=== PATIENT | female | born 1955 | race Caucasian/White ===

== ENCOUNTER 2022-06-05 11:20 | Emergency (ER) | payer OTHER ==
--- OUTSIDE RECORDS SUMMARY | 2022-06-05 11:24 | XMS REPORT | Clinical Summary ---
:1955 Author Organization [facility] MD [facility] Address [address] [place] [address] Care Team Providers Name Role Phone Rabia Mayer Unavailable Amado Diamond APN Primary Care Provider Yfn Whittaker MD Unavailable [phone] Allergies Active Allergy Reactions Severity Noted Date Comments Adhesive 05/06/2022 Blistered from clear sticky tape. No proble ms with bandaids or whi te medical tape. Codeine Nausea And Vomiting 05/26/2015 Hydrocodone Nausea And Vomiting 05/26/2015 Morphine Nausea And Vomiting 08/12/2020 Tramadol Nausea And Vomiting 05/26/2015 Medications Medication Sig Dispensed Refills Start Date End Date Status atorvastatin Take 10 mg by 0 01/27/2021 Ac tive (LIPITOR) 10 mg mouth at tablet bedtime. metoprolol Take 1 tablet 0 02/16/2022 Acti ve tartrate by mouth twice (LOPRESSOR) 50 mg daily. tablet UNABLE TO FIND Take 1 capsule 0 Active by mouth daily. Med Name: Prevagen Extra Strength aspirin 81 mg Chew 81 mg. 0 Acti ve chewable tablet tamoxifen Take 1 tablet 90 tablet 3 06/01/2022 Activ e (NOLVADEX) 20 mg (20 mg) by tabletIndications: mouth daily. 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 2 (Sto p Taking at Discharge) naproxen sodium Take 220 mg by 0 Discontinued (ALEVE) 220 MG mouth as 2 (Stop Taking at tablet needed for Discharge ) mild pain. UNABLE TO FIND Take 1 tablet 0 D iscontinued by mouth twice 2 (Stop Taking at daily. Med Discharge ) Name: Viviscal acetaminophen Take 2 tablets 40 tablet 0 05/06/2022 (TylenoL) 325 mg (650 mg) by 2 tabletIndications: mouth every 6 Ductal carcinoma (six) hours in situ, solid for 5 days. type of breast, NOS <Female; Left> ibuprofen Take 1 tablet 15 tablet 0 05/06/2022 Expir ed (ADVIL,MOTRIN) 600 (600 mg) by 2 mg mouth every 8 tabletIndications: (eight) hours Ductal carcinoma for 5 days. in situ, solid type of breast, NOS <Female; Left> nystatin Apply 30 g 0 05/06/2022 (MYCOSTATIN) topically to 2 100,000 units/g affected ointmentIndication area(s) 3 s: Ductal (three) times carcinoma in situ, a day for 7 solid type of days. breast, NOS <Female; Left> fluconazole Take 1 tablet 5 tablet 0 05/07/2022 Exp ired (Diflucan) 100 mg (100 mg) by 2 tabletIndications: mouth daily Ductal carcinoma for 5 days. 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; Left> Cancer Staging: Clinical stage from 02/22: Stage 0 (cTis (DCIS), cN0, cM0, ER+, VT+, HER2: Not Assessed) - Signed by RANDY Spencer on 03/31/2022 Pathologic stage from 05/06/2022: Stage 0 (pTis (DCIS), pN0(sn), cM0, ER+, VT+, HER2: Not Assessed) - Signed by RANDY Spencer on 05/18/2022 Encounters Date Type Specialty Care Team Description 06/01/2022 Consult Breast Medical Jerry, Nicol, Ductal c arcinoma Oncology MD in situ, solid type of breast, NOS <Female; Le ft> (Primary Dx) 06/01/2022 Office Visit Breast Surgical Kimmy Del Castillo MD Ductal c arcinoma Oncology in situ, solid type of breast, NOS <Female; Le ft> 06/01/2022 Travel 05/26/2022 Clinical Support Breast Surgical Amado Diamond, Oncology TREATING ENGINEERCris Parham RN 05/26/2022 Orders Only Breast Surgical Nina Loya, 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, solid type of breast, NOS <Female; Le ft> (Primary Dx) 05/26/2022 Travel 05/23/2022 Telephone Breast Medical Dean Box Oncology P, RN 05/23/2022 Telephone Breast Surgical Nina Loya Oncology PA 05/20/2022 Clinical Support Breast Surgical Amado Diamond, Oncology TREATING ENGINEERChirag Britton RN 05/20/2022 Travel 05/20/2022 Orders Only Breast Surgical Nina Loya, 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, solid type of breast, NOS <Female; Le ft> (Primary Dx) 05/16/2022 Telephone Breast Surgical Nina Loya, Oncology PA 05/10/2022 Telephone Breast Surgical Nina Loya, Oncology PA 05/06/2022 Anesthesia Event King Guardado MD Garcia, Miguel, BETH 05/06/2022 Surgery Kimmy Del Castillo MD TOTAL MASTE CTOMY 05/06/2022 Hospital Encounter Radiology Nina Loya PA 05/06/2022 Hospital Encounter Head and Neck Kimmy Del Castillo MD Duct al carcinoma in situ, solid type of breast, NOS <Female; Left> (Primary Dx); - Surgery pTis: Ductal ca rcinoma in situ (breast) <Left side> 05/07/2022 05/06/2022 Travel 05/05/2022 Ancillary Procedure Radiology Nina Loya PA 05/05/2022 Consult Plastic Surgery Avni, Ductal carci danis Penn MD in situ, s olid type of breast, NOS <Female; Le ft> 05/05/2022 Ancillary Procedure Radiology Nina Loya PA 05/05/2022 Ancillary Procedure Radiology Nina Loya, Ducta l carcinoma PA in situ, solid type of breast, NOS <Female; Le ft> 05/05/2022 Anesthesia Event Anesthesiology Bethanie Reilly MA 05/05/2022 Travel 05/04/2022 Consult Internal Medicine Nina Loya, Ductal carcinoma PA in situ, solid OhThony MD type of breast , NOS <Female; Le ft> 05/04/2022 POEM Appointments Anesthesiology Amado Diamond, Pre-s tanika TREATING ENGINEER evaluation 05/04/2022 Office Visit Breast Surgical Kimmy Del Castillo MD Ductal c arcinoma Oncology in situ, solid type of breast, NOS <Female; Le ft> 05/04/2022 Ancillary Procedure Radiology Nina Loya, Ducta l carcinoma PA in situ, solid type of breast, NOS <Female; Le ft> 05/04/2022 Hospital Encounter Lab Nina Loya, Ductal carcinoma PA in situ, solid type of breast, NOS <Female; Le ft> 05/04/2022 Clinical Support CovNina Vasquez, Suspecte d COVID-19 (Primary Dx); PA pTis: Ductal carcinoma in situ (breast) <Left side> Gemma Soliz, SHERRIE 05/04/2022 Travel 03/31/2022 Orders Only Breast Surgical Nina Loya, 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, solid type of breast, NOS <Female; Le ft> (Primary Dx) 03/31/2022 Orders Only Breast Surgical Nina Loya, 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, solid type of breast, NOS <Female; Le ft> (Primary Dx) 03/31/2022 Prep for Surgery Breast Surgical Nina Loya, pTis: Ductal Oncology PA carcinoma in si tu (breast) <Left side> (Primary Dx) 03/14/2022 Consult Breast Surgical Kimmy Del Castillo MD pTis: Du ctal Oncology carcinoma in si tu (breast) <Left side> 03/14/2022 Travel 03/09/2022 Telephone Breast Undiagnosed Amado Diamond APN 03/04/2022 Hospital Encounter Radiology Mammograp hy abnormal 03/04/2022 Travel 02/24/2022 Ancillary Procedure Radiology Amado Diamond, Dolores morales TREATING ENGINEER 02/24/2022 Ancillary Procedure Radiology Amado Diamond L, Cance r TREATING ENGINEER 02/24/2022 Ancillary Procedure Radiology Amado Diamond, Cance r TREATING ENGINEER 02/24/2022 Ancillary Procedure Radiology Amado Diamond L, Cance r TREATING ENGINEER 02/24/2022 Ancillary Procedure Radiology Amado Diamond L, Cance r TREATING ENGINEER 02/24/2022 Ancillary Procedure Radiology Amado Diamond, Cance r TREATING ENGINEER 02/24/2022 Ancillary Procedure Radiology Amado Diamond L, Cance r TREATING ENGINEER 02/24/2022 Ancillary Procedure Radiology Amado Diamond, Cance r TREATING ENGINEER 02/24/2022 Ancillary Procedure Radiology Amado Diamond, Cance r TREATING ENGINEER 02/24/2022 Ancillary Procedure Radiology Amado Diamond, Cance r TREATING ENGINEER 02/24/2022 Ancillary Procedure Radiology Amado Diamond, Cance r TREATING ENGINEER 02/24/2022 Ancillary Procedure Radiology Amado Diamond, Cance r TREATING ENGINEER 02/24/2022 Telephone Radiology Hollis Bustillos RN 02/23/2022 Orders Only Cancer Prevention Amado Diamond, TREATING ENGINEER 02/22/2022 Ancillary Procedure Radiology Amado Diamond, Cance r TREATING ENGINEER 02/22/2022 Clinical Support Breast Undiagnosed Amado Diamond, TREATING ENGINEER 02/22/2022 Hospital Encounter Radiology Yamileth Figueroa, Other abnormal and SIGN LANGUAGE INTERPRETER inconclusive findings on diagnostic imag ing of breast 02/22/2022 Hospital Encounter Radiology Alonzo Figueroai, Other abnormal and SIGN LANGUAGE INTERPRETER inconclusive findings on diagnostic imag ing of breast 02/22/2022 Office Visit Breast Undiagnosed Amado Diamond, Mammog gin TREATING ENGINEER abnormal (Prima ry Dx) 02/22/2022 [facility] Patient Access Services 02/22/2022 Travel 02/11/2022 Orders Only Cancer Prevention Yamileth Figueroa, Other a bnormal and SIGN LANGUAGE INTERPRETER inconclusive findings on diagnostic imag ing of breast (Prim pierce Dx) after 06/05/2021 Immunizations Name Administration Dates Next Due Influenza, Quadrivalent 07/17/2020, 07/31/2019 Moderna SARS-CoV-2 Vaccination 08/06/2021, 12/25/2020, 11/27 Surgical History Surgery Date Site/Laterality Comments TOTAL KNEE ARTHROPLASTY Right TOTAL ABDOMINAL HYSTERECTOMY 09/25/2001 - W/ BILATERAL 09/24/2002 SALPINGOOPHORECTOMY BREAST CYST ASPIRATION 09/25/2020 - Right 09/24/2021 COLONOSCOPY 09/25/2017 - benign polyps 09/24/2018 CRYOTHERAPY abnormal pap sme ar in 1986 - no furthe r problems with ab normal pap smears VT MASTECTOMY, SIMPLE, 05/06/2022 Breast/Left Procedure : TOTAL COMPLETE MASTECTOMY; Surg camilla: Kimmy Del Castillo MD; Location: MAIN [facility] R; Service: BREAST VT INTRAOPERATIVE SENTINEL 05/06/2022 Left Proce dure: LYMPH NODE ID W DYE INJECTION IN TRAOPERATIVE LYMPHATIC MAPPING; Surgeon : Kimmy Del Castillo MD; Location: MAIN O [facility]; Service: BREAST VT BX/REMV,LYMPH NODE,DEEP 05/06/2022 Axilla/Left Proce dure: SENTINEL NODE AXILL BIOPSY - AXILLA; Surgeon: Kimmy Del Castillo MD; Location: [facility] IN OR; Service: BREAST Medical History Medical History Date Comments Essential tremor bilateral hand Essential (primary) hypertension Family History Medical History Relation Name Comments Breast cancer Mother mastectomy at ag e 50 Relation Name Status Comments Mother Social History Tobacco Use Types Packs/Day Years Used Date Never Smoker Smokeless Tobacco: Never Used Alcohol Use Standard Drinks/Week Comments Yes 0 (1 standard drink = 0.6 oz pure alcoho l) glass of wine once a month Alcohol Habits Answer Date Recorded How often do you have a drink containing Not asked alcohol? How many drinks containing alcohol do you Not asked have on a typical day when you are drinking? How often do you have six or more drinks on Not asked one occasion? Comment: glass of wine once a month 02/22/2022 Sex Assigned at Date Recorded Not on file Job Start Date Occupation Industry Not on file Not on file Not on file COVID-19 Exposure Response Date Recorded In the last 10 days, have you been in contact with No / Unsu re 06/01/2022 8:36 AM CDT someone who was confirmed or suspected to have Coronavirus/COVID-19? Obstetrics History Para Term AB IAB SAB Ectopic Multiple Living Live Births 0 0 0 0 0 0 0 0 0 0 0 Comments Menarche 11 or 14 OBC yes Hormonal Therapy yes after hyste rectomy - 1 year Last Pap remote Abnormal Pap yes; CRYO Last Gisella 01/28/2022 (OS) Last Colon 2018 benign polyps (OS) Breast Bx none TAHBSO @ 44yrs old Last Filed Vital Signs Vital Sign Reading Time Taken Comments Blood Pressure 136/79 06/01/2022 9:37 AM CDT Pulse 66 06/01/2022 9:37 AM CDT Temperature 36.5 C (97.7 F) 06/01/2022 9:37 AM CDT Respiratory Rate 18 06/01/2022 9:37 AM CDT Oxygen Saturation 97% 06/01/2022 9:37 AM CDT Inhaled Oxygen Concentration - - Weight 134.4 kg (296 lb 4.8 oz) 05/26/2022 10:18 AM CDT Height 166 cm (5' 5.35") 05/05/2022 1:40 PM CDT Body Mass Index 48.77 05/05/2022 1:40 PM CDT Plan of Treatment Date Type Specialty Care Team Description 11/30/2022 Office Visit Breast Medical Oncology Nicol Edwards MD [address], [place] [address] (Wo rk) Health Maintenance Due Date Last Done Comments COVID-19 Vaccination (4 - Booster 11/06/2021 08/06/2021, , for Moderna series) 11/27/2020 Medical Devices Implanted Type Area Wastewater Engineer Device Shelf Model / Identifier Expiration Date Ser ial / Lot Right Knee Right: Replacement Knee Procedures Procedure Name Priority Date/Time Associated Comments Diagnosis POC GLUCOSE SCREEN Routine 05/06/2022 8:22 PM Res ults for this CDT procedure are i n the results section. PATHOLOGY SURGICAL Routine 05/06/2022 2:50 PM pTis: Ductal Res ults for this INTERPRETATION CDT carcinoma in situ procedur e are in (breast) <Left the results side> section. SENTINEL NODE BIOPSY - 05/06/2022 1:22 PM pTis: Ductal AXILLA CDT carcinoma in situ (breast) <Left side> Special Needs AA@1000MAIN OR BMILYMPHO INTRAOPERATIVE LYMPHATIC MAPPING 05/06/2022 1:22 PM CDT pTis: Ductal carcinoma in situ (breast) <Left side> Special Needs AA@1000MAIN OR BMILYMPHO TOTAL MASTECTOMY 05/06/2022 1:22 PM CDT pTis: Du ctal carcinoma in situ (breast) <Left side> Special Needs AA@1000MAIN OR BMILYMPHO POC GLUCOSE SCREEN Routine 05/06/2022 11:26 Resul ts for this AM CDT procedure are i n the results section. BREAST SPECIMEN Routine 05/06/2022 11:16 Results for this RADIOGRAPH AM CDT procedure are i n the results section. NM LYMPHOSCINTIGRAPHY Routine 05/05/2022 1:19 Ductal carcinoma in Results for this BREAST SULFUR COLLOID PM CDT situ, solid type of procedure are in breast, NOS the results <Female; Left> section. XR CHEST 2 VW Routine 05/04/2022 9:46 Ductal carcinoma in Resu lts for this AM CDT situ, solid type of procedur e are in breast, NOS the results <Female; Left> section. FRACTIONATED BILIRUBIN Routine 05/04/2022 9:19 Ductal carcinom a in Results for this AM CDT situ, solid type of procedur e are in breast, NOS the results <Female; Left> section. TOTAL PROTEIN Routine 05/04/2022 9:19 Ductal carcinoma in Resu lts for this AM CDT situ, solid type of procedur e are in breast, NOS the results <Female; Left> section. ASPARTATE Routine 05/04/2022 9:19 Ductal carcinoma in Resul ts for this AMINOTRANSFERASE AM CDT situ, solid type of proc edure are in breast, NOS the results <Female; Left> section. ALANINE AMINOTRANSFERASE Routine 05/04/2022 9:19 Ductal carcin heath in Results for this AM CDT situ, solid type of procedur e are in breast, NOS the results <Female; Left> section. ALKALINE PHOSPHATASE Routine 05/04/2022 9:19 Ductal carcinoma in Results for this AM CDT situ, solid type of procedur e are in breast, NOS the results <Female; Left> section. ALBUMIN LEVEL Routine 05/04/2022 9:19 Ductal carcinoma in Resu lts for this AM CDT situ, solid type of procedur e are in breast, NOS the results <Female; Left> section. CALCIUM LEVEL TOTAL Routine 05/04/2022 9:19 Ductal carcinoma i n Results for this AM CDT situ, solid type of procedur e are in breast, NOS the results <Female; Left> section. .GLOMERULAR FILTRATION Routine 05/04/2022 9:19 Ductal carcinom a in Results for this RATE AM CDT situ, solid type of procedur e are in breast, NOS the results <Female; Left> section. SERUM CREATININE Routine 05/04/2022 9:19 Ductal carcinoma in R esults for this AM CDT situ, solid type of procedur e are in breast, NOS the results <Female; Left> section. ELECTROLYTE PANEL Routine 05/04/2022 9:19 Ductal carcinoma in Results for this AM CDT situ, solid type of procedur e are in breast, NOS the results <Female; Left> section. BLOOD UREA NITROGEN Routine 05/04/2022 9:19 Ductal carcinoma i n Results for this AM CDT situ, solid type of procedur e are in breast, NOS the results <Female; Left> section. GLUCOSE LEVEL Routine 05/04/2022 9:19 Ductal carcinoma in Resu lts for this AM CDT situ, solid type of procedur e are in breast, NOS the results <Female; Left> section. MANUAL DIFFERENTIAL Routine 05/04/2022 9:19 Ductal carcinoma i n Results for this AM CDT situ, solid type of procedur e are in breast, NOS the results <Female; Left> section. Results CBC Routine 05/04/2022 9:19 Ductal carcinoma in Resul ts for this AM CDT situ, solid type of procedur e are in breast, NOS the results <Female; Left> section. APTT Routine 05/04/2022 9:19 Ductal carcinoma in Resul ts for this AM CDT situ, solid type of procedur e are in breast, NOS the results <Female; Left> section. PROTHROMBIN TIME Routine 05/04/2022 9:19 Ductal carcinoma in R esults for this AM CDT situ, solid type of procedur e are in breast, NOS the results <Female; Left> section. HEMOGLOBIN A1C Routine 05/04/2022 9:19 Ductal carcinoma in Res ults for this AM CDT situ, solid type of procedur e are in breast, NOS the results <Female; Left> section. COMPREHENSIVE METABOLIC Routine 05/04/2022 9:19 Ductal carcino ma in PANEL AM CDT situ, solid type of breast, NOS <Female; Left> COMPLETE BLOOD COUNT W/ Routine 05/04/2022 9:19 Ductal carcino ma in DIFFERENTIAL AM CDT situ, solid type of breast, NOS <Female; Left> COVID-19 (SARS-COV-2) Routine 05/04/2022 7:20 Suspected COV ID-19 Results for this PCR ASYMPTOMATIC AM CDT procedure a re in the results section. 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 PATHOLOGY BIOPSY Routine 03/04/2022 9:31 Mammography Results for this INTERPRETATION AM CDT abnormal procedure are in the results section. US CHEST Routine 02/22/2022 1:53 Other abnormal and Result s for this PM CDT inconclusive procedure are i n findings on the results diagnostic imaging section. of breast US BREAST COMPLETE LEFT Routine 02/22/2022 1:53 Other abnormal and Results for this PM CDT inconclusive procedure are i n findings on the results diagnostic imaging section. of breast MAMMO DIGITAL DIAGNOSTIC Routine 02/22/2022 1:01 Other abnorma l and Results for this BILATERAL PM CDT inconclusive procedure are i n findings on the results diagnostic imaging section. of breast OSI MAMMO BILATERAL Routine 01/28/2022 10:03 Cancer Resu lts for this AM CDT procedure are i n the results section. after 06/05/2021 Results (ABNORMAL) POC Glucose Screen (05/06/2022 8:22 PM CDT)Only the most recent of2 resultswithin the time period is included. athologist Signature POC Glucose 130 (H) 70 - 99 POC [facility] mg/dL Comment: Capillary blood samples, e.g. obtained b y fingerstick, may have inaccurate results in patients with decreased peripheral blood flow. Method description: All results are nessa ured using Electrochemistry test methodology. The glucose in the sample mixes with the reagents on the test strip. The reaction produces an electric current. The amount of current produced is proportion al to the glucose concentration in the blood. PO Sample Type Capillary POC [facility] Performing Lab [facility] POC [facility] Comment: [facility], [address], [place] [address]; Lab Direct or: Becky Harris MD Specimen Anatomical Collection Method Collection Time Receive d Time (Source) Location / / Volume Laterality Blood 05/06/2022 8:22 PM 8:22 CDT PM CDT Kimmy Del Castillo MD POCT ORDERABLES - DEVICE Performing Organization Address City/State/ZIP Code Phon e Number POC [facility] Pathology Surgical Interpretation (05/06/2022 2:50 PM CDT) Component Value Ref Test Analysis Performed Pathologis t Range Method Time At Signature Addendum 1 Additional sections of beena ns from specimen A (A23 and A24) are reviewed. The original diagnosis is unchanged. [facility] Addendum 2:57 PM electronic ally CDT signed by Sp Cobian MD on Specimen Identification 05/16/2022 at Procedure: Total mastectomy 2:57 PM Specimen Laterality: Left In Situ Carcinoma Estimated Size (extent) of DCIS: 60 mm Histologic Type: Ductal carcinoma in situ Architectural Patterns: Solid Nuclear Grade: 2 Necrosis: Present Tumor Extension Nipple: Negative Margins: At least 3 mm from the inferior superficial margin, and more than 1 cm from other margins in A; additional inferior margin (E) is negative Regional Lymph Nodes: Uninvolved by tumor cells Number of Lymph Nodes Examined: 11 Number of Ackerly Nodes Examined: 8 Treatment Effect: No known presurgical therapy Pathologic Stage Classification (pTNM, AJCC 8th Edition) Primary Tumor (pT): pTis (DCIS) Regional Lymph Nodes (pN): pN0 Distant Metastasis (pM): N/A Ancillary Studies: See previous case Submitted pTis: Ductal 05/16/2022 [facility] Clinical History carcinoma in situ 2:57 PM (breast) <Left CDT side> [D05.12] Diagnosis A: Left breast total mastectomy: [facility] Electronically DUCTAL CARCINOMA IN SITU (DC IS), INTERMEDIATE GRADE, SOLID TYPE WITH CENTRAL NECROSIS AND MICROCALCIFICATIONS. 2:57 PM signed by Sp DCIS involves an area of approximately 6 cm in the inferior breast. CDT MD Mango on DCIS is present at least 3 m m from the inferior superficial margin, and more than 1 cm from other margins on submitted sections. 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 6:23 PM Nipple, no tumor present. Three lateral lymph nodes, no tumor present. B: Left axillary sentinel lymph node #1: One lymph node, no tumor present. C: Left axillary sentinel lymph node #2: Seven lymph nodes, no tumor present. D: Left breast skin medial: Skin and subcutaneous fibroadipose tissue with seborrheic ke ratosis. E: Left breast additional inferior margin: Fibroadipose tissue, no tumor present. Comment Additional 05/16/2022 [facility] sections of 2:57 PM margins from the CDT lateral portion of the specimen are pending. Gross A: 05/16/2022 [facility] Description Breast, left, or 18 - left b reast total mastectomy (double stitch = 12 o'clock) (double long stitch: 6 o'clock) single stitch lateral - x-ray immediate processing: A total mastectomy specimen measuring 2:57 PM 27 cm from superior to infer ior, 25 cm from medial to lateral and 4 cm from anterior to posterior. The specimen weighs 1330 g. The specimen is surfaced by 22 x 16 cm ellipse of dark goins skin with a cent CDT ral everted nipple 1.5 cm in the surrounding 5.7 cm areola. There is one tattoo on the skin. The breast is serially sect ioned from medial to lateral into 12 slices and is radiographed. There is a 3.2 x 2.4 x 2.0 cm area of fibrosis and calcifications identified in the inferior aspect of slices 5-7. This area contains a m arker clip and is 0.1 cm from the inferior margin, 2.4 cm from the posterior margin and 15.5 cm from the superior margin. The remaining breast is com posed of approximately 10% fibrous tissue with multiple cysts identified. There are three lateral lymph nodes identified ranging from 0.3 to 1.0 cm. INK CODE: Blue-superior mar gin, orange-inferior margin, black-posterior margin. SECTION CODE: A1, upper inn er quadrant slice two; A2, sections adjacent to calcifications slice four; A3, calcification with inferior margin slice five; A4, additional circled area slice five; A5, supe rior margin slice six; A6, s uperior dense fibrous tissue slice six; A7, clip site with inferior margin slice six; A8-A9, additional circled area slice six; A10, posterior margin slice six; A11, nipple; A12, nipple base; A13, dense tissue slice 7; A14, inferior margin slice seven; A15, remaining calcification slice seven; A16, section adjacent to calcification slice eight; A17, upper outer quadrant sli ce 10; A18, lower outer quad rant slice 10; A19, upper outer quadrant slice slice 11; A20, lower outer quadrant slice 11; A21, two lymph nodes; A22, one lymph node trisected. BM A23, inferior margin slice 11; A24, closest lateral margin slice 12. Time in formalin to follow. B: Axilla, left, or 18 - left a xilla sln # 1 hot & blue exvivo counts :208 - permanent: Consists of a segment of goins-yellow fatty soft tissue with possible lymph node measuring 3.2 x 2.0 x 1.2 cm. Spec imen is sectioned and palpat ed to reveal a single possible lymph node measuring 2.0 cm in greatest dimension. The possible node serially sectioned and submitted entirely. SECTION CODE: B1-B4, 1 poss ible lymph node serially sectioned and submitted entirely. Time in formalin is 3:20 PM on 05/06/2022 DF C: Axilla, left, or 18 - left a xilla sln # 2 hot & blue exvivo counts :56 - permanent: Consists of multiple segments of goins-yellow fatty soft tissue with possible lymph nodes aggregating to 3.5 x 3.0 x 0.6 cm. Multiple possible l ymph nodes are grossly palpated measuring range from 0.3-1.1 cm. Specimen is submitted entirely. SECTION CODE: C1, 4 possibl e lymph nodes intact; C2, 1 possible node bisected; C3, remaining fatty soft tissue entirely. Time in formalin is 3:20 PM on 05/06/2022 DF D: Skin, left breast, or 18 - l eft breast skin medial - stitch = medial - permanent: Consists of an oriented segment of goins-white skin with underlying goins-yellow fibrofatty soft tissue consistent with melecio st parenchyma measuring 10.0 x 3.0 x 1.2 cm. The skin surface is grossly unremarkable. A suture is identified and designated as medial per the surgeon. Specimen is serially sectioned to reveal a goins-yel low fibrofatty unremarkable cut surface. No lesions or areas of concern are grossly identified. [employer] sections are submitted in cassettes D1-D3. Time in formalin is 3:20 PM on 05/06/2022 DF E: Breast, left, left breast ad ditional inferior margin, clips hurley true margin: Consists of an oriented segment of goins-yellow fibrofatty soft tissue measuring 11.5 x 5.4 x 1.0 cm. Multiple surgical clips are identified on one aspec t and are designated as the true margin per the surgeon. The true margin is inked black. Specimen is serially sectioned to reveal a goins-yellow fibrofatty cut surface with no distinct lesion readily iden tified. [employer] sections are submitted in cassettes E1-E6. Time in formalin is not docu mented. The specimen is put in formalin on 05/06/2022 DF Intraoperative A: 05/16/2022 [facility] Evaluation Breast, left, or 18 - left b reast total mastectomy (double stitch = 12 o'clock) (double long stitch: 6 o'clock) single stitch lateral - x-ray immediate processin:57 PM One clip is identified. Calc ification focally present close to the inferior margin. CDT LH/FLZ Biomarker A8 05/16/2022 [facility] Block(s) 2:57 PM CDT Disclaimer "Some tests 05/16/2022 [facility] reported here may 2:57 PM have been CDT developed and performance characteristics determined by [facility] Pathology and Laboratory Medicine. These tests have not been specifically cleared or approved by the U.S. Food and Drug Administration. If applicable, controls were reviewed and showed appropriate reactivity." Specimen Anatomical Collection Method Collection Time Receive d Time (Source) Location / / Volume Laterality Tissue (Breast, 05/06/2022 2:50 PM 2021 3:05 Left) CDT PM CDT Tissue (Axilla, 05/06/2022 3:06 PM 2021 3:23 Left) CDT PM CDT Tissue (Axilla, 05/06/2022 3:08 PM 2021 3:23 Left) CDT PM CDT Tissue (Skin, 05/06/2022 3:09 PM 05/06/20 22 3:23 Left Breast) CDT PM CDT Tissue (Breast, 05/06/2022 4:02 PM 2021 2:06 Left) CDT PM CDT Kimmy Del Castillo MD LAB PATHOLOGY ORDERABLES Performing Organization Address City/State/ZIP Code Phon e Number [facility] [place] [address] [address] Breast Specimen Radiograph (Left) (05/06/2022 11:16 AM CDT) Anatomical Region Laterality Modality Breast N/A Digital Radiography Specimen (Source) Anatomical Collection Method Collection Time Re ceived Time Location / / Volume Laterality 05/06/2022 3:40 PM CDT Impressions 05/06/2022 3:40 PM CDT As discussed above, the specimen radiographs confirm the surgical removal of the localized lesion (s). Narrative 05/06/2022 3:40 PM CDT Examination: Specimen Radiograph Left 05/06/2022. Indication: Breast Cancer Technique: Left breast specimen submitte d for review. There is a total of 6 radiographic images. The en bloc specime n is imaged on the first radiographic image. There are 3 sliced specimens o n the second radiographic image. There are 3 sliced specimens on the third radi ographic image. There are 2 sliced specimens on the fourth radiographic gage te. There are 2 sliced specimens on the fifth radiographic plate. Findings: Findings were electronically a nnotated and discussed with the pathologist Dr. Cobian at the time of this dictation. Procedure Note Trixie Dowell MD - 05/06/2022Formattin g of this note might be different from the original. Examination: Specimen Radiograph Left . Indication: Breast Cancer Technique: Left breast specimen submitte d for review. There is a total of 6 radiographic images. The en bloc specime n is imaged on the first radiographic image. There are 3 sliced specimens on t he second radiographic image. There are 3 sliced specimens on the third radi ographic image. There are 2 sliced specimens on the fourth radiographic gage te. There are 2 sliced specimens on the fifth radiographic plate. Findings: Findings were electronically a nnotated and discussed with the pathologist Dr. Cobian at the time of this dictation. IMPRESSION: As discussed above, the specimen radiogr aphs confirm the surgical removal of the localized lesion (s). Nina AMADOR MAMMOGRAPHY ORDERABLES NM Lymphoscintigraphy Breast (05/05/2022 1:19 PM CDT) Anatomical Region Laterality Modality Abdomen Nuclear Medicine Specimen (Source) Anatomical Collection Method Collection Time Re ceived Time Location / / Volume Laterality 05/05/2022 1:23 PM CDT Impressions 05/05/2022 1:24 PM CDT Left axilla sentinel node Narrative 05/05/2022 1:24 PM CDT FULL RESULT: Examination: Lymphoscintigraphy, 05/05/20 1:19 PM Clinical History: 66-year-old female wit h breast cancer Indication: Lymphatic mapping for sentin el lymph node localization. Comparison: None. Technique: The patient was injected with 2.7 mCi of filtered technetium-99m sulfur colloid in left breast in subareolar region. Transmission images of the chest were obtained. Findings: On images obtained approximate ly 90 minutes after injection there is visualization of activity in the left axilla Procedure Note Jesus Manuel Jarrett MD - 05/05/2022Format ting of this note might be different from the original. FULL RESULT: Examination: Lymphoscintigraphy, 05/05/20 1:19 PM Clinical History: 66-year-old female wit h breast cancer Indication: Lymphatic mapping for sentin el lymph node localization. Comparison: None. Technique: The patient was injected with 2.7 mCi of filtered technetium-99m sulfur colloid in left breast in subareolar region. Transmission images of the chest were obtained. Findings: On images obtained approximate ly 90 minutes after injection there is visualization of activity in the left axilla IMPRESSION: Left axilla sentinel node Nina AMADOR NM ORDERABLES X-ray Chest 2 Views (05/04/2022 9:46 AM CDT) Anatomical Region Laterality Modality Chest Digital Radiography Specimen (Source) Anatomical Collection Method Collection Time Re ceived Time Location / / Volume Laterality 05/04/2022 9:50 AM CDT Impressions 05/04/2022 9:51 AM CDT No acute cardiac or pulmonary abnormality is detected. There are no radiographic findings of intrathoracic malignancy. Narrative 05/04/2022 9:51 AM CDT FULL RESULT: Examination: XR CHEST 2 VW, 05/04/2022 9: 46 AM. 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 Indication: Preoperative assessment. Comparison: None. Technique: Posteroanterior, lateral and dual-energy radiographs of the chest. Findings: 1. There are no focal abnormal pulmona ry opacities suspicious for acute infection or malignancy. There are minimal linear opacities in mid aspect of the left lung consistent with scarring. 2. The mediastinal contours and cardia c silhouette are normal. Procedure Note Balaji Robledo MD - 05/04/2022Formatti ng of this note might be different from the original. FULL RESULT: Examination: XR CHEST 2 VW, 05/04/2022 9: 46 AM. 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 Indication: Preoperative assessment. Comparison: None. Technique: Posteroanterior, lateral and dual-energy radiographs of the chest. Findings: 1. There are no focal abnormal pulmonary opacities suspicious for acute infection or malignancy. There are minimal linear opacities in mid aspect of the left lung consistent with scarring. 2. The mediastinal contours and cardiac silhouette are normal. IMPRESSION: No acute cardiac or pulmonary abnormalit y is detected. There are no radiographic findings of intrathoracic malignancy. Nina PADILLA IMG DIAGNOSTIC IMAGING ORDER [place] .Serum Creatinine (05/04/2022 9:19 AM CDT) P athologist Signature Creatinine 0.87 0.51 - 0.95 [facility] mg/dL Comment: Testing Performed at [facility] Lab [facility], [address], [address], [place] [address] Specimen Anatomical Collection Method Collection Time Receive d Time (Source) Location / / Volume Laterality Blood 05/04/2022 9:19 AM 9:35 CDT AM CDT Nina PADILLA LAB BLOOD ORDERABLES Performing Organization Address City/State/ZIP Code Phon e Number [facility] [address] [place] [address] [address] .CBC (05/04/2022 9:19 AM CDT) P athologist Signature WBC 10.8 4.0 - 11.0 [facility] K/uL RBC 5.06 4.00 - 5.50 [facility] M/uL Hgb 14.5 12.0 - 16.0 [facility] gm/dL Comment: As part of CBC or as an individ ual orderable testing performed at [facility], [address] [place] [address] , [address], [place] [phone] Hct 45.4 37.0 - 47.0 % [facility] Comment: As part of CBC or as an individ ual orderable testing performed at [facility], [address] [place] [address] , [address], [place] [address] MCV 90 82 - [address] [facility] MCH 28.7 27.0 - 31.[address] [facility] MCHC 31.9 31.0 - 36.0 gm/dL [facility] RDW-SD 41.7 35.1 - 46.[address] [facility] RDW-CV 12.8 12.0 - 15.5 % [facility] Platelet count 244 140 - 440 K/uL [facility] Comment: As part of CBC or as an individ ual orderable testing performed at [facility], [address] [place] [address] , [address], [place] [phone] MPV 8.9 4.0 - 10.[address] [facility] INRBC 0.0 <=0.0 % [facility] Comment: The INRBC (instrument NRBC) value reflec ts the enumeration of nucleated red blood cells contained i n a 200uL sample of whole blood analyzed by the instrumen t. This value may differ from the NRBC value reported in a manual differential, which is based on a 100 cell differentia l. As part of CBC testing performed at [address], [address], [place] [address] Specimen Anatomical Collection Method Collection Time Receive d Time (Source) Location / / Volume Laterality Blood 05/04/2022 9:19 AM 9:28 CDT AM CDT Nina PADILLA LAB BLOOD ORDERABLES Performing Organization Address City/State/ZIP Code Phon e Number [facility] [address] [facility] [place] [address] [address] Glomerular Filtration Rate (05/04/2022 9:19 AM CDT) athologist Signature eGFR-AA 81 >=60 [facility] mL/min/1.73 sq. m Comment: Normal eGFR >= 60 mL/min/1.73 m2 Note: The eGFR is calculated using the C KD-EPI equation. The eGFR declines with age. eGFR <60 mL/min/1.73 m2 is considered as "decreased". This equation should only be used for patients 18 and older. According to the National Kidney [employer] ion's Kidney Disease Outcome Quality Initiative (KDOQI) classification and 2012 Kidney Disease Improving Global Outcomes (KDIGO) Clinical Practice Guideline, the stage of CKD should be categorized based on estimated GFR. Stage Description GFR mL/min/1. 73 m2 1 Normal or high GFR >=90 2 Mildly decreased GFR 60-89 3a Mildly to moderately decreased GFR 45-59 3b Moderately to severely decreased GFR 30-44 4 Severely decreased GFR 15-29 5 Kidney failure <15 Testing Performed at [facility], [address], [address], [place] [address] eGFR-RADHA 71 >=60 mL/min/1.73 sq. m [facility] Comment: Normal eGFR >= 60 mL/min/1.73 m2 Note: The eGFR is calculated using the C KD-EPI equation. The eGFR declines with age. eGFR <60 mL/min/1.73 m2 is considered as "decreased". This equation should only be used for patients 18 and older. According to the National Kid[employer] Found[employer] ion's Kidney Disease Outcome Quality Initiative (KDOQI) classification and 2012 Kidney Disease Improving Global Outcomes (KDIGO) Clinical Practice Guideline, the stage of CKD should be categorized based on estimated GFR. Stage Description GFR mL/min/1. 73 m2 1 Normal or high GFR >=90 2 Mildly decreased GFR 60-89 3a Mildly to moderately decreased GFR 45-59 3b Moderately to severely decreased GFR 30-44 4 Severely decreased GFR 15-29 5 Kidney failure <15 Testing Performed at [facility], [address], [address], [place] [address] Specimen Anatomical Collection Method Collection Time Receive d Time (Source) Location / / Volume Laterality Blood 05/04/2022 9:19 AM 2 9:35 CDT AM CDT Nina PADILLA LAB BLOOD ORDERABLES Performing Organization Address City/[facility]/ZIP [facility] Phon e Number [facility] [address] [place] [address] [address] Fractionated Bilirubin (05/04/2022 9:19 AM CDT) athologist Signature Bili Total 0.3 <=1.2 mg/dL [facility] Comment: Indocyanine Green (ICG) may cause falsel y elevated bilirubin results. Total and direct bilirubin must not be measured from samples containing indocyanine green. False elevation of total bilirubin can b e seen in patients with IgG concentrations above 28 g/L. Testing Performed at [facility], [address], [address], [place] [address] Bili Direct <0.2 <=0.3 mg/dL [facility] Comment: Indocyanine Green (ICG) may cause falsel y elevated bilirubin results. Total and direct bilirubin must not be measured from samples containing indocyanine green. Testing Performed at [facility], [facility], [address], [place] [address] Bili Indirect See Note 0.0 - 0.9 mg/dL [facility] Comment: Unable to calculate Indirect Bilirubin r esult due to some parameters are outside reportable range Testing Performed at [facility], [address] [place] [address], [address], [place] [address] Specimen Anatomical Collection Method Collection Time Receive d Time (Source) Location / / Volume Laterality Blood 05/04/2022 9:19 AM 2 9:35 CDT AM CDT Nina PADILLA LAB BLOOD ORDERABLES Performing Organization Address City/[facility]/ZIP Code Phon e Number [facility] [address] [place] [address] [address] Partial Thromboplastin Time (05/04/2022 9:19 AM CDT) athologist Signature aPTT 27.5 22.8 - 34.2 [facility] second(s) Comment: Testing Performed at [address], [address] [place] [phone] Specimen Anatomical Collection Method Collection Time Receive d Time (Source) Location / / Volume Laterality Blood 05/04/2022 9:19 AM 9:28 CDT AM CDT Narrative [facility] - 05/04/2022 10:14 AM CDT This lab cannot be scheduled at the foll critical access hospital locations due to collection/proccessing restrictions: [facility] and [facility]. Nina PADILLA LAB BLOOD ORDERABLES Performing Organization Address City/State/ZIP Code Phon e Number [address] [place] [address] [address] (ABNORMAL) Differential (05/04/2022 9:19 AM CDT) athologist Signature Neutrophil % 57.1 42.0 - 66.0 [facility] % Comment: As part of Differential perform ed at [facility], [address] [place] [address], [address], [place], [place] [phone] Lymphocyte % 35.3 24.0 - 44.0 % [facility] Monocyte % 6.3 2.0 - 7.0 % [facility] Eosinophil % 0.7 (L) 1.0 - 4.0 % [facility] Basophil % 0.2 0.0 - 1.0 % [facility] IGRE % 0.4 0.0 - 0.4 % [facility] Comment: IGRE % count includes Metamyelocytes, My elocytes, and Promyelocytes. As part of Differential performed at [facility], [address] [place] [address], [address], [place] [phone] Neutrophil Abs 6.15 1.70 - 7.30 K/uL [facility] Lymphocyte Abs 3.81 1.00 - 4.80 K/uL [facility] Monocyte Abs 0.68 0.08 - 0.70 K/uL [facility] Eosinophil Abs 0.08 0.04 - 0.40 K/uL [facility] Basophil Abs 0.02 0.00 - 0.10 K/uL [facility] IG Abs 0.04 0.00 - 0.04 K/uL [facility] Specimen Anatomical Collection Method Collection Time Receive d Time (Source) Location / / Volume Laterality Blood 05/04/2022 9:19 AM 2 9:28 CDT AM CDT Nina PADILLA LAB BLOOD ORDERABLES Performing Organization Address City/State/ZIP Code Phon e Number [facility] [address] [place] [address] [address] Prothrombin Time with INR (05/04/2022 9:19 AM CDT) athologist Signature PT 12.1 11.9 - 14.1 [facility] second(s) Comment: Testing Performed at [facility] [address] [facility] [place] [phone] INR 0.93 0.89 - 1.10 [facility] Comment: Testing Performed at [facility] [address] [facility] [place] [phone] Specimen Anatomical Collection Method Collection Time Receive d Time (Source) Location / / Volume Laterality Blood 05/04/2022 9:19 AM 2 9:[address] [facility] - 05/04/2022 10:14 AM CDT This lab cannot be scheduled at the the [facility] locations due to collection/proccessing restrictions: [facility] and [facility]. Nina PADILLA LAB BLOOD ORDERABLES Performing Organization Address City/[facility]/ZIP Code Phon e Number [facility] [address] [place] [address] [address] BUN (05/04/2022 9:19 AM CDT) athologist Signature BUN 23 6 - 23 mg/dL [facility] Comment: Testing Performed at [facility], [address], [address], [place] [address] Specimen Anatomical Collection Method Collection Time Receive d Time (Source) Location / / Volume Laterality Blood 05/04/2022 9:19 AM 2 9:35 CDT AM CDT Nina PADILLA LAB BLOOD ORDERABLES Performing Organization Address City/State/ZIP Code Phon e Number [facility] [address] [place] [address] [address] ALT (05/04/2022 9:19 AM CDT) P athologist Signature ALT 20 <=33 U/L [facility] Comment: Testing Performed at [facility], [address], [address], [place] [address] Specimen Anatomical Collection Method Collection Time Receive d Time (Source) Location / / Volume Laterality Blood 05/04/2022 9:19 AM 2 9:35 CDT AM CDT Nina PADILLA LAB BLOOD ORDERABLES Performing Organization Address City/State/ZIP Code Phon e Number [facility] [address] [place] [address] [address] Aspartate Aminotransferase (05/04/2022 9:19 AM CDT) athologist Signature AST 18 <=32 U/L [facility] Comment: Testing Performed at [facility], [address], [address], [place] [address] Specimen Anatomical Collection Method Collection Time Receive d Time (Source) Location / / Volume Laterality Blood 05/04/2022 9:19 AM 2 9:35 CDT AM CDT Nina PADILLA LAB BLOOD ORDERABLES Performing Organization Address City/[facility]/ZIP Code Phon e Number [facility] [address] [place] [address] [address] Total Protein (05/04/2022 9:19 AM CDT) athologist Signature Total Protein 7.4 6.4 - 8.3 [facility] g/dL Comment: Testing Performed at [facility], [address], [address], [place] [address] Specimen Anatomical Collection Method Collection Time Receive d Time (Source) Location / / Volume Laterality Blood 05/04/2022 9:19 AM 2 9:35 CDT AM CDT Nina PADILLA LAB BLOOD ORDERABLES Performing Organization Address City/[facility]/ZIP Code Phon e Number [facility] [address] [place] [address] [address] (ABNORMAL) Alkaline Phosphatase (05/04/2022 9:19 AM CDT) athologist Signature Alk Phos 119 (H) 35 - 104 [facility] U/L Comment: Testing Performed at [facility], [address], [address], [place] [address] Specimen Anatomical Collection Method Collection Time Receive d Time (Source) Location / / Volume Laterality Blood 05/04/2022 9:19 AM 2 9:35 CDT AM CDT Nina PADILLA LAB BLOOD ORDERABLES Performing Organization Address City/State/ZIP Code Phon e Number [facility] [address] [facility] [place] [address] [address] (ABNORMAL) Hemoglobin A1c (05/04/2022 9:19 AM CDT) athologist Signature A1C 5.8 (H) 4.3 - 5.6 % [facility] Comment: HbA1c values >=6.5% are diagnostic of di abetes mellitus. Diagnosis should be confirmed by repeat testing. Therapeutic Action suggested: >8.0% HbA1 c; Goal of therapy: <7.0% HbA1c Specimen Anatomical Collection Method Collection Time Receive d Time (Source) Location / / Volume Laterality Blood 05/04/2022 9:19 AM 2 9:59 CDT AM CDT Nina PADILLA LAB BLOOD ORDERABLES Performing Organization Address City/State/ZIP [facility] Phon e Number [facility] Unless otherwise noted, [place] [address] CENTER all lab tests performed by: Division of Pathology and Laboratory Medicine [address] [place] [address] (ABNORMAL) Glucose Level (05/04/2022 9:19 AM CDT) athologist Signature Glucose Level 116 (H) 70 - 99 [facility] mg/dL Comment: Effective 04/20/16, the glucose reference intervals have been updated based on [place] [employer] guidelines (Standards of Medical Care in Diabetes 2016. Diabetes Care 2016; 39: S13-S22). Fasting blood glucose: Normal: 70-99 mg/dL Impaired fasting glucose (increased risk for diabetes or pre-diabetes): 100- 125 mg/dL Diabetes mellitus: >/=126 mg/dL Random blood glucose: Normal: 70-199 mg/dL Note: Random glucose >100 mg/dL is assoc iated with increased risk for diabetes Testing Performed at [facility] Lab [facility], [address], [address], [place] [address] Specimen Anatomical Collection Method Collection Time Receive d Time (Source) Location / / Volume Laterality Blood 05/04/2022 9:19 AM 2 9:35 CDT AM CDT Nina PADILLA LAB BLOOD ORDERABLES Performing Organization Address City/State/ZIP Code Phon e Number [facility] [address] [facility] [place] [address] [address] Calcium Level (05/04/2022 9:19 AM CDT) athologist Signature Calcium Lvl 10.1 8.4 - 10.2 [facility] mg/dL Comment: Testing Performed at [facility], [address], [address], [place] [address] Specimen Anatomical Collection Method Collection Time Receive d Time (Source) Location / / Volume Laterality Blood 05/04/2022 9:19 AM 2 9:35 CDT AM CDT Nina PADILLA LAB BLOOD ORDERABLES Performing Organization Address City/[facility]/ZIP Code Phon e Number [facility] [address] [place] [address] [address] Albumin Level (05/04/2022 9:19 AM CDT) athologist Signature Albumin Lvl 4.7 3.5 - 5.2 [facility] gm/dL Comment: Testing Performed at [facility], [address], [address], [place] [address] Specimen Anatomical Collection Method Collection Time Receive d Time (Source) Location / / Volume Laterality Blood 05/04/2022 9:19 AM 2 9:35 CDT AM CDT Nina PADILLA LAB BLOOD ORDERABLES Performing Organization Address City/[facility]/ZIP Code Phon e Number [facility] [address] [place] [address] [address] Electrolyte Panel (05/04/2022 9:19 AM CDT) P athologist Signature Sodium Lvl 140 136 - 145 [facility] mEq/L Comment: Testing Performed at [facility] Lab [facility], [address] [address], [place] [address] Potassium Lvl 4.8 3.5 - 5.1 mEq/L [facility] Comment: Testing Performed at [facility] Lab Am [facility], [address], [address], [place] [address] Chloride 104 98 - 107 mEq/L [facility] Comment: Testing Performed at [facility] Lab Am [facility], [address], [address], [place] [address] CO2 27 22 - 29 mEq/L [facility] Comment: Testing Performed at [facility] Lab [facility], [address], [address], [place] [address] Anion Gap 9 4 - 14 mEq/L [facility] Comment: Testing Performed at [facility] Lab Am [facility], [address], [address], [place] [address] Specimen Anatomical Collection Method Collection Time Receive d Time (Source) Location / / Volume Laterality Blood 05/04/2022 9:19 AM 9:35 CDT AM CDT Nina PADILLA LAB BLOOD ORDERABLES Performing Organization Address City/State/ZIP Code Phon e Number [facility] [address] [place] [id number] COVID-19 (LYNDSEY-CoV-2) PCR Asymptomatic (05/04/2022 7:20 AM CDT) Component Value Ref Range Test Analysis Performed Pathologis t Method Time At Signature COVID19 SARS Pre-OR Procedure UT Indication [facility] COVID19 SARS Not Detected Not REFUGIO ATWOOD Result Detected [facility] COVID19 SARS SARS-CoV-2 NOT Detected. [place] [facility] Reference Range: Not Detected [facility] Methodology: The Hassan Real Time SARS-CoV-2 assay is a qualitative real-time reverse paperhanger contractor polymerase chain reaction (buildings painter-PCR) test to detect RNA from SARS-CoV-2 in nasal, nasopharyngeal and oropharyngeal swabs from patients with signs and symptoms of infection who ar e suspected of COVID-19 by their health care provider. The Hassan RealTime SARS-CoV-2 performed on the Solyndra000 System is a dual target assay with primers and probes for the RdRp and N genes. Results must be interpreted within the context of all relevant clinical and laboratory findings, and epidemiological risk factors. Positive results are indicative of the presence of SARS-CoV-2 RNA; clinical correlation with patient history and other diagnostic information is ne cessary to determine patient infection status. Positive results do not rule out bacterial infection or co-infection with other viruses. Negative results do not preclude SARS- CoV-2 infection and should not be used as the sole basis for patient management decisions. The Hassan RealTime SARS-CoV -2 assay is for in vitro diagnostic use under FDA Emergency Use Authorization only. Testing is limited to laboratories certified under the Clinical Laboratory Improvement Bety ndments of 1988 (CLIA), 42U.S.C. 263a, to perform high complexity tests. The T est was performed by the CLIA-certified, high- complexity Molecular Diagnostics Laboratory (MDL) at [facility] under the Food and Drug Administration (FDA) s Emergency Use Authorization. Factsheet for patients: https://www.iPAYstnderson.org/AbbottFac tSheetPatients Factsheet for healthcare pro viders: https://www.iPAYstnderson.org/AbbottFactSheetHCP Test performed by: [facility] Molecular Diagnostic Lab [address] [place] [address] Specimen (Source) Anatomical Collection Method Collection Time Re ceived Time Location / / Volume Laterality Nasopharyngeal Swab 05/04/2022 7:20 05/04 AM CDT 10:24 AM CDT Kimmy Del Castillo MD MICROBIOLOGY - GENERAL ORDER [place] Performing Organization Address City/[facility] Phon e Number [facility] Unless otherwise noted, [address] all lab tests performed by: Division of Pathology and Laboratory Medicine [facility] EKG, 12-Lead (Scheduled) (05/04/2022) Specimen (Source) Anatomical Location Collection Method / Collectio n Time Received Time / Laterality Volume Narrative This result has an attachment that is no t available. Nina PADILLA ECG ORDERABLES Performing Organization Address City/[facility]/ZIP [facility] Phon e Number [facility] Stereotactic Breast Biopsy - Left (03/04/2022 9:52 AM CDT) Anatomical Region Laterality Modality Breast Left Mammography Specimen (Source) Anatomical Collection Method Collection Time Re ceived Time Location / / Volume Laterality 03/04/2022 5:26 PM CDT Addenda Addendum by Majo Villanueva MD on 03/12/20 9:31 AM CDT ADDENDED REPORT ----- 03/08/2022 at 11:09:30 Addendum: Final Pathology is Malignant and concord ant with imaging as follows: A. Left breast, calcifications at 6:00 , 6 cm from nipple, stereotactic core biopsy: DUCTAL CARCINOMA IN SITU (DCIS), INTERME DIATE GRADE, SOLID TYPE WITH CENTRAL NECROSIS AND MICROCALCIFICATIONS. Recommend appropriate oncologic treatmen t of known malignancy. Dr. Huerta conveyed these malignant results and rec ommendations to Amado Diamond and Arlette Boothe on 03/08/2022 at 11:08 am via 4Less tutional email. Impressions 03/04/2022 5:26 PM CDT Technically successful stereotactic biopsy of the left breast. An addendum will be issued once the final p athology result is available and reviewed. I certify my physical presence during th is procedure, and I interpreted this examination before dictation and agree w ith this written report. Narrative 03/04/2022 5:26 PM CDT STEREOTACTIC BIOPSY EXAMINATION: Left Breast Stereotactic Va cuum-Assisted Core Needle Biopsy with Marker Clip Placement and Post Biopsy Ma mmograms, 03/04/2022. CLINICAL HISTORY: 66-year-old woman pres enting for stereotactic biopsy. INDICATION: Calcifications on prior imag ing. COMPARISON: Mammogram from 02/22/2022. PROCEDURE: The procedure and its risks, benefits, and alternatives were explained in detail to the patient, who agreed to proceed and signed an informed consent form. All questions were answere d. The patient was brought to the stereotactic biopsy suite, and a pre-pro cedure time-out was performed. The patient was properly positioned prone on the Hologic stereotactic table. A digital paper sorter film was obtained, followe d by stereotactic digital images. The skin was cleansed with ChloraPrep. Loc al anesthesia was achieved with a total of 10ml 1% Lidocaine and 20ml of 1% Lido cholo with Epinephrine. Site 1: The lesion in question was ident ified in the left breast at 6 o'clock position, 6 cm from the nipple. Biopsy was performed with a 9-gauge vacuum assisted device, and 8 cores were obtain ed. The approach was inferior to superior. The specimen was radiographed. Satisfactory specimen radiography was obtained. Total number of cores with kemi cifications: 7 A marker clip (SecurMark Ranjit) was deploy ed into the biopsy cavity. At the conclusion of the procedure, pressure wa s held until cessation of bleeding. The skin incision was closed with Steri-stri ps and covered with a bandage. A post procedural left mammogram was the n performed to document clip placement. The clip is within the biopsy cavity. The estimated blood loss for the procedu re was minimal. The patient tolerated the procedure well without immediate com plications and left the department in good condition. Procedure Note Majo Villanueva MD - 03/04/2022 STEREOTACTIC BIOPSY EXAMINATION: Left Breast Stereotactic Va cuum-Assisted Core Needle Biopsy with Marker Clip Placement and Post Biopsy Ma mmograms, 03/04/2022. CLINICAL HISTORY: 66-year-old woman pres enting for stereotactic biopsy. INDICATION: Calcifications on prior imag ing. COMPARISON: Mammogram from 02/22/2022. PROCEDURE: The procedure and its risks, benefits, and alternatives were explained in detail to the patient, who agreed to proceed and signed an informed consent form. All questions were answere d. The patient was brought to the stereotactic biopsy suite, and a pre-pro cedure time-out was performed. The patient was properly positioned prone on the Hologic stereotactic table. A digital paper sorter film was obtained, followe d by stereotactic digital images. The skin was cleansed with ChloraPrep. Local anesthesia was achieved with a total of 10ml 1% Lidocaine and 20ml of 1% Lido cholo with Epinephrine. Site 1: The lesion in question was ident ified in the left breast at 6 o'clock position, 6 cm from the nipple. Biopsy w as performed with a 9-gauge vacuum assisted device, and 8 cores were obtain ed. The approach was inferior to superior. The specimen was radiographed. Satisfactory specimen radiography was obtained. Total number of cores with kemi cifications: 7 A marker clip (SecurMark Ranjit) was deploy ed into the biopsy cavity. At the conclusion of the procedure, pressure wa s held until cessation of bleeding. The skin incision was closed with Steri-stri ps and covered with a bandage. A post procedural left mammogram was the n performed to document clip placement. The clip is within the biopsy cavity. The estimated blood loss for the procedu re was minimal. The patient tolerated the procedure well without immediate com plications and left the department in good condition. IMPRESSION: Technically successful stereotactic biop sy of the left breast. An addendum will be issued once the final p athology result is available and reviewed. I certify my physical presence during th is procedure, and I interpreted this examination before dictation and agree w ith this written report. Amado MAURERN IMG MAMMOGRAPHY ORDERABLES Pathology Biopsy Interpretation (03/04/2022 9:31 AM CDT) Component Value Ref Test Analysis Performed Pathologis t Range Method Time At Signature Addendum 1 Immunohistochemical staining is performed in our lab on a auto service representative paraffin-embedded section. 03/08/2022 [facility] Addendum Specimen diagnosis: DUCTAL CARCINOMA IN SITU 12:05 PM electronically Block: A1 CDT signed by Sp Estrogen Alicia caputo MD on Antibody clone: [id number] (Leica) 03/08/2022 at Positive 11 - 100% Low Positive 1-10% 12:04 PM Estrogen Receptor Results: Positive Estrogen Receptor Percent Stainin% Estrogen Receptor Staining Intensity: Strong Progesterone Receptor Antibody clone: 16 (Leica) Positive 11 - 100% Low Positive 1-10% Progesterone Receptor Results: Positive Progesterone Receptor Percent Stainin% Progesterone Receptor Staining Intensity: Strong Footnote Breast specimens used for de termining prognostic / predictive markers are fixed in formalin for at least 6 hours and generally less than 48 hours, but formalin fixation exceeds 48 hours on holidays and weekends. If the specimen has been fix ed for longer than 72 hours, a negative Her 2 immunohistochemical (IHC) result may theoretically represent a false negative, although studies have shown that specimens can be fixed for as long as 2 week s without affecting IHC staining results. Therefore, a negative result should be verified by additional tests on alternative samples if appropriate. Reference Vanda guallpa al. Appl. Immunohistochem. Mol Morp 2005; 13; 283-286. If the specimen was not init ially processed at [facility], pre-analytical fixation times may be found in the accompanying pathology report. These assays have not been v alidated on decalcified tissues. Results should be interpreted with caution given the likelihood of false negativity on decalcified specimens. Submitted Mammography abnormal 03/08/2022 [facility] Clinical [R92.8] 12:05 PM History CDT Diagnosis A. Left breast, calcificatio ns at 6:00, 6 cm from nipple, stereotactic core biopsy: 03/08/2022 [facility] Electronically DUCTAL CARCINOMA IN SITU (DC IS), INTERMEDIATE GRADE, SOLID TYPE WITH CENTRAL NECROSIS AND MICROCALCIFICATIONS. 12:05 PM signed by Sp Cobian MD on 03/07/2022 at 11:46 AM Comment The largest focus of 03/08/2022 [facility] DCIS measures 12:05 PM approximately 2 mm in CDT this core biopsy. Tumor marker studies will be performed. Gross A: 03/08/2022 [facility] Description Breast, left, left breast, 6 o'clock, dfn:6, passes 8: 8 yellow-goins fibrofatty cores of tissue (ranging from 1.5-2.0 cm in length x 0.3 cm in diameter). 7 of the cores are received in a pink cassette. The cores are submitted entirely. 12:05 PM CDT SECTION CODE: A1, 3 cores fr om the pink cassette; A2-A3, each cassette 2 cores from the pink cassette; A4, one core. JLA Biomarker A1 03/08/2022 [facility] Block(s) 12:05 PM CDT Disclaimer "Some tests reported 03/08/2022 [facility] here may have been 12:05 PM developed and CDT performance characteristics determined by [facility] Pathology and Laboratory Medicine. These tests have not been specifically cleared or approved by the U.S. Food and Drug Administration. If applicable, controls were reviewed and showed appropriate reactivity." Specimen Anatomical Collection Method Collection Time Receive d Time (Source) Location / / Volume Laterality Tissue (Breast, 03/04/2022 9:31 AM 2021 Left) CDT 11:46 AM CDT Amado Diamond APN LAB PATHOLOGY ORDERABLES Performing Organization Address City/State/ZIP Code Phon e Number [facility] [place] [address] [address] [facility] US Chest for Breast Ultrasound (Add-on Only) (02/22/2022 1:53 PM CDT) Anatomical Region Laterality Modality Chest Ultrasound Specimen (Source) Anatomical Collection Method Collection Time Re ceived Time Location / / Volume Laterality 02/22/2022 2:47 PM CDT Impressions 02/22/2022 2:50 PM CDT 1. There is no sonographic abnormality t o correlate with the suspicious calcifications of mammographic concern. 2. No suspicious normality is identified in the left breast or left regional cristofer basin. ACR BI-RADS Category: 2. Benign. The designation of a BI-RADS 2 is given because no sonographic abnormality is identified on today's examination. However, based on mammographic findings, the patient has suspicious calcifications for wh ich a stereotactic guided biopsy has bee n recommended. Narrative 02/22/2022 2:50 PM CDT FULL RESULT: Examination: US BREAST COMPLETE LEFT, US CHEST 02/22/2022 1:53 PM Clinical History: 66-year-old woman with abnormal left breast mammogram. Indication: Abnormal mammogram Comparison: Mammogram: Earlier today Technique: Real-time sonographic imaging of the left breast (including all 4 quadrants and retroareolar region) was performed. Images were obtained in multiple scanning planes. Findings: Left breast: There is no sonographic abnormality to c orrelate with the calcifications of mammographic concern. There are a few cysts of varying sizes scattered throughout the left breast. No suspicious cystic or solid mass is identified. Left cristofer basin: No suspicious lymph nodes are identified in left axillary levels I-III or internal mammary region. Procedure Note Trixie Dowell MD - 02/22/2022Formattin g of this note might be different from the original. FULL RESULT: Examination: US BREAST COMPLETE LEFT, US CHEST 02/22/2022 1:53 PM Clinical History: 66-year-old woman with abnormal left breast mammogram. Indication: Abnormal mammogram Comparison: Mammogram: Earlier today Technique: Real-time sonographic imaging of the left breast (including all 4 quadrants and retroareolar region) was performed. Images were obtained in multiple scanning planes. Findings: Left breast: There is no sonographic abnormality to c orrelate with the calcifications of mammographic concern. There are a few cysts of varying sizes scattered throughout the left breast. No suspicious cystic or solid mass is identified. Left cristofer basin: No suspicious lymph nodes are identified in left axillary levels I-III or internal mammary region. IMPRESSION: 1. There is no sonographic abnormality t o correlate with the suspicious calcifications of mammographic concern. 2. No suspicious normality is identified in the left breast or left regional cristofer basin. ACR BI-RADS Category: 2. Benign. The designation of a BI-RADS 2 is given because no sonographic abnormality is identified on today's examination. However, based on mammographic findings, the patient has suspicious calcifications for which a stereotactic guided biopsy has been emmett mmended. Yamileth Figueroa RAJAT IMG US ORDERABLES US Breast Complete Left (02/22/2022 1:53 PM CDT) Anatomical Region Laterality Modality Breast Left Ultrasound Specimen (Source) Anatomical Collection Method Collection Time Re ceived Time Location / / Volume Laterality 02/22/2022 2:47 PM CDT Impressions 02/22/2022 2:50 PM CDT 1. There is no sonographic abnormality t o correlate with the suspicious calcifications of mammographic concern. 2. No suspicious normality is identified in the left breast or left regional cristofer basin. ACR BI-RADS Category: 2. Benign. The designation of a BI-RADS 2 is given because no sonographic abnormality is identified on today's examination. However, based on mammographic findings, the patient has suspicious calcifications for wh ich a stereotactic guided biopsy has bee n recommended. Narrative 02/22/2022 2:50 PM CDT FULL RESULT: Examination: US BREAST COMPLETE LEFT, US CHEST 02/22/2022 1:53 PM Clinical History: 66-year-old woman with abnormal left breast mammogram. Indication: Abnormal mammogram Comparison: Mammogram: Earlier today Technique: Real-time sonographic imaging of the left breast (including all 4 quadrants and retroareolar region) was performed. Images were obtained in multiple scanning planes. Findings: Left breast: There is no sonographic abnormality to c orrelate with the calcifications of mammographic concern. There are a few cysts of varying sizes scattered throughout the left breast. No suspicious cystic or solid mass is identified. Left cristofer basin: No suspicious lymph nodes are identified in left axillary levels I-III or internal mammary region. Procedure Note Trixie Dowell MD - 02/22/2022Formwernerin g of this note might be different from the original. FULL RESULT: Examination: US BREAST COMPLETE LEFT, US CHEST 02/22/2022 1:53 PM Clinical History: 66-year-old woman with abnormal left breast mammogram. Indication: Abnormal mammogram Comparison: Mammogram: Earlier today Technique: Real-time sonographic imaging of the left breast (including all 4 quadrants and retroareolar region) was performed. Images were obtained in multiple scanning planes. Findings: Left breast: There is no sonographic abnormality to c orrelate with the calcifications of mammographic concern. There are a few cysts of varying sizes scattered throughout the left breast. No suspicious cystic or solid mass is identified. Left cristofer basin: No suspicious lymph nodes are identified in left axillary levels I-III or internal mammary region. IMPRESSION: 1. There is no sonographic abnormality t o correlate with the suspicious calcifications of mammographic concern. 2. No suspicious normality is identified in the left breast or left regional cristofer basin. ACR BI-RADS Category: 2. Benign. The designation of a BI-RADS 2 is given because no sonographic abnormality is identified on today's examination. However, based on mammographic findings, the patient has suspicious calcifications for which a stereotactic guided biopsy has been emmett mmended. Yamileth AMADOR US ORDERABLES (ABNORMAL) Mammography Digital Diagnostic Bilateral (02/22/2022 1:01 PM CDT) Anatomical Region Laterality Modality Breast Bilateral Mammography Specimen (Source) Anatomical Collection Method Collection Time Re ceived Time Location / / Volume Laterality 02/22/2022 2:20 PM CDT Impressions 02/22/2022 2:20 PM CDT Calcifications in the left breast are suspicious. Stereotactic biopsy is recommended. Findings and recommendations were sent v mt institutional email to Yamileth Figueroa by Dr. Dowell at time of examination. BI-RADS Category 4C: Suspicious Abnormality Narrative 02/22/2022 2:20 PM CDT CLINICAL INDICATION: Patient is a 66 year old female and is s een for additional evaluation requested from prior study MAMMO DIGITAL DIAGNOSTIC BILATERAL COMPARISON: The present examination has been compare d to a prior imaging study performed at an outside location on 01/28/2022. FINDINGS: The breasts are heterogeneously dense, w hich may obscure small masses. There are fine-linear branching and fine pleomorphic calcifications measuring 4.1 x 2.2 x 1.9 centimeters with segment al distribution in the left breast lower hemisphere at 6 to 7 o'clock located 4 c entimeters from the nipple. A auto service representative group for stereotactic gu ided biopsy has been identified at the 6 o'clock position, 6 cm from the nipple. This group has been annotated on magnification views. In the right breast, no dominant mass, d istortion, or suspicious calcifications are identified. Procedure Note Trixie Dowell MD - 02/22/2022Formattin g of this note might be different from the original. CLINICAL INDICATION: Patient is a 66 year old female and is s een for additional evaluation requested from prior study MAMMO DIGITAL DIAGNOSTIC BILATERAL COMPARISON: The present examination has been compare d to a prior imaging study performed at an outside location on 01/28/2022. FINDINGS: The breasts are heterogeneously dense, w hich may obscure small masses. There are fine-linear branching and fine pleomorphic calcifications measuring 4.1 x 2.2 x 1.9 centimeters with segment al distribution in the left breast lower hemisphere at 6 to 7 o'clock located 4 c entimeters from the nipple. A auto service representative group for stereotactic gu ided biopsy has been identified at the 6 o'clock position, 6 cm from the nipple. This group has been annotated on magnification views. In the right breast, no dominant mass, d istortion, or suspicious calcifications are identified. IMPRESSION: Calcifications in the left breast are dexter spicious. Stereotactic biopsy is recommended. Findings and recommendations were sent v ia institutional email to Yamileth Figueroa by Dr. Dowell at time of examination. BI-RADS Category 4C: Suspicious Abnormality Yamileth Figueroa NP IMG MAMMOGRAPHY ORDERABLES [facility] Mammo (01/28/2022 10:03 AM CDT) Specimen (Source) Anatomical Location Collection Method / Collectio n Time Received Time / Laterality Volume Narrative [facility] - 02/22/2022 10:04 AM CDT Study acquired at another institution. For comparison only. No MD Hunter originated interpretation requested or a vailable. Amado Diamond APN IMG OUTSIDE IMAGE ORDERABLES Performing Organization Address City/State/ZIP Code Phon e Number [facility] after 06/05/2021 Insurance Payer Benefit Plan / Subscriber ID Effective Dates Phone Addre ss Type Group [employer] MANAGED A[employer] HMO [id number] 2021-Present [id number] [place] [address] Advance Directives Code Status Date Activated Date Inactivated Comments Full Code 05/06/2022 10:13 PM 05/07/2022 1:48 PM Care Teams Institution Librarian Relationship Specialty Start Date End Date Rabia Mayer PCP - External Referring Obstetrics/Gynecology 02/04/22 Amado Diamond APN PCP - General Cancer Prevention 02/09/[address] [place] [id number] [facility] 05/04/22 MD [address]avi [address] [place] [id number]
--- OUTSIDE RECORDS SUMMARY | 2022-06-05 11:29 | XMS REPORT | Continuity of Care Document ---
:1955 Author Organization [facility] [place] t Address [address] [place] [address] Dr. [address] [place] [address] Care Team Providers Name Role Phone Pcp, Patient Does Not Have A Primary Care Physician [id number] SYSTEM, PROVIDER NOT IN Attending Clinician Unavailable Nicol Edwards MD Attending Clinician NICOL EDWARDS Attending Clinician Unavailable Kimmy Kuhn MD Attending Clinician KIMMY KUHN Attending Clinician Unavailable Theo Diamond APN Attending Clinician Bashir BALDERAS, Cris Shields Attending Clinician THEO DIAMOND Attending Clinician Unavailable Ankur Gonsalez Attending Clinician Dean Box RN P Attending Clinician Unavailable Chirag Bal RN Attending Clinician ANKUR LOYA Attending Clinician Unavailable King Guardado MD Attending Clinician Genaro Loya CRNA Attending Clinician Loni Holly MD Attending Clinician LONI HOLLY Attending Clinician Unavailable Bethanie Reilly MA Attending Clinician Unavailable Thony Niño MD Attending Clinician Heydi RN, Gemma Salinas Attending Clinician Unavailable Doctor Unassigned, Mulino Attending Clinician Unavailable Apollo BALDERAS, Hollis Attending Clinician Unavailable Henry IT PROGRAM MANAGER, Yamileth Attending Clinician Rabia Mayer MD Attending Clinician CHEYANNE MONTOYA Attending Clinician Unavailable KIMMY KUHN Admitting Clinician Unavailable Payers Payer Name Policy Type Policy Number Effective Date Expiration Date S ource Problems Condition Condition Condition Status Onset Resolution Last Treating Co mments Source Name Details Category Date Date Treatment Clinician Date Mammograph Mammograph Disease Active U nivers y abnormal y abnormal 02-22 it y of 00:00: [place] MD Carina velasquez [facility] Hypertensi Hypertensi Disease Active 2019-09 U nivers ve ve - ity of disorder disorder 00:00: [place] MD Carina velasquez [facility] Severe Severe Disease Active 2019-09 Univers obesity obesity 10-12 ity of 00:00: [place] MD Lim [facility] Hyperchole Hyperchole Disease Active U nivers sterolemia sterolemia 05-27 it y of 00:00: [place] 00 MD Lim [facility] 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, in situ, [place] solid type solid type MD of breast, of breast, An derso NOS NOS n <Female; <Female; Cancer Left> Left> Center Allergies, Adverse Reactions, Alerts Allergy Allergy Status Severity Reaction(s) Onset Inactive Treating Comm ents Source Name Type Date Date Clinician ADHESIVE Drug Active MD Class 8-12 Anderso 00:00: n 00 ADHESIVE Drug Active 2021-0 MD Class 8-12 Anderso 00:00: n 00 ADHESIVE Drug Active 2021-0 MD Class 8-12 Anderso 00:00: n 00 ADHESIVE Drug Active 2021-0 MD Class 8-12 Anderso 00:00: n 00 ADHESIVE Drug Active 2021-0 MD Class 8-12 Anderso 00:00: n 00 ADHESIVE Drug Active 2021-0 MD Class 8-12 Anderso 00:00: n 00 ADHESIVE Drug Active 2021-0 MD Class 8-12 Anderso 00:00: n 00 ADHESIVE Drug Active 2022-0 MD Class 8-12 Anderso 00:00: n 00 ADHESIVE Drug Active 2022-0 MD Class 8-12 Anderso 00:00: n 00 ADHESIVE Drug Active 2022-0 MD Class 8-12 Anderso 00:00: n 00 ADHESIVE Drug Active 2022-0 MD Class 8-12 Anderso 00:00: n 00 ADHESIVE Drug Active 2022-0 MD Class 8-12 Anderso 00:00: n 00 ADHESIVE Drug Active 2022-0 MD Class 8-12 Anderso 00:00: n 00 ADHESIVE Drug Active 2022-0 MD Class 8-12 Anderso 00:00: n 00 ADHESIVE Drug Active 2022-0 MD Class 8-12 Anderso 00:00: n 00 ADHESIVE Drug Active 2022-0 MD Class 8-12 Anderso 00:00: n 00 ADHESIVE Drug Active 2022-0 MD Class 8-12 Anderso 00:00: n 00 ADHESIVE Drug Active 2022-0 MD Class 8-12 Anderso 00:00: n 00 ADHESIVE Drug Active 2022-0 MD Class 8-12 Anderso 00:00: n 00 ADHESIVE Drug Active 2022-0 MD Class 8-12 Anderso 00:00: n 00 ADHESIVE Drug Active 2022-0 MD Class 8-12 Anderso 00:00: n 00 ADHESIVE Drug Active 2022-0 MD Class 8-12 Anderso 00:00: n 00 ADHESIVE Drug Active 2022-0 MD Class 8-12 Anderso 00:00: n 00 ADHESIVE Drug Active 2022-0 MD Class 8-12 Anderso 00:00: n 00 ADHESIVE Drug Active 2022-0 MD Class 8-12 Anderso 00:00: n 00 ADHESIVE Drug Active 2022-0 MD Class 8-12 Anderso 00:00: n 00 ADHESIVE Drug Active 2022-0 MD Class 8-12 Anderso 00:00: n 00 ADHESIVE Drug Active 2022-0 MD Class 8-12 Anderso 00:00: n 00 ADHESIVE Drug Active 2022-0 MD Class 8-12 Anderso 00:00: n 00 ADHESIVE Drug Active 2022-0 MD Class 8-12 Anderso 00:00: n 00 ADHESIVE Drug Active 2022-0 MD Class 8-12 Anderso 00:00: n 00 ADHESIVE Drug Active 2022-0 MD Class 8-12 Anderso 00:00: n 00 ADHESIVE Drug Active 2022-0 MD Class 8-12 Anderso 00:00: n 00 ADHESIVE Drug Active 2022-0 MD Class 8-12 Anderso 00:00: n 00 ADHESIVE Drug Active 2022-0 MD Class 8-12 Anderso 00:00: n 00 ADHESIVE Drug Active 2022-0 MD Class 8-12 Anderso 00:00: n 00 ADHESIVE Drug Active 2022-0 MD Class 8-12 Anderso 00:00: n 00 ADHESIVE Drug Active 2022-0 MD Class 8-12 Anderso 00:00: n 00 ADHESIVE Drug Active 2022-0 MD Class 8-12 Anderso 00:00: n 00 ADHESIVE Drug Active 2022-0 MD Class 8-12 Anderso 00:00: n 00 ADHESIVE Drug Active 2022-0 MD Class 8-12 Anderso 00:00: n 00 ADHESIVE Drug Active 2022-0 MD Class 8-12 Anderso 00:00: n 00 ADHESIVE Drug Active 2022-0 MD Class 8-12 Anderso 00:00: n 00 ADHESIVE Drug Active 2022-0 MD Class 8-12 Anderso 00:00: n 00 ADHESIVE Drug Active 2022-0 MD Class 8-12 Anderso 00:00: n 00 ADHESIVE Drug Active 2022-0 MD Class 8-12 Anderso 00:00: n 00 ADHESIVE Drug Active 2022-0 MD Class 8-12 Anderso 00:00: n 00 ADHESIVE Drug Active 2022-0 MD Class 8-12 Anderso 00:00: n 00 ADHESIVE Drug Active 2022-0 MD Class 8-12 Anderso 00:00: n 00 Adhesive Propensi Active 2-0 Blistered Uni vers ty to 8-12 from ity of adverse 00:00: clear [place] reaction 00 sticky s tape. No Anderso problems n with [facility] or white medical tape. ADHESIVE Drug Active 2022-0 MD Class 8-12 Anderso 00:00: n 00 MORPHINE DRUG Active NandV 2020-1 MD INGREDI 1-18 Anderso 00:00: n 00 MORPHINE DRUG Active NandV 2020-1 MD INGREDI 1-18 Anderso 00:00: n 00 MORPHINE DRUG Active NandV 2020-1 MD INGREDI 1-18 Anderso 00:00: n 00 MORPHINE DRUG Active NandV 2020-1 MD INGREDI 1-18 Anderso 00:00: n 00 MORPHINE DRUG Active NandV 2020-1 MD INGREDI 1-18 Anderso 00:00: n 00 MORPHINE DRUG Active NandV 2020-1 MD INGREDI 1-18 Anderso 00:00: n 00 MORPHINE DRUG Active NandV 2020-1 MD INGREDI 1-18 Anderso 00:00: n 00 MORPHINE DRUG Active NandV 2020-1 MD INGREDI 1-18 Anderso 00:00: n 00 MORPHINE DRUG Active NandV 2020-1 MD INGREDI 1-18 Anderso 00:00: n 00 MORPHINE DRUG Active NandV 2020-1 MD INGREDI 1-18 Anderso 00:00: n 00 MORPHINE DRUG Active NandV 2020-1 MD INGREDI 1-18 Anderso 00:00: n 00 MORPHINE DRUG Active NandV 2020-1 MD INGREDI 1-18 Anderso 00:00: n 00 MORPHINE DRUG Active NandV 2020-1 MD INGREDI 1-18 Anderso 00:00: n 00 MORPHINE DRUG Active NandV 2020-1 MD INGREDI 1-18 Anderso 00:00: n 00 MORPHINE DRUG Active NandV 2020-1 MD INGREDI 1-18 Anderso 00:00: n 00 MORPHINE DRUG Active NandV 2020-1 MD INGREDI 1-18 Anderso 00:00: n 00 MORPHINE DRUG Active NandV 2020-1 MD INGREDI 1-18 Anderso 00:00: n 00 MORPHINE DRUG Active NandV 2020-1 MD INGREDI 1-18 Anderso 00:00: n 00 MORPHINE DRUG Active NandV 2020-1 MD INGREDI 1-18 Anderso 00:00: n 00 MORPHINE DRUG Active NandV 2020-1 MD INGREDI 1-18 Anderso 00:00: n 00 MORPHINE DRUG Active NandV 2020-1 MD INGREDI 1-18 Anderso 00:00: n 00 MORPHINE DRUG Active NandV 2020-1 MD INGREDI 1-18 Anderso 00:00: n 00 MORPHINE DRUG Active NandV 2020-1 MD INGREDI 1-18 Anderso 00:00: n 00 MORPHINE DRUG Active NandV 2020-1 MD INGREDI 1-18 Anderso 00:00: n 00 MORPHINE DRUG Active NandV 2020-1 MD INGREDI 1-18 Anderso 00:00: n 00 MORPHINE DRUG Active NandV 2020-1 MD INGREDI 1-18 Anderso 00:00: n 00 MORPHINE DRUG Active NandV 2020-1 MD INGREDI 1-18 Anderso 00:00: n 00 MORPHINE DRUG Active NandV 2020-1 MD INGREDI 1-18 Anderso 00:00: n 00 MORPHINE DRUG Active NandV 2020-1 MD INGREDI 1-18 Anderso 00:00: n 00 MORPHINE DRUG Active NandV 2020-1 MD INGREDI 1-18 Anderso 00:00: n 00 MORPHINE DRUG Active NandV 2020-1 MD INGREDI 1-18 Anderso 00:00: n 00 MORPHINE DRUG Active NandV 2020-1 MD INGREDI 1-18 Anderso 00:00: n 00 MORPHINE DRUG Active NandV 2020-1 MD INGREDI 1-18 Anderso 00:00: n 00 MORPHINE DRUG Active NandV 2020-1 MD INGREDI 1-18 Anderso 00:00: n 00 MORPHINE DRUG Active NandV 2020-1 MD INGREDI 1-18 Anderso 00:00: n 00 MORPHINE DRUG Active NandV 2020-1 MD INGREDI 1-18 Anderso 00:00: n 00 MORPHINE DRUG Active NandV 2020-1 MD INGREDI 1-18 Anderso 00:00: n 00 MORPHINE DRUG Active NandV 2020-1 MD INGREDI 1-18 Anderso 00:00: n 00 MORPHINE DRUG Active NandV 2020-1 MD INGREDI 1-18 Anderso 00:00: n 00 MORPHINE DRUG Active NandV 2020-1 MD INGREDI 1-18 Anderso 00:00: n 00 MORPHINE DRUG Active NandV 2020-1 MD INGREDI 1-18 Anderso 00:00: n 00 MORPHINE DRUG Active NandV 2020-1 MD INGREDI 1-18 Anderso 00:00: n 00 MORPHINE DRUG Active NandV 2020-1 MD INGREDI 1-18 Anderso 00:00: n 00 MORPHINE DRUG Active NandV 2020-1 MD INGREDI 1-18 Anderso 00:00: n 00 MORPHINE DRUG Active NandV 2020-1 MD INGREDI 1-18 Anderso 00:00: n 00 MORPHINE DRUG Active NandV 2020-1 MD INGREDI 1-18 Anderso 00:00: n 00 MORPHINE DRUG Active NandV 2020-1 MD INGREDI 1-18 Anderso 00:00: n 00 MORPHINE DRUG Active NandV 2020-1 MD INGREDI 1-18 Anderso 00:00: n 00 MORPHINE DRUG Active NandV 2020-1 MD INGREDI 1-18 Anderso 00:00: n 00 MORPHINE DRUG Active NandV 2020-1 MD INGREDI 1-18 Anderso 00:00: n 00 MORPHINE DRUG Active NandV 2020-1 MD INGREDI 1-18 Anderso 00:00: n 00 MORPHINE DRUG Active NandV 2020-1 MD INGREDI 1-18 Anderso 00:00: n 00 MORPHINE DRUG Active NandV 2020-1 MD INGREDI 1-18 Anderso 00:00: n 00 MORPHINE DRUG Active NandV 2020-1 MD INGREDI 1-18 Anderso 00:00: n 00 MORPHINE DRUG Active NandV 2020-1 MD INGREDI 1-18 Anderso 00:00: n 00 MORPHINE DRUG Active NandV 2020-1 MD INGREDI 1-18 Anderso 00:00: n 00 MORPHINE DRUG Active NandV 2020-1 MD INGREDI 1-18 Anderso 00:00: n 00 MORPHINE DRUG Active NandV 2020-1 MD INGREDI 1-18 Anderso 00:00: n 00 MORPHINE DRUG Active NandV 2020-1 MD INGREDI 1-18 Anderso 00:00: n 00 MORPHINE DRUG Active NandV 2020-1 MD INGREDI 1-18 Anderso 00:00: n 00 MORPHINE DRUG Active NandV 2020-1 MD INGREDI 1-18 Anderso 00:00: n 00 MORPHINE DRUG Active NandV 2020-1 MD INGREDI 1-18 Anderso 00:00: n 00 MORPHINE DRUG Active NandV 2020-1 MD INGREDI 1-18 Anderso 00:00: n 00 MORPHINE DRUG Active NandV 2020-1 MD INGREDI 1-18 Anderso 00:00: n 00 MORPHINE DRUG Active NandV 2020-1 MD INGREDI 1-18 Anderso 00:00: n 00 MORPHINE DRUG Active NandV 2020-1 MD INGREDI 1-18 Anderso 00:00: n 00 MORPHINE DRUG Active NandV 2020-1 MD INGREDI 1-18 Anderso 00:00: n 00 MORPHINE DRUG Active NandV 2020-1 MD INGREDI 1-18 Anderso 00:00: n 00 MORPHINE DRUG Active NandV 2020-1 MD INGREDI 1-18 Anderso 00:00: n 00 MORPHINE DRUG Active NandV 2020-1 MD INGREDI 1-18 Anderso 00:00: n 00 MORPHINE DRUG Active NandV 2020-1 MD INGREDI 1-18 Anderso 00:00: n 00 MORPHINE DRUG Active NandV 2020-1 MD INGREDI 1-18 Anderso 00:00: n 00 MORPHINE DRUG Active NandV 2020-1 MD INGREDI 1-18 Anderso 00:00: n 00 MORPHINE DRUG Active NandV 2020-1 MD INGREDI 1-18 Anderso 00:00: n 00 MORPHINE DRUG Active NandV 2020-1 MD INGREDI 1-18 Anderso 00:00: n 00 MORPHINE DRUG Active NandV 2020-1 MD INGREDI 1-18 Anderso 00:00: n 00 MORPHINE DRUG Active NandV 2020-1 MD INGREDI 1-18 Anderso 00:00: n 00 MORPHINE DRUG Active NandV 2020-1 MD INGREDI 1-18 Anderso 00:00: n 00 MORPHINE DRUG Active NandV 2020-1 MD INGREDI 1-18 Anderso 00:00: n 00 MORPHINE DRUG Active NandV 2020-1 MD INGREDI 1-18 Anderso 00:00: n 00 MORPHINE DRUG Active NandV 2020-1 MD INGREDI 1-18 Anderso 00:00: n 00 MORPHINE DRUG Active NandV 2020-1 MD INGREDI 1-18 Anderso 00:00: n 00 MORPHINE DRUG Active NandV 2020-1 MD INGREDI 1-18 Anderso 00:00: n 00 MORPHINE DRUG Active NandV 2020-1 MD INGREDI 1-18 Anderso 00:00: n 00 MORPHINE DRUG Active NandV 2020-1 MD INGREDI 1-18 Anderso 00:00: n 00 MORPHINE DRUG Active NandV 2020-1 MD INGREDI 1-18 Anderso 00:00: n 00 MORPHINE DRUG Active NandV 2020-1 MD INGREDI 1-18 Anderso 00:00: n 00 MORPHINE DRUG Active NandV 2020-1 MD INGREDI 1-18 Anderso 00:00: n 00 MORPHINE DRUG Active NandV 2020-1 MD INGREDI 1-18 Anderso 00:00: n 00 MORPHINE DRUG Active NandV 2020-1 MD INGREDI 1-18 Anderso 00:00: n 00 MORPHINE DRUG Active NandV 2020-1 MD INGREDI 1-18 Anderso 00:00: n 00 MORPHINE DRUG Active NandV 2020-1 MD INGREDI 1-18 Anderso 00:00: n 00 MORPHINE DRUG Active NandV 2020-1 MD INGREDI 1-18 Anderso 00:00: n 00 MORPHINE DRUG Active NandV 2020-1 MD INGREDI 1-18 Anderso 00:00: n 00 MORPHINE DRUG Active NandV 2020-1 MD INGREDI 1-18 Anderso 00:00: n 00 MORPHINE DRUG Active NandV 2020-1 MD INGREDI 1-18 Anderso 00:00: n 00 MORPHINE DRUG Active NandV 2020-1 MD INGREDI 1-18 Anderso 00:00: n 00 MORPHINE DRUG Active NandV 2020-1 MD INGREDI 1-18 Anderso 00:00: n 00 MORPHINE DRUG Active NandV 2020-1 MD INGREDI 1-18 Anderso 00:00: n 00 MORPHINE DRUG Active NandV 2020-1 MD INGREDI 1-18 Anderso 00:00: n 00 MORPHINE DRUG Active NandV 2020-1 MD INGREDI 1-18 Anderso 00:00: n 00 MORPHINE DRUG Active NandV 2020-1 MD INGREDI 1-18 Anderso 00:00: n 00 MORPHINE DRUG Active NandV 2020-1 MD INGREDI 1-18 Anderso 00:00: n 00 MORPHINE DRUG Active NandV 2020-1 MD INGREDI 1-18 Anderso 00:00: n 00 MORPHINE DRUG Active NandV 2020-1 MD INGREDI 1-18 Anderso 00:00: n 00 MORPHINE DRUG Active NandV 2020-1 MD INGREDI 1-18 Anderso 00:00: n 00 MORPHINE DRUG Active NandV 2020-1 MD INGREDI 1-18 Anderso 00:00: n 00 MORPHINE DRUG Active NandV 2020-1 MD INGREDI 1-18 Anderso 00:00: n 00 MORPHINE DRUG Active NandV 2020-1 MD INGREDI 1-18 Anderso 00:00: n 00 MORPHINE DRUG Active NandV 2020-1 MD INGREDI 1-18 Anderso 00:00: n 00 MORPHINE DRUG Active NandV 2020-1 MD INGREDI 1-18 Anderso 00:00: n 00 MORPHINE DRUG Active NandV 2020-1 MD INGREDI 1-18 Anderso 00:00: n 00 MORPHINE DRUG Active NandV 2020-1 MD INGREDI 1-18 Anderso 00:00: n 00 MORPHINE DRUG Active NandV 2020-1 MD INGREDI 1-18 Anderso 00:00: n 00 MORPHINE DRUG Active NandV 2020-1 MD INGREDI 1-18 Anderso 00:00: n 00 MORPHINE DRUG Active NandV 2020-1 MD INGREDI 1-18 Anderso 00:00: n 00 MORPHINE DRUG Active NandV 2020-1 MD INGREDI 1-18 Anderso 00:00: n 00 MORPHINE DRUG Active NandV 2020-1 MD INGREDI 1-18 Anderso 00:00: n 00 MORPHINE DRUG Active NandV 2020-1 MD INGREDI 1-18 Anderso 00:00: n 00 MORPHINE DRUG Active NandV 2020-1 MD INGREDI 1-18 Anderso 00:00: n 00 MORPHINE DRUG Active NandV 2020-1 MD INGREDI 1-18 Anderso 00:00: n 00 MORPHINE DRUG Active NandV 2020-1 MD INGREDI 1-18 Anderso 00:00: n 00 MORPHINE DRUG Active NandV 2020-1 MD INGREDI 1-18 Anderso 00:00: n 00 MORPHINE DRUG Active NandV 2020-1 MD INGREDI 1-18 Anderso 00:00: n 00 MORPHINE DRUG Active NandV 2020-1 MD INGREDI 1-18 Anderso 00:00: n 00 MORPHINE DRUG Active NandV 2020-1 MD INGREDI 1-18 Anderso 00:00: n 00 MORPHINE DRUG Active NandV 2020-1 MD INGREDI 1-18 Anderso 00:00: n 00 MORPHINE DRUG Active NandV 2020-1 MD INGREDI 1-18 Anderso 00:00: n 00 Morphine Propensi Active Nausea And 2020-1 Un gonzalez ty to Vomiting 18 ity of adverse 00:00: [place] reaction 00 MD [facility] CODEINE DRUG Active NandV 2015-0 MD INGREDI 05-26 Anderso 00:00: n 00 HYDROCOD DRUG Active NandV 2015-0 MD ONE INGREDI 05-26 Anderso 00:00: n 00 TRAMADOL DRUG Active NandV 2015-0 MD INGREDI 05-26 Anderso 00:00: n 00 CODEINE DRUG Active NandV 2015-0 MD INGREDI - Anderso 00:00: n 00 HYDROCOD DRUG Active NandV 2015-0 MD ONE INGREDI 05-26 Anderso 00:00: n 00 TRAMADOL DRUG Active NandV 2015-0 MD INGREDI 05-26 Anderso 00:00: n 00 CODEINE DRUG Active NandV 2015-0 MD INGREDI 05-26 Anderso 00:00: n 00 TRAMADOL DRUG Active NandV 2015-0 MD INGREDI 05-26 Anderso 00:00: n 00 HYDROCOD DRUG Active NandV 2015-0 MD ONE INGREDI 05-26 Anderso 00:00: n 00 TRAMADOL DRUG Active NandV 2015-0 MD INGREDI 05-26 Anderso 00:00: n 00 CODEINE DRUG Active NandV 2015-0 MD INGREDI 05-26 Anderso 00:00: n 00 HYDROCOD DRUG Active NandV 2015-0 MD ONE INGREDI 05-26 Anderso 00:00: n 00 TRAMADOL DRUG Active NandV 2015-0 MD INGREDI 05-26 Anderso 00:00: n 00 CODEINE DRUG Active NandV 2015-0 MD INGREDI 05-26 Anderso 00:00: n 00 HYDROCOD DRUG Active NandV 2015-0 MD ONE INGREDI 05-26 Anderso 00:00: n 00 CODEINE DRUG Active NandV 2015-0 MD INGREDI 05-26 Anderso 00:00: n 00 TRAMADOL DRUG Active NandV 2015-0 MD INGREDI 05-26 Anderso 00:00: n 00 CODEINE DRUG Active NandV 2015-0 MD INGREDI 05-26 Anderso 00:00: n 00 HYDROCOD DRUG Active NandV 2015-0 MD ONE INGREDI 05-26 Anderso 00:00: n 00 TRAMADOL DRUG Active NandV 2015-0 MD INGREDI 05-26 Anderso 00:00: n 00 CODEINE DRUG Active NandV 2015-0 MD INGREDI - Anderso 00:00: n 00 HYDROCOD DRUG Active NandV 2015-0 MD ONE INGREDI 05-26 Anderso 00:00: n 00 TRAMADOL DRUG Active NandV 2015-0 MD INGREDI 05-26 Anderso 00:00: n 00 HYDROCOD DRUG Active NandV 2015-0 MD ONE INGREDI 9- Anderso 00:00: n 00 CODEINE DRUG Active NandV 2015-0 MD INGREDI 9- Anderso 00:00: n 00 HYDROCOD DRUG Active NandV 2015-0 MD ONE INGREDI 05-26 Anderso 00:00: n 00 TRAMADOL DRUG Active NandV 2015-0 MD INGREDI - Anderso 00:00: n 00 CODEINE DRUG Active NandV 2015-0 MD INGREDI 05-26 Anderso 00:00: n 00 HYDROCOD DRUG Active NandV 2015-0 MD ONE INGREDI 05-26 Anderso 00:00: n 00 TRAMADOL DRUG Active NandV 2015-0 MD INGREDI - Anderso 00:00: n 00 CODEINE DRUG Active NandV 2015-0 MD INGREDI 05-26 Anderso 00:00: n 00 HYDROCOD DRUG Active NandV 2015-0 MD ONE INGREDI 05-26 Anderso 00:00: n 00 TRAMADOL DRUG Active NandV 2015-0 MD INGREDI 05-26 Anderso 00:00: n 00 CODEINE DRUG Active NandV 2015-0 MD INGREDI 9- Anderso 00:00: n 00 HYDROCOD DRUG Active NandV 2015-0 MD ONE INGREDI 05-26 Anderso 00:00: n 00 TRAMADOL DRUG Active NandV 2015-0 MD INGREDI 05-26 Anderso 00:00: n 00 CODEINE DRUG Active NandV 2015-0 MD INGREDI - Anderso 00:00: n 00 HYDROCOD DRUG Active NandV 2015-0 MD ONE INGREDI 05-26 Anderso 00:00: n 00 TRAMADOL DRUG Active NandV 2015-0 MD INGREDI 9- Anderso 00:00: n 00 TRAMADOL DRUG Active NandV 2015-0 MD INGREDI 9- Anderso 00:00: n 00 CODEINE DRUG Active NandV 2015-0 MD INGREDI 9- Anderso 00:00: n 00 HYDROCOD DRUG Active NandV 2015-0 MD ONE INGREDI 05-26 Anderso 00:00: n 00 TRAMADOL DRUG Active NandV 2015-0 MD INGREDI 9- Anderso 00:00: n 00 CODEINE DRUG Active NandV 2015-0 MD INGREDI 9- Anderso 00:00: n 00 HYDROCOD DRUG Active NandV 2015-0 MD ONE INGREDI 05-26 Anderso 00:00: n 00 TRAMADOL DRUG Active NandV 2015-0 MD INGREDI 05-26 Anderso 00:00: n 00 CODEINE DRUG Active NandV 2015-0 MD INGREDI 05-26 Anderso 00:00: n 00 HYDROCOD DRUG Active NandV 2015-0 MD ONE INGREDI 05-26 Anderso 00:00: n 00 TRAMADOL DRUG Active NandV 2015-0 MD INGREDI 05-26 Anderso 00:00: n 00 CODEINE DRUG Active NandV 2014-0 MD INGREDI 05-26 Anderso 00:00: n 00 HYDROCOD DRUG Active NandV 2015-0 MD ONE INGREDI 05-26 Anderso 00:00: n 00 TRAMADOL DRUG Active NandV 2015-0 MD INGREDI 05-26 Anderso 00:00: n 00 CODEINE DRUG Active NandV 2015-0 MD INGREDI 05-26 Anderso 00:00: n 00 HYDROCOD DRUG Active NandV 2015-0 MD ONE INGREDI 05-26 Anderso 00:00: n 00 TRAMADOL DRUG Active NandV 2014-0 MD INGREDI 05-26 Anderso 00:00: n 00 CODEINE DRUG Active NandV 2015-0 MD INGREDI 05-26 Anderso 00:00: n 00 CODEINE DRUG Active NandV 2015-0 MD INGREDI 05-26 Anderso 00:00: n 00 HYDROCOD DRUG Active NandV 2015-0 MD ONE INGREDI 05-26 Anderso 00:00: n 00 TRAMADOL DRUG Active NandV 2015-0 MD INGREDI 05-26 Anderso 00:00: n 00 CODEINE DRUG Active NandV 2015-0 MD INGREDI 05-26 Anderso 00:00: n 00 HYDROCOD DRUG Active NandV 2015-0 MD ONE INGREDI 05-26 Anderso 00:00: n 00 TRAMADOL DRUG Active NandV 2015-0 MD INGREDI 05-26 Anderso 00:00: n 00 CODEINE DRUG Active NandV 2015-0 MD INGREDI 05-26 Anderso 00:00: n 00 HYDROCOD DRUG Active NandV 2015-0 MD ONE INGREDI 05-26 Anderso 00:00: n 00 HYDROCOD DRUG Active NandV 2015-0 MD ONE INGREDI 9 Anderso 00:00: n 00 TRAMADOL DRUG Active NandV 2015-0 MD INGREDI - Anderso 00:00: n 00 CODEINE DRUG Active NandV 2015-0 MD INGREDI 05-26 Anderso 00:00: n 00 HYDROCOD DRUG Active NandV 2015-0 MD ONE INGREDI 05-26 Anderso 00:00: n 00 TRAMADOL DRUG Active NandV 2015-0 MD INGREDI 05-26 Anderso 00:00: n 00 CODEINE DRUG Active NandV 2015-0 MD INGREDI - Anderso 00:00: n 00 HYDROCOD DRUG Active NandV 2015-0 MD ONE INGREDI 05-26 Anderso 00:00: n 00 TRAMADOL DRUG Active NandV 2015-0 MD INGREDI - Anderso 00:00: n 00 CODEINE DRUG Active NandV 2015-0 MD INGREDI - Anderso 00:00: n 00 HYDROCOD DRUG Active NandV 2015-0 MD ONE INGREDI 05-26 Anderso 00:00: n 00 TRAMADOL DRUG Active NandV 2015-0 MD INGREDI 9- Anderso 00:00: n 00 CODEINE DRUG Active NandV 2015-0 MD INGREDI - Anderso 00:00: n 00 HYDROCOD DRUG Active NandV 2015-0 MD ONE INGREDI 05-26 Anderso 00:00: n 00 TRAMADOL DRUG Active NandV 2015-0 MD INGREDI - Anderso 00:00: n 00 TRAMADOL DRUG Active NandV 2015-0 MD INGREDI 05-26 Anderso 00:00: n 00 CODEINE DRUG Active NandV 2015-0 MD INGREDI 9- Anderso 00:00: n 00 HYDROCOD DRUG Active NandV 2015-0 MD ONE INGREDI 05-26 Anderso 00:00: n 00 TRAMADOL DRUG Active NandV 2015-0 MD INGREDI - Anderso 00:00: n 00 CODEINE DRUG Active NandV 2015-0 MD INGREDI 9- Anderso 00:00: n 00 HYDROCOD DRUG Active NandV 2015-0 MD ONE INGREDI 05-26 Anderso 00:00: n 00 TRAMADOL DRUG Active NandV 2015-0 MD INGREDI 9- Anderso 00:00: n 00 CODEINE DRUG Active NandV 2015-0 MD INGREDI 05-26 Anderso 00:00: n 00 HYDROCOD DRUG Active NandV 2015-0 MD ONE INGREDI 05-26 Anderso 00:00: n 00 TRAMADOL DRUG Active NandV 2015-0 MD INGREDI 05-26 Anderso 00:00: n 00 CODEINE DRUG Active NandV 2015-0 MD INGREDI 05-26 Anderso 00:00: n 00 HYDROCOD DRUG Active NandV 2015-0 MD ONE INGREDI 05-26 Anderso 00:00: n 00 TRAMADOL DRUG Active NandV 2015-0 MD INGREDI 05-26 Anderso 00:00: n 00 CODEINE DRUG Active NandV 2015-0 MD INGREDI 05-26 Anderso 00:00: n 00 HYDROCOD DRUG Active NandV 2015-0 MD ONE INGREDI 05-26 Anderso 00:00: n 00 TRAMADOL DRUG Active NandV 2015-0 MD INGREDI 05-26 Anderso 00:00: n 00 CODEINE DRUG Active NandV 2015-0 MD INGREDI 05-26 Anderso 00:00: n 00 HYDROCOD DRUG Active NandV 2015-0 MD ONE INGREDI 05-26 Anderso 00:00: n 00 TRAMADOL DRUG Active NandV 2015-0 MD INGREDI 05-26 Anderso 00:00: n 00 CODEINE DRUG Active NandV 2015-0 MD INGREDI 05-26 Anderso 00:00: n 00 CODEINE DRUG Active NandV 2015-0 MD INGREDI 05-26 Anderso 00:00: n 00 HYDROCOD DRUG Active NandV 2015-0 MD ONE INGREDI 05-26 Anderso 00:00: n 00 TRAMADOL DRUG Active NandV 2015-0 MD INGREDI - Anderso 00:00: n 00 CODEINE DRUG Active NandV 2015-0 MD INGREDI - Anderso 00:00: n 00 HYDROCOD DRUG Active NandV 2015-0 MD ONE INGREDI 05-26 Anderso 00:00: n 00 TRAMADOL DRUG Active NandV 2015-0 MD INGREDI 05-26 Anderso 00:00: n 00 CODEINE DRUG Active NandV 2015-0 MD INGREDI 05-26 Anderso 00:00: n 00 HYDROCOD DRUG Active NandV 2015-0 MD ONE INGREDI 05-26 Anderso 00:00: n 00 HYDROCOD DRUG Active NandV 2015-0 MD ONE INGREDI 05-26 Anderso 00:00: n 00 TRAMADOL DRUG Active NandV 2015-0 MD INGREDI 05-26 Anderso 00:00: n 00 CODEINE DRUG Active NandV 2014-0 MD INGREDI 05-26 Anderso 00:00: n 00 HYDROCOD DRUG Active NandV 2014-0 MD ONE INGREDI 05-26 Anderso 00:00: n 00 TRAMADOL DRUG Active NandV 2014-0 MD INGREDI 05-26 Anderso 00:00: n 00 CODEINE DRUG Active NandV 2014-0 MD INGREDI 05-26 Anderso 00:00: n 00 HYDROCOD DRUG Active NandV 2014-0 MD ONE INGREDI 05-26 Anderso 00:00: n 00 TRAMADOL DRUG Active NandV 2014-0 MD INGREDI 05-26 Anderso 00:00: n 00 CODEINE DRUG Active NandV 2015-0 MD INGREDI 05-26 Anderso 00:00: n 00 HYDROCOD DRUG Active NandV 2015-0 MD ONE INGREDI 05-26 Anderso 00:00: n 00 TRAMADOL DRUG Active NandV 2014-0 MD INGREDI 05-26 Anderso 00:00: n 00 CODEINE DRUG Active NandV 2015-0 MD INGREDI 05-26 Anderso 00:00: n 00 HYDROCOD DRUG Active NandV 2015-0 MD ONE INGREDI 05-26 Anderso 00:00: n 00 TRAMADOL DRUG Active NandV 2014-0 MD INGREDI 05-26 Anderso 00:00: n 00 TRAMADOL DRUG Active NandV 2015-0 MD INGREDI 05-26 Anderso 00:00: n 00 CODEINE DRUG Active NandV 2015-0 MD INGREDI 05-26 Anderso 00:00: n 00 HYDROCOD DRUG Active NandV 2015-0 MD ONE INGREDI 05-26 Anderso 00:00: n 00 TRAMADOL DRUG Active NandV 2015-0 MD INGREDI 05-26 Anderso 00:00: n 00 CODEINE DRUG Active NandV 2015-0 MD INGREDI 05-26 Anderso 00:00: n 00 HYDROCOD DRUG Active NandV 2014-0 MD ONE INGREDI 05-26 Anderso 00:00: n 00 TRAMADOL DRUG Active NandV 2015-0 MD INGREDI 05-26 Anderso 00:00: n 00 CODEINE DRUG Active NandV 2015-0 MD INGREDI 05-26 Anderso 00:00: n 00 HYDROCOD DRUG Active NandV 2015-0 MD ONE INGREDI 05-26 Anderso 00:00: n 00 TRAMADOL DRUG Active NandV 2015-0 MD INGREDI 05-26 Anderso 00:00: n 00 CODEINE DRUG Active NandV 2015-0 MD INGREDI 05-26 Anderso 00:00: n 00 HYDROCOD DRUG Active NandV 2015-0 MD ONE INGREDI 05-26 Anderso 00:00: n 00 TRAMADOL DRUG Active NandV 2015-0 MD INGREDI 05-26 Anderso 00:00: n 00 CODEINE DRUG Active NandV 2015-0 MD INGREDI 05-26 Anderso 00:00: n 00 HYDROCOD DRUG Active NandV 2015-0 MD ONE INGREDI 05-26 Anderso 00:00: n 00 TRAMADOL DRUG Active NandV 2015-0 MD INGREDI 05-26 Anderso 00:00: n 00 CODEINE DRUG Active NandV 2015-0 MD INGREDI 05-26 Anderso 00:00: n 00 HYDROCOD DRUG Active NandV 2015-0 MD ONE INGREDI 05-26 Anderso 00:00: n 00 TRAMADOL DRUG Active NandV 2015-0 MD INGREDI 05-26 Anderso 00:00: n 00 CODEINE DRUG Active NandV 2015-0 MD INGREDI 05-26 Anderso 00:00: n 00 HYDROCOD DRUG Active NandV 2015-0 MD ONE INGREDI 05-26 Anderso 00:00: n 00 CODEINE DRUG Active NandV 2015-0 MD INGREDI - Anderso 00:00: n 00 TRAMADOL DRUG Active NandV 2015-0 MD INGREDI 05-26 Anderso 00:00: n 00 CODEINE DRUG Active NandV 2015-0 MD INGREDI 05-26 Anderso 00:00: n 00 HYDROCOD DRUG Active NandV 2015-0 MD ONE INGREDI 05-26 Anderso 00:00: n 00 TRAMADOL DRUG Active NandV 2015-0 MD INGREDI 05-26 Anderso 00:00: n 00 CODEINE DRUG Active NandV 2015-0 MD INGREDI 9- Anderso 00:00: n 00 HYDROCOD DRUG Active NandV 2015-0 MD ONE INGREDI 05-26 Anderso 00:00: n 00 HYDROCOD DRUG Active NandV 2015-0 MD ONE INGREDI 05-26 Anderso 00:00: n 00 TRAMADOL DRUG Active NandV 2015-0 MD INGREDI 05-26 Anderso 00:00: n 00 CODEINE DRUG Active NandV 2015-0 MD INGREDI 05-26 Anderso 00:00: n 00 HYDROCOD DRUG Active NandV 2015-0 MD ONE INGREDI 05-26 Anderso 00:00: n 00 TRAMADOL DRUG Active NandV 2015-0 MD INGREDI 05-26 Anderso 00:00: n 00 CODEINE DRUG Active NandV 2015-0 MD INGREDI 05-26 Anderso 00:00: n 00 HYDROCOD DRUG Active NandV 2015-0 MD ONE INGREDI 05-26 Anderso 00:00: n 00 TRAMADOL DRUG Active NandV 2015-0 MD INGREDI 05-26 Anderso 00:00: n 00 CODEINE DRUG Active NandV 2015-0 MD INGREDI - Anderso 00:00: n 00 HYDROCOD DRUG Active NandV 2015-0 MD ONE INGREDI 05-26 Anderso 00:00: n 00 TRAMADOL DRUG Active NandV 2015-0 MD INGREDI 05-26 Anderso 00:00: n 00 CODEINE DRUG Active NandV 2015-0 MD INGREDI 05-26 Anderso 00:00: n 00 HYDROCOD DRUG Active NandV 2015-0 MD ONE INGREDI 05-26 Anderso 00:00: n 00 TRAMADOL DRUG Active NandV 2015-0 MD INGREDI - Anderso 00:00: n 00 TRAMADOL DRUG Active NandV 2015-0 MD INGREDI - Anderso 00:00: n 00 CODEINE DRUG Active NandV 2015-0 MD INGREDI - Anderso 00:00: n 00 HYDROCOD DRUG Active NandV 2015-0 MD ONE INGREDI 05-26 Anderso 00:00: n 00 TRAMADOL DRUG Active NandV 2015-0 MD INGREDI - Anderso 00:00: n 00 CODEINE DRUG Active NandV 2015-0 MD INGREDI Anderso 00:00: n 00 HYDROCOD DRUG Active NandV 2015-0 MD ONE INGREDI 05-26 Anderso 00:00: n 00 TRAMADOL DRUG Active NandV 2015-0 MD INGREDI 05-26 Anderso 00:00: n 00 CODEINE DRUG Active NandV 2015-0 MD INGREDI 05-26 Anderso 00:00: n 00 HYDROCOD DRUG Active NandV 2015-0 MD ONE INGREDI 05-26 Anderso 00:00: n 00 TRAMADOL DRUG Active NandV 2015-0 MD INGREDI 05-26 Anderso 00:00: n 00 CODEINE DRUG Active NandV 2015-0 MD INGREDI 05-26 Anderso 00:00: n 00 HYDROCOD DRUG Active NandV 2015-0 MD ONE INGREDI 05-26 Anderso 00:00: n 00 TRAMADOL DRUG Active NandV 2015-0 MD INGREDI 05-26 Anderso 00:00: n 00 CODEINE DRUG Active NandV 2015-0 MD INGREDI 05-26 Anderso 00:00: n 00 HYDROCOD DRUG Active NandV 2015-0 MD ONE INGREDI 05-26 Anderso 00:00: n 00 TRAMADOL DRUG Active NandV 2015-0 MD INGREDI 05-26 Anderso 00:00: n 00 CODEINE DRUG Active NandV 2015-0 MD INGREDI 05-26 Anderso 00:00: n 00 HYDROCOD DRUG Active NandV 2015-0 MD ONE INGREDI 05-26 Anderso 00:00: n 00 TRAMADOL DRUG Active NandV 2015-0 MD INGREDI 05-26 Anderso 00:00: n 00 CODEINE DRUG Active NandV 2015-0 MD INGREDI 05-26 Anderso 00:00: n 00 HYDROCOD DRUG Active NandV 2015-0 MD ONE INGREDI 05-26 Anderso 00:00: n 00 CODEINE DRUG Active NandV 2015-0 MD INGREDI 05-26 Anderso 00:00: n 00 TRAMADOL DRUG Active NandV 2015-0 MD INGREDI 05-26 Anderso 00:00: n 00 CODEINE DRUG Active NandV 2015-0 MD INGREDI 05-26 Anderso 00:00: n 00 HYDROCOD DRUG Active NandV 2015-0 MD ONE INGREDI 05-26 Anderso 00:00: n 00 TRAMADOL DRUG Active NandV 2015-0 MD INGREDI 9- Anderso 00:00: n 00 CODEINE DRUG Active NandV 2015-0 MD INGREDI 9- Anderso 00:00: n 00 HYDROCOD DRUG Active NandV 2015-0 MD ONE INGREDI 05-26 Anderso 00:00: n 00 TRAMADOL DRUG Active NandV 2015-0 MD INGREDI 05-26 Anderso 00:00: n 00 CODEINE DRUG Active NandV 2015-0 MD INGREDI 05-26 Anderso 00:00: n 00 HYDROCOD DRUG Active NandV 2015-0 MD ONE INGREDI 05-26 Anderso 00:00: n 00 HYDROCOD DRUG Active NandV 2015-0 MD ONE INGREDI 05-26 Anderso 00:00: n 00 TRAMADOL DRUG Active NandV 2015-0 MD INGREDI 05-26 Anderso 00:00: n 00 CODEINE DRUG Active NandV 2015-0 MD INGREDI 05-26 Anderso 00:00: n 00 HYDROCOD DRUG Active NandV 2015-0 MD ONE INGREDI 05-26 Anderso 00:00: n 00 TRAMADOL DRUG Active NandV 2015-0 MD INGREDI - Anderso 00:00: n 00 CODEINE DRUG Active NandV 2015-0 MD INGREDI 05-26 Anderso 00:00: n 00 HYDROCOD DRUG Active NandV 2015-0 MD ONE INGREDI 05-26 Anderso 00:00: n 00 TRAMADOL DRUG Active NandV 2015-0 MD INGREDI - Anderso 00:00: n 00 CODEINE DRUG Active NandV 2015-0 MD INGREDI 05-26 Anderso 00:00: n 00 HYDROCOD DRUG Active NandV 2015-0 MD ONE INGREDI 05-26 Anderso 00:00: n 00 TRAMADOL DRUG Active NandV 2015-0 MD INGREDI - Anderso 00:00: n 00 CODEINE DRUG Active NandV 2015-0 MD INGREDI - Anderso 00:00: n 00 TRAMADOL DRUG Active NandV 2015-0 MD INGREDI 9- Anderso 00:00: n 00 HYDROCOD DRUG Active NandV 2015-0 MD ONE INGREDI 05-26 Anderso 00:00: n 00 TRAMADOL DRUG Active NandV 2015-0 MD INGREDI - Anderso 00:00: n 00 CODEINE DRUG Active NandV 2015-0 MD INGREDI 9- Anderso 00:00: n 00 HYDROCOD DRUG Active NandV 2015-0 MD ONE INGREDI 05-26 Anderso 00:00: n 00 TRAMADOL DRUG Active NandV 2015-0 MD INGREDI - Anderso 00:00: n 00 CODEINE DRUG Active NandV 2015-0 MD INGREDI 05-26 Anderso 00:00: n 00 HYDROCOD DRUG Active NandV 2015-0 MD ONE INGREDI 05-26 Anderso 00:00: n 00 TRAMADOL DRUG Active NandV 2015-0 MD INGREDI 05-26 Anderso 00:00: n 00 CODEINE DRUG Active NandV 2015-0 MD INGREDI 05-26 Anderso 00:00: n 00 HYDROCOD DRUG Active NandV 2015-0 MD ONE INGREDI 05-26 Anderso 00:00: n 00 TRAMADOL DRUG Active NandV 2015-0 MD INGREDI 05-26 Anderso 00:00: n 00 CODEINE DRUG Active NandV 2015-0 MD INGREDI 05-26 Anderso 00:00: n 00 HYDROCOD DRUG Active NandV 2015-0 MD ONE INGREDI 05-26 Anderso 00:00: n 00 TRAMADOL DRUG Active NandV 2015-0 MD INGREDI - Anderso 00:00: n 00 CODEINE DRUG Active NandV 2015-0 MD INGREDI 05-26 Anderso 00:00: n 00 HYDROCOD DRUG Active NandV 2015-0 MD ONE INGREDI 05-26 Anderso 00:00: n 00 TRAMADOL DRUG Active NandV 2015-0 MD INGREDI 05-26 Anderso 00:00: n 00 CODEINE DRUG Active NandV 2015-0 MD INGREDI 9- Anderso 00:00: n 00 CODEINE DRUG Active NandV 2015-0 MD INGREDI 9- Anderso 00:00: n 00 HYDROCOD DRUG Active NandV 2015-0 MD ONE INGREDI 05-26 Anderso 00:00: n 00 TRAMADOL DRUG Active NandV 2015-0 MD INGREDI 9- Anderso 00:00: n 00 CODEINE DRUG Active NandV 2015-0 MD INGREDI - Anderso 00:00: n 00 HYDROCOD DRUG Active NandV 2015-0 MD ONE INGREDI 901 Anderso 00:00: n 00 TRAMADOL DRUG Active NandV 2015-0 MD INGREDI 05-26 Anderso 00:00: n 00 HYDROCOD DRUG Active NandV 2015-0 MD ONE INGREDI 05-26 Anderso 00:00: n 00 CODEINE DRUG Active NandV 2015-0 MD INGREDI 05-26 Anderso 00:00: n 00 HYDROCOD DRUG Active NandV 2015-0 MD ONE INGREDI 05-26 Anderso 00:00: n 00 TRAMADOL DRUG Active NandV 2015-0 MD INGREDI 05-26 Anderso 00:00: n 00 CODEINE DRUG Active NandV 2015-0 MD INGREDI 05-26 Anderso 00:00: n 00 HYDROCOD DRUG Active NandV 2015-0 MD ONE INGREDI 05-26 Anderso 00:00: n 00 TRAMADOL DRUG Active NandV 2015-0 MD INGREDI 05-26 Anderso 00:00: n 00 CODEINE DRUG Active NandV 2015-0 MD INGREDI 05-26 Anderso 00:00: n 00 HYDROCOD DRUG Active NandV 2015-0 MD ONE INGREDI 05-26 Anderso 00:00: n 00 TRAMADOL DRUG Active NandV 2015-0 MD INGREDI 05-26 Anderso 00:00: n 00 CODEINE DRUG Active NandV 2015-0 MD INGREDI 05-26 Anderso 00:00: n 00 HYDROCOD DRUG Active NandV 2015-0 MD ONE INGREDI 05-26 Anderso 00:00: n 00 TRAMADOL DRUG Active NandV 2015-0 MD INGREDI 05-26 Anderso 00:00: n 00 TRAMADOL DRUG Active NandV 2015-0 MD INGREDI 05-26 Anderso 00:00: n 00 CODEINE DRUG Active NandV 2015-0 MD INGREDI 05-26 Anderso 00:00: n 00 HYDROCOD DRUG Active NandV 2015-0 MD ONE INGREDI 05-26 Anderso 00:00: n 00 TRAMADOL DRUG Active NandV 2015-0 MD INGREDI 05-26 Anderso 00:00: n 00 CODEINE DRUG Active NandV 2015-0 MD INGREDI 05-26 Anderso 00:00: n 00 HYDROCOD DRUG Active NandV 2015-0 MD ONE INGREDI 05-26 Anderso 00:00: n 00 TRAMADOL DRUG Active NandV 2015-0 MD INGREDI 9- Anderso 00:00: n 00 CODEINE DRUG Active NandV 2015-0 MD INGREDI 05-26 Anderso 00:00: n 00 HYDROCOD DRUG Active NandV 2015-0 MD ONE INGREDI 05-26 Anderso 00:00: n 00 TRAMADOL DRUG Active NandV 2015-0 MD INGREDI 05-26 Anderso 00:00: n 00 CODEINE DRUG Active NandV 2015-0 MD INGREDI 05-26 Anderso 00:00: n 00 HYDROCOD DRUG Active NandV 2015-0 MD ONE INGREDI 05-26 Anderso 00:00: n 00 TRAMADOL DRUG Active NandV 2015-0 MD INGREDI 05-26 Anderso 00:00: n 00 CODEINE DRUG Active NandV 2015-0 MD INGREDI 05-26 Anderso 00:00: n 00 HYDROCOD DRUG Active NandV 2015-0 MD ONE INGREDI 05-26 Anderso 00:00: n 00 TRAMADOL DRUG Active NandV 2015-0 MD INGREDI 05-26 Anderso 00:00: n 00 CODEINE DRUG Active NandV 2015-0 MD INGREDI 05-26 Anderso 00:00: n 00 HYDROCOD DRUG Active NandV 2015-0 MD ONE INGREDI 05-26 Anderso 00:00: n 00 TRAMADOL DRUG Active NandV 2015-0 MD INGREDI 05-26 Anderso 00:00: n 00 CODEINE DRUG Active NandV 2015-0 MD INGREDI 05-26 Anderso 00:00: n 00 CODEINE DRUG Active NandV 2015-0 MD INGREDI 05-26 Anderso 00:00: n 00 HYDROCOD DRUG Active NandV 2015-0 MD ONE INGREDI 05-26 Anderso 00:00: n 00 TRAMADOL DRUG Active NandV 2015-0 MD INGREDI 05-26 Anderso 00:00: n 00 CODEINE DRUG Active NandV 2015-0 MD INGREDI 05-26 Anderso 00:00: n 00 HYDROCOD DRUG Active NandV 2015-0 MD ONE INGREDI 05-26 Anderso 00:00: n 00 TRAMADOL DRUG Active NandV 2015-0 MD INGREDI 05-26 Anderso 00:00: n 00 HYDROCOD DRUG Active NandV 2015-0 MD ONE INGREDI 05-26 Anderso 00:00: n 00 CODEINE DRUG Active NandV 2015-0 MD INGREDI 05-26 Anderso 00:00: n 00 HYDROCOD DRUG Active NandV 2015-0 MD ONE INGREDI 05-26 Anderso 00:00: n 00 TRAMADOL DRUG Active NandV 2015-0 MD INGREDI 05-26 Anderso 00:00: n 00 CODEINE DRUG Active NandV 2015-0 MD INGREDI 05-26 Anderso 00:00: n 00 HYDROCOD DRUG Active NandV 2015-0 MD ONE INGREDI 05-26 Anderso 00:00: n 00 TRAMADOL DRUG Active NandV 2015-0 MD INGREDI 05-26 Anderso 00:00: n 00 CODEINE DRUG Active NandV 2015-0 MD INGREDI 05-26 Anderso 00:00: n 00 HYDROCOD DRUG Active NandV 2015-0 MD ONE INGREDI 05-26 Anderso 00:00: n 00 TRAMADOL DRUG Active NandV 2015-0 MD INGREDI 05-26 Anderso 00:00: n 00 CODEINE DRUG Active NandV 2015-0 MD INGREDI 05-26 Anderso 00:00: n 00 HYDROCOD DRUG Active NandV 2015-0 MD ONE INGREDI 05-26 Anderso 00:00: n 00 TRAMADOL DRUG Active NandV 2015-0 MD INGREDI 05-26 Anderso 00:00: n 00 TRAMADOL DRUG Active NandV 2015-0 MD INGREDI 05-26 Anderso 00:00: n 00 CODEINE DRUG Active NandV 2015-0 MD INGREDI 05-26 Anderso 00:00: n 00 HYDROCOD DRUG Active NandV 2015-0 MD ONE INGREDI 05-26 Anderso 00:00: n 00 TRAMADOL DRUG Active NandV 2015-0 MD INGREDI 05-26 Anderso 00:00: n 00 CODEINE DRUG Active NandV 2015-0 MD INGREDI 05-26 Anderso 00:00: n 00 HYDROCOD DRUG Active NandV 2015-0 MD ONE INGREDI 05-26 Anderso 00:00: n 00 TRAMADOL DRUG Active NandV 2015-0 MD INGREDI 05-26 Anderso 00:00: n 00 CODEINE DRUG Active NandV 2015-0 MD INGREDI 05-26 Anderso 00:00: n 00 HYDROCOD DRUG Active NandV 2015-0 MD ONE INGREDI 05-26 Anderso 00:00: n 00 TRAMADOL DRUG Active NandV 2015-0 MD INGREDI 05-26 Anderso 00:00: n 00 CODEINE DRUG Active NandV 2015-0 MD INGREDI 05-26 Anderso 00:00: n 00 HYDROCOD DRUG Active NandV 2015-0 MD ONE INGREDI 05-26 Anderso 00:00: n 00 TRAMADOL DRUG Active NandV 2015-0 MD INGREDI 05-26 Anderso 00:00: n 00 CODEINE DRUG Active NandV 2015-0 MD INGREDI 05-26 Anderso 00:00: n 00 HYDROCOD DRUG Active NandV 2015-0 MD ONE INGREDI 05-26 Anderso 00:00: n 00 TRAMADOL DRUG Active NandV 2015-0 MD INGREDI 05-26 Anderso 00:00: n 00 CODEINE DRUG Active NandV 2015-0 MD INGREDI 05-26 Anderso 00:00: n 00 HYDROCOD DRUG Active NandV 2015-0 MD ONE INGREDI 05-26 Anderso 00:00: n 00 TRAMADOL DRUG Active NandV 2015-0 MD INGREDI 05-26 Anderso 00:00: n 00 CODEINE DRUG Active NandV 2015-0 MD INGREDI - Anderso 00:00: n 00 CODEINE DRUG Active NandV 2015-0 MD INGREDI 05-26 Anderso 00:00: n 00 HYDROCOD DRUG Active NandV 2015-0 MD ONE INGREDI 05-26 Anderso 00:00: n 00 TRAMADOL DRUG Active NandV 2015-0 MD INGREDI 05-26 Anderso 00:00: n 00 CODEINE DRUG Active NandV 2015-0 MD INGREDI - Anderso 00:00: n 00 HYDROCOD DRUG Active NandV 2015-0 MD ONE INGREDI 05-26 Anderso 00:00: n 00 TRAMADOL DRUG Active NandV 2015-0 MD INGREDI 05-26 Anderso 00:00: n 00 HYDROCOD DRUG Active NandV 2015-0 MD ONE INGREDI 05-26 Anderso 00:00: n 00 CODEINE DRUG Active NandV 2015-0 MD INGREDI 05-26 Anderso 00:00: n 00 HYDROCOD DRUG Active NandV 2015-0 MD ONE INGREDI 05-26 Anderso 00:00: n 00 TRAMADOL DRUG Active NandV 2015-0 MD INGREDI 05-26 Anderso 00:00: n 00 CODEINE DRUG Active NandV 2015-0 MD INGREDI 05-26 Anderso 00:00: n 00 HYDROCOD DRUG Active NandV 2015-0 MD ONE INGREDI 05-26 Anderso 00:00: n 00 TRAMADOL DRUG Active NandV 2015-0 MD INGREDI 05-26 Anderso 00:00: n 00 CODEINE DRUG Active NandV 2015-0 MD INGREDI 05-26 Anderso 00:00: n 00 HYDROCOD DRUG Active NandV 2015-0 MD ONE INGREDI 05-26 Anderso 00:00: n 00 TRAMADOL DRUG Active NandV 2015-0 MD INGREDI 05-26 Anderso 00:00: n 00 CODEINE DRUG Active NandV 2015-0 MD INGREDI 05-26 Anderso 00:00: n 00 HYDROCOD DRUG Active NandV 2015-0 MD ONE INGREDI 05-26 Anderso 00:00: n 00 TRAMADOL DRUG Active NandV 2015-0 MD INGREDI 05-26 Anderso 00:00: n 00 TRAMADOL DRUG Active NandV 2015-0 MD INGREDI 05-26 Anderso 00:00: n 00 CODEINE DRUG Active NandV 2015-0 MD INGREDI 05-26 Anderso 00:00: n 00 HYDROCOD DRUG Active NandV 2015-0 MD ONE INGREDI 05-26 Anderso 00:00: n 00 TRAMADOL DRUG Active NandV 2015-0 MD INGREDI 05-26 Anderso 00:00: n 00 CODEINE DRUG Active NandV 2015-0 MD INGREDI 05-26 Anderso 00:00: n 00 HYDROCOD DRUG Active NandV 2015-0 MD ONE INGREDI 05-26 Anderso 00:00: n 00 TRAMADOL DRUG Active NandV 2015-0 MD INGREDI 05-26 Anderso 00:00: n 00 CODEINE DRUG Active NandV 2015-0 MD INGREDI 05-26 Anderso 00:00: n 00 HYDROCOD DRUG Active NandV 2015-0 MD ONE INGREDI 05-26 Anderso 00:00: n 00 TRAMADOL DRUG Active NandV 2015-0 MD INGREDI 05-26 Anderso 00:00: n 00 CODEINE DRUG Active NandV 2015-0 MD INGREDI 9- Anderso 00:00: n 00 HYDROCOD DRUG Active NandV 2015-0 MD ONE INGREDI 05-26 Anderso 00:00: n 00 TRAMADOL DRUG Active NandV 2015-0 MD INGREDI 05-26 Anderso 00:00: n 00 CODEINE DRUG Active NandV 2015-0 MD INGREDI 05-26 Anderso 00:00: n 00 HYDROCOD DRUG Active NandV 2015-0 MD ONE INGREDI 05-26 Anderso 00:00: n 00 TRAMADOL DRUG Active NandV 2015-0 MD INGREDI 05-26 Anderso 00:00: n 00 CODEINE DRUG Active NandV 2015-0 MD INGREDI 05-26 Anderso 00:00: n 00 CODEINE DRUG Active NandV 2015-0 MD INGREDI 05-26 Anderso 00:00: n 00 HYDROCOD DRUG Active NandV 2015-0 MD ONE INGREDI 05-26 Anderso 00:00: n 00 TRAMADOL DRUG Active NandV 2015-0 MD INGREDI 05-26 Anderso 00:00: n 00 CODEINE DRUG Active NandV 2015-0 MD INGREDI 05-26 Anderso 00:00: n 00 HYDROCOD DRUG Active NandV 2015-0 MD ONE INGREDI 05-26 Anderso 00:00: n 00 TRAMADOL DRUG Active NandV 2015-0 MD INGREDI 05-26 Anderso 00:00: n 00 HYDROCOD DRUG Active NandV 2015-0 MD ONE INGREDI 05-26 Anderso 00:00: n 00 CODEINE DRUG Active NandV 2015-0 MD INGREDI 05-26 Anderso 00:00: n 00 HYDROCOD DRUG Active NandV 2015-0 MD ONE INGREDI 05-26 Anderso 00:00: n 00 TRAMADOL DRUG Active NandV 2015-0 MD INGREDI 05-26 Anderso 00:00: n 00 CODEINE DRUG Active NandV 2015-0 MD INGREDI 05-26 Anderso 00:00: n 00 HYDROCOD DRUG Active NandV 2015-0 MD ONE INGREDI 05-26 Anderso 00:00: n 00 TRAMADOL DRUG Active NandV 2015-0 MD INGREDI - Anderso 00:00: n 00 CODEINE DRUG Active NandV 2015-0 MD INGREDI 05-26 Anderso 00:00: n 00 HYDROCOD DRUG Active NandV 2015-0 MD ONE INGREDI 05-26 Anderso 00:00: n 00 TRAMADOL DRUG Active NandV 2015-0 MD INGREDI 05-26 Anderso 00:00: n 00 CODEINE DRUG Active NandV 2015-0 MD INGREDI 05-26 Anderso 00:00: n 00 HYDROCOD DRUG Active NandV 2015-0 MD ONE INGREDI 05-26 Anderso 00:00: n 00 TRAMADOL DRUG Active NandV 2015-0 MD INGREDI 05-26 Anderso 00:00: n 00 TRAMADOL DRUG Active NandV 2015-0 MD INGREDI 05-26 Anderso 00:00: n 00 CODEINE DRUG Active NandV 2015-0 MD INGREDI 05-26 Anderso 00:00: n 00 HYDROCOD DRUG Active NandV 2015-0 MD ONE INGREDI 05-26 Anderso 00:00: n 00 TRAMADOL DRUG Active NandV 2015-0 MD INGREDI 05-26 Anderso 00:00: n 00 CODEINE DRUG Active NandV 2015-0 MD INGREDI 05-26 Anderso 00:00: n 00 HYDROCOD DRUG Active NandV 2015-0 MD ONE INGREDI 05-26 Anderso 00:00: n 00 TRAMADOL DRUG Active NandV 2015-0 MD INGREDI 05-26 Anderso 00:00: n 00 CODEINE DRUG Active NandV 2015-0 MD INGREDI 05-26 Anderso 00:00: n 00 HYDROCOD DRUG Active NandV 2015-0 MD ONE INGREDI 05-26 Anderso 00:00: n 00 TRAMADOL DRUG Active NandV 2015-0 MD INGREDI 05-26 Anderso 00:00: n 00 CODEINE DRUG Active NandV 2015-0 MD INGREDI 05-26 Anderso 00:00: n 00 HYDROCOD DRUG Active NandV 2015-0 MD ONE INGREDI 05-26 Anderso 00:00: n 00 CODEINE DRUG Active NandV 2015-0 MD INGREDI 05-26 Anderso 00:00: n 00 TRAMADOL DRUG Active NandV 2015-0 MD INGREDI 05-26 Anderso 00:00: n 00 CODEINE DRUG Active NandV 2015-0 MD INGREDI 05-26 Anderso 00:00: n 00 HYDROCOD DRUG Active NandV 2015-0 MD ONE INGREDI 05-26 Anderso 00:00: n 00 TRAMADOL DRUG Active NandV 2014-0 MD INGREDI 05-26 Anderso 00:00: n 00 CODEINE DRUG Active NandV 2014-0 MD INGREDI 05-26 Anderso 00:00: n 00 HYDROCOD DRUG Active NandV 2014-0 MD ONE INGREDI 05-26 Anderso 00:00: n 00 HYDROCOD DRUG Active NandV 2014- MD ONE INGREDI 05-26 Anderso 00:00: n 00 TRAMADOL DRUG Active NandV 2014-0 MD INGREDI 05-26 Anderso 00:00: n 00 CODEINE DRUG Active NandV 2014- MD INGREDI 05-26 Anderso 00:00: n 00 HYDROCOD DRUG Active NandV 2014-0 MD ONE INGREDI 05-26 Anderso 00:00: n 00 TRAMADOL DRUG Active NandV 2014-0 MD INGREDI 05-26 Anderso 00:00: n 00 CODEINE DRUG Active NandV 2014- MD INGREDI 05-26 Anderso 00:00: n 00 HYDROCOD DRUG Active NandV 2014-0 MD ONE INGREDI 05-26 Anderso 00:00: n 00 TRAMADOL DRUG Active NandV 2014-0 MD INGREDI 05-26 Anderso 00:00: n 00 Codeine Propensi Active Nausea And Uni vers ty to Vomiting 05-26 ity of adverse 00:00: [place] reaction 00 MD holger velasquez [facility] Hydrocod Propensi Active Nausea And Un gonzalez one ty to Vomiting 05-26 ity of adverse 00:00: [place] reaction 00 MD holger velasquez [facility] Tramadol Propensi Active Nausea And Un gonzalez ty to Vomiting 05-26 ity of adverse 00:00: [place] reaction 00 MD holger velasquez [facility] Family History Family Member Diagnosis Comments Start Date Stop Date Source Natural mother Breast cancer [facility] [place] MD [facility] Social History Social Habit Start Date Stop Date Quantity Comments Source History [facility] o f Alcohol Frequency [facility] History [facility] University o f Alcohol Std Kadie Ryan rson Drinks Cancer [place] History [facility] o f Alcohol Binge Kadie vazquez [facility] Exposure to 2022-05-22 2022-06-[address] [facility]-CoV-2 00:00:00 08:36:00 [facility]ickson [facility] Alcohol intake 2022-06-01 2022-06-01 Current drinker Unive rsity of 00:00:00 00:00:00 of alcohol [facility]ie erickson (finding[facility] Tobacco use and 2022-02-22 2022-02-22 Smokeless tobacco Un iversity of exposure 00:00:00 00:00:00 non-user Kadie erickson [facility] History SDOH 2022-02-22 2022-02-22 glass of wine [facility] Comment 00:00:00 00:00:00 once a month [facility] Sex Ass[birth year] At [birth year] [facility] 00:00:00 00:00:00 Kadie erickson [facility] Smoking Status Start Date Stop Date Source Tobacco smoking consumption [facility] unknown Never smoked tobacco [facility] Medications Ordered Filled Start Stop Current Ordering Indication Dosage Frequency Signature Comments Components Source Medication Medication Date Date Medication? Clinician (SIG) Name Name aspirin 81 Yes 81mg Chew 81 Univ ers mg chewable 06-01 mg. ity of tablet 21:03: [place] 30 MD Carina velasquez [facility] UNABLE TO Yes 1{capsu Take 1 Uni vers FIND 06-01 le} capsule by ity of 10:27: mouth [place] 13 daily. 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 [facility] NOS n <Female; Cancer Left> Center aspirin 81 0 2021- No 81mg Chew 81 mg Univers mg chewable - 08-13 daily. ity o f tablet 20:07: 00:00 [place] 26 :00 MD Carina velasquez [facility] naproxen 2021- No 220mg Take 220 Uni vers sodium 8- 08-13 mg by ity of (ALEVE) 220 20:07: 00:00 mouth [place] MG tablet 26 :00 needed for MD [facility]ghese pain. [facility] 2021- No 1{tbl} Take 1 Uni vers FIND 05-24 tablet by ity of 20:07: 00:00 mouth [place] 26 :00 twice MD daily. [facility] Name: n Viviscal [facility] fluconazole 2021- No Ductal 100mg Take 1 Univers (Diflucan) 05-07 carcinoma tablet i ty of 100 mg 00:00: 04:59 in situ, (100 mg[place] tablet 00 :00 solid type by mouth MD of breast, daily for Connor rso NOS 5 days. n <Female; Cancer Left> Center nystatin No Ductal Apply Unive rs (MYCOSTATIN 05-06 carcinoma topically ity of ) 100,000 00:00: 04:59 in situ, to Chris as units/g 00 :00 solid type affected MD ointment of breast, area(s) 3 Anderso NOS (three) n <Female; times a Cancer Left> day for 7 Center days. acetaminoph No Ductal 650mg Take 2 Univers en 05-06 carcinoma tablets ity of (TylenoL) 00:00: 04:59 in situ, (650 mg) [place] 325 mg 00 :00 solid type by mouth MD tablet of breast, every 6 Connor rso NOS (six) n <Female; hours for Cancer Left> 5 days. [place] ibuprofen No Ductal 600mg Take 1 Un gonzalez (ADVIL,MOTR 05-06 carcinoma tablet ity of [place]) 600 mg 00:00: 04:59 in situ, (600 mg) [place] tablet 00 :00 solid type by mouth MD of breast, every 8 Elias o NOS (eight) n <Female; hours for Cancer Left> 5 days. [place] metoprolol Yes 1{tbl} Take 1 Uni vers tartrate 5-25 tablet by ity of (LOPRESSOR) 00:00: mouth [place] 50 mg 00 twice MD tablet daily. [facility] ATORVASTATI Yes [id number] 10mg TAKE 1 Univers N 10 mg 5-05 TABLET BY ity of tablet 00:00: MOUTH AT [place] 00 BEDTIME Medical Branch ATORVASTATI 0 Yes [id number] 10mg TAKE 1 Univers N 10 mg 5-05 TABLET BY ity of tablet 00:00: MOUTH AT [place] BEDTIME Medical Branch ATORVASTATI Yes [id number] 10mg TAKE 1 Univers N 10 mg 5-05 TABLET BY ity of tablet 00:00: MOUTH AT [place] BEDTIME Medical Branch ATORVASTATI Yes [id number] 10mg TAKE 1 Univers N 10 mg 5-05 TABLET BY ity of tablet 00:00: MOUTH AT [place] BEDTIME Medical Branch atorvastati Yes 10mg Take 10 mg Univers n (LIPITOR) 5-05 by mouth ity of 10 mg 00:00: at [facility] bedtime. MD Carina velasquez [facility] aspirin 81 2019- Yes 81mg Take 81 mg U nivers mg chewable 0-28 by mouth ity of tablet 09:36: daily. [address] metoprolol 2019-09 Yes 50mg Take 50 mg U nivers tartrate 50 0-28 by mouth 2 it y of mg tablet 09:36: (two) [place] 20 times Medical daily. Branch aspirin 81 2019-09 Yes 81mg Take 81 mg U nivers mg chewable 0-28 by mouth ity of tablet 09:36: daily. [address] metoprolol 2020- Yes 50mg Take 50 mg U nivers tartrate 50 0-28 by mouth 2 it y of mg tablet 09:36: (two) [place] 20 times Medical daily. Branch aspirin 81 2019-09 Yes 81mg Take 81 mg U nivers mg chewable 0-28 by mouth ity of tablet 09:36: daily. [address] metoprolol 2020- Yes 50mg Take 50 mg U nivers tartrate 50 0-28 by mouth 2 it y of mg tablet 09:36: (two) [place] 20 times Medical daily. Branch aspirin 81 2019-09 Yes 81mg Take 81 mg U nivers mg chewable 0-28 by mouth ity of tablet 09:36: daily. [address] metoprolol 2020- Yes 50mg Take 50 mg U nivers tartrate 50 0-28 by mouth 2 it y of mg tablet 09:36: (two) [place] 20 times Medical daily. Branch Immunizations Ordered Filled Immunization Date Status Comments [facility] e Immunization Name Name SARS-COV-2 COVID-19 2021-08-06 Completed Unive rsity of MODERNA VACCINE 00:00:00 [place] [facility] ical Branch SARS-COV-2 COVID-19 2021-08-06 Completed Unive rsity of MODERNA VACCINE 00:00:00 [facility] ical Branch SARS-COV-2 COVID-19 2021-08-06 Completed Unive rsity of MODERNA VACCINE 00:00:00 [place] [facility] ical Branch SARS-COV-2 COVID-19 2021-08-06 Completed Unive rsity of MODERNA VACCINE 00:00:00 [facility] ical Branch Moderna SARS-CoV-2 2021-08-06 Completed Univer sity [facility] 00:00[facility]00 [facility]-COV-2 COVID-19 2020-12-25 Completed Unive rsity of MODERNA VACCINE 00:00:00 [facility] SARS-COV-2 COVID-19 2020-12-25 Completed Unive rsity of MODERNA VACCINE 00:00:00 [facility] ical Branch SARS-COV-2 COVID-19 2020-12-25 Completed Unive rsity of MODERNA VACCINE 00:00:00 [facility] SARS-COV-2 COVID-19 2020-12-25 Completed Unive rsity of MODERNA VACCINE 00:00:00 [facility] Moderna SARS-CoV-2 2020-12-25 Completed Univer sity of Vaccination 00:00:00 Kadie Ryan lauryn [facility] SARS-COV-2 COVID-19 2020-11-27 Completed Unive rsity of MODERNA VACCINE 00:00:00 [facility] ical Branch SARS-COV-2 COVID-19 2020-11-27 Completed Unive rsity of MODERNA VACCINE 00:00:00 [facility] ical Branch SARS-COV-2 COVID-19 2020-11-27 Completed Unive rsity of MODERNA VACCINE 00:00:00 [facility] SARS-COV-2 COVID-19 2020-11-27 Completed Unive rsity of MODERNA VACCINE 00:00:00 [facility] Moderna SARS-CoV-2 2020-11-27 Completed Univer sity of Vaccination 00:00:00 Kadie Ryan [facility] Influenza Virus 2020-07-17 Completed Universit y of Vaccine Recomb Quad 00:00:00 [place] Medical IM, Preserv and ABX Branc h Free 18-64 YRS Influenza Virus 2020-07-17 Completed Universit y of Vaccine Recomb Quad 00:00:00 [place] Medical IM, Preserv and ABX Branc h Free 18-64 YRS Influenza Virus 2020-07-17 Completed Universit y of Vaccine Recomb Quad 00:00:00 [place] [facility] IM, Preserv and ABX Branc h Free 18-64 YRS Influenza Virus 2020-07-17 Completed Universit y of Vaccine Recomb Quad 00:00:00 [place] [facility] IM, Preserv and ABX Branc h Free 18-64 YRS Influenza, 2020-07-17 Completed University of Quadrivalent 00:00:00 [facility] Influenza Virus 2019-07-31 Completed Universit y of Vaccine Quad .5 mL 00:00:00 [place] Medical IM 6+ MO Branch Influenza Virus 2019-07-31 Completed Universit y of Vaccine Quad .5 mL 00:00:00 [place] Medical IM 6+ MO Branch Influenza Virus 2019-07-31 Completed Universit y of Vaccine Quad .5 mL 00:00:00 [place] Medical IM 6+ MO Branch Influenza Virus 2019-07-31 Completed Universit y of Vaccine Quad .5 mL 00:00:00 [facility] 6+ MO Branch Influenza, 2019-07-31 Completed University of Quadrivalent 00:00:00 Kadie Mathias [facility] Vital Signs Vital Name Observation Time Observation Value Comments Source Systolic blood 2022-06-01 14:37:48 136 mm[Hg] Univer sity of pressure [facility]ie [facility] Diastolic blood 2022-06-01 14:37:48 79 mm[Hg] Unive rsity of pressure Kadie [facility] Heart rate 2022-06-01 14:37:48 [facility] Body temperature 2022-06-01 14:37:48 36.5 [facility] Respiratory rate 2022-06-01 14:37:48 18 /min [facility] Oxygen saturation in 2022-06-01 14:37:48 97 /min University Arterial blood by Kadie woo Pulse oximetry Cancer Center Body weight 2022-05-26 15:18:00 134.4 kg [facility] BMI 2022-05-26 15:18:00 48.77 kg/m2 [facility] MD [facility] Center Body height 2022-05-05 18:40:00 166 cm [facility] MD [facility] Procedures Procedure Date / Time Performing Source Performed Clinician POC GLUCOSE SCREEN 2022-05-07 01:22:00 Kimmy Kuhn [facility] PATHOLOGY SURGICAL 2022-05-06 19:50:00 Kimmy Kuhn [facility] INTERPRETATION [facility] TOTAL MASTECTOMY 2022-05-06 18:22:00 Kimmy Kuhn [facility] INTRAOPERATIVE LYMPHATIC 2022-05-06 18:22:00 Kimmy Kuhn [facility] MAPPING [facility] SENTINEL NODE BIOPSY - 2022-05-06 18:22:00 Kimmy Kuhn [facility] AXILLA [facility] POC GLUCOSE SCREEN 2022-05-06 16:26:00 Kimmy Kuhn [facility] BREAST SPECIMEN RADIOGRAPH 2022-05-06 16:16:42 [facility] LYMPHOSCINTIGRAPHY BREAST 2022-05-05 18:19:00 Ankur Loya [facility] SULFUR COLLOID [facility] XR CHEST 2 VW 2022-05-04 14:46:09 Ankur Loya [place] [facility] COMPLETE BLOOD COUNT W/ 2022-05-04 14:19:00 Ankur Loya [facility] DIFFERENTIAL [facility] COMPREHENSIVE METABOLIC 2022-05-04 14:19:00 Ankur Loya [facility] PANEL [facility] HEMOGLOBIN A1C 2022-05-04 14:19:00 Ankur Loya [facility] PROTHROMBIN TIME 2022-05-04 14:19:00 Ankur Loya [facility] APTT 2022-05-04 14:19:00 [facility] CBC 2022-05-04 14:19:00 Jayda [facility] MANUAL DIFFERENTIAL 2022-05-04 14:19:00 [facility] GLU[facility]SE LEVEL 2022-05-04 14:19:00 [facility] BLOOD UREA NITROGEN 2022-05-04 14:19:00 Jayda [facility] ELECTROLYTE PANEL 2022-05-04 14:19:00 Jayda [facility] SERUM CREATININE 2022-05-04 14:19:00 Jayda [facility] .GLOMERULAR FILTRATION RATE 2022-05-04 14:19:00 [facility] TOTAL 2022-05-04 14:19:00 Ankur Loya [facility] ALBUMIN LEVEL 2022-05-04 14:19:00 Jayda [facility] ALKALINE PHOSPHATASE 2022-05-04 14:19:00 Ankur Loya [facility] ALANINE AMINOTRANSFERASE 2022-05-04 14:19:00 Ankur Loya [facility] ASPARTATE AMINOTRANSFERASE 2022-05-04 14:19:00 [facility] TOTAL PROTEIN 2022-05-04 14:19:00 Ankur Loya [facility] FRACTIONATED BILIRUBIN 2022-05-04 14:19:00 [facility] MD COVID-19 (SARS-COV-2) PCR 2022-05-04 12:20:00 Kimmy Kuhn [facility] EKG, 12-LEAD (SCHEDULED) 2022-05-04 00:00:00 Ankur Loya [facility] EXTERNAL PROVIDER RECORDS 2022-04-15 05:01:00 Doctor Unassigned, [facility] [place] [facility] STEREOTACTIC BREAST BIOPSY 2022-03-04 14:52:00 [facility] PATHOLOGY BIOPSY 2022-03-04 14:31:00 Theo Diamond [facility] INTERPRETATION [facility] EXTERNAL PROVIDER RECORDS 2022-02-23 05:01:00 Doctor Unassigned, [facility] [place] [facility] US BREAST COMPLETE LEFT 2022-02-22 18:53:57 Henry, Yamileth [facility] US CHEST 2022-02-22 18:53:57 Henry [facility] MAMMO DIGITAL DIAGNOSTIC 2022-02-22 18:01:00 Yamileth Figueroa [facility] BILATERAL [facility] OSI MAMMO BILATERAL 2022-01-28 15:03:00 Theo Diamond [facility] Plan of Care Planned Activity Planned Date Details Comments Source Future Scheduled 2022-06-02 COVID-19 Vaccination [facility] Test 07:16:47 (4 - Booster for [facility] Cancer Moderna series) [code Center = COVID-19 Vaccination (4 - Booster for Moderna series)] Future Scheduled 2022-05-28 SHINGLES VACCINES ([address] [facility] Test 01:48:22 of 2) [code = SHINGLES VACCINES (1 of 2)] Future Scheduled 2022-05-28 INFLUENZA VACCINE [facility] Test 01:48:22 [code = INFLUENZA VACCINE] Future Scheduled 2022-05-28 HEPATITIS B VACCINES Met [facility] Test 01:48:22 (1 of 3 - 3-dose series) [code = HEPATITIS B VACCINES (1 of 3 - 3-dose series)] Future Scheduled 2022-05-28 COVID-19 [facility]ACC[facility] 01:48:22 [code = COVID-19 VACCINE (#1)] Future Scheduled 2022-05-28 [facility]atitis C [facility] Test 01:48:22 (procedure) [code = 523906618] Future Scheduled 2022-05-28 Screening for [facility] Test 01:48:22 malignant neoplasm of cervix (procedure) [code = 705980197] Future Scheduled 2022-05-28 BREAST CANCER [facility] Test 01:48:22 SCREENING [code = BREAST CANCER SCREENING] Future Scheduled 2022-05-28 COLONOSCOPY SCREENING [facility] Test 01:48:22 [code = COLONOSCOPY SCREENING] Encounters Start End Encounter Admission Attending Care Care Encounter Source Date/Time Date/Time Type Type Clinicians Facility Department ID 2022-05-09 Outpatient SYSTEMMARCOS MDA [id number] 08:18:46 PROVIDER Elias velasquez 2022-02-04 Outpatient SYSTEMMARCOS MDA [id number] 17:01:30 PROVIDER Elias velasquez 2022-06-01 2022-06-01 Nay Narvaez2.840.1 [id number] [facility] 13:00:00 13:00:00 Nicol 44783.1.1 ity of 3.412.2.7 [place] .3.056868 .8 [facility] 2022-06-01 2022-06-01 Outpatient GLENDY EDWARDS MDA MDA [id number] 10:23:19 12:03:04 NICOL velasquez 2022-06-01 2022-06-01 Nay Mckeon2.840.1 [id number] [facility] 09:00:00 10:57:05 Visit Kimmy 57126.1.1 ity of 3.412.2.7 [place] .3.500506 MD Zamora[facility] 2022-06-01 2022-06-01 Outpatient GLENDY KUHN MDA MDA [id number] 08:38:14 10:57:05 KIMMYSYLWIA velasquez 2022-06-01 2022-06-01 Travel 1.2.840.1 1.2.545.747 [id number] [facility] 00:00:00 00:00:00 76605.1.1 350.1.13.41 ity of 3.412.2.7 2.[place].7.3.698 [place] .3.527137 08Padmini.8 MD Zamora8 [facility] 2022-05-26 2022-05-26 Clinical Theo Diamond 1.2.840.1 [id number] Univers 10:30:00 15:09:09 Support Cris Camejo 01465.1.1 ity of 3.412.2.7 [place] .3.205305 MD Zamora8 [facility] 2022-05-26 2022-05-26 Outpatient GLENDY DIAMOND MDA [facility] [id number] 09:11:16 15:09:09 THEO velasquez 2022-05-26 2022-05-26 Michael Loya, 1.2.840.1 [id number] Univers 00:00:00 00:00:00 Only Ankur 79591.1.1 ity of 3.412.2.7 [place] .3.254754 MD Zamora8 [facility] 2022-05-26 2022-05-26 Travel 1.2.840.1 1.2.266.322 [id number] Univers 00:00:00 00:00:00 33483.1.1 350.1.13.41 ity of 3.412.2.7 2.2.7.3.698 [place] .3.494667 084.8 MD Zamora8 [facility] 2022-05-23 2022-05-23 Telephone Isauro, 1.2.840.1 [id number] Univers 00:00:00 00:00:00 Dean Jaffe 56935.1.1 it y of 3.412.2.7 [place] .3.013659 MD Zamora8 [facility] 2022-05-23 2022-05-23 Telephone Jayda, 1.2.840.1 [id number] Univers 00:00:00 00:00:00 Ankur 92691.1.1 ity of 3.412.2.7 [place] .3.049115 MD Olson [facility] 2022-05-20 2022-05-20 Clinical Theo Diamond 1.2.840.1 [id number] Univers 10:30:00 14:56:37 Support Valeriano Maevekayley Fletcher 87696.1.1 ity of 3.412.2.7 [place] .3.635882 MD Olson [facility] 2022-05-20 2022-05-20 Outpatient GLENDY DIAMOND MDA MDA [id number] 10:21:03 14:56:37 THEO velasquez 2022-05-20 2022-05-20 Travel 1.2.840.1 1.2.282.776 [id number] Univers 00:00:00 00:00:00 11468.1.1 350.1.13.41 ity of 3.412.2.7 2.[place].7.3.698 [place] .3.285551 084.8 MD Olson [facility] 2022-05-20 2022-05-20 Orders Jayda 1.2.840.1 [id number] Univers 00:00:00 00:00:00 Only Ankur 86042.1.1 ity of 3.412.2.7 [place] .3.192400 MD Olson [facility] 2022-05-16 2022-05-16 Telephone Jayda 1.2.840.1 [id number] Univers 00:00:00 00:00:00 Ankur 60248.1.1 ity of 3.412.2.7 [place] .3.897245 MD Zamora8 [facility] 2022-05-10 2022-05-10 Telephone Jayda 1.2.840.1 [id number] Univers 00:00:00 00:00:00 Ankur 78354.1.1 ity of 3.412.2.7 [place] .3.126745 MD Zamora8 [facility] 2022-05-06 2022-05-07 Outpatient GLENDY KUHN MDA [facility] [id number] 09:06:00 11:43:00 KIMMY velasquez 2022-05-06 2022-05-07 Reena Cabrera.2.840.1 [id number] Univers 09:06:00 11:43:00 Encounter Kimmy 87556.1.1 it y of 3.412.2.7 [place] .3.118601 MD [facility] 2022-05-06 2022-05-06 Outpatient GLENDY JAYDA MARCOS [facility] [id number] MD 11:16:42 23:59:00 ANKUR Elias o n 2022-05-06 2022-05-06 Hospital Jayda, 1.2.840.1 [id number] Univers 11:16:42 23:59:00 Encounter Ankur 41458.1.1 it y of 3.412.2.7 [place] .3.326495 MD [facility] 2022-05-06 2022-05-06 Anesthesia King Guardado 1.2.840.1 [id number] Univers 13:36:00 16:58:00 Event Genaro Loya 23544.1.1 ity of 3.412.2.7 [place] .3.893152 MD [facility] 2022-05-06 2022-05-06 Surgery Kuhn, 1.2.840.1 [id number] Univers 11:55:00 15:05:00 Kimmy 13374.1.1 ity of 3.412.2.7 [place] .3.668000 MD Olson [facility] 2022-05-06 2022-05-06 Travel 1.2.840.1 1.2.749.304 [id number] Univers 00:00:00 00:00:00 06394.1.1 350.1.13.41 ity of 3.412.2.7 2.[place].7.3.698 [place] .3.466470 084.8 MD Olson [facility] 2022-05-05 2022-05-05 Ancillary Jayda 1.2.840.1 [id number] Univers 15:00:00 15:30:00 Procedure Ankur 37168.1.1 it y of 3.412.2.7 [place] .3.714875 MD [facility] 2022-05-05 2022-05-05 [facility] Wilfred, 1.2.840.1 [id number] [facility] 14:00:00 15:29:08 Loni 27437.1.1 ity of S 3.412.2.7 [place] .3.119097 MD Zamora8 [facility] 2022-05-05 2022-05-05 Outpatient WILFRED [facility] MDA [id number] 13:12:27 15:29:08 LONI velasquez 2022-05-05 2022-05-05 Outpatient [facility] [id number] 13:19:20 13:19:20 ANKUR velasquez 2022-05-05 2022-05-05 [facility] Jayda 1.2.840.1 [id number] [facility] 12:00:00 12:30:00 Procedure Ankur 87883.1.1 it y of 3.412.2.7 [place] .3.034591 .8 [facility] 2022-05-05 2022-05-05 Outpatient [facility] [id number] 12:26:37 12:26:37 ANKUR velasquez 2022-05-05 2022-05-05 [facility] Jayda 1.2.840.1 [id number] [facility] 11:00:00 11:30:00 Procedure Ankur 62837.1.1 it y of 3.412.2.7 [place] .3.345314 .8 [facility] 2022-05-05 2022-05-05 Outpatient [facility] MDA [id number] 10:14:46 10:14:46 ANKUR Griffin o n 2022-05-05 2022-05-05 Jonah Reilly 1.2.840.1 [id number] [facility] 09:36:31 09:36:31 Event Bethanie Paul 70121.1.1 it y of 3.412.2.7 [place] .3.626326 .8 [facility] [place] 2022-05-05 2022-05-05 Travel 1.2.840.1 1.2.997.467 [id number] Univers 00:00:00 00:00:00 81310.1.1 350.1.13.41 ity of 3.412.2.7 [place]7.3.698 [place] .3.335920 084.8 .8 [facility] 2022-05-04 2022-05-04 [facility] Jayda, 1.2.840.1 [id number] [facility] 09:07:31 23:59:00 Encounter Ankur 96152.1.1 it y of 3.412.2.7 [place] .3.305434 .8 [facility] 2022-05-04 2022-05-04 Outpatient GLENDY LOYA MDA MDA [id number] 09:07:31 23:59:00 ANKUR velasquez 2022-05-04 2022-05-04 Outpatient GLENDY DIAMOND MDA MDA [id number] 12:21:29 15:37:35 THEO velasquez 2022-05-04 2022-05-04 POKADEN Diamond, 1.2.840.1 [id number] Univers 12:00:00 15:37:35 Appointcynthia Paul 61468.1.1 i ty of ts 3.412.2.7 [place] .3.860625 .8 [facility] 2022-05-04 2022-05-04 [facility] Ankur Loya 1.2.840.1 [id number] [facility] 13:45:00 14:30:00 Thony Niño 11446.1.1 it y of 3.412.2.7 [place] .3.198720 .8 [facility] 2022-05-04 2022-05-04 Outpatient GLENDY LOYA MDA MDA [id number] 12:21:41 12:21:41 ANKUR velasquez 2022-05-04 2022-05-04 Outpatient GLENDY LOYA MDA MDA [id number] 11:45:18 12:00:17 ANKUR velasquez 2022-05-04 2022-05-04 Office Nay Kuhn2.840.1 [id number] Univers 10:00:00 11:42:46 Visit Kimmy 81468.1.1 ity of 3.412.2.7 [place] .3.051329 MD Zamora8 [facility] 2022-05-04 2022-05-04 Outpatient GLENDY KUHN MARCOS MDA [id number] 09:33:18 11:42:46 KIMMY velasquez 2022-05-04 2022-05-04 Ancillary Jayda 1.2.840.1 [id number] [facility] 09:45:00 10:00:00 Procedure Ankur 93711.1.1 it y of 3.412.2.7 [place] .3.840097 MD Zamora8 [facility] 2022-05-04 2022-05-04 Outpatient GLENDY LOYA MARCOS MDA [id number] 09:23:48 09:23:48 ANKUR velasquez 2022-05-04 2022-05-04 Clinical Ankur Loya 1.2.840.1 [id number] [facility] 08:00:00 08:00:00 Support Gemma Soliz 46176.1.1 ity of 3.412.2.7 [place] .3.266120 MD Zamora8 [facility] 2022-05-04 2022-05-04 Outpatient GLENDY LOYA [facility] MDA [id number] MD 07:08:25 07:22:53 ANKUR velasquez 2022-05-04 2022-05-04 Travel 1.2.840.1 1.2.251.437 [id number] Univers 00:00:00 00:00:00 74689.1.1 350.1.13.41 ity of 3.412.2.7 [place]7.3.698 [place] .3.230720 084.8 MD Zamora8 [facility] 2022-04-15 2022-04-15 Orders Doctor ANN 1.2.840.114 [id number] Univers 00:00:00 00:00:00 Only Unassigned, JERILYN 350.1.13.10 ity of [place] [facility] 4.2.7.2.686 Chris as [id number] Medi kemi 009 Branch 2022-03-31 2022-03-31 Orders Jayda, 1.2.840.1 [id number] Univers 00:00:00 00:00:00 Only Ankur 53028.1.1 ity of 3.412.2.7 [place] .3.535950 MD [facility] 2022-03-31 2022-03-31 Orders Jayda 1.2.840.1 [id number] Univers 00:00:00 00:00:00 Only Ankur 19083.1.1 ity of 3.412.2.7 [place] .3.006695 MD [facility] 2022-03-31 2022-03-31 Prep for Jayda 1.2.840.1 [id number] Univers 00:00:00 00:00:00 Surgery Ankur 80756.1.1 ity of 3.412.2.7 [place] .3.006858 MD [facility] 2022-03-14 2022-03-14 Consult Magdalene, 1.2.840.1 [id number] Univers 10:00:00 10:52:25 Kimmy 18926.1.1 ity of 3.412.2.7 [place] .3.380140 MD [facility] 2022-03-14 2022-03-14 Travel 1.2.840.1 1.2.731.445 [id number] Univers 00:00:00 00:00:00 22803.1.1 350.1.13.41 ity of 3.412.2.7 [place]7.3.698 [place] .3.601340 084.8 MD [facility] 2022-03-09 2022-03-09 Telephone Lobo, 1.2.840.1 [id number] Univers 00:00:00 00:00:00 Theo Paul 62971.1.1 ity of 3.412.2.7 [place] .3.990292 MD Zamora8 [facility] 2022-03-04 2022-03-04 [facility] 1.2.840.1 [id number] Univers 07:58:58 23:59:00 Encounter 24502.1.1 it y of 3.412.2.7 [place] .3.521920 MD Zamora8 [facility] 2022-03-04 2022-03-04 [facility] 1.2.840.1 1.2.443.175 [id number] Univers 00:00:00 00:00:00 07409.1.1 350.1.13.41 ity of 3.412.2.7 2.2[place]7.3.698 [place] .3.736683 084.8 MD [facility] 2022-02-24 2022-02-24 Ancillary Lobo, 1.2.840.1 [id number] Univers 20:55:00 21:00:00 Procedure Theo L 57396.1.1 it y of 3.412.2.7 [place] .3.211504 MD [facility] 2022-02-24 2022-02-24 Ancillary Lobo, 1.2.840.1 [id number] Univers 20:50:00 20:55:00 Procedure Theo L 78164.1.1 it y of 3.412.2.7 [place] .3.581421 MD [facility] 2022-02-24 2022-02-24 Ancillary Lobo, 1.2.840.1 [id number] Univers 20:45:00 20:50:00 Procedure Theo L 20741.1.1 it y of 3.412.2.7 [place] .3.413741 MD [facility] 2022-02-24 2022-02-24 Ancillary Lobo, 1.2.840.1 [id number] Univers 20:40:00 20:45:00 Procedure Theo L 60268.1.1 it y of 3.412.2.7 [place] .3.102061 MD Zamora8 [facility] 2022-02-24 2022-02-24 Ancillary Lobo, 1.2.840.1 [id number] Univers 20:35:00 20:40:00 Procedure Theo L 53822.1.1 it y of 3.412.2.7 [place] .3.374740 MD Zamora8 [facility] 2022-02-24 2022-02-24 Ancillary Lobo, 1.2.840.1 [id number] Univers 20:30:00 20:35:00 Procedure Theo L 22463.1.1 it y of 3.412.2.7 [place] .3.757191 MD Zamora8 [facility] 2022-02-24 2022-02-24 Ancillary Lobo, 1.2.840.1 [id number] [id number] Univers 20:25:00 20:30:00 Procedure Theo L 53547.1.1 it y of 3.412.2.7 [place] .3.692592 MD Zamora8 [facility] 2022-02-24 2022-02-24 Ancillary Lobo, 1.2.840.1 [id number] [id number] Univers 20:20:00 20:25:00 Procedure Theo L 20183.1.1 it y of 3.412.2.7 [place] .3.327965 MD Zamora8 [facility] 2022-02-24 2022-02-24 Ancillary Lobo, 1.2.840.1 [id number] Univers 20:15:00 20:20:00 Procedure Theo L 62253.1.1 it y of 3.412.2.7 [place] .3.446535 MD Zamora8 [facility] 2022-02-24 2022-02-24 Ancillary Lobo, 1.2.840.1 [id number] [id number] Univers 20:10:00 20:15:00 Procedure Theo L 83464.1.1 it y of 3.412.2.7 [place] .3.588990 MD Zamoar8 [facility] 2022-02-242022-02-24 Ancillary Lobo, 1.2.840.1 [id number] [employer] 20:05:00 20:10:00 Procedure Theo Paul 41126.1.1 it y of 3.412.2.7 [place] .3.664831 MD .8 [facility] 2022-02-24 2022-02-24 Ancillary Lobo, 1.2.840.1 [id number] [employer] 20:00:00 20:05:00 Procedure Theo Paul 47265.1.1 it y of 3.412.2.7 [place] .3.990938 .8 [facility] 2022-02-24 2022-02-24 Outpatient EL LOBO, MDA MDA [id number] MD 13:03:32 13:03:32 THEO velasquez 2022-02-24 2022-02-24 Outpatient EL LOBO, MDA MDA [id number] MD 12:34:02 12:34:02 THEO velasquez 2022-02-24 2022-02-24 Outpatient EL LOBO, MDA MDA [id number] MD 12:33:47 12:33:47 THEO velasquez 2022-02-24 2022-02-24 Outpatient EL LOBO, MDA MDA [id number] MD 12:33:40 12:33:40 TEHO velasquez 2022-02-24 2022-02-24 Outpatient EL LOBO, MDA MDA [id number] MD 12:33:34 12:33:34 THEO velasquez 2022-02-24 2022-02-24 Outpatient EL LOBO, MDA MDA [id number] MD 12:33:29 12:33:29 THEO velasquez 2022-02-24 2022-02-24 Outpatient EL LOBO, MDA MDA [id number] MD 12:33:22 12:33:22 THEO velasquez 2022-02-24 2022-02-24 Outpatient EL LOBO, MDA MDA [id number] MD 12:33:12 12:33:12 THEO velasquez 2022-02-24 2022-02-24 Outpatient EL LOBO, MDA MDA [id number] MD 12:33:09 12:33:09 THEO Elias patito velasquez 2022-02-24 2022-02-24 Outpatient GLENDY DIAMOND MDA MDA [id number] MD 12:32:34 12:32:34 THEO Eliasgena velasquez 2022-02-24 2022-02-24 Outpatient GLENDY DIAMOND MDA MDA [id number] MD 12:32:29 12:32:29 THEO Eliasgena velasquez 2022-02-24 2022-02-24 Outpatient GLENDY DIAMOND MDA MDA [id number] MD 12:32:24 12:32:24 THEO Eliasgena velasquez 2022-02-24 2022-02-24 Telephone Apollo, 1.2.840.1 [id number] Univers 00:00:00 00:00:00 Hollis 79292.1.1 ity of 3.412.2.7 [place] .3.227573 MD Zamora8 [facility] 2022-02-23 2022-02-23 Orders Doctor MARISSA 1.2.840.114 [id number] Univers 00:00:00 00:00:00 Only Unassigned, JERILYN 350.1.13.10 ity of [place] [facility] 4.2.7.2.686 Chris as [id number] [place] [address] [place] 2022-02-23 2022-02-23 Orders Lobo 1.2.840.1 [id number] Univers 00:00:00 00:00:00 Only Theo Paul 88200.1.1 ity of 3.412.2.7 [place] .3.580598 MD Olson [facility] 2022-02-22 2022-02-22 [facility], 1.2.840.1 [id number] Univers 13:01:49 23:59:00 Encounter Yamileth 19231.1.1 it y of 3.412.2.7 [place] .3.188852 MD Olson [facility] 2022-02-22 2022-02-22 Ancillary Lobo, 1.2.840.1 [id number] Univers 20:00:00 20:05:00 Procedure Theo Paul 79701.1.1 it y of 3.412.2.7 [place] .3.463168 MD Zamora8 [facility] 2022-02-22 2022-02-22 Clinical Lobo, 1.2.840.1 [id number] Univers 15:20:00 15:20:00 Support Theo Paul 65545.1.1 ity of 3.412.2.7 [place] .3.915048 MD Zamora8 [facility] 2022-02-22 2022-02-22 Outpatient GLENDY DIAMOND MARCOS MDA [id number] MD 13:58:39 13:58:39 THEO velasquez 2022-02-22 2022-02-22 [facility] 1.2.840.1 [id number] [facility] 11:59:24 13:00:00 Encounter Yamileth 28003.1.1 it y of 3.412.2.7 [place] .3.976757 MD Zamora8 [facility] 2022-02-22 2022-02-22 Office Lobo, 1.2.840.1 [id number] 4510 [facility] 10:40:00 11:38:37 Visit Theo Paul 75435.1.1 ity of 3.412.2.7 [place] .3.158008 MD Zamora8 [facility] 2022-02-22 2022-02-22 Outpatient GLENDY DIAMOND MARCOS MDA [id number] MD 10:14:11 10:14:11 THEO velasquez 2022-02-22 2022-02-22 Outpatient GLNEDY DIAMOND MDA MDA [id number] MD 09:52:51 09:52:51 THEO velasquez 2022-02-22 2022-02-22 [facility] 1.2.840.1 [id number] [facility] 09:30:00 09:30:00 25360.1.1 ity of 3.412.2.7 [place] .3.090364 MD [facility] 2022-02-22 2022-02-22 Outpatient MARCOS MDA [id number] MD 09:15:11 09:17:10 Elias velasquez 2022-02-22 2022-02-22 Travel 1.2.840.1 1.2.475.760 [id number] Univers 00:00:00 00:00:00 20508.1.1 350.1.13.41 ity of 3.412.2.7 [place].3.698 [place] .3.947436 084.8 .8 [facility] 2022-02-14 2022-02-14 [facility] 1.2.840.11 [id number] Univers 00:00:00 00:00:00 CESAR 350.1.13.10 it y [place] [id number] [address] 2022-02-11 2022-02-11 Orders Figueroa, 1.2.840.1 [id number] Univers 00:00:00 00:00:00 Only Yamileth 37046.1.1 ity of 3.412.2.7 [place] .3.733880 .8 [facility] 2022-01-31 2022-01-31 Telephone Rabia Mayer [facility] 1.2.840.11 [id number] Univers 00:00:00 00:00:00 CESAR 350.1.13.10 it y [place] [id number] [address] 2021-04-15 2021-04-15 Outpatient [facility] [id number] [place] 00:00:00 00:00:00 CHEYANNE Sung Method i [facility] 2021-04-15 2021-04-15 Outpatient [facility] [id number] [place] [address] 00:00:00 00:00:00 CHEYANNE Alvarez Method i st Results Test Description Test Time Test Comments Results Result Comments Source Pathology Surgical Interpretation 2022-05-16 19:57:24 Test Item Value Reference Range Interpretation Comme nts Addendum p6zgzOLgPULprLA8WSZlMRYfg1eev8IbtXFbpDBrIGvxoZHujaLanc05rIK1aN59KR6uFFZxPfL8ZQHy blC5Xde8WHJqLPBvnPLzC629PQNaZYZmkQnmdpg5bR42VSCrrF2mfYFoORqryyLyIZcjvqDvieCyJgh2 YIE3kVusYCUeimzvDdG3JPmqENEotkoiJBl5YVorRVF 1 (test slOS6TUKqgFPjK8BnFVPqJR8ofll0XKF9CVypCEKdNuJ4CNYieDWbZLLqlTvnYImxv939UGE0UlQaABQ kecXcgMyidH2jUqUtBNRNIUGchDbvyiSdPXHfC6Fde71dNF1qTF3vkdzhaeKiUlUwfYJqlLNaxD3mduY RHRsAZaCrVB5lWWFnSJgaDUOtTGTnwsbdz0BuEaCKlH code = Sbt6JiW2ovBDpoNQreV36ey7vjSZzoNYWqN1kjdruzVK0sgOSdTXBtchtrIKRnHpsvXGjegkTsNGARPO ABLa0QO4OCULlhVFHrS9UvB0euPO9cOYygZHkmmpBqAJKeilOnYxfrQZArh34zdZZnQEcaCnKkVLdgib G6VVGTfn6oTQG0jgJ1ONEkMONOt0EanZZhHEA1UWM0r 37) 117SMXgvutoVLCyKTSoNbGvV4KiV4riLT5xRMvcOPyyhkUvFHA6TCJucSw2bMolUqKiADmqCiAqnHOwL JnrLOcjtF4oIVLiSfXuEsQlGoSEauNMgOF1GNGvzbMpqz9tWAgbMNEpdQqoBySwfQkcGvXmUQZveYddN XRlZCBTXGYwXGZzMjAgaXplIChcZjFcZnMyMiBlXGYw MXAoAgHoeSUtvyDmXP5eCYEFVDK3JVDpRBK9WJOnBtOpEyEbBzVzxKqoGFUyMsNYeDT8x4vjL2qcPGZb WcNeImMuBXT3oTY6LJOoZUYZdVA6EOknN5GbU2glj53hPNgaVWEclUGchEMgTRYpGuGuEkQnTbIGfsRv eRDkA2T2ehAzICHxRwOtIlAePDYkqGPmwy3vKxwsYOQ wI09vcXJgySAqTIKdQqHoCuEaPuOGsTKjATFkYGijMfFlCaMrXICeIRChStleHENmXsofBLRqOqIDFJR al0PxjoawGkIjTBFjDUKibdSmvOZiCUxcVIzqeQ4vPMMyJgSgFnXgPiGHaE7vwdPYqOKcaxPod05bcYK oAAlxNoZvSHmwatR1MCZToADphND4WPSySKDTETjboW b4VSydYRKurBcyTDcyzpBcYtsbGZhnijCbTP8jsdpgymJpFpSsWzPpRlH4DURaJTIWSTUlIOUvYhHhO9 RuVGLeoDOri8NnDxFlvYEuwe1iYIKwTWAyhhCohqicboXkuKZkgrOwO6sixYZzMGTfbK7hSMCvTVWis3 ReUTFuOZ8oGHWrrXRahp7hEU42wBEvRQ7bjkksarJhw Z8vZZcaZMZzgNVxq91rwTXcjhIkkrrcnjYkWNPfkA0yWANhKDbaWX1zR6C2jIPpJRRecmqqAPVzDQOXJ Vezl05qsLLHaR8goXHHr1XbaqfaGqSiKJDuxH74i9c7PIBsUabzhOBas8RhC9UdcVRbqRIqECijDpBhO FfwmxS4FYyzSL80uHGahiOhFxTJlB0czMJHn0MgarVZ oMNraM7fZKntJwTaKBVdKOqeVZBrJvYYmW8pSBPyo3SkN4DwvCyyYJnmOr5kFOHiWNgorKxrEKX8XWEf LCJ9TPXmoeqiiVIrxWiqQWruYGScPLBuPmJvJNJaPHIhWF16NFDoXbGdtFkdBZEgRB4tLKizr5gxXESq EJG6pimxY9NcKPMlQVKkcKqsaFUzNWJxBKR8hC1ky0v nFqIRJHTaIDShPsKvqQQuRUAvVQGxNiOxKCITpHSuf4erbIQaxHrmvyyqVJometAeDSUwzBNXHAlfQFi qhgKbSEkhJRmPNkY5FZQ1uHZnFPMtRF9mu3RmEJVuhZNcWTUfmMHqd31wZeDuDlVnORSbYDUuninsvYM 4EVamoK8lZgSvEnEoKeTvOoHFmpzhONC7DDOsCdCwJk YfCIC5wS3pLAddPMr8VHAmZIGgXGEsKCPlMkJaAZyhFPpOT8yLJXyoJATlEjGPHDcsj12tnLKSYBIrSR TsPeUwbB7raKLsYiKqYgRwHcJHRTPnHUMaDjQqg2XbftVvcC5cYrbpYPMpeF1iSFLelojsHEEqROMdHa ZaQRmkrIEytRCHJVJyDOWgCiCyXCTgu5Rlu0xaLIkmS Jo2DMOnHOTEU1MreRUhXQtbHDrbmO6yFKEaID7qtFifHTY1CYyrFOaqehMzULFwBgLkWsWcPFZ8rQOfO LW1HZQbPTKYENGhnDMlyibarVRjP2PdCXdmIDVmeIWhBEaiOLE8 Submitted k5nbrRNhLKSqe5wlSOOieVRaDkMtIxPxCiGfVtvsaYEuZFhunhLtOUakt1JyO9YuCsNdSXlvdwOvNJQu QzjegpfmWHIcGDZ5mhFkZJFjUEtcHDRlCStxNl5jnIAlrNxjKnDzUZZhc1vtksPTzvvwyXm1m7bjTKCp OyZ6hHWnSSfuC9ntfgXwxKZvHKWzTKa4mU77HXLsrW4 Clinical eiLPoBDqtbuGuNxA8YRuxDVKeHkV9SBZqkCVfIJPyT3dsZVLzARhlQBKiMOjxoZHzPHY1hPtwz3O8wDG hwADsnLnyUtTzLpAoVaUVp1UuVUn0cNokH0QnVWIzVkE7gQCgWXXdUQqjJTNkILYblxP1uW49NFictxS 3uSPup7Ism07sr770mR1tmAZeKAB0TOKtEEYdnQStZG History CcNNX1DLXcrDNzL6pzQBMaJD6zakdcRQbyRYvyESUdxNQ9RLLmcZYbD5XdVIJzIOutJRPhitf8OsUkWe 0qjLVmmTmpGUswf7zwk1tbgPNpGzl3HFRmPjMkMbgqAFjqd4Bge5fxIMAdny2oYKR5cJUuvKjjf0P4fO PtCRBgyGIofnMtIEAsEzR2MOfzBC4vrt63FSGfWYG7m (test u4tlHUpzRtkviQlwVHnBBmpI1DgUPUjz882XDEaM0AnWLKhj3C5tsAiNkZbEECllNU9wpS6ERDiLJe8j KFtwgF1bnLeyMRpD0ctyX2zEKGrED0ebkxjd5ywYIubFRojJQKpvJU3beX7SEXfiXXkR0TepT7yEDBxH AekVWZiaxj7FyRvOp4evAOetByiFOwdKlwmWWbwRMIj code = rkGzyuUnoPwzNIWaLDOtYOimVXBqIZozWEVbKDNiTfGmlAfisXxcbV1eLzDqLgIhNQnxPA1eZBYpW9kw fJCzPFVeFGJaU7fiSnIgeG9vfJmpPEicpzIfIHCGtLX8FRH6D3VamCHhPCCcaN5ouPUgqR1mb2i8nZZi JaWvDGZ6OSW7WBFntHKnzQPtCoSzGCB1TiKgURhzdZE 527[address]) pblxmMVxmczIyXGxhbmcxMDMzXGh jJ0guVcFqCROdjTfdUBhvv9KfMVUmDSBnFxPytSPcaE4= Diagnosis h1egbFMdQSVauUQ3NMOuQCLkh8xbg9KmlTHxfHPaCTdxwOWjtgHtot64tJZ2iD47IY7oNDTkJlM3VLWg biB7Onc7TLYqZMGoeVOiH017m6sgk0pyavVqzVF4SVEePYGhB7UqKF1zDXQawYZbX50qcKTyQQJ2YHFz GAEcaHNvEIUxUKE9AZMzpFNgI0ukYOXsJH6excwvTXm (test gADjmSIYztVO6BRXluSNpV0FdVTEqSDgeBCFgrfn1NuZxSc7ypVHxkKimOJpyGOOvZYSlAAcfGODaSuJ iJ3HlJAD4NJboHwBtLpEuDGP3MCLsjBSyKN7pb3IkR8UgoIu6EWxpfsPnYHJLLYJOUFRXGsVAMk3BTER OZxBJHQIJPPlGX3wKFQpyJN9CNWSOEAGRMECKWKpOKK code = BRQETSO4gTLGMUPKWLTQpDZSolY5MLSGQDVWJEZKOHA0XNAyBNPmJtRMzSQa1MXCaUHLFGF8KQSY8BJv 2rgMubKPYDC9xPDYhooy7gavQpQNTjDCDwOXEae7KvDYXkgw01zA5jsIGwvYQ2HOMfHWvxOLKySRCcyk NsdoqfqxAxuaCdt3VbVBiomkSvUVIVTeVkxgSodwBvH 34) W57FHS1KFnqMLW6BAPcyL8mKsQfySI3vYTxpO2nNHGab2Cec6ZjORVnkXWhVCfspTXcP8faDXHnbrKtn P9gJGK6mVAaWZKdN81oKgFfuSQvrGvnbzWzUCEhwU0pTM3hREF6La6vcEEtIVQxKVB2tN3rtq0gyXbmI PLXsTfegOTjoXXwl2O2iJYbWPd9fIXvlHdul3jnEBwi nQggCDZxPUGtd0CwU9DcdVy7VIUzMmHur7J1kAYtHYOlhbSbwp1zOORhhiQmhAS9LrcqrP3cOD4kyMAb SRedle1urUHkx3JtgINsc8FzdB3ixXzzZUFZqDLrKCOpJOWyjeOwBNe7yQQfOW0sGOHpVLRsbsC0vF7h seHjvnIaAS96DxhfSWHhR8OmQEYbkyqyLnGxXiuwLHR goAAxpMuazZAlqNFsZN51cW9ayGKyyG5ehSMzp0GoJJAfUlmxSQXnV26qXTs1tJPzWM5eYXEjBU5sJNX 0bX0hJBNlZXMkztIdXEXnpurzEjAffCNlKZTnKQXVZjAGKUX9XXN6aVmmTVG8YSVegiRnunOoFCy4wNM vOY5vQWQaCuW2LPhhaoLrL8X2GH4krVojnWgqiu6fAJ UcDG5qAXC5pV7kDRDwDVSubrZmBAEqfimaIqEadYRtIDGeEGQBSuQFBNJ5TBXsSORufALmz0xdNX8cZD tswRetaQRdDKWsCRBRr9ioRBXrVUOnqRIhsDZtuqRcdXRwUsavep7pSAdkb8IaXORtk7P6BDJ9oCTxEO StAg0phgljcHYzf9GpHLFpk9jhWratQIVgbKIfLRCaA AHDGuIRWZD9ZIAtEMWnkLReTMJayRqhmvZoULofKwJubI0yJM8rmnooyysyrLQkSBNzHRAKhGEtw5Mfl YDig9HbgSdsp4WvSGMwupL3qC2epnVkvcWbOJ83TxcaLEJhqLUoSFksPZL5 Comment v9qglXVnTXUohEH0TSViGBRzs7nhn7WjjCWieHXtARiuoPZaorYoor39cGG0qE60OG7qEKLmHeC4PQTh gnL3Twh5NVPqXYAivVOkX369a2rdq3cygwChpFI4wDniVWTgpxfrKtN3HNaqCGFsrrgmMUx2EAsjDTEu sCX7TYOmdHBuO7HlCCGiGA3jyup0LIR0ILvmOOQjTrZ (test 0BSEywLZgHNGlnBwhMClrn440VQC0HcHlMFYyhjWptMpocV3pMiQyGLLFHPBvfAinigQvLLAyM1Izh89 nEI7pWF1zbdriogGwIgTddTM1jKIjpIP2JQNboRUla8J8uI0yDM6aTPYhCZTrkDJziQ8ilhQdrrWtcHO rUKwyBw0edFQgcI== code = 9835) Gross v5axrRVtYCHkcOS0LATaPQYix8usg7BlbOUhfPNvQZwszEQvcqVuku06hLZ7tU20PQ2gVFOgLcN5WQEt dwQ8Iiz7YRWtUJHofXQdJ727q5ymt0aasqMfhWU1SDBvKUBbS5HsVF3uLVGmbNGmN83qvHBbUWM6LQSf CNQtkSOgARHpVNY9KQIdpDSnP7qfHHPoDI2zldzbRBb Descripti eZFczMSNjaHG6BHGuqSXmW2RrGMCbJJeyVKLrvef4PfYeKv5kjTEqkRgkBQthVPAfg7dcMPZmiGAeZHH 8WSqtbWDcRARkEULnXBh2PVTfOLkvjTPdIX6moDbaLdlcyXcng1VowODaMOzaXGHpTNGzDOafECNmV7Z FIXCbPKH3RPP0BTNySXp0OBfeD0SXRDAyJDY5JRMrKn on (test G0QkW6EMz8XOARSh4jDPMyOpMoYIC6JaJ6QHP3DOItUFTfGaVfPYWrFFwcRaFDkdgimDIzXUBxJBVqMY utBgNuADyzB98iwJqpaH4hPpggyxWtUTH0QCLamkxwClBzOsTzHBZ2CDXwZMB0PQGnggKeUMThIKnlDh TvHbJuMRW6TEUflHGyJQ8nr4VaE9OnjQwwEBJsgJEqL code = USjmFt7J3osLWJfQgHaB5Jhz6BsKGHzVB31LngjWAcdxskxy4JkbDHfVkN4CC6xQ6xvL1whXBSswkhbN RCjrXk1N9ocvBZ5DFEibSKpWZjoqhL1NBgogSCizXW3TXDkwy1pMZPkgY7dMUBuPYP2LUSoEQSQFRSqk CUbZF4dz2HgQ4CnjZpoy5XrB6glYR3edZEia7VdfU1l 284395970 WNU6KPBrEGUbg82ks0WwBNPef2YtvU9nxU6kFDHqi6BzJJB4YEGiWUEnx22pcTAjtHGuIXKhZKeyoKJw RYdcPO6vJIHoR77xCwXqbIXonzGdqfvohnJ9zdUaa9O7OVNbb1OyNRNpOWMflCTseQ8hkkA1OHobuDNs LVTgVYIkFuANuRBmd3OgP4cbTH9jrJJww7YgKmQeSUE 1) [file] FnpFXhSwYvhG8daXmrjN2tXdThCTmuPTWuE2MwZ7SabpJ9n5ebtYgr z0UwuSClWJ8slHPasP== Intraoper a9jsgKLdIICofRSSYJhiLBpptaCgJCQhxSNrC1ZeaorvFIsnFB3hKZ9bmEgqbFLjtBUaZG1UTYKiXeUz FTWzhTSpcxYjMhYoIHGitPZymYC7JVMgUQ8vhmmcGIljOOqvTPQjooB3SKXtvKXcT6OvVOTtKU5jfygu NRK0FQtmkE5pgkPSTyuzSc8htYByfXwuXiVuAqCjXQH ative vNMCqODAmjPymBDXqYXp4pM1OJiaaABH5VOKOJxmuUTOvZV2Ka8sgTJBobRJiCZI6MXzeaFXmBQBfAGV iUIj2LVCsEEgkxTOxTL0vyYziKwjxyGred0BvdNTxAWnoFRGsOJIkJPmcHORnWM0MJcGsPNJhLdG0DFC pJIr3LEc7DP6CNuUkRPWqOOH5RHX4QIEjZCw6BXzwOC Evaluatio 0NAYEkHAM5SYs0TiAbZOEsVJvvFHj7ZOXeLPhvCGVqnXEgJUztGxNzUNRdMPiiIrIkTCEvEZqpuoD2KH InZKvfSBIzOsHeFDUXFebuPANqOJqeuAbukC7hEVUwN75ri0KBc1AxRR6LFBq8hlCocoydtR0vWTSnpj YzBZpffAZlO3jbLdxjmkYdTCRnBHIodEmgnJCniProj n (test 9UoROhvDRVaGZC4RLSfQZJhdRB4k8CbaMXcOEY2JQR7b331GNxox1SzmUJlb7BvwTTqWX2yPRYiqvdge T5ycuxhHUUfhFJzBDEzm54nHQZ3gLMnsGttZoYvZ9Egr6QcXEYflS3rnEWxv6TvlCIpVOsmoZGxLZciE EW3QFEcpBSkmY8zLNisnTZxfBMuB0Jvp3mdXuvxvQJq code = TB0QYEhxCnAcLKwnirubBPCHCzjeLCOKxhJbV2yzmPVltbDkSLGxmSyuaOGgRpJBXHcvkEEnP8R1bO8t OOZbP1RtyJfgbABpr2KbiMRzdI0nLSN9ohY7eZPieQ5fTGDkl9EwnQCdG3bhYyarQSUoSEgTDU8FVEEf b0PgD5E2WRGyJYjyw8tmUZKeTPqtp6HmDZtUYCTYIU9 849494642 AYK8kiMJ7MTaRO7BNM1vWgAOeESE7ySP0IKPRBdgdwJB2xES2lE07ZKWsBYDdeDJpLLafU288LKt1HNT iQKcyr3xvZDBiBGwvk0HqCJzUJNSXML9MAH4rkZT0KEpSB7HUPXvyYVUfQvrkqKFOISZ5BZijcMxdmIs 2b0incPEfo1v8WAumTDL9nUkltJZdmyqhyWLhyKxzvq 5) YwKDYnkiRWOksmJEUfXOn9hcCmpmWKIovrxTqwLeTlqQBsPyXpglT1RRPesRHdPPQ0AC5uPAQszoomUF EhGILxSAW4LKwvxZ23uHRaUZYlIYTwxYBfrNruhMCvkaKIJorlfV4wLvQze3qdnMt4NKPZPpjivKJjog bdpcI3QBMbd8iyvDbym5RyfYXhNX1whFtaiP5rSeOzZ iANCn0= Biomarker a3jyqKZbMFIzbOS0JXTpENEuk5var4KzpKCcwFJvQXfmtAQawpOptf81bZZ2fQ68EG6aOBXmGiD1AVEa ggC6Grj7WJGbCBZcpMYmF134e8wkj2zbdnNznIU1iPsgMYYpyftyCiQ6BJooUZUunpzhGCq4EWsyIIEi jNX1ZRRkuYPfN6FrHOQeVV1xvab6PHL5XArsUZIlJrU Block(s) 6KBLazDZjUSWnoKjfPKndw858XMB8QgIxZAAtoaNloXrijO4eQzEeV CBBOFxwYXJ9 (test code = 9841) Disclaime l1opbCDbKRWfsWYcVySuOLNaAGFyb1udZMMzjHLkXyAxTtJoLjVrAtvaaLSfKWZkVeVib4sti251iJVd e3jwMYLcPfL6lKZdNDTsiRBfO376WCCwSBglj3pjq1AlSEKcbYNbi4U5JKETfejroAq0uYgbR63yz4C4 IknnL8fhVFIqSYPzV8KmBK9nEFAtQak3MFJ9DBH7OLB r (test mRWRmC1SdKJ5nTPChgHPiWFp0p7zjtAkmEBCmQMJ1o8zyMYqctqRrUO6jlr9cfQq1o6cvzlGaHYMwWBW kdQZKDYRwY0UedZnkUv0yhQa3nHzrZbciZIR3Shs4DA4byu18cqb3jKjlVWKayjgzXyJ6QDooMJRwabi nSJp8XLyvTNCnsFV0NQQdfXQzJ9HwMPNmUK7wlfh2RT code = S9LEuhTHFbGvR0XECawDUxBYEtgYmxHOrtw658QNG8KbLhLM6pV1Mbr9M9sI2lxLLnNPOiuDOlKwUuHQ Gjud5qwYSgWQpfi5NfNBS2yvU9zJSymBSzJGIpRG36Hotzu0YySiweIMU4YQIwmwLan4Sgs8arBeSfqg IvB4wjU7PsNSDmSTXxROJbYeJocwIet3Cre8LocZUzz 9844) Po2r6fxXIRuESLdkAudy6laNAV0ZGKtY7C9nIYrp7quFBiwLFKnbWT5dsF1AJFljXBgB2CncY0yDFEwV F6twvj9y8tfAXV3RIcwTUTcPbA5xjW8AJTfrNMrQFKzkLfiVKxlc876YQQ4PaPzVPHvo0FnQ0AajVloQ 17quNqiO82kXUFlwJgbiZ2ucDffxF3bJdSqAnZxIVrw fZdggLRyanxaITltpeG6XGtgcsnvXHGaJShqQ4uaOfGxKCXvkSgvBHwjf7XnCCEtRVIlRotjpeK3VRVJ l16qZBUoe2LiSHNpkX1euPIkJGtixsBviGG4KFuiinDeDuNafjTzBNExwA2aDGEuXB7yHWUepwZrpb5l hrOrDKMyLEXmO4KbruismZgjaoLmRGWogo7rjuRrFFR 6XDVUFQ2NRZFnFLMxi82wEDNtjXdinY1wnGHkxmPxAOMsu8KllH2rcFGNQNEeQ1ttIX9sYIgig4CohQO dnHKjtHE5XKNnm5SrVnNkesTazMTexXDnN5CvaTqjA1wsBQVmBODrnyRjcIVlv3DtXRTcdVE4zCUjVT6 HCuNEv70vGNEkQWHJvvJxFQPppJtxfAY3puI2rK7dTn APIpGydYHykEAlAkwmFROnv024dz8gqoJ5PMVkWIHuoaxqf3AxGZQfAJKvhF90LKKfMJIkzc8fmzkphF JgdiBxL6Rkceg9rG5sUZBqNPzhHMVrXZZfIsEuwLYjCiRiPmNmmWgwnScbZXieInQoAIGzDPwqD1vuCg FcZnMyMlxwYXJ9 [facility] Cancer [facility] Glucose [id number] 01:33:46 Test Item Value Reference Interpretation Comments Range POC Glucose (test 130 mg/dL 70-99 H Capillary blood code = 78420-9) samples, e.g . obtained by fingerstick, arlen velazquez have inaccurate resu lts in patients with decreased perip heral blood flow. Met hod description: Al l results are alejandra sured using Electrochemistr y test methodology. Th e glucose in the sample mixes with the reagents on the test strip. The reac tion produces an vasile ctric current. The am ount of current prod uced is proportional to the glucose concentration i n the blood. PO Sample Type (test Capillary code = 9554) Performing Lab (test [facility] code = 96266) [facility] Cli nical Lab, [address], [place] [address]; Jack Winder: Faiza Harris MD Lab Interpretation Abnormal (test code = 44376-6) [facility] CenterMD COVID-19 (LYNDSEY-CoV-2) PCR [id number] 23:08:41 Test Item Value Reference Interpretation Comments Range COVID19 SARS Pre-OR Procedure Indication (test code = 05949) COVID19 SARS Result Not Detected Not Detected (test code = 64024-5) COVID19 SARS SARS-CoV-2 NOT Detected. Interpretation (test Reference Range: Not code = 11916) Detected Methodology: The Hassan RealTime SARS-CoV-2 assay is a qualitative real-time reverse grubber polymerase chain reaction (four h club agent-PCR) test to detect RNA from SARS-CoV-2 in nasal, nasopharyngeal and oropharyngeal swabs from patients with signs and symptoms of infection who are suspected of COVID-19 by their health care provider. The Hassan RealTime SARS-CoV-2 performed on the GOWEX000 System is a dual target assay with primers and probes for the RdRp and N genes. Results must be interpreted within the context of all relevant clinical and laboratory findings, and epidemiological risk factors. Positive results are indicative of the presence of SARS-CoV-2 RNA; clinical correlation with patient history and other diagnostic information is necessary to determine patient infection status. Positive results do not rule out bacterial infection or co-infection with other viruses. Negative results do not preclude SARS-CoV-2 infection and should not be used as the sole basis for patient management decisions. The Hassan RealTime SARS-CoV-2 assay is for in vitro diagnostic use under FDA Emergency Use Authorization only. Testing is limited to laboratories certified under the Clinical Laboratory Improvement Amendments of 1988 (CLIA), 42U.S.C. 263a, to perform high complexity tests. The Test was performed by the CLIA-certified, high-complexity Molecular Diagnostics Laboratory (MDL) at [facility] under the Food and Drug Administration (FDA) s Emergency Use Authorization. Factsheet for patients: https://www.getuppnderson.org/ AbbottFactSheetPatientsFact sheet for healthcare providers: https://www.[facility]derson.org/ AbbottFactSheetHCP Test performed by:[facility] [address] [place] [address] [facility] HospitalHemoglobin [id number] 15:24:11 Test Item Value Reference Range Interpretation Comments A1C (test code = 4548-4) 5.8 % 4.3-5.6 H HbA 1c values >=6.5% are diagnostic of diabetes mellitus.Diagno sis should be confi rmed by repeat testing.Therape utic Action suggeste d: >8.0% HbA1c; Go al oftherapy: <7.0 % HbA1c Lab Interpretation (test Abnormal code = 61043-6) [facility] Hospital[facility]romboplast[facility] Time 2022-05-04 15:14:34 Test Item Value Reference Range Interpretation Comments aPTT (test 27.5 See_Comment Testing Perform ed code = atACB Lab Ambul atory 04256-6) Care Nzxi[address] [facility], [address] [address] [Automated mess age] The system Ooyala generated this result transmitted ref erence range: 22.8 - 3 4.2 second(s). The reference range was not used to int erpret this result as normal/abnormal . SHANTELLE (test code This lab cannot be = SHANTELLE) scheduled at the following locations due to collection/proccess ing restrictions: [facility] and [facility]. [facility] HospitalProthrombin Time with [id number] 15:14:33 Test Item Value Reference Range Interpretation Comments PT (test code 12.1 See_Comment Testing Perfor med = 5902-2) atACB Lab Ambul atory Care Dujp[address] [facility], [address] [address] [Automated mess age] The system Ooyala generated this result transmitted ref erence range: 11.9 - 1 4.1 second(s). The reference range was not used to int erpret this result as normal/abnormal . INR (test code 0.93 0.89-1.10 Testing Perfo rmed = 6301-6) [facility] [place] [address], [address] [address] SHANTELLE (test code This lab cannot be = SHANTELLE) scheduled at the following locations due to collection/proccess ing restrictions: [facility] and [facility]. [facility] Cancer [place] CityFractionated [id number] 15:09:28 Test Item Value Reference Range Interpretation Comments Bili Total (test 0.3 mg/dL See_Comment Indocyanine Green (ICG) code = 1974-) may cause fal sely elevated biliru bin results. Total and direct bilirubin must not be measured from s amples containing indo cyanine green. False el evation of total bilirubin can be seen in patient s with IgG concentrations above 28 g/L.Testing Per formed at [facility] Lab Located within [facility], [address] [place] [address], [address], [place] [address] [Automate d message] The system Ooyala generated this result transmitted ref erence range: <=1.2. T he reference range was not used to interpr et this result as normal/abnormal . Bili Direct (test <0.2 See_Comment Indocyanin e Green (ICG) code = 1967-7) may cause fal sely elevated biliru bin results. Total and direct bilirubin must not be measured from s amples containing indo cyanine green. Testing Performed at [facility] Lab [facility], [address] [place] [address], [address], [place] [address] [Autom ated message] The sy stem which generated this result transmitted ref erence range: <=0.3 mg /dL. The reference range was not used to interpr et this result as normal/abnormal . Bili Indirect (test See Note 0.0-0.9 Unable t o calculate code = 1970-) Indirect Bili ward result due to some par ameters are outside rep ortable rangeTesting Pe rformed at [facility] Lab Located within [facility], [address], [address], [place] [address] [facility] HospitalGlomerular Filtration Rate 2022-05-04 15:09:26 Test Item Value Reference Range Interpretation Comments eGFR-AA (test code 81 See_Comment Normal eG FR >= 60 mL/min/1.73 = 46110-5) m2 Note: The eG FR is calculated usin g the CKD-EPI equation. The e GFR declines with age. eGFR <60 mL/min/1.73 m2 is considered as "decreased". This equation should only be used for patients 18 and older. According to th e National Kidney Foundati on's Kidney Disease Outcome Quality Initiative (KDO QI) classification and 2012 Kidney Disease Improving Global Outcomes (KDIGO) Clinical Practi ce Guideline, the stage of CK D should be categorized bas ed on estimated GFR. Stage Description GFR mL/min/1.73 m21 Normal or h igh GFR >=902 Mildly decrease d GFR 60-893a Mildly to moder ately decreased GFR 4 5-593b Moderately to s everely decreased GFR 3 0-444 Severely decreased GFR 1 5-295 Kidney failure <15 Chelle ting Performed at [facility] Lab [facility] Care Bldg, [address], [address], [place] [address] [Automated mess age] The system which ge nerated this result transmit john reference range: >=60 mL/ min/1.73 sq. m. The referenc e range was not used to int erpret this result as nishant l/abnormal. eGFR-RADHA (test code 71 See_Comment Normal e GFR >= 60 mL/min/1.73 = 01389-5) m2 Note: The eG FR is calculated usin g the CKD-EPI equation. The e GFR declines with age. eGFR <60 mL/min/1.73 m2 is considered as "decreased". This equation should only be used for patients 18 and older. According to th e National Kidney Foundati on's Kidney Disease Outcome Quality Initiative (KDO QI) classification and 2012 Kidney Disease Improving Global Outcomes (KDIGO) Clinical Practi ce Guideline, the stage of CK D should be categorized bas ed on estimated GFR. Stage Description GFR mL/min/1.73 m21 Normal or h igh GFR >=902 Mildly decrease d GFR 60-893a Mildly to moder ately decreased GFR 4 5-593b Moderately to s everely decreased GFR 3 0-444 Severely decreased GFR 1 5-295 Kidney failure <15 Chelle ting Performed at [facility] Lab [facility], [address], [address], [place] [address] [Automated mess age] The system which ge nerated this result transmit john reference range: >=60 mL/ min/1.73 sq. m. The referenc e range was not used to int erpret this result as nishant l/abnormal. [facility] HospitalTotal [id number] 15:09:25 Test Item Value Reference Range Interpretation Comments Total Protein (test 7.4 g/dL 6.4-8.3 Testing Performed at [facility] code = 2885-2) Lab Ambulator y Care [facility], [address], [place] [address] [facility] HospitalCalcium [id number] 15:09:24 Test Item Value Reference Range Interpretation Comments Calcium Lvl (test 10.1 mg/dL 8.4-10.2 Testing Pe rformed at code = 16370-5) [facility] Lab [facility], [address], [place], [place] [address] [facility] HospitalAlbumin [id number] 15:09:23 Test Item Value Reference Range Interpretation Comments Albumin Lvl (test code 4.7 See_Comment Testi ng Performed at [facility] = 4763) Lab Band Teacher [facility], [address] [place], [place] [address], [place] [address] [Automated mess age] The system which ge nerated this result tra nsmitted reference range : 3.5 - 5.2 gm/dL. The refe rence range was not used to interpret this result as normal/abnormal . [facility] HospitalAspart[facility] Aminotransferase 2022-05-04 15:09:22 Test Item Value Reference Range Interpretation Comments AST (test code = 18 U/L See_Comment Testing Per formed at [facility] 1920-8) Lab [facility], [address], [place] [address] [Automated mess age] The system which ge nerated this result transmit john reference range : <=32. The reference range was not used to interpr et this result as nishant l/abnormal. [facility] HospitalALT2022-08-10 15:09:21 Test Item Value Reference Range Interpretation Comments ALT (test code = 20 U/L See_Comment Testing Per formed at [facility] 1742-6) Lab Band Teacher [facility], [address], [place] [address] [Automated mess age] The system which ge nerated this result transmit john reference range : <=33. The reference range was not used to interpr et this result as nishant l/abnormal. [facility] HospitalElectrolyte Knwpr6564-17-49 15:09:20 Test Item Value Reference Range Interpretation Comments Sodium Lvl (test code = 140 See_Comment Test ing Performed at [facility] 2951-2) Lab Band Teacher [facility], [address], [place] [address] [Automated mess age] The system which ge nerated this result tra nsmitted reference range : 136 - 145 mEq/L. The reference range was not u sed to interpret this result as normal/abnormal . Potassium Lvl (test 4.8 See_Comment Testing Performed at [facility] code = 2823-3) Lab Ambulator y Care [facility], [address], [place] [address] [Automated mess age] The system which ge nerated this result tra nsmitted reference range : 3.5 - 5.1 mEq/L. The reference range was not u sed to interpret this result as normal/abnormal . Chloride (test code = 104 See_Comment Testin g Performed at [facility] 5-0) Lab Band Teacher [facility], [address], [place] [address] [Automated mess age] The system which ge nerated this result tra nsmitted reference range : 98 - 107 mEq/L. The refe rence range was not u sed to interpret this result as normal/abnormal . CO2 (test code = 27 See_Comment Testing Per formed at [facility] 2027-9) Lab Band Teacher [facility], [address], [place] [address] [Automated mess age] The system which ge nerated this result tra nsmitted reference range : 22 - 29 mEq/L. The refe rence range was not u sed to interpret this result as normal/abnormal . Anion Gap (test code = 9 See_Comment Testi ng Performed at [facility] 63236-7) Lab Band Teacher [facility], [address], [place] [address] [Automated mess age] The system which ge nerated this result tra nsmitted reference range : 4 - 14 mEq/L. The refe rence range was not u sed to interpret this result as normal/abnormal . [facility].Serum [id number] 15:09:19 Test Item Value Reference Range Interpretation Comments Creatinine (test code 0.87 mg/dL 0.51-0.95 Testin g Performed at = 2160-0) [facility] Lab Ambulat ory Care [facility], [address], [place] [address] [facility] HospitalBUN2022-08-10 15:09:18 Test Item Value Reference Range Interpretation Comments BUN (test code = 23 mg/dL 6-23 Testing Per formed at [facility] 3094-0) Lab Band Teacher [facility], [address], [place] [address] [facility] HospitalGlucose Vzwpc3020-12-14 15:09:17 Test Item Value Reference Range Interpretation Comments Glucose Level (test code 116 mg/dL 70-99 H Eff ective 04/20/16, = 2345-7) the glucose reference inter vals have been updat ed based on [place] Diabetes Associ ation guidelines (Standards of Medical Care in Diabetes 2016. Diabetes Care 2 016; 39: S13-S22).Fa sting blood glucose:Normal: 70-99 mg/dLImpa ired fasting glucose (increased risk for diabetes or pre-diabetes): 100-125 mg/dLDiabetes mellitus: >/=12 6 mg/dL Random bl ood glucose:Normal: 70-199 mg/dLNot e: Random glucose >100 mg/dL is associ ated with increased risk for diabetes Te sting Performed at [facility] Lab Band Teacher [facility], [address], [place], [place] [address] Lab Interpretation (test Abnormal code = 92173-4) [facility] HospitalAlkaline [id number] 15:08:58 Test Item Value Reference Range Interpretation Comments Alk Phos (test code = 119 U/L 35-104 H Testin g Performed at 6768-6) [facility] Lab Ambulat [facility], [address], [address], [place] [address] Lab Interpretation (test Abnormal code = 22892-1) [facility] HospitalDifferential2022-08-10 14:36:25 Test Item Value Reference Range Interpretation Comments Neutrophil % (test code 57.1 % 42.0-66.0 As p art of = 770-8) Differential performed at [facility] Care [facility], [address], [place] [address] Lymphocyte % (test code 35.3 % 24.0-44.0 = 736-9) Monocyte % (test code = 6.3 % 2.0-7.0 5905-5) Eosinophil % (test code 0.7 % 1.0-4.0 L = 713-8) Basophil % (test code = 0.2 % 0.0-1.0 24339-1) IGRE % (test code = 0.4 % 0.0-0.4 IGRE % c ount includes 78183-5) Metamyelocytes, Myelocytes, and Promyelocytes. As part of Differe ntial performed at [facility], [address], [address], [facility] [place] [address] Neutrophil Abs (test 6.15 K/uL 1.70-7.30 code = 751-8) Lymphocyte Abs (test 3.81 K/uL 1.00-4.80 code = 731-0) Monocyte Abs (test code 0.68 K/uL 0.08-0.70 = 742-7) Eosinophil Abs (test 0.08 K/uL 0.04-0.40 code = 711-2) Basophil Abs (test code 0.02 K/uL 0.00-0.10 = 704-7) IG Abs (test code = 0.04 K/uL 0.00-0.04 80593-9) Lab Interpretation Abnormal (test code = 99491-5) [facility] [place].AXJ9103-22-67 14:36:20 Test Item Value Reference Range Interpretation Comments WBC (test code = 10.8 K/uL 4.0-11.0 6690-2) RBC (test code = 5.06 See_Comment [Automated message] The 789-8) system which ge nerated this result tra nsmitted reference range : 4.00 - 5.50 M/uL. The reference range was not u sed to interpret this result as normal/abnormal . Hgb (test code = 14.5 See_Comment As part of CBC or as an 718-7) individual mart noe testing perform ed at [facility], [facility] [facility], [address], [place], [place] [address] [Automated mess age] The system which ge nerated this result tra nsmitted reference range : 12.0 - 16.0 gm/dL. The reference range was not used to interpr et this result as normal/abnormal . Hct (test code = 45.4 % 37.0-47.0 As part of CBC or as an 4544-3) individual mart one testing perform ed at [facility], [address] [facility], [place], [place] [address] MCV (test code = 90 fL 82-98 787-2) MCH (test code = 28.7 pg 27.0-31.0 785-6) MCHC (test code = 31.9 See_Comment [Automate d message] The 786-4) system which ge nerated this result tra nsmitted reference range : 31.0 - 36.0 gm/dL. The reference range was not used to interpr et this result as normal/abnormal . RDW-SD (test code = 41.7 fL 35.1-46.3 44997-1) RDW-CV (test code = 12.8 % 12.0-15.5 788-0) Platelet count (test 244 K/uL 140-440 As part of CBC or as an code = 777-3) individual sangita rodriguez testing perform ed at [facility] Band Teacher [facility], [address] [facility], [address], [place], [place] [address] MPV (test code = 8.9 fL 4.0-10.4 96686-4) INRBC (test code = 0.0 % See_Comment The INRBC (instrument 22609-4) NRBC) value ref lects the enumerationof n ucleated red blood cells contained in a 200uL sampleof whole blood analyzed by the instrument. Thi s value maydiffer from the NRBC value reported in a manual differential,wh ich is based on a 100 cell differential. A s part of CBC testing per formed at [facility] Lab [facility] Qtou[address], [facility] [address] [Automate d message] The sy stem which generated this result transmit john reference range : <=0.0. The reference r sylwia was not used to int erpret this result as normal/abnormal . [facility] [place] Biopsy Interpretation 2022-03-08 17:05:01 Test Item Value Reference Range Interpretation Comments Addendum 1 (test code = z1iftNYlFPKzeXU6ARX 37) pFMArm2dtp4ZpyXHttW LuGSpssBLohkAdcg69e NS9gJ96WC8pSRQeUsD7 GISuivA2Kiu4YLMjXCH miDAfQ751l6akt9stbu RyfGG9zNjjSTHghqzaK jW7RZgbHSOjdjtyRGn1 OQioSMWxdBK9GYZooXC mO7VrDKWfIP5mlgb8QF Y7HYwkPNAcTzH1MSYdo FVhOONhpAmeERqfs720 HQK8MxTmZLBvggCnxVj 1E2mjgP20Q9xsVFSqRG AhKAzyEDWrEdGhTW7fh X3nzNfsoS5bcETwpPTc bCBzdGFpbmluZyBpcyB mEBWua2DxTASuwR9fu4 VyIGxhYiBvbiBhIHJlc CItq8LszJK0pXIpYCHl cmFmZmluLWVtYmVkZGV rSBQcH5Ucb17mTFXptr wbmES7QDafrA6hBChmR 1PyG5akKD9tZNaaJ26u l9wuZqb+BGSHX9VKJFQ YOBJSAC6NWEPkCV5jO8 zYUQobXGDlUyyfK4h4Q X1ngbRhGSFrdlhmUKBc wPWxJ1CfQEEaE5YztJ6 yXHBhclxiMFxpXGZzMT WpYR32kTUjHLyiB1oxa zV8TGLXYJBoDIdfbUHl PWwdWFBmLW2mqQWtkvG gMTEgLSAxMDAlIExvdy FPi3NugAu1CLAkZILaX LxuECZblBr7DsAamRvz KHi1AOqcSBVfBcGyTJZ 9qd3hOC8wScXoKHT0u5 NcJyJyoHt8qohxID8ye XRpdmVccGFyIEVzdHJv U2QtPXLvH8PffT5oVBM cekHrfvKoH4WasX5nsa v6FW10GYOnvIFwRTYpm CLtA4PvCHWfL3VddA3r KOF9HPpdgQ9lQRziiPL jz7s5iTguR5Tot11aWI ClsiafwFL5RVqleO7xB GxnJhZBxb8oMDB0UYUt vpXmBdImEDM9u6LzpCY yXGIwXGlcZnMxNiBBbn AqCs3otVNbeW1hZSvmJ TYgKExlaWNhKVxwYXIg PF0zgSWgnaKqRMYoKYV bTUGsZQitilLTg1LymR h3JYCkZUBoTZakZGByb Xg4WbFscUgvRBv2GQjg PJLeIfIfUPBlK4TgcYJ zo74mIVVdF6GssH4oFW Qnu8FroIH5VFJsw8u5c KHaLXTdheDJai9yYAS7 XXZmsvRyGhZxQYB2m9K dQJAoW1SgtHCTrDSzjo luZzogMjAlXHBhciBQc a5iZYA5XSZqsyIjNmUc VKS5m6GdJ8MznX7ikpa sIN14UA3hhBH1PbEMaT OtvvjmjADxMBnoSff0C MuteoE2YGkfBSGkt9An a5DvEIEuqyhezTI6Iej kxB62VcRag4EoZNPxQo DpiBoyklO1YAGeHAMkw OZaaKLpqO8nqfSevKXs VTEwl6EfQUZ2JIVusT6 okuegnQYwT46sd4MoBm JhQGDdIQUdW9UlnbIfm OCel7OngaRruxQrJff8 WJJssS8cXc1cuOWorI6 bOf6nRRM6QNmpJAY2EO UtqK35qvLjJL9rHJerl mVyYWxseSBsZXNzIHRo DT0xTDolnJ85dtWiBXQ 0tYFnn5TqMBtwrtGoaA hhdGlvbiBleGNlZWRzI XF0MVptwCJiGX4xPNef wHbgTIyuZOPkGCW1JAJ vUD6cja1zjDOtIWqqEJ OyNZQqpRQrrC4fdkRqS XMgYmVlbiBmaXhlZCBm j5TycQ6iS3MeMGSfKD2 zDqKfxA56erJcHXDmwt VnYXRpdmUgSGVyIDIga H7znE8wsWjrmY9xbIUw aWNhbCAoSUhDKSByZXN 0aOKhjNE9HIFxXK9kRL XvH0TzwXfsuhQkltFrQ N11AEYkCqOgh9WvfiPn YXRpdmUsIGFsdGhvdWd wOYB9jYHpGDZguVD6SR VrqC84imA3kUT2AAOrI OSfjNOvgbIdMQ0fVwTj Vbj5JCJsCm3vGDGmRTa bnrdiHFFhKfG3FQAcsf Y0gIOwz4O8DJRjNcThq QgrSaGEULDjj0TrbL3g esepjeVprDq3lk4xQDj tfvKcu2RvTXEkQR1eU5 Q4xUDsNEMyw1WbuTKzr F72hMXfKfNuykYivLKk UQVuRrveXKCfbMHoh78 spCZ2OWB9teZwpbCxqJ Gxpd3sgQu2AKYjZB8kq GVzIGlmIGFwcHJvcHJp VAKzPzGWZMKdgcYyR7P gQXJiZXIgZXQgYWwuIE OdgJudFDmozYOlo1sny 4MfT6byqJ5kAZ8dHK9n ohQdVxYvBRoqZPA8QDO 2Ix9dROEmIINqtuAHKf J0nAYhq2TjI1vwNL3lq 9TcAA2gyYPprhr7wXDn bQrwyYFfP7Omr5BxIVL 2ZG3WQUJdUEVrt84tEP JqplOsBA2rdIl8gDBoz SGnzZhxdNzcwjF7rL7i aqCbAQvmOaSjWs69lkY ysU8qeNwfYEWaK15jhG JgpEwkDuEsWYYlw8qeA 2pkyfYqx5R8BhaoMYGd IEjlm3FwJDUmNOxjDGd cqfHedz14HVEmRO6kri NscDHhwTVqDC8pXYLkS 8ZkI8pwwEKqDSGnl1E2 SHZcGM7vWoIbgXd0iiJ rkC25gZLpEuTfsV19LW VxbrD3ADTcv9y2nUInI JY0dT3nDDfujnAeQYRz NFCrjMubwYkxp12yWB4 jDMCdeDBjYF1jN5D5bF BpbVmdb26hTCGgONyjf HCuVYXea2XuC2iqWE6n LlxwYXJccGFyZFxpMFx mczIwXHBhcn0= Submitted Clinical History e3wiySIuDETrp0raNLZ (test code = 05563) mbGFuZzEwMzNcZnRuYm pcdWMxIHtccnRmMVxzc 7NkV6JrZnCzITgtmyPe XGRlZmxhbmcxMDMzXGZ 0bmJqXHVjMVxkZWZmMH akLf2jhVQlfCppTcUtX TKsd0akocLQtluwgSz4 b9krRTCtIhA2gBQcLCw bF5ciafVkyIXkKFUsRI q0xL62FFZzzP7ifFEzF WvppcUiQqR5VEqfBRPy IfS3TMRrvJXsZJQvS1z yZWQwXGdyZWVuMFxibH RfRPV5aBuut9C7fZSvi GVldHtcZjBcZnMyMiBO j5ZbWHv0nGvpY7AtZDE bTkT3lZCoYAHbKOwrJF ZtRWHsyhN4rV05ULpsx dT6mWZdq5Imz10ym350 qH1zsXHzGRA4NRTeNCJ keFJjOGPjDUX0LXHcjC ByX8xrUDMuFN0ulruvB ZkhUXvpBSChtPR1OPMi eDDzD1EuFZEyRWneRDJ jwcq2OxYbXo4crNMyrT amFKmkv8etq1wkiCAvL qf8DSCbDnBzNtnrCRyr k5Bxm6vxEIProv6wDST 7lRTnkJoqv1P1dLIgHM MjgBDsoxOiJFKwOvE7Y LwdFM5bjr75GLJtOBS9 zc7pzWGmzXqjhyQawDB bCKygO4DmIFTtk936XQ XkA4VoGMSxj2O1nwUgU bFnAELatXO4ncW0WHUz CHc2pWMnjcH4ugPunXB oL5aulK2mHFYtZR5mrl lfw8xxMBxbKXsoEKUer ZP6dwB2DQHllMZlG1Jr gM2iZSGnCWxyVXCzmit 7NyLzJt0blZPfpZfjAL xzYmtwYWdlXHBnbmNvb nRccGduZGVjXHBsYWlu XHBsYWluXGYwXGZzMjR aeEwtbOswqG1bTjQjKz ViHOsxJF3oCFIwR4wbb TPiMFPhZHDbG5sbMsPw iR7geIkhCFaetbXuOG4 ikE1gJ0VdoXm4PWQcou 1obAKfPXyYPHCyGM3qk PawhJ1bChAgLyIaPigp ZT4oUWAlR1izrZBcQBF pVVNfU6vuDuRetS0ayG gtTYkyjlUkKTQtpg07 Diagnosis (test code = 34) z0vrbRTjWNVqoHX8BGC fTORoi5rgw6DipZMenL IrAGupnEXfzyMwph48q LI1fK44NI3qNWTrLsS0 TXZkcoA2Nzl8SNIgYVA rsHNwB702p2rum7qgge ChcKX9vLvdYRSoakxvB gO9ACpwTZCtcpilDIq8 NZuwEUQysFL2RXRnuKR mM8GkAWLsUF1kaly1MZ M2WDcrBDGeOsJ4HZJdq DQpOMBolGvrNZzqo841 PEN9MiIxBKYbggHleIe szU3yWqAuVUHAHhScEW WkhMUhpkHke0GdNRNdu WQfBebtSVWyu79dEJY7 LNN1EKWwMIOwD52xBbU mkZTmnNCiqQKeFVO2YX Wev8QzW7JlCzHwi6ZbB VGhj4YzgAjerMUrXGJI L5EVRKPGKCHRDP4MEDR qXP8bG6vYNANfDYOVEm ksIElOVEVSTUVESUFUR DBWYhLZNZeqM55QIHLe VFlQRSBXSVRIIENFTlR YIGrlVsICIf0EAIUcNN 1HVW8FR8QFN8NXG2eSY UNBVElPTlMuXGxpbmVc cGFyfQ== Comment (test code = 9835) n3oldMXrDJXmpBE2KGF iFDCjb1kjw6YllMWlgG YwWOpntGJevhIlcc49y KU8mR75JE5cFVFeLgH3 EGWbgmA8Olt1HBMoQAY phQYoH300i1lyz8iugl RriMH0jIsfHQOsfwokQ mX9YBrnOILwgqjlGIn7 AUuqDPTemDW8SUTjeKG mB6SgLIKhMZ8cqfy5BE E3HWlpKCRxLjB2HSKic DGpIRTpaRfrUIekr728 BFX1AvDbFYDrcuOrpYe wdT1fHnEaSPLOdGPzvX CiC9VjeNThn7B9vyUmZ kZHF5rBTP9uENW4twLg IGFwcHJveGltYXRlbHk vMbSmmECivcA4vMvpZE CbvzNbYgdkdQR7FpZmQ AKpq8XevDGyu1BeMGK4 xYIuXQKli8wqaFMtNYF dCKAyu5RmRNPaRTJfpi 0= Gross Description (test z6pbrKHbPNEshEOFNHu code = [id number]) wMVxhbnNpXHNwbHRwZ3 ArhuedKYfyTW3pYI3tp HtmsWHycJLuPY2MBHDl ZmYxXHBhcGVydzEyMjQ eTHFykPOawRL5QADmZF 1hcmdsMTgwMFxtYXJnc aD8KYKmlTLgA7AySZNv UB7sdqskNBJ9XDbtyJ9 qbiQPIbksCo8yiEFbtI tcZjFcZmNoYXJzZXQwX KGisVthWJZfFDl3nD5R RvvpB36vw7U1Ojh9JEL pYDYoO5KgFO1sYGOgqM FyB44NYbkdJMB2AEXGS wbyGRKjCK9Hh4icAWXf zSHwETM9MRjrgKZrSTF xZGLfVCl3UYCaLKsmrA ZzYZ1ssUunCkhgdAgxv 2VjdCBcXGlkIDUxMDAy JNyiHDXyRL0AFsIqZTX nGVcvKsgcKWo2FMu5SY 9WUyAiICAgNTEwNTIxN tNxYCg3RCvuZA1GPRMy NjIyOTkxNjggNTUyNjE qHIw6GTIzAEqrYBYyeW FsIFxcZnMgMTAgXFxmY sDoDEOnRIoapfH9KZSr YWluXGJcZnMyMCBBOlx aQOVgOHffpTbycI3hFB GdZ13eq7KLd3ZaPH7OE Xk6gtCnjuyhyY6pZGVg ycVyQEmxyVKvO5vrLav jZjFcZnMyMCBCcmVhc3 QsIGxlZnQsIGxlZnQgY uBiKNI6VWY7WW3cD4bn R0ilOUNmhtn7JPAvJUJ aSQMsKAmrJaQzQ9OqBA N6JRvhoMkfue76QY3bD gvkea3lRXE2fPYda9Xw qrKkTrA7pJGidHUhGHH hbmdpbmcgZnJvbSAxLj GnDi5zRUBnXOcjAHhva ui2oMM3LCApMmArrUCw biBkaWFtZXRlcikuICA 2WR3vAULbPVYov3Vsbx WuejDbzuZyIMn3QQUna S8lOGUrtG9vBZVor4Bo rIZbPiRYaXJfW70dESH tXTJzNWV9Et1qsVUpNR OasuAfetAflZ1myPpsG NSlaSnwIOEFWENMIF1W DXZBZBO0UPEtZRDdMTN fdySbEIKmn83zkSilYZ PpaereS2Ucm6A8sNW5O EEyLUEzLCBlYWNoIGNh y0AtwVWhCQAbT25gPGV rHfNgjHH3wBSfeGjels QjUKGhPGO1MNjbGESkV P6bVIHre0ObRiMoDevF WEsdNUZyO65cx4EJx7V vOHQko8wiiLohu0QkdA VuZFxwYXJccGFyZFxzb L1cFvDyg5rcyNl3RFnf wfH4RUFwjk5voOjpbG7 mWPjpv3qmENQ4NJAweS FswSSdYYosgYthaV7zQ zIeQfo3CJrvAXNyT3Ol Z1ZaexO1AJFnRNchSKN zMTYgDQp9 Biomarker Block(s) (test m6kbeNKfFBRpjVH9LRA code = 9841) dXGWzy9oim9QkuIVyxV HlVFzvcNZaevWmah09n WJ6uV07WG6vNTFtUbK6 CFLgwsE5Jcv8EWPtGZJ unBDpR728b2rtr8sjkw GquNE8qYtkBWThtneaD pN4ZJubQGKflofbBNm9 DJygEPUvgPZ0GACxxTE cS3RnBNCfPI5cpah2WO W4OIiuTLUeLoJ4MPDsq TYsKMFjlJkpXWuhk638 LJH4InGlDHYdlbHtnCm caI2tKjTiUGUEYLjgCU J9 Disclaimer (test code = k8jnjUNaLYTthTOcXkM 9844) oVMLzOQBvz3fcOBPfbM FuZzEwMzNcZnRuYmpcd QYiJHRyMcTcl4ynh263 nWRqd6ahVUCqDrZ2vPB kIXUmeHElI163MOAjFE vwm3pwf6NbYNSbsCZzq 6J1PYZQcwvncYe8tVnu V17xw7E4GoueL2dwCKS qCZTmE1SrFO5lQXZfIp d7OQK1MRJ6OTRyZNZjX 3MsZC0zIHVdaUOkBHd9 x5mciBayBXNtVNQ6b3y zSImodhFsLD2jrn6lcQ w8h9jpiiOlFJHsJZAcp IUEPBFnN1XjzZzfDt4y rOo6eOhfBrbdCLL7Lhv 7UL7roe31khs8wGfjSA FrtciuUnM5VJhtMNDmq nmxVUs1VMavTPQapDD7 SOIslKYuY4ZfITDuGM9 wbfg9YPF7SYlgKUFrCt R5CGMjoGUzHMWumNirA Yohs780BDL0WeMuUA2q G6Ymy7E5bJ6yvARqMNO gaMZiLvDzAEYbgp5fzW HnPZaws2WuQPX6bzD7b PMhgMOmCUAyFJ88Jrjd j5LeDkcaYDH6CQAjszT ml7Byf8edPpNuutOoD6 mrO8WaLHIsCBNnIKDaR eZzqhRob0Wye1QmtQKk yUi4x9fnWEDyUKHpyDy we4lnDSE0NIRoL2F7kI Zot8gkGAeaEZPbxSA5d mS1ZHCrbCRnH9FyaJ2t XPDsHD3ainm3e4yjGTV 0IIhiYOIlDvT6ruH3VD BcaGVhZGVyeTcyMFxmb 522GVL4YbLjQHUng9Sl M4MioIyfG51tlGdqB86 fONMbhAnkyX0vxLmtiZ 5cZjBcZnMyNFxxbFxwb BJswwdnTBrulsH5WChx mabvLJMgIOznA6whExH nULAbbDvjCZpzv9YcEJ NcJXTpUkuxwaS5HVFPy 65xDZCwj2JlQAAcgD6v dSRzWFmoajLxnJW8BRn hdmUgYmVlbiBkZXZlbG 7aLRHzBH5cAFDopdKur e1lcpEhEDNfCRHdF2Yf cmlzdGljcyBkZXRlcm1 sjfZmNTY1AZFHFU2BJC HkYAXao50zEBQhcEmiu C1dcJPgdyErURNtv3Ob vX3qlPYWQMOmQ5lyXX6 nFPqzb4UtsUPfaSCwlA W0UOJgu7ScXqAvltAhq QKijJOrQ1BhgOxfU5tc EOVgGFJjvbNwrYJpw3O hSZUsoTT4hXHcRK8IGa JJl76uDFSaSCLNztAgE NCtwOdwjYZ7upJ4lE6u LiBJZiBhcHBsaWNhYmx aVZOtd428cn4qvrU4LL IhRFArtjdsy9BfURShZ VKsxK88DNXiDDXnof1m vvnliSRejgUyO7Zjbry 3fE4qGZMcXOmkSGXzXU ZzMjJcbGFuZzEwMzNca GljaFxmMVxkYmNoXGYx TMbxJ5etAsBaMjTpKey wYXJ9 [facility] [place] Digital Diagnostic [id number] 19:20:33 Test Item Value Reference Range Interpretation Comments Radiology Study observation (narrative) (test code = 00091-0) IMP (test code = IMP) Calcifications in the left breast are suspicious. Stereotactic biopsy isrecommended. Findings and recommendations were sent via institutional email to Yamileth Dowell at time of examination. BI-RADS Category 4C:Suspicious Abnormality PXN (test code = PXN) Trixie Dowell MD - 02/22/2022 CLINICAL INDICATION:Patient is a 66 year old female and is seen for additional evaluation requestedfrom prior study MAMMO DIGITAL DIAGNOSTIC BILATERALCOMPARISON:The present examination has been compared to a prior imaging study performed atan outside location on 01/28/2022. FINDINGS:The breasts are heterogeneously dense, which may obscure small masses. There are fine-linear branching and fine pleomorphic calcifications measuring4.1 x 2.2 x 1.9 centimeters with segmental distribution in the left breast lowerhemisphere at 6 to 7 o'clock located 4 centimeters from the nipple. Arepresentative group for stereotactic guided biopsy has been identified at the 6o'clock position, 6 cm from the nipple. This group has been annotated onmagnification views. In the right breast, no dominant mass, distortion, or suspicious calcificationsare identified. IMPRESSION:Calcification s in the left breast are suspicious. Stereotactic biopsy isrecommended. Findings and recommendations were sent via institutional email to Yamileth Dowell at time of examination. BI-RADS Category 4C:Suspicious Abnormality Lab Interpretation Abnormal (test code = 61644-8) [facility] [place]
--- NOTE | 2022-06-05 12:43 | RAD REPORT ---
EXAM DESCRIPTION: RAD - Chest Single View - 06/05/2022 12:32 pm CLINICAL HISTORY: COUGH Chest pain. COMPARISON: Chest Pa And Lat (2 Views) dated 04/18/2018 FINDINGS: Portable technique limits examination quality. Interstitial lung markings are prominent suggesting viral infection. Mild atelectasis is present in t he left lung base. The heart is normal in size. No displaced fractures.
--- NOTE | 2022-06-05 13:34 | EDPHYS ---
Physician Documentation [facility] Name: Vianney Cody Age: 66 yrs Sex: Female : 1955 Arrival Date: 06/05/2022 Time: 11:21 Bed 12 Private MD: Shaheed Lara R ED Physician Messi Hunter HPI: 06/05 13:32 This 66 yrs old Female presents to ER via Ambulatory with complaints of jl9 Cough. Patient states she had a positive COVID test at home and wanted to double check. . 13:32 The patient or guardian reports cough. Onset: The symptoms/episode began/occurred jl9 yesterday. Modifying factors: The symptoms are alleviated by nothing, the symptoms are aggravated by nothing. Historical: - Allergies: 11:39 Morphine; jl7 11:39 Codeine; jl7 11:39 [place]; jl7 11:39 tramadol; jl7 - Home Meds: 11:39 atorvastatin oral [Active]; Metoprolol Tartrate Oral [Active]; jl7 - PMHx: 11:39 Hypertensive disorder; Hypercholesterolemia; Breast Cancer; jl7 - PSHx: 11:39 left mastectomy; jl7 - Immunization history:: Client reports receiving the 2nd dose of the Covid vaccine. - Social history:: Smoking status: Patient denies any tobacco usage or history of. ROS: 13:33 Constitutional: Negative for fever, chills, and weight loss, Eyes: Negative for injury, jl9 pain, redness, and discharge, ENT: Negative for injury, pain, and discharge, Neck: Negative for injury, pain, and swelling, Cardiovascular: Negative for chest pain, palpitations, and edema. 13:33 Abdomen/GI: Negative for abdominal pain, nausea, vomiting, diarrhea, and constipation, Back: Negative for injury and pain, : Negative for injury, bleeding, discharge, and swelling, MS/Extremity: Negative for injury and deformity, Skin: Negative for injury, rash, and discoloration, Neuro: Negative for headache, weakness, numbness, tingling, and seizure, Psych: Negative for depression, anxiety, suicide ideation, homicidal ideation, and hallucinations, Allergy/Immunology: Negative for hives, rash, and allergies, Endocrine: Negative for neck swelling, polydipsia, polyuria, polyphagia, and marked weight changes, Hematologic/Lymphatic: Negative for swollen nodes, abnormal bleeding, and unusual bruising. 13:33 Respiratory: Positive for cough. Exam: 13:33 Constitutional: This is a well developed, well nourished patient who is awake, alert, jl9 and in no acute distress. Head/Face: Normocephalic, atraumatic. Eyes: Pupils equal round and reactive to light, extra-ocular motions intact. Lids and lashes normal. Conjunctiva and sclera are non-icteric and not injected. Cornea within normal limits. Periorbital areas with no swelling, redness, or edema. ENT: Mucous membranes moist. Neck: Trachea midline, no thyromegaly or masses palpated, and no cervical lymphadenopathy. Supple, full range of motion without nuchal rigidity, or vertebral point tenderness. No Meningismus. Chest/axilla: Normal chest wall appearance and motion. Nontender with no deformity. No lesions are appreciated. Cardiovascular: Regular rate and rhythm with a normal S1 and S2. No gallops, murmurs, or rubs. Normal PMI, no JVD. No pulse deficits. Respiratory: Lungs have equal breath sounds bilaterally, clear to auscultation and percussion. No rales, rhonchi or wheezes noted. No increased work of breathing, no retractions or nasal flaring. Abdomen/GI: Soft, non-tender, with normal bowel sounds. No distension or tympany. No guarding or rebound. No evidence of tenderness throughout. Back: No spinal tenderness. No costovertebral tenderness. Full range of motion. Skin: Warm, dry with normal turgor. Normal color with no rashes, no lesions, and no evidence of cellulitis. MS/ Extremity: Pulses equal, no cyanosis. Neurovascular intact. Full, normal range of motion. Neuro: Awake and alert, GCS 15, oriented to person, place, time, and situation. Cranial nerves II-XII grossly intact. Motor strength 5/5 in all extremities. Sensory grossly intact. Cerebellar exam normal. Normal gait. Psych: Awake, alert, with orientation to person, place and time. Behavior, mood, and affect are within normal limits. Vital Signs: 11:37 BP 145 / 63; Pulse 82; Resp 17 S; Temp 97.9(T); Pulse Ox 94% on R/A; Weight 133.81 kg jl7 (M); Height 5 ft. 5 in. (165.10 cm); 11:37 Body Mass Index 49.09 (133.81 kg, 165.10 cm) jl7 MDM: 11:44 Patient medically screened. jl9 13:33 Data reviewed: vital signs, nurses notes. Counseling: I had a detailed discussion with jl9 the patient and/or guardian regarding: the historical points, exam findings, and any diagnostic results supporting the discharge/admit diagnosis, lab results, radiology results, the need for outpatient follow up, to return to the emergency department if symptoms worsen or persist or if there are any questions or concerns that arise at home. 06/05 11:45 Order name: SARS-COV-2 RT PCR (Document "Date of Onset" if Symptomatic); Complete Time: 9 13:31 06/05 11:45 Order name: XRAY Chest (1 view); Complete Time: 12:47 jl9 Administered Medications: No medications were administered Disposition Summary: 06/05/22 13:34 Discharge Ordered Location: Home jl9 Condition: Stable jl9 Diagnosis - Pneumonia due to SARS-associated coronavirus jl9 Followup: jl9 - With: Private Physician - When: 1 - 2 days - Reason: Recheck today's complaints, Continuance of care, Re-evaluation by your physician Discharge Instructions: - Discharge Summary Sheet jl9 - COVID-19 jl9 Forms: - Medication Reconciliation Form jl9 - Thank You Letter jl9 - Antibiotic Education jl9 - Prescription Opioid Use jl9 Prescriptions: - Paxlovid (EUA) 150 mg x 2- 100 mg Oral tablet - take 3 tablet by ORAL route 2 times per day for 5 days per package directions; jl9 30 tablet; Refills: 0, Product Selection Permitted Signatures: Dispatcher [employer] Jeanette Tyler RN RN [email or web address] Jostin Vera jl9 Corrections: (The following items were deleted from the chart) 11:41 11:39 Allergies: Latex, Natural Rubber; jl7 jl7 13:33 13:32 Associated signs and symptoms: Pertinent positives: sore throat, jl9 jl9
--- NOTE | 2022-06-05 13:34 | ER ---
Nurse's Notes [facility] Name: Vianney Cody Age: 66 yrs Sex: Female : 1955 Arrival Date: 06/05/2022 Time: 11:21 Bed 12 Private MD: Shaheed Lara R Diagnosis: Pneumonia due to SARS-associated coronavirus Presentation: 06/05 11:37 Chief complaint: Patient states: Cough, scratchy throat x 4 days, denies shortness of jl7 breath. Reports positive COVID test yesterday and just wants to make sure it's accurate. Coronavirus screen: Vaccine status: Patient reports receiving the 2nd dose of the covid vaccine. congestion, cough unrelated to allergies. Ebola Screen: No symptoms or risks identified at this time. Initial Sepsis Screen: Does the patient meet any 2 criteria? No. Patient's initial sepsis screen is negative. Does the patient have a suspected source of infection? No. Patient's initial sepsis screen is negative. Risk Assessment: Do you want to hurt yourself or someone else? Patient reports no desire to harm self or others. Onset of symptoms was June 02, 2022. 11:37 Method Of Arrival: Ambulatory [facility] 11:37 Acuity: IRVING 4 jl7 Triage Assessment: 11:39 General: Appears in no apparent distress. uncomfortable, Behavior is calm, cooperative, jl7 appropriate for age. Pain: Complains of pain in left breast. Historical: - Allergies: 11:39 Morphine; jl7 11:39 Codeine; jl7 11:39 [place]; jl7 11:39 tramadol; jl7 - Home Meds: 11:39 atorvastatin oral [Active]; Metoprolol Tartrate Oral [Active]; jl7 - PMHx: 11:39 Hypertensive disorder; Hypercholesterolemia; Breast Cancer; jl7 - PSHx: 11:39 left mastectomy; jl7 - Immunization history:: Client reports receiving the 2nd dose of the Covid vaccine. - Social history:: Smoking status: Patient denies any tobacco usage or history of. Screenin:30 Abuse screen: Denies threats or abuse. Denies injuries from another. Nutritional hb screening: No deficits noted. Tuberculosis screening: No symptoms or risk factors identified. Fall Risk None identified. Assessment: 12:30 General: Appears in no apparent distress. Behavior is calm, cooperative. Pain: Pain hb currently is 2 out of 10 on a pain scale. Neuro: Level of Consciousness is awake, alert, obeys commands, Oriented to person, place, time, situation. Cardiovascular: Patient's skin is warm and dry. Respiratory: Respiratory effort is even, unlabored, Respiratory pattern is regular, symmetrical. GI: No signs and/or symptoms were reported involving the gastrointestinal system. : No signs and/or symptoms were reported regarding the genitourinary system. EENT: No signs and/or symptoms were reported regarding the EENT system. Derm: Skin is pink, warm \T\ dry. Musculoskeletal: No signs and/or symptoms reported regarding the musculoskeletal system. 13:30 Reassessment: Patient appears in no apparent distress at this time. Patient and/or hb family updated on plan of care and expected duration. Pain level reassessed. Patient is alert, oriented x 3, equal unlabored respirations, skin warm/dry/pink. Vital Signs: 11:37 BP 145 / 63; Pulse 82; Resp 17 S; Temp 97.9(T); Pulse Ox 94% on R/A; Weight 133.81 kg jl7 (M); Height 5 ft. 5 in. (165.10 cm); 11:37 Body Mass Index 49.09 (133.81 kg, 165.10 cm) jl7 ED Course: 11:21 Patient arrived in ED. mr 11:21 Shaheed Lara MD is Private Physician. mr 11:39 Triage completed. jl7 11:39 Arm band placed on right wrist. jl7 11:44 [facility]. jl9 11:44 Messi Hunter MD is Attending Physician. jl9 12:30 Patient has correct armband on for positive identification. hb 12:34 XRAY Chest (1 view) In Process Unspecified. EDMS 12:44 Mena Hoffman, RN is Primary Nurse. hb 13:47 No provider procedures requiring assistance completed. Patient did not have IV access hb during this emergency room visit. Administered Medications: No medications were administered Medication: 12:30 VIS not applicable for this client. hb Outcome: 13:34 Discharge ordered by . jl9 13:47 Discharged to home ambulatory, with significant other. hb 13:47 Condition: stable 13:47 Discharge instructions given to patient, significant other, Instructed on discharge instructions, follow up and referral plans. medication usage, Demonstrated understanding of instructions, follow-up care, medications, Prescriptions given X 1. 13:48 Patient left the ED. Signatures: Dispatcher [employer] JUANCARLOS Bonnie Hedrick DaltonMena, RN RN Jeanette Curtis RN RN Jostin Canas9 Corrections: (The following items were deleted from the chart) 11:41 11:39 Allergies: Latex, Natural Rubber; mel leal
[2022-06-05 14:18] VITALS: BP 145/63; TEMP 97.9; O2SAT 94
== END 2022-06-05 13:48 | disposition home or self-care (01) ==
LOC: ER 11:20
DX: U07.1 COVID-19 (principal); J12.82 Pneumonia due to coronavirus disease 2019; I10 Essential (primary) hypertension; Z88.5 Allergy status to narcotic agent
CPT/HCPCS: 71045; 99283; U0003

== ENCOUNTER 2022-11-15 13:14 | Emergency (ER) | payer OTHER ==
--- OUTSIDE RECORDS SUMMARY | 2022-11-15 13:18 | XMS REPORT | Clinical Summary ---
:[address] [facility] MD [facility] Address [address] [place] [address] Care Team Providers Name Role Phone Rabia Mayer Unavailable Amado Diamond APN Primary Care Provider Yfn Whittaker MD Unavailable [phone] Allergies Active Allergy Reactions Severity Noted [...] Stage 0 (cTis (DCIS), cN0, cM0, ER+, HI+, HER2: Not Assessed) - Signed by RANDY Spencer on 03/31/2022 Pathologic stage from 05/06/2022: Stage 0 (pTis (DCIS), pN0(sn), cM0, ER+, HI+, HER2: Not Assessed) - Signed by RANDY [...] Clinical Support Breast Surgical Amado Diamond, Oncology SWITCH ADJUSTERCris Parham RN 05/26/2022 Orders Only Breast Surgical Nina Loya, 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, solid type of breast, NOS <Female; Le ft> (Primary Dx) 05/26/2022 Travel 05/23/2022 Telephone Breast Medical Dean Box Oncology P, RN 05/23/2022 Telephone Breast Surgical Nina Loya, Oncology PA 05/20/2022 Clinical Support Breast Surgical Amado Diamond, Oncology SWITCH ADJUSTERChirag Britton RN 05/20/2022 Travel 05/20/2022 Orders Only Breast Surgical Nina Loya, 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, solid type of breast, NOS <Female; Le ft> (Primary Dx) 05/16/2022 Telephone Breast Surgical Nina Loya, Oncology PA 05/10/2022 Telephone Breast Surgical Nina Loya, Oncology PA 05/06/2022 Anesthesia Event King Guardado MD [facility] Loya, BETH 05/06/2022 Surgery Kimmy Del Castillo MD [...] PA 05/05/2022 Consult Plastic Surgery Avni, Ductal anniei danis Penn MD in situ, s olid type of breast, NOS <Female; Le ft> 05/05/2022 Ancillary Procedure Radiology Nina Loya PA 05/05/2022 Ancillary Procedure Radiology Nina Loya, Ducta l carcinoma PA in situ, solid type of breast, NOS <Female; Le ft> 05/05/2022 Anesthesia Event Anesthesiology Bethanie Reilly MA 05/05/2022 Travel 05/04/2022 Consult Internal Medicine Nina Loya, Ductal carcinoma PA in situ, solid Thony Niño MD type of breast , NOS <Female; Le ft> 05/04/2022 POEM Appointments Anesthesiology Amado Diamond, Pre-s louisery SWITCH ADJUSTER evaluation 05/04/2022 Office Visit Breast Surgical Kimmy [...] NOS <Female; Le ft> 05/04/2022 Clinical Support Covid Nina Loya, Suspecte d COVID-19 (Primary Dx); PA pTis: [...] Travel 02/24/2022 Ancillary Procedure Radiology Amado Diamond, Cance r SWITCH ADJUSTER 02/24/2022 Ancillary Procedure Radiology Amado Diamond L, Cance r SWITCH ADJUSTER 02/24/2022 Ancillary Procedure Radiology Amado Diamond, Cance r SWITCH ADJUSTER 02/24/2022 Ancillary Procedure Radiology Amado Diamond L, Cance r SWITCH ADJUSTER 02/24/2022 Ancillary Procedure Radiology Amado Diamond L, Cance r SWITCH ADJUSTER 02/24/2022 Ancillary Procedure Radiology Amado Diamond, Cance r SWITCH ADJUSTER 02/24/2022 Ancillary Procedure Radiology Amado Diamond, Cance r SWITCH ADJUSTER 02/24/2022 Ancillary Procedure Radiology Amado Diamond, Cance r SWITCH ADJUSTER 02/24/2022 Ancillary Procedure Radiology Amado Diamond, Cance r SWITCH ADJUSTER 02/24/2022 Ancillary Procedure Radiology Amado Diamond, Cance r SWITCH ADJUSTER 02/24/2022 Ancillary Procedure Radiology Amado Diamond, Cance r SWITCH ADJUSTER 02/24/2022 Ancillary Procedure Radiology Amado Diamond, Cance r SWITCH ADJUSTER 02/24/2022 Telephone Radiology Hollis Bustillos, SHERRIE 02/23/2022 Orders Only Cancer Prevention Amado Diamond, SWITCH ADJUSTER 02/22/2022 Ancillary Procedure Radiology Amado Diamond, Cance r SWITCH ADJUSTER 02/22/2022 Clinical Support Breast Undiagnosed Amado Diamond, SWITCH ADJUSTER 02/22/2022 Hospital Encounter Radiology Yamileth Figueroa, Other abnormal and BENEFITS CONSULTING ANALYST inconclusive findings on diagnostic imag ing of breast 02/22/2022 Hospital Encounter Radiology Alonzo Figueroai, Other abnormal and BENEFITS CONSULTING ANALYST inconclusive findings on diagnostic imag ing of breast 02/22/2022 Office Visit Breast Undiagnosed Amado Diamond, Mammog gin SWITCH ADJUSTER abnormal (Prima ry Dx) 02/22/2022 [facility] Patient Access Services 02/22/2022 Travel 02/11/2022 Orders Only Cancer Prevention Yamileth Figueroa, Other a bnormal and BENEFITS CONSULTING ANALYST inconclusive findings on diagnostic imag ing of breast (Prim pierce Dx) after 11/15/2021 Immunizations Name Administration Dates Next Due Influenza, Quadrivalent 07/17/2020, 07/31/2019 Moderna SARS-CoV-2 Vaccination 08/06/2021, 12/25/2020, 11/27 Surgical History Surgery Date Site/Laterality Comments TOTAL KNEE ARTHROPLASTY Right TOTAL ABDOMINAL HYSTERECTOMY 09/25/2001 - W/ BILATERAL 09/24/2002 SALPINGOOPHORECTOMY BREAST CYST ASPIRATION 09/25/2020 - Right 09/24/2021 COLONOSCOPY 09/25/2017 - benign polyps 09/24/2018 CRYOTHERAPY abnormal pap sme ar in 1987 - no furthe r problems with ab normal pap smears HI MASTECTOMY SIMPLE COMPLETE 05/06/2022 Breast/Left Pr ocedure: TOTAL MASTECTOMY; Surg camilla: Kimmy Del Castillo MD; Location: MAIN O R; Service: BREAST HI INTRAOP SENTINEL LYMPH NODE 05/06/2022 Left P rocedure: ID W/DYE INJECTION INTRAOPERATIV E LYMPHATIC MAPPING; Surgeon : Kimmy Del Castillo MD; Location: MAIN O R; Service: BREAST HI BX/EXC LYMPH NODE OPEN DEEP 05/06/2022 Axilla/Left P rocedure: SENTINEL NODE AXILLARY NODE BIOPSY - AXILLA; Surgeon: Kimmy Del Castillo MD; Location: [place]; Service: BREAST Medical History Medical History Date Comments Essential tremor bilateral hand Essential (primary) hypertension Family History Medical History Relation Name Comments Breast cancer Mother mastectomy at ag e 50 Relation Name Status Comments Mother Social History Tobacco Use Types Packs/Day Years Used Date Smoking Tobacco: Never Smokeless Tobacco: Never Alcohol Use Standard Drinks/Week Comments Yes 0 (1 standard drink = 0.6 oz pure alcoho l) glass of wine once a month Sex Assigned at Date Recorded Not on file Job Start Date Occupation Industry Not on file Not on file Not on file Obstetrics History Para Term AB IAB SAB Ectopic Multiple Living Live Births 0 0 0 0 0 0 0 0 0 0 0 Comments Menarche 13 or 14 OBC yes Hormonal Therapy yes after hyste rectomy - 1 year Last Pap remote Abnormal Pap yes; CRYO Last Gisella 01/28/2022 (OS) Last Colon 2017 benign polyps (OS) Breast Bx none TAHBSO [...] Date Type Specialty Care Team Description 11/30/2022 Follow-Up Breast Medical Oncology Nicol Edwards MD [address] [place], [place] [address] (Wo rk) Health Maintenance Due Date Last Done Comments COVID-19 Vaccination (4 - Booster 10/01/2021 08/06/2021, , for Moderna series) 11/27/2020 Medical Devices Implanted Type Area Lance Crewmember Device Shelf Model / Identifier Expiration Date [...] Ductal carcinoma in Results for this BREAST PM CDT situ, solid type of procedur e [...] are i n the results section. after 11/15/2021 Results (ABNORMAL) POC Glucose Screen (05/06/2022 8:22 PM CDT)Only the most recent of2 resultswithin the time period is included. P athologist Signature POC Glucose 130 (H) 70 [...] Sample Type Capillary POC TELCOR Performing Lab [facility] POC TELCO R Comment: [facility], [facility] [facility], [place] [address]; Lab Direct or: Becky Harris MD Specimen Anatomical Collection Method Collection Time Receive d Time (Source) Location / / Volume Laterality Blood 05/06/2022 8:22 PM 8:22 CDT PM CDT Kimmy Del Castillo MD POCT ORDERABLES - DEVICE Performing Organization Address City/State/ZIP Code Phon e Number POC TELCOR Unless otherwise noted, [place] [address] lab tests performed by: Division of Pathology and Laboratory Medicine [address] [facility] POC TELCOR Pathology Surgical Interpretation (05/06/2022 2:50 PM CDT) Component Value Ref Test Analysis Performed Pathologis t Range Method Time At Signature Addendum 1 Additional sections of beena hopkins from specimen A (A23 and A24) are reviewed. The original diagnosis is unchanged. [facility] Addendum 2:57 PM electronic ally [...] of Lymph Nodes Examined: 11 Number of Kenvir Nodes Examined: 8 Treatment Effect: No known presurgical therapy Pathologic Stage Classification (pTNM, AJCC 8th Edition) Primary Tumor (pT): pTis (DCIS) Regional Lymph Nodes (pN): pN0 Distant Metastasis (pM): N/A Ancillary Studies: See previous case Submitted pTis: Ductal 05/16/2022 [facility] Clinical History carcinoma in situ 2:57 PM (breast) <Left CDT side> [D05.12] Diagnosis A: Left breast total mastectomy: [facility] Electronically DUCTAL CARCINOMA IN SITU [...] tissue, no tumor present. Comment Additional 05/16/2022 [facility] sections of 2:57 PM margins from the CDT lateral portion of the specimen are pending. Gross A: 05/16/2022 [facility] Description Breast, left, or 18 [...] or areas of concern are grossly identified. Keysmith sections are submitted in cassettes D1-D3. Time [...] with no distinct lesion readily iden tified. Keysmith sections are submitted in cassettes E1-E6. Time in formalin is not docu mented. The specimen is put in formalin on 05/06/2022 DF Intraoperative A: 05/16/2022 [facility] Evaluation Breast, left, or 18 - left b reast total mastectomy (double stitch = 12 o'clock) (double long stitch: 6 o'clock) single stitch lateral - x-ray immediate processin:57 PM One clip is identified. Calc ification focally present close to the inferior margin. CDT LH/FLZ Biomarker A8 05/16/2022 [facility] Block(s) 2:57 PM CDT Disclaimer "Some tests 05/16/2022 [facility] reported here may 2:57 PM have been CDT developed and performance characteristics determined by [facility] Medicine. These tests have [...] CDT Tissue (Skin, 05/06/2022 3:09 PM 05/06/20 3:23 Left Breast) CDT PM CDT Tissue (Breast, 05/06/2022 4:02 PM 2021 2:06 Left) CDT PM CDT Kimmy Del Castillo MD LAB PATHOLOGY ORDERABLES Performing Organization Address City/State/ZIP Code Phon e Number [facility] [place] [address] [address] Breast Specimen Radiograph (Left) (05/06/2022 11:16 AM [...] removal of the localized lesion (s). Nina PADILLA IMG MAMMOGRAPHY ORDERABLES NM Lymphoscintigraphy Breast (05/05/2022 1:19 [...] axilla IMPRESSION: Left axilla sentinel node Nina PADILLA IMG NM ORDERABLES X-ray Chest 2 Views (05/04/2022 [...] WHITLEY .Serum Creatinine (05/04/2022 9:19 AM CDT) athologist Signature Creatinine 0.87 0.51 - 0.95 [facility] mg/dL Comment: Testing Performed at [facility], [address], [address], [place] [address] Specimen Anatomical Collection Method Collection Time Receive d Time (Source) Location / / Volume Laterality Blood 05/04/2022 9:19 AM 9:35 CDT AM CDT Nina PADILLA LAB BLOOD ORDERABLES Performing Organization Address City/State/ZIP Code Phon e Number [facility] [address] [place] [address] [address] .CBC (05/04/2022 9:19 AM CDT) athologist Signature WBC 10.8 4.0 - 11.0 [facility] K/uL RBC 5.06 4.00 - 5.50 [facility] M/uL Hgb 14.5 12.0 - 16.0 [facility] gm/dL Comment: As part of CBC or as an individ ual orderable testing performed at [facility] Supervisor [facility], [address] , [address], [place] [address] Hct 45.4 37.0 - 47.0 % [facility] Comment: As part of CBC or as an individ ual orderable testing performed at [facility], [address] , [address], [place] [address] MCV 90 82 - 98 fL [facility] MCH 28.7 27.0 - 31.0 pg [facility] MCHC 31.9 31.0 - 36.0 gm/dL [facility] RDW-SD 41.7 35.1 - 46.3 fL [facility] RDW-CV 12.8 12.0 - 15.5 % [facility] Platelet count 244 140 - 440 K/uL [facility] Comment: As part of CBC or as an individ ual orderable testing performed at [facility], [address] , [address], [place] [address] MPV 8.9 4.0 - 10.4 fL [facility] INRBC 0.0 <=0.0 % [facility] Comment: The INRBC (instrument NRBC) value reflec ts the enumeration of nucleated red blood cells contained i n a 200uL sample of whole blood analyzed by the instrumen t. This value may differ from the NRBC value reported in a manual differential, which is based on a 100 cell differentia l. As part of CBC testing performed at [facility] [address], [address], [place] [address] Specimen Anatomical Collection Method Collection Time Receive d Time (Source) Location / / Volume Laterality Blood 05/04/2022 9:19 AM 9:28 CDT AM CDT Nina PADILLA LAB BLOOD ORDERABLES Performing Organization Address City/State/ZIP Code Phon e Number [address] [place] [address] [address] Glomerular Filtration Rate (05/04/2022 9:19 AM CDT) athologist Signature eGFR-AA 81 >=60 [facility] mL/min/1.73 sq. m Comment: Normal eGFR >= [...] 5 Kidney failure <15 Testing Performed at [facility], [address] [place] [address], [address], [place] [address] eGFR-RADHA 71 >=60 mL/min/1.73 sq. m [facility] Comment: Normal eGFR >= 60 mL/min/1.73 m2 [...] 5 Kidney failure <15 Testing Performed at [facility] Super[facility], [address] [place] [address], [address], [place] [address] Specimen Anatomical Collection Method Collection Time Receive d Time (Source) Location / / Volume Laterality Blood 05/04/2022 9:19 AM 9:35 CDT AM CDT Nina PADILLA LAB BLOOD ORDERABLES Performing Organization Address City/State/ZIP Code Phon e Number [facility] [address] [place] [address] [address] Fractionated Bilirubin (05/04/2022 9:19 AM CDT) athologist Signature Bili Total 0.3 <=1.2 mg/dL [facility] Comment: Indocyanine Green (ICG) may cause falsel y elevated bilirubin results. Total and direct bilirubin must not be measured from samples containing indocyanine green. False elevation of total bilirubin can b e seen in patients with IgG concentrations above 28 g/L. Testing Performed at [facility], [address] [place] [address], [address], [place] [address] Bili Direct <0.2 <=0.3 mg/dL [facility] Comment: Indocyanine Green (ICG) may cause falsel y elevated bilirubin results. Total and direct bilirubin must not be measured from samples containing indocyanine green. Testing Performed at [facility], [address], [address], [place] [address] Bili Indirect See Note 0.0 - 0.9 mg/dL [facility] Comment: Unable to calculate Indirect Bilirubin r esult due to some parameters are outside reportable range Testing Performed at [facility], [facility], [place] [address] Specimen Anatomical Collection Method Collection Time Receive d Time (Source) Location / / Volume Laterality Blood 05/04/2022 9:19 AM 2 9:35 CDT AM CDT Nina PADILLA LAB BLOOD ORDERABLES Performing Organization Address City/State/ZIP Code Phon e Number [facility] [address] [place] [address] [address] Partial Thromboplastin Time (05/04/2022 9:19 AM CDT) athologist Signature aPTT 27.5 22.8 - 34.2 [facility] second(s) Comment: Testing Performed at [facility] [address], [address] [place] [address] Specimen Anatomical Collection Method Collection Time Receive d Time (Source) Location / / Volume Laterality Blood 05/04/2022 9:19 AM 2 9:28 CDT AM CDT Narrative [facility] - 05/04/2022 10:14 AM CDT This lab cannot be scheduled at the [facility] locations due to collection/proccessing restrictions: [facility] and [facility]. Nina PADILLA LAB BLOOD ORDERABLES Performing Organization Address City/State/ZIP Code Phon e Number [address] [place] [address] [address] (ABNORMAL) Differential (05/04/2022 9:19 AM CDT) athologist Signature Neutrophil % 57.1 42.0 - 66.0 [facility] % Comment: As part of Differential perform ed at [facility], [address] [place] [address], [address], [place] [address] Lymphocyte % 35.3 24.0 - 44.0 % [facility] Monocyte % 6.3 2.0 - 7.0 % [facility] Eosinophil % 0.7 (L) 1.0 - 4.0 % [facility] Basophil % 0.2 0.0 - 1.0 % [facility] IGRE % 0.4 0.0 - 0.4 % [facility] Comment: IGRE % count includes Metamyelocytes, My elocytes, and Promyelocytes. As part of Differential performed at [facility], [address] [place] [address], [address], [place] [address] Neutrophil Abs 6.15 1.70 - 7.30 K/uL [facility] Lymphocyte Abs 3.81 1.00 - 4.80 K/uL [facility] Monocyte Abs 0.68 0.08 - 0.70 K/uL [facility] Eosinophil Abs 0.08 0.04 - 0.40 K/uL [facility] Basophil Abs 0.02 0.00 - 0.10 K/uL [facility] IG Abs 0.04 0.00 - 0.04 K/uL [facility] Specimen Anatomical Collection Method Collection Time Receive d Time (Source) Location / / Volume Laterality Blood 05/04/2022 9:19 AM 9:28 CDT AM CDT Nina PADILLA LAB BLOOD ORDERABLES Performing Organization Address City/State/ZIP Code Phon e Number [address] [place] [address] [address] Prothrombin Time with INR (05/04/2022 9:19 AM CDT) P athologist Signature PT 12.1 11.9 - 14.1 [facility] second(s) Comment: Testing Performed at [facility] Supervisor [facility] [address] [facility] [place] [address] INR 0.93 0.89 - 1.10 [facility] Comment: Testing Performed at [facility] Lab Supervisor [facility]ing [facility] [address], [address] [place] [address] Specimen Anatomical Collection Method Collection Time Receive d Time (Source) Location / / Volume Laterality Blood 05/04/2022 9:19 AM 2 9:28 CDT AM CDT Narrative [facility] - 05/04/2022 10:14 AM CDT This lab cannot be scheduled at the [facility] locations due to collection/proccessing restrictions: [facility] and [facility]. Nina PADILLA LAB BLOOD ORDERABLES Performing Organization Address City/State/ZIP Code Phon e Number [facility] [address] [place] [address] [address] BUN (05/04/2022 9:19 AM CDT) athologist Signature BUN 23 6 - 23 mg/dL [facility] Comment: Testing Performed at [facility] Lab Am bulatory Care [facility], [address], [address], [place] [address] Specimen Anatomical Collection Method Collection Time Receive d Time (Source) Location / / Volume Laterality Blood 05/04/2022 9:19 AM 2 9:35 CDT AM CDT Nina PADILLA LAB BLOOD ORDERABLES Performing Organization Address City/State/ZIP Code Phon e Number [facility] [address] [place] [address] [address] ALT (05/04/2022 9:19 AM CDT) athologist Signature ALT 20 <=33 U/L [facility] Comment: Testing Performed at [facility] Lab Am bul[facility] Care [facility], [address], [address], [place] [address] Specimen Anatomical Collection Method Collection Time Receive d Time (Source) Location / / Volume Laterality Blood 05/04/2022 9:19 AM 2 9:35 CDT AM CDT Nina PADILLA LAB BLOOD ORDERABLES Performing Organization Address City/[facility]/ZIP Code Phon e Number [facility] [address] [place] [address] [address] Aspartate Aminotransferase (05/04/2022 9:19 AM CDT) P athologist Signature AST 18 <=32 U/L [facility] Comment: Testing Performed at [facility], [address], [place] [phone] Specimen Anatomical Collection Method Collection Time Receive d Time (Source) Location / / Volume Laterality Blood 05/04/2022 9:19 AM 2 9:35 CDT AM CDT Nina PADILLA LAB BLOOD ORDERABLES Performing Organization Address [facility]/ZIP [facility] Phon e Number [facility] [address] [place] [address] [address] Total Protein (05/04/2022 9:19 AM CDT) P athologist Signature Total Protein 7.4 6.4 - 8.3 [facility] g/dL Comment: Testing Performed at [facility], [address], [address], [place] [address] Specimen Anatomical Collection Method Collection Time Receive d Time (Source) Location / / Volume Laterality Blood 05/04/2022 9:19 AM 2 9:35 CDT AM CDT Nina PADILLA LAB BLOOD ORDERABLES Performing Organization Address City/[facility]/ZIP Code Phon e Number [facility] [address] [facility] [place] [address] [address] (ABNORMAL) Alkaline Phosphatase (05/04/2022 9:19 AM CDT) P athologist Signature Alk Phos 119 (H) 35 - 104 [facility] U/L Comment: Testing Performed at [facility], [address], [place] [address] Specimen Anatomical Collection Method Collection Time Receive d Time (Source) Location / / Volume Laterality Blood 05/04/2022 9:19 AM 9:35 CDT AM CDT Nina PADILLA LAB BLOOD ORDERABLES Performing Organization Address City/State/ZIP Code Phon e Number [facility] [address] [place] [address] [address] (ABNORMAL) Hemoglobin A1c (05/04/2022 9:19 AM CDT) athologist Signature A1C 5.8 (H) 4.3 - 5.6 % [facility] Comment: HbA1c values >=6.5% are diagnostic of di abetes mellitus. Diagnosis should be confirmed by repeat testing. Therapeutic Action suggested: >8.0% HbA1 c; Goal of therapy: <7.0% HbA1c Specimen Anatomical Collection Method Collection Time Receive d Time (Source) Location / / Volume Laterality Blood 05/04/2022 9:19 AM 9:59 CDT AM CDT Nina PADILLA LAB BLOOD ORDERABLES Performing Organization Address City/State/ZIP Code Phon e Number [facility] Unless otherwise noted, [place] [phone] CENTER all lab tests performed by: Division of Pathology and Laboratory Medicine [address] [place] [address] (ABNORMAL) Glucose Level (05/04/2022 9:19 AM CDT) athologist Signature Glucose Level 116 (H) 70 - 99 [facility] mg/dL Comment: Effective 04/20/16, the glucose reference intervals have been updated based on [place] Diabetes Association guidelines (Standards of Medical Care in Diabetes 2016. Diabetes Care 2016; 39: S13-S22). Fasting blood glucose: Normal: 70-99 mg/dL Impaired fasting glucose (increased risk for diabetes or pre-diabetes): 100- 125 mg/dL Diabetes mellitus: >/=126 mg/dL Random blood glucose: Normal: 70-199 mg/dL Note: Random glucose >100 mg/dL is assoc iated with increased risk for diabetes Testing Performed at [facility] Supervisor [facility]ing [facility], [address], [address], [place] [address] Specimen Anatomical Collection Method Collection Time Receive d Time (Source) Location / / Volume Laterality Blood 05/04/2022 9:19 AM 2 9:35 CDT AM CDT Nina PADILLA LAB BLOOD ORDERABLES Performing Organization Address [facility]/ZIP Code Phon e Number [facility] [address] [place] [address] [address] Calcium Level (05/04/2022 9:19 AM CDT) P athologist Signature Calcium Lvl 10.1 8.4 - 10.2 [facility] mg/dL Comment: Testing Performed at [facility], [address], [address], [place] [address] Specimen Anatomical Collection Method Collection Time Receive d Time (Source) Location / / Volume Laterality Blood 05/04/2022 9:19 AM 2 9:35 CDT AM CDT Nina PADILLA LAB BLOOD ORDERABLES Performing Organization Address [facility]/ZIP [facility] [place] [facility] [address] [place] [address] [address] Albumin Level (05/04/2022 9:19 AM CDT) P athologist Signature Albumin Lvl 4.7 3.5 - 5.2 [facility] gm/dL Comment: Testing Performed at [facility] Lab Am bulatory Care [facility], [address], [place] [address] Specimen Anatomical Collection Method Collection Time Receive d Time (Source) Location / / Volume Laterality Blood 05/04/2022 9:19 AM 2 9:35 CDT AM CDT Nina PADILLA LAB BLOOD ORDERABLES Performing Organization Address City/[facility]/ZIP [facility] [place] [facility] [address] [place] [address] [address] Electrolyte Panel (05/04/2022 9:19 AM CDT) P athologist Signature Sodium Lvl 140 136 - 145 [facility] mEq/L Comment: Testing Performed at [facility] Lab Am bulatory Care [facility], [address], [place] [address] Potassium Lvl 4.8 3.5 - 5.1 mEq/L [facility] Comment: Testing Performed at [facility] Lab Am [facility] Bld[facility], [address], [address], [place] [address] Chloride 104 98 - 107 mEq/L [facility] Comment: Testing Performed at [facility] Lab Am [facility]ld[facility], [address], [address], [place] [address] CO2 27 22 - 29 mEq/L [facility] Comment: Testing Performed at [facility] Lab Am [facility]ld[facility], [address], [address], [place] [address] Anion Gap 9 4 - 14 mEq/L [facility] Comment: Testing Performed at [facility] Lab Am [facility], [address], [place] [address] Specimen Anatomical Collection Method Collection Time Receive d Time (Source) Location / / Volume Laterality Blood 05/04/2022 9:19 AM 9:35 CDT AM CDT Nina PADILLA LAB BLOOD ORDERABLES Performing Organization Address City/State/ZIP Code Phon e Number [facility] [address] [place] [address] [address] COVID-19 (LYNDSEY-CoV-2) PCR Asymptomatic (05/04/2022 7:20 AM CDT) Component Value Ref Range Test Analysis Performed Pathologis t Method Time At [facility] COVID19 SARS Pre-OR Procedure UT Indication [facility] COVID19 SARS Not Detected Not REFUGIO ATWOOD Result Detected [facility] COVID19 SARS SARS-CoV-2 NOT Detected. [place] Interpretation [place] Reference Range: Not Detected [facility] Methodology: The Hassan Real Time SARS-CoV-2 assay is a qualitative real-time reverse inventory control specialist polymerase chain reaction (chief pilot-PCR) test to detect RNA from SARS-CoV-2 in nasal, nasopharyngeal and oropharyngeal swabs from patients with signs and symptoms of infection who ar e suspected of COVID-19 by their health care provider. The Hassan RealTime SARS-CoV-2 performed on the [id number] System is a dual target assay with [...] high- complexity Molecular Diagnostics Laboratory (MDL) at [facility] under the Food and Drug Administration (FDA) s Emergency Use Authorization. Factsheet for patients: https://www.[employer]erson.org/AbbottFac tSheetPatients Factsheet for healthcare pro viders: https://www.[employer]erson.org/AbbottFactSheetHCP Test performed by: [facility] [address] [place] [address] Specimen (Source) Anatomical Collection Method Collection Time Re ceived Time Location / / Volume Laterality Nasopharyngeal Swab 05/04/2022 7:20 05/04 AM CDT 10:24 AM CDT Kimmy Del Castillo MD MICROBIOLOGY - GENERAL ORDER [place] Performing Organization Address City/State/ZIP Code Phon e Number [facility] Unless otherwise noted, [address] all lab tests performed by: Division of Pathology and Laboratory Medicine [address] [place] EKG, 12-Lead (Scheduled) (05/04/2022) Specimen (Source) Anatomical Location Collection Method / Collectio n Time Received Time / Laterality Volume Narrative This result has an attachment that is no t available. Nina PADILLA ECG ORDERABLES Performing Organization Address City/State/ZIP Code Phon e Number [facility] Stereotactic Breast [...] Boothe on 03/08/2022 at 11:08 am via [employer] tutional email. Impressions 03/04/2022 5:26 PM CDT [...] on the Hologic stereotactic table. A digital manager package film was obtained, followe d by stereotactic [...] on the Hologic stereotactic table. A digital manager package film was obtained, followe d by stereotactic [...] agree w ith this written report. Amado Diamond APN IMG MAMMOGRAPHY ORDERABLES Pathology Biopsy Interpretation (03/04/2022 9:31 AM CDT) Component Value Ref Test Analysis Performed Pathologis t Range Method Time At Signature Addendum 1 Immunohistochemical staining is performed in our lab on a outside sales account representative paraffin-embedded section. 03/08/2022 [facility] Addendum Specimen diagnosis: DUCTAL CARCINOMA IN SITU 12:05 PM electronically Block: A1 CDT signed by Sp caputo MD on Antibody clone: [id number] (Leica) [...] on alternative samples if appropriate. Reference Vanda et al. Appl. Immunohistochem. Mol Morp 2005; 13; 283-286. If the specimen was not init ially processed at [facility], pre-analytical fixation times may be found in the accompanying pathology report. These assays have not been v alidated on decalcified tissues. Results should be interpreted with caution given the likelihood of false negativity on decalcified specimens. Submitted Mammography abnormal 03/08/2022 [facility] Clinical [R92.8] 12:05 PM History CDT Diagnosis A. 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 12:05 PM signed by Sp Cobian MD on 03/07/2022 at 11:46 AM Comment The largest focus of 03/08/2022 [facility] DCIS measures 12:05 PM approximately 2 mm in CDT this core biopsy. Tumor marker studies will be performed. Gross A: 03/08/2022 [facility] Description Breast, left, left breast, [...] A4, one core. JLA Biomarker A1 03/08/2022 [facility] Block(s) 12:05 PM CDT Disclaimer "Some tests reported 03/08/2022 [facility] here may have been 12:05 PM developed and CDT performance characteristics determined by [facility]. These tests have [...] Organization Address City/State/ZIP Code Phon e Number [facility] [place] [address] [address] [facility] US Chest for Breast Ultrasound (Add-on [...] biopsy has been emmett mmended. Yamileth Figueroa BENEFITS CONSULTING ANALYST IMG US ORDERABLES US Breast Complete Left [...] biopsy has been emmett mmended. Yamileth Figueroa NP IMG US ORDERABLES (ABNORMAL) Mammography Digital Diagnostic Bilateral [...] 4 c entimeters from the nipple. A outside sales account representative group for stereotactic gu ided biopsy has been identified at the 6 o'clock position, 6 cm from the nipple. This group has been annotated on magnification views. In the right breast, no dominant mass, d istortion, or suspicious calcifications are identified. Procedure Note Trixie Dowell MD - 02/22/2022Formmariaa scott of this note might be different from [...] 4 c entimeters from the nipple. A outside sales account representative group for stereotactic gu ided biopsy [...] City/State/ZIP Code Phon e Number [place] after 11/15/2021 Insurance Payer Benefit Plan / Subscriber ID Effective Dates Phone Addre ss Type Group [employer] MANAGED A[employer] O [id number] 2021-Present [id number] [facility] [place] [address] Advance Directives Code Status Date Activated Date Inactivated Comments Full Code 05/06/2022 10:13 PM 05/07/2022 1:48 PM Care Teams Dress Finisher Relationship Specialty Start Date End Date Rabia Mayer PCP - External Referring Obstetrics/Gynecology 02/04/22 Amado Diamond APN PCP - General Cancer Prevention 02/09/22 [facility] [place], [place] [id number] [facility] Whittaker Cardiology 05/04/22 MD Xavi [address] [place] [id number]
--- OUTSIDE RECORDS SUMMARY | 2022-11-15 13:25 | XMS REPORT | Continuity of Care Document ---
:1955 Author Organization [facility] t Address [address] [place] [address] Dr. [address] [place] [address] Care Team Providers Name Role Phone Asked, No Pcp Primary Care Physician Unavailable SYSTEM, PROVIDER NOT IN Attending Clinician Unavailable Doctor Unassigned, [place] Attending Clinician Unavailable Jerry ATWOOD, Nicol Attending Clinician Magdalene ATWOOD, Kimmy Attending Clinician Amado Diamond APN Attending Clinician Bashir BALDERAS, Cris Shields Attending Clinician Ankur Gonsalez Attending Clinician Dean Box RN Attending Clinician Unavailable Valeraino BALDERAS, Chirag Fletcher Attending Clinician King Guardado MD Attending Clinician Genaro Loya CRNA Attending Clinician Avni ATWOOD, Greg Penn Attending Clinician Bethanie Reilly MA Attending Clinician Unavailable Thony Niño MD Attending Clinician ANKUR LOYA Attending Clinician Unavailable Heydi BALDERAS, Gemma Salinas Attending Clinician Unavailable Hollis Bustillos RN Attending Clinician Unavailable Henry CRAYON SAWYER, Yamileth Attending Clinician Dawson Mayer MD Attending Clinician DAWSON MAYER Attending Clinician Unavailable MYRIAM DELEON Attending Clinician Unavailable BEVERLEY KAPOOR Attending Clinician Unavailable CHEYANNE MONTOYA Attending Clinician Unavailable RADIOLOGY Attending Clinician Unavailable KIMMY KUHN Admitting Clinician Unavailable RAJ ROLDAN Admitting Clinician Unavailable Payers Payer Name Policy Type Policy Number Effective Date Expiration Date S ource Problems Condition Condition Condition Status Onset Resolution Last Treating Co mments Source Name Details Category Date Date Treatment Clinician Date Mammograph Mammograph Disease Active U nivers y abnormal y abnormal - it y of 00:00: [facility] Hypertensi Hypertensi Disease Active 2019-09 U nivers ve ve -18 ity of disorder disorder 00:00: [place] [facility] Severe Severe Disease Active 2019-09 Univers obesity obesity [facility] Hyperchole Hyperchole Disease Active U nivers sterolemia sterolemia - it y of 00:00: 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, in situ, [place] solid type solid type MD of breast, of breast, An derso NOS NOS n <Female; <Female; Cancer Left> Left> Center Allergies, Adverse Reactions, Alerts Allergy Allergy Status Severity Reaction(s) Onset Inactive Treating Comm ents Source Name Type Date Date Clinician ADHESIVE Drug Active MD Class 8-12 Anderso 00:00: n 00 ADHESIVE Drug Active MD Class 8-12 Anderso 00:00: n 00 ADHESIVE Drug Active MD Class 8-12 Anderso 00:00: n 00 ADHESIVE Drug Active MD Class 8-12 Anderso 00:00: n 00 ADHESIVE Drug Active MD Class 8-12 Anderso [...] Anderso 00:00: n 00 Adhesive Propensi Active 2022-0 Blistered Uni vers ty to 8-12 from ity of adverse 00:00: clear [place] reaction 00 sticky MD s tape. No Anderso problems n with Cancer bandaids Center or white medical tape. MORPHINE DRUG Active NandV 2020-1 MD INGREDI [...] Anderso 00:00: n 00 MORPHINE DRUG Active N/V 2020-1 Univers INGREDI 1-18 ity of 00:00: [place] 00 [facility] Morphine Propensi Active Nausea And 2020-1 Un gonzalez ty to Vomiting -18 ity of adverse 00:00: [place] reaction 00 [...] Anderso 00:00: n 00 CODEINE DRUG Active N/V 2014-0 Univers INGREDI 05-26 ity of 00:00: [place] 00 [facility] [place] HYDROCOD DRUG Active NandV 2015-0 MD ONE [...] Anderso 00:00: n 00 HYDROCOD DRUG Active N/V 2015-0 Univers ONE INGREDI 05-26 ity of 00:00: [place] 00 [facility] HYDROCOD DRUG Active NandV 2014-0 MD ONE [...] Anderso 00:00: n 00 TRAMADOL DRUG Active N/V 2015-0 Univers INGREDI 05-26 ity of 00:00: [place] 00 [facility] TRAMADOL DRUG Active NandV 2015-0 MD INGREDI [...] TRAMADOL DRUG Active NandV 2015-0 MD INGREDI 9-01 Anderso 00:00: n 00 CODEINE DRUG Active [...] n 00 Codeine Propensi Active Nausea And 2014-0 Uni vers ty to Vomiting 05-26 ity of adverse 00:00: [place] reaction 00 MD holger Lim n [facility] Hydrocod Propensi Active Nausea And 0 Un gonzalez one ty to Vomiting 05-26 ity of adverse 00:00: [place] reaction 00 MD holger velasquez [facility] Tramadol Propensi Active Nausea And 2015-0 Un gonzalez ty to Vomiting 05-26 ity of adverse 00:00: [place] reaction 00 MD holger velasquez [facility] Family History Family Member Diagnosis Comments Start Date Stop Date Source Natural mother Breast cancer [facility] [place] [facility] Social History Social Habit Start Date Stop Date Quantity Comments Source History SDWI University o f Alcohol Frequency [facility] History [facility] University o f Alcohol Std Kadie Ryan rslauryn Drinks [facility] History [facility] o f Alcohol Binge [place] MD Lisa vazquez [facility] Center Exposure to 2022-05-22 2022-06-01 Not sure University [facility]-CoV-2 00:00:00 08:36:00 [facility]ie erickson (event[facility] Alcohol intake 2022-06-01 2022-06-01 Current drinker Unive rsity of 00:00:00 00:00:00 of alcohol Kadie erickson (finding) [facility] Alcohol Comment 2022-02-22 2022-02-22 glass of wine Univer sity of 00:00:00 00:00:00 once a month Kadie Ford [facility] Tobacco use and 2022-02-22 2022-02-22 Smokeless tobacco Un iversity of exposure 00:00:00 00:00:00 non-user Kadie erickson [facility] Sex Ass[birth year] Universit y of 00:00:00 00:00:00 Kadie erickson [facility] Smoking Status Start Date Stop Date Source Tobacco smoking consumption [facility] unknown Never smoked tobacco [facility] Medications Ordered Filled Start Stop Current Ordering Indication Dosage Frequency Signature Comments Components Source Medication Medication Date Date Medication? Clinician (SIG) Name Name aspirin 81 2021-0 Yes 81mg Chew 81 Univ ers mg chewable 9-07 mg. ity of tablet 21:03: [place] 30 MD Carina velasquez [facility] aspirin 81 2021-0 Yes 81mg Chew 81 Univ ers mg chewable 9-07 mg. ity of tablet 21:03: [place] 30 MD Carina velasquez [facility] UNABLE TO Yes 1{capsu Take 1 Uni vers FIND 06-01 le} capsule by ity of 10:27: mouth [place] 13 daily. Med MD Name: Carina velasquez [facility] UNABLE TO Yes 1{capsu Take 1 Uni vers FIND 06-01 le} capsule by ity of 10:27: mouth [place] 13 daily. Med MD Name: Carina Desai [facility] tamoxifen Yes Ductal 20mg Take 1 Univ ers (NOLVADEX) 06-01 carcinoma tablet (20 ity of 20 mg 00:00: in situ, mg) by [place] tablet 00 solid type mouth MD of breast, daily. Anderso NOS n <Female; Cancer Left> Center tamoxifen Yes Ductal 20mg Take 1 Univ ers (NOLVADEX) 06-01 carcinoma tablet (20 ity of 20 mg 00:00: in situ, mg) by [place] tablet 00 solid type mouth MD of breast, daily. Anderso NOS n <Female; Cancer Left> Center aspirin 81 2021- No 81mg Chew 81 mg Univers mg chewable 8-30 08-13 daily. ity o f tablet 20:07: 00:00 [place] 26 :[facility] 2021- No 220mg Take 220 Uni vers sodium 8-30 08-13 mg by ity of (ALEVE) 220 20:07: 00:00 mouth [place] MG tablet 26 :00 [facility] for [facility] 2021- No 1{tbl} Take 1 Uni vers FIND 8-30 08-13 tablet by ity of 20:07: 00:00 mouth [place] 26 :00 twice MD daily. Med [facility] Name: [facility] aspirin 81 0 2021- No 81mg Chew 81 mg Univers mg chewable 8-30 08-13 daily. ity o f tablet 20:07: 00:00 [place] 26 :00 [facility] naproxen 2021- No 220mg Take 220 Uni vers sodium 8-30 08-13 mg by ity of (ALEVE) 220 20:07: 00:00 mouth [place] MG tablet 26 :00 needed for MD mild pain. [facility] UNABLE TO 2021- No 1{tbl} Take 1 Uni vers FIND 8-30 08-13 tablet by ity of 20:07: 00:00 mouth [place] 26 :00 twice MD daily. Med Anderso Name: n [facility] fluconazole 2021- No Ductal 100mg Take 1 Univers (Diflucan) 05-07 carcinoma tablet i ty of 100 mg 00:00: 04:59 [place] situ, (100 mg[place] tablet 00 :00 solid type by mouth MD of breast, daily for Connor rso NOS 5 days. n <Female; Cancer Left> Center fluconazole 2021- No Ductal 100mg Take 1 Univers (Diflucan) 05-07 carcinoma tablet i ty of 100 mg 00:00: 04:59 [place] situ, (100 mg[place] tablet 00 :00 solid type by mouth MD of breast, daily for Connor rso NOS 5 days. n <Female; Cancer Left> Center nystatin 2021- No Ductal Apply Unive rs (MYCOSTATIN 05-06 carcinoma topically ity of ) 100,000 00:00: 04:59 in situ, to Chris as units/g 00 :00 solid type affected MD ointment of breast, area(s) 3 Anderso NOS (three) n <Female; times a Cancer Left> day for 7 Center days. nystatin 2021- No Ductal Apply Unive rs (MYCOSTATIN 05-06 carcinoma topically ity of ) 100,000 00:00: 04:59 in situ, to Chris as units/g 00 :00 solid type affected MD ointment of breast, area(s) 3 Anderso NOS (three) n <Female; times a Cancer Left> day for 7 Center days. acetaminoph 2021- No Ductal 650mg Take 2 Univers en 05-06 carcinoma tablets ity of (TylenoL) 00:00: 04:59 in situ, (650 mg) [place] 325 mg 00 :00 solid type by mouth MD tablet of breast, every 6 Connor rso NOS (six) n <Female; hours for Cancer Left> 5 days. Center ibuprofen 2021- No Ductal 600mg Take 1 Un gonzalez (ADVIL,MOTR 05-06 carcinoma tablet ity of [place]) 600 mg 00:00: 04:59 in situ, (600 mg) [place] tablet 00 :00 solid type by mouth MD of breast, every 8 Elias o NOS (eight) n <Female; hours for Cancer Left> 5 days. [place] acetaminoph 2021- No Ductal 650mg Take 2 Univers en 05-06 carcinoma tablets ity of (TylenoL) 00:00: 04:59 in situ, (650 mg) [place] 325 mg 00 :00 solid type by mouth MD tablet of breast, every 6 Connor rso NOS (six) n <Female; hours for Cancer Left> 5 days. [place] ibuprofen 2021- No Ductal 600mg Take 1 Un gonzalez (ADVIL,MOTR 05-06 carcinoma tablet ity of [place]) 600 mg 00:00: 04:59 in situ, (600 mg) [place] tablet 00 :00 solid type by mouth MD of breast, every 8 Elias o NOS (eight) n <Female; hours for Cancer Left> 5 days. [place] metoprolol Yes 1{tbl} Take 1 Uni vers tartrate 5-25 tablet by ity of (LOPRESSOR) 00:00: mouth [place] 50 mg 00 twice MD tablet daily. [facility] metoprolol Yes 1{tbl} Take 1 Uni vers tartrate 5-25 tablet by ity of (LOPRESSOR) 00:00: mouth [place] 50 mg 00 twice MD tablet daily. [facility] atorvastati Yes 10mg Take 10 mg Univers n (LIPITOR) 5-05 by mouth ity of 10 mg 00:00: at [place] tablet 00 bedtime. [facility] ATORVASTATI Yes [id number] 10mg TAKE 1 Univers N 10 mg 5-05 TABLET BY ity of tablet 00:00: MOUTH AT [place] 00 BEDTIME Medical Branch ATORVASTATI Yes [id number] 10mg TAKE 1 Univers N 10 mg 5-05 TABLET BY ity of tablet 00:00: MOUTH AT [place] [address] BEDTIME Medical Branch ATORVASTATI Yes [id number] 10mg TAKE 1 Univers N 10 mg 5-05 TABLET BY ity of tablet 00:00: MOUTH AT [place] [address] BEDTIME Medical Branch ATORVASTATI Yes [id number] 10mg TAKE 1 Univers N 10 mg 5-05 TABLET BY ity of tablet 00:00: MOUTH AT [place] 00 BEDTIME Medical Branch ATORVASTATI 2020-0 Yes [id number] 10mg TAKE 1 Univers N 10 mg 5-05 TABLET BY ity of tablet 00:00: MOUTH AT [place] 00 BEDTIME Medical Branch atorvastati 2020-0 Yes 10mg Take 10 mg Univers n (LIPITOR) 5-05 by mouth ity of 10 mg 00:00: at [facility] 00 bedtime. MD Carina velasquez [facility] aspirin 81 2019- Yes 81mg Take 81 mg U nivers mg chewable 0-28 by mouth ity of tablet 09:36: daily. [address] metoprolol 2019-09 Yes 50mg Take 50 mg U nivers tartrate 50 0-28 by mouth 2 it y of mg tablet 09:36: (two) [place] 20 times Medical daily. Branch aspirin 81 2019-09 Yes 81mg Take 81 mg U nivers mg chewable 0-28 by mouth ity of tablet 09:36: daily. [address] metoprolol 2019- Yes 50mg Take 50 mg U nivers tartrate 50 0-28 by mouth 2 it y of mg tablet 09:36: (two) [place] 20 times Medical daily. Branch aspirin 81 2019-09 Yes 81mg Take 81 mg U nivers mg chewable 0-28 by mouth ity of tablet 09:36: daily. [address] metoprolol 2019- Yes 50mg Take 50 mg U nivers tartrate 50 0-28 by mouth 2 it y of mg tablet 09:36: (two) [place] 20 times Medical daily. Branch aspirin 81 2019-09 Yes 81mg Take 81 mg U nivers mg chewable 0-28 by mouth ity of tablet 09:36: daily. [address] metoprolol 2020- Yes 50mg Take 50 mg U nivers tartrate 50 0-28 by mouth 2 it y of mg tablet 09:36: (two) [place] 20 times Medical daily. Branch aspirin 81 2019-09 Yes 81mg Take 81 mg U nivers mg chewable 0-28 by mouth ity of tablet 09:36: daily. [address] metoprolol 2020- Yes 50mg Take 50 mg U nivers tartrate 50 0-28 by mouth 2 it y of mg tablet 09:36: (two) [place] 20 times Medical daily. Branch Immunizations Ordered Filled Immunization Date Status Comments [facility] e Immunization Name Name SARS-COV-2 COVID-19 2021-08-06 Completed Unive rsity of MODERNA VACCINE 00:00:00 [facility] Branch SARS-COV-2 COVID-19 2021-08-06 Completed Unive rsity of MODERNA 12+ YRS 00:00:00 [facility] VACCINE Branch Moderna SARS-CoV-2 2021-08-06 Completed Univer sity of Vaccination 00:00:00 Kadie grey [facility] Moderna SARS-CoV-2 2021-08-06 Completed Univer sity of Vaccination 00:00:00 Kadie grey [facility] SARS-COV-2 COVID-19 2021-08-06 Completed Unive rsity of MODERNA VACCINE 00:00:00 [facility] Branch SARS-COV-2 COVID-19 2021-08-06 Completed Unive rsity of MODERNA VACCINE 00:00:00 [facility] Branch SARS-COV-2 COVID-19 2021-08-06 Completed Unive rsity of MODERNA VACCINE 00:00:00 [facility] Branch SARS-COV-2 COVID-19 2020-12-25 Completed Unive rsity of MODERNA VACCINE 00:00:00 [facility] Branch SARS-COV-2 COVID-19 2020-12-25 Completed Unive rsity of MODERNA VACCINE 00:00:00 [facility] Branch SARS-COV-2 COVID-19 2020-12-25 Completed Unive rsity of MODERNA VACCINE 00:00:00 [facility] Branch SARS-COV-2 COVID-19 2020-12-25 Completed Unive rsity of MODERNA VACCINE 00:00:00 [facility] Branch SARS-COV-2 COVID-19 2020-12-25 Completed Unive rsity of MODERNA 12+ YRS 00:00:00 [facility] VACCINE Branch Moderna SARS-CoV-2 2020-12-25 Completed Univer sity of Vaccination 00:00:00 Kadie grey [facility] Moderna SARS-CoV-2 2020-12-25 Completed Univer sity of Vaccination 00:00:00 Kadie Ryan [facility] SARS-COV-2 COVID-19 2020-11-27 Completed Unive rsity of MODERNA VACCINE 00:00:00 [facility] SARS-COV-2 COVID-19 2020-11-27 Completed Unive rsity of MODERNA VACCINE 00:00:00 [facility] SARS-COV-2 COVID-19 2020-11-27 Completed Unive rsity of MODERNA VACCINE 00:00:00 [facility] Moderna SARS-CoV-2 2020-11-27 Completed Univer sity of Vaccination 00:00:00 Kadie Ryan [facility] SARS-COV-2 COVID-19 2020-11-27 Completed Unive rsity of MODERNA VACCINE 00:00:00 [facility] SARS-COV-2 COVID-19 2020-11-27 Completed Unive rsity of MODERNA 12+ YRS 00:00:00 [facility] Moderna SARS-CoV-2 2020-11-27 Completed Univer sity of Vaccination 00:00:00 Kadie Ryan [facility] Influenza, 2020-07-17 Completed University of Quadrivalent 00:00:00 Kadie ATWOOD [facility] Influenza Virus 2020-07-17 Completed Universit y of Vaccine Recomb Quad 00:00:00 [place] [facility] IM, Preserv and ABX Branc h Free 18-64 YRS Influenza Virus 2020-07-17 Completed Universit y of Vaccine Recomb Quad 00:00:00 [place] [facility] IM, Preserv and ABX Branc h Free 18-64 YRS Influenza Virus 2020-07-17 Completed Universit y of Vaccine Recomb Quad 00:00:00 [place] [facility] IM, Preserv and ABX Branc h Free 18-64 YRS Influenza Virus 2020-07-17 Completed Universit y of Vaccine Recomb Quad 00:00:00 [place] [facility] IM, Preserv and ABX Branc h Free 18-64 YRS Influenza Virus 2020-07-17 Completed Universit y of Vaccine Recomb Quad 00:00:00 [place] [facility] IM, Preserv and ABX Branc h Free 18-64 YRS Influenza, 2020-07-17 Completed University of Quadrivalent 00:00:00 Kadie Mathias [facility] Influenza, 2019-07-31 Completed University of Quadrivalent 00:00:00 [facility] Influenza Virus 2019-07-31 Completed Universit y of Vaccine Quad .5 mL 00:00:00 [place] [facility] IM 6+ MO Branch Influenza Virus 2019-07-31 Completed Universit y of Vaccine Quad .5 mL 00:00:00 [place] [facility] IM 6+ MO Branch Influenza Virus 2019-07-31 Completed Universit y of Vaccine Quad .5 mL 00:00:00 [place] [facility] IM 6+ MO Branch Influenza Virus 2019-07-31 Completed Universit y of Vaccine Quad .5 mL 00:00:00 [place] [facility] IM 6+ MO Branch Influenza Virus 2019-07-31 Completed Universit y of Vaccine Quad .5 mL 00:00:00 [facility] IM 6+ MO Branch Influenza, 2019-07-31 Completed University of Quadrivalent 00:00:00 [facility] Vital Signs Vital Name Observation Time Observation Value Comments Source Systolic blood 2022-06-01 14:37:48 136 mm[Hg] Univer sity of pressure [facility]ie [facility] Diastolic blood 2022-06-01 14:37:48 79 mm[Hg] Unive rsity of pressure Kadie [facility] Heart rate 2022-06-01 14:37:48 66 /min [facility] MD [facility] Body temperature 2022-06-01 14:37:48 36.5 [facility] Kadie [facility] Respiratory rate 2022-06-01 14:37:48 18 /min [facility] MD [facility] Oxygen saturation in 2022-06-01 14:37:48 97 /min [facility] Arterial blood by Kadie woo Pulse oximetry Cancer Center Body weight 2022-05-26 15:18:00 [facility] BMI 2022-05-26 15:18:00 48.77 kg/m2 [facility] Kadie [facility] Body height 2022-05-05 18:40:00 166 cm [facility] Kadie [facility] Procedures Procedure Date / Time Performing Source Performed Clinician EXTERNAL PROVIDER RECORDS 2022-07-04 05:01:00 Doctor Unassigned, [facility] [place] [facility] POC GLUCOSE SCREEN 2022-05-07 01:22:00 Kimmy Kuhn [facility] PATHOLOGY SURGICAL 2022-05-06 19:50:00 Kimmy Kuhn [facility] INTERPRETATION [facility] TOTAL MASTECTOMY 2022-05-06 18:22:00 Kimmy Kuhn [facility] INTRAOPERATIVE LYMPHATIC 2022-05-06 18:22:00 Kimmy Kuhn [facility] MAPPING [facility] SENTINEL NODE BIOPSY - 2022-05-06 18:22:00 Kimmy Kuhn [facility] AXILLA [facility] POC GLUCOSE SCREEN 2022-05-06 16:26:00 Kimmy Kuhn [facility] BREAST SPECIMEN RADIOGRAPH 2022-05-06 16:16:42 [facility] LYMPHOSCINTIGRAPHY BREAST 2022-05-05 18:19:00 Ankur Loya [facility] SULFUR COLLOID [facility] XR CHEST 2 VW 2022-05-04 14:46:09 Vincenzo [facility] COMPLETE BLOOD COUNT W/ 2022-05-04 14:19:00 Anukr Loya [facility] DIFFERENTIAL [facility] COMPREHENSIVE METABOLIC 2022-05-04 14:19:00 Ankur Loya [facility] PANEL [facility] HEMOGLOBIN A1C 2022-05-04 14:19:00 Ankur Loya [facility] PROTHROMBIN TIME 2022-05-04 14:19:00 Vincenzo [facility] APTT 2022-05-04 14:19:00 Vincenzo [facility] Results CBC 2022-05-04 14:19:00 Vincenzo [facility] MANUAL DIFFERENTIAL 2022-05-04 14:19:00 Ankur Loya [facility] GLUCOSE LEVEL 2022-05-04 14:19:00 Ankur Loya [facility] BLOOD UREA NITROGEN 2022-05-04 14:19:00 Ankur Loya [facility] ELECTROLYTE PANEL 2022-05-04 14:19:00 Ankur Loya [facility] SERUM CREATININE 2022-05-04 14:19:00 [facility]GLOMERULAR FILTRATION RATE 2022-05-04 14:19:00 Ankur Loya [facility] CALCIUM LEVEL TOTAL 2022-05-04 14:19:00 Ankur Loya [facility] ALBUMIN LEVEL 2022-05-04 14:19:00 Vincenzo [facility] ALKALINE PHOSPHATASE 2022-05-04 14:19:00 Ankur Loya [facility] ALANINE AMINOTRANSFERASE 2022-05-04 14:19:00 Ankur Loya [facility] ASPARTATE AMINOTRANSFERASE 2022-05-04 14:19:00 Ankur Loya [facility] TOTAL PROTEIN 2022-05-04 14:19:00 Ankur Loya [facility] FRACTIONATED BILIRUBIN 2022-05-04 14:19:00 Ankur Loya [facility] MD COVID-19 (SARS-COV-2) PCR 2022-05-04 12:20:00 Kimmy Kuhn [facility] ASYMPTOMATIC [facility] EKG, 12-LEAD (SCHEDULED) 2022-05-04 00:00:00 Ankur Loya [facility] EXTERNAL PROVIDER RECORDS 2022-04-15 05:01:00 Doctor Unassigned, [facility] [place] [facility] STEREOTACTIC BREAST BIOPSY 2022-03-04 14:52:00 Amado Diamond [facility] LEFT [facility] PATHOLOGY BIOPSY 2022-03-04 14:31:00 Amado Diamond [facility] INTERPRETATION [facility] EXTERNAL PROVIDER RECORDS 2022-02-23 05:01:00 Doctor Unassigned, [facility] [place] [facility] US BREAST COMPLETE LEFT 2022-02-22 18:53:57 Yamileth Figueroa Univ ersity of [facility] er Center US CHEST 2022-02-22 18:53:57 Yamileth Figueroa [place] [facility] MAMMO DIGITAL DIAGNOSTIC 2022-02-22 18:01:00 Yamileth [facility] [place] BILATERAL [facility] OSI MAMMO BILATERAL 2022-01-28 15:03:00 Amado Diamond [facility] Plan of Care Planned Activity Planned Date Details Comments Source Future Scheduled 2022-11-14 COVID-19 Vaccination Uni versity [facility] Test 15:40:52 (4 - Booster for [facility] Cancer Moderna series) [code Center = COVID-19 Vaccination (4 - Booster for Moderna series)] Future Scheduled 2022-06-02 COVID-[address] [facility] Test 07:16:47 (4 - Booster for [facility] Cancer Moderna series) [code Center = COVID-19 Vaccination (4 - Booster for Moderna series)] Future Scheduled 2022-05-28 HEPATITIS B VACCINES [facility] Test 01:48:22 (1 of 3 - 3-dose series) [code = HEPATITIS B VACCINES (1 of 3 - 3-dose series)] Future Scheduled 2022-05-28 COVID-19 VACCINE (#1) [facility] Test 01:48:22 [code = COVID-19 VACCINE (#1)] Future Scheduled 2022-05-28 Hepatitis C screening [facility] Test 01:48:22 (procedure) [code = [id number]] Future Scheduled 2022-05-28 Screening for [facility] Test 01:48:22 malignant neoplasm of cervix (procedure) [code = 437911476] Future Scheduled 2022-05-28 BREAST CANCER [facility] Test 01:48:22 SCREENING [code = BREAST CANCER SCREENING] Future Scheduled 2022-05-28 COLONOSCOPY SCREENING [facility] Test 01:48:22 [code = COLONOSCOPY SCREENING] Future Scheduled 2022-05-28 SHINGLES VACCINES (1 [facility] 01:48:22 of 2) [code = SHINGLES VACCINES (1 of 2)] Future Scheduled 2022-05-28 [facility] 01:48:22 [code = INFLUENZA VACCINE] Encounters Start End Encounter Admission Attending Care Care Encounter Source Date/Time Date/Time Type Type Clinicians Facility Department ID 2022-05-09 Outpatient SYSTEM, MARCOS [facility]OD[facility] [id number] 08:18:46 PROVIDER Elias velasquez 2022-02-04 Outpatient SYSTEM, [facility] [id number] 17:01:30 PROVIDER Elias velasquez 2022-07-04 2022-07-04 Orders Doctor MARISSA 1.2.840.114 [id number] Univers 00:00:00 00:00:00 Only Unassigned, JERILYN 350.1.13.10 ity of [place] [facility] 4.2.7.2.686 Chris as [phone] [place] [address] [place] 2022-06-01 2022-06-01 Consult GLENDY Edwards, 1.2.840.1 [id number] 1094 [id number] Univers 13:00:00 13:00:00 Nicol 02473.1.1 ity of 3.412.2.7 [place] .3.541248 .8 [facility] 2022-06-01 2022-06-01 Consult Jerry, 1.2.840.1 [id number] 1094 [id number] Univers 13:00:00 13:00:00 Nicol 03198.1.1 ity of 3.412.2.7 [place] .3.116130 MD Olson [facility] 2022-06-01 2022-06-01 Office GLENDY Kuhn 1.2.840.1 [id number] 7067 [facility] 09:00:00 10:57:05 Visit Kimmy 43715.1.1 ity of 3.412.2.7 [place] .3.265492 MD Zamora8 [facility] 2022-06-01 2022-06-01 Office Magdalene 1.2.840.1 [id number] 2618 [facility] 09:00:00 10:57:05 Visit Kimmy 49337.1.1 ity of 3.412.2.7 [place] .3Noah943035 MD Oslon [facility] 2022-06-01 2022-06-01 Travel 1.2.840.1 1.2.480.236 9420 113479 Univers 00:00:00 00:00:00 37530.1.1 350.1.13.41 ity of 3.412.2.[place]3.698 [place]3.1477[place] 084.8 MD Olson [facility] 2022-06-01 2022-06-01 Travel 1.2.840.1 1.2.100.920 9733 543684 Univers 00:00:00 00:00:00 80668.1.1 350.1.13.41 ity of 3.412.2.7 [place]7.3.698 [place] .3.501440 084.Lennie Olson [facility] 2022-05-26 2022-05-26 Amado Pendleton 1.2.840.1 [id number] 6 [id number] Univers 10:30:00 15:09:09 Support Cris Camejo 20484.1.1 ity of 3.412.2.7 [place] .3.036377 MD Olson [facility] 2022-05-26 2022-05-26 Amado Andrea 1.2.840.1 [id number] 6 [id number] Univers 10:30:00 15:09:09 Support Cris Camejo 03302.1.1 ity of 3.412.2.7 [place] .3.911675 MD Olson [facility] 2022-05-26 2022-05-26 Michael Loya 1.2.840.1 [id number] 7394 Univers 00:00:00 00:00:00 Only Ankur 37540.1.1 ity of 3.412.2.7 [place] .3.283976 MD Olson [facility] 2022-05-26 2022-05-26 Travel 1.2.840.1 1.2.830.737 7827 578757 Univers 00:00:00 00:00:00 48591.1.1 350.1.13.41 ity of 3.412.2.7 [place].3.698 [place] .3.748596 084.8 MD Olson [facility] 2022-05-26 2022-05-26 Orders Vincenzo, 1.2.840.1 [id number] 7930 Univers 00:00:00 00:00:00 Only Ankur 41881.1.1 ity of 3.412.2.7 [place] .3.514325 MD Zamora8 [facility] 2022-05-26 2022-05-26 Travel 1.2.840.1 1.2.386.422 6311 896294 Univers 00:00:00 00:00:00 97608.1.1 350.1.13.41 ity of 3.412.2.7 [place].3.698 [place] .3.477712 084.8 MD lOson [facility] 2022-05-23 2022-05-23 [facility], 1.2.840.1 [id number] 10 [id number] Univers 00:00:00 00:00:00 Dean P 68362.1.1 it y of 3.412.2.7 [place] .3.082396 MD Olson [facility] 2022-05-23 2022-05-23 [facility], 1.2.840.1 [id number] 1096 099643 Univers 00:00:00 00:00:00 Ankur 48569.1.1 ity of 3.412.2.7 [place] .3.170239 MD Olson [facility] 2022-05-23 2022-05-23 [facility], 1.2.840.1 [id number] 10 [id number] Univers 00:00:00 00:00:00 Edan P 32653.1.1 it y of 3.412.2.7 [place] .3.715679 MD Olson [facility] 2022-05-23 2022-05-23 Modale Vincenzo, 1.2.840.1 [id number] 1096 [id number] Univers 00:00:00 00:00:00 Ankur 30527.1.1 ity of 3.412.2.7 [place] .3.524872 MD Olson [facility] 2022-05-20 2022-05-20 Clinical Amado French 1.2.840.1 [id number] 6 [id number] Univers 10:30:00 14:56:37 Support Chirag Bal 55047.1.1 ity of 3.412.2.7 [place] .3.021865 MD Olson [facility] 2022-05-20 2022-05-20 Clinical Amado Diamond 1.2.840.1 [id number] 6 [id number] Univers 10:30:00 14:56:37 Support Chirag Bal 64095.1.1 ity of 3.412.2.7 [place] .3.872908 MD Olson [facility] 2022-05-20 2022-05-20 Travel 1.2.840.1 1.2.790.638 8335 742230 Univers 00:00:00 00:00:00 60225.1.1 350.1.13.41 ity of 3.412.2.7 [place].3.698 [place] .3.325460 084.8 MD Olson [facility] 2022-05-20 2022-05-20 Michael Loya 1.2.840.1 [id number] 9111 Univers 00:00:00 00:00:00 Only Ankur 64615.1.1 ity of 3.412.2.7 [place] .3.621512 MD Olson [facility] 2022-05-20 2022-05-20 Travel 1.2.840.1 1.2.437.554 8884 601956 Univers 00:00:00 00:00:00 32617.1.1 350.1.13.41 ity of 3.412.2.7 [place]7.3.698 [place] .3.274493 084.8 MD Olson [facility] 2022-05-20 2022-05-20 Michael Loya 1.2.840.1 [id number] 2777 Univers 00:00:00 00:00:00 Only Ankur 19116.1.1 ity of 3.412.2.7 [place] .3.822454 MD Olson [facility] 2022-05-16 2022-05-16 Telephone Vincenzo, 1.2.840.1 [id number] 1096 408630 Univers 00:00:00 00:00:00 Ankur 13718.1.1 ity of 3.412.2.7 [place] .3.627735 MD Zamora8 [facility] 2022-05-16 2022-05-16 Telephone Vincenzo, 1.2.840.1 [id number] 1096 [id number] Univers 00:00:00 00:00:00 Ankur 11591.1.1 ity of 3.412.2.7 [place] .3.916235 MD Olson [facility] 2022-05-10 2022-05-10 Cristopher Loya, 1.2.840.1 [id number] 1096 [id number] Univers 00:00:00 00:00:00 Ankur 61261.1.1 ity of 3.412.2.7 [place] .3.465906 MD Zamora8 [facility] 2022-05-10 2022-05-10 Telephone Vincenzo, 1.2.840.1 [id number] 1096 [id number] Univers 00:00:00 00:00:00 Ankur 81868.1.1 ity of 3.412.2.7 [place] .3.060117 MD Olson [facility] 2022-05-06 2022-05-07 [facility] Kuhn, 1.2.840.1 [id number] 92154 84024 Univers 09:06:00 11:43:00 Encounter Kimmy 84296.1.1 it y of 3.412.2.7 [place] .3.202305 MD Olson [facility] 2022-05-06 2022-05-07 [facility] Kuhn, 1.2.840.1 [id number] 10635 96980 Univers 09:06:00 11:43:00 Encounter Kimmy 86003.1.1 it y of 3.412.2.7 [place] .3Noah987169 MD Zamora8 [facility] 2022-05-06 2022-05-06 Hospital Vincenzo, 1.2.840.1 [id number] 15414 93092 Univers 11:16:42 23:59:00 Encounter Ankur 22022.1.1 it y of 3.412.2.7 [place] .3Noah530306 .8 [facility] 2022-05-06 2022-05-06 [facility], 1.2.840.1 [id number] 05557 70757 Univers 11:16:42 23:59:00 Encounter Ankur 07770.1.1 it y of 3.412.2.7 [place] .3.738738 MD Zamora8 [facility] 2022-05-06 2022-05-06 Anesthesia King Guardado 1.2.840.1 101 [id number] Univers 13:36:00 16:58:00 Event Genaro Loya 23816.1.1 ity of 3.412.2.7 [place] .3.967926 MD Zamora8 [facility] 2022-05-06 2022-05-06 Anesthesia King Guardado 1.2.840.1 101 624790 [id number] Univers 13:36:00 16:58:00 Event Genaro Koenig 26594.1.1 ity of 3.412.2.7 [place] .3.932461 MD Olson [facility] 2022-05-06 2022-05-06 Surgery Kuhn, 1.2.840.1 [id number] 2461 Univers 11:55:00 15:05:00 Kimmy 06827.1.1 ity of 3.412.2.7 [place] .3.590600 MD Olson [facility] 2022-05-06 2022-05-06 Surgery Kuhn, 1.2.840.1 [id number] 1001 Univers 11:55:00 15:05:00 Kimmy 14858.1.1 ity of 3.412.2.7 [place] .3.589247 MD Zamora8 [facility] 2022-05-06 2022-05-06 Travel 1.2.840.1 1.2.691.590 3889 696484 Univers 00:00:00 00:00:00 26232.1.1 350.1.13.41 ity of 3.412.2.[place].3.698 [place] .3.737469 084.8 .8 [facility] 2022-05-06 2022-05-06 Travel 1.2.840.1 1.2.474.549 6216 308627 Univers 00:00:00 00:00:00 96223.1.1 350.1.13.41 ity of 3.412.2.7 [place]7.3.698 [place] .3.680805 084.8 MD Olson [facility] 2022-05-05 2022-05-05 Ancillary GLENDY Loya, 1.2.840.1 [id number] 1094 [id number] Univers 15:00:00 15:30:00 Procedure Ankur 19113.1.1 it y of 3.412.2.7 [place] .3.890575 MD Zamora8 [facility] 2022-05-05 2022-05-05 Ancillary Vincenzo, 1.2.840.1 [id number] 1094 [id number] Univers 15:00:00 15:30:00 Procedure Ankur 29703.1.1 it y of 3.412.2.7 [place] .3.662457 .8 [facility] 2022-05-05 2022-05-05 Consult GLENDY Holly, 1.2.840.1 [id number] 8122 Univers 14:00:00 15:29:08 Greg 98840.1.1 ity of S 3.412.2.7 [place] .3.336703 MD Olson [facility] 2022-05-05 2022-05-05 Consult Avni, 1.2.840.1 [id number] 5491 Univers 14:00:00 15:29:08 Christopher 35406.1.1 ity of S 3.412.2.7 [place] .3.288052 MD Zamora8 [facility] 2022-05-05 2022-05-05 Ancillary GLENDY Loya, 1.2.840.1 [id number] 1094 [id number] [facility] 12:00:00 12:30:00 Procedure Ankur 88976.1.1 it y of 3.412.2.7 [place] .3.567443 .8 [facility] 2022-05-05 2022-05-05 Ancillary Vincenzo, 1.2.840.1 [id number] 1094 860959 Univers 12:00:00 12:30:00 Procedure Ankur 06628.1.1 it y of 3.412.2.7 [place] .3.655852 MD Zamora8 [facility] 2022-05-05 2022-05-05 Ancillary GLENDY Loya, 1.2.840.1 [id number] 1094 615136 Univers 11:00:00 11:30:00 Procedure Ankur 09865.1.1 it y of 3.412.2.7 [place] .3.368272 MD Zamora8 [facility] 2022-05-05 2022-05-05 Ancillary Vincenzo, 1.2.840.1 [id number] 1094 859828 Univers 11:00:00 11:30:00 Procedure Ankur 75897.1.1 it y of 3.412.2.7 [place] .3.133241 MD Zamora8 [facility] 2022-05-05 2022-05-05 [facility], 1.2.840.1 [id number] 745 [id number] Univers 09:36:31 09:36:31 Event Bethanie L 90578.1.1 it y of 3.412.2.7 [place] .3.138607 MD Zamora8 [facility] 2022-05-05 2022-05-05 [facility], 1.2.840.1 [id number] 644 [id number] Univers 09:36:31 09:36:31 Event Bethanie L 09149.1.1 it y of 3.412.2.7 [place] .3.252474 MD Olson [facility] 2022-05-05 2022-05-05 Travel 1.2.840.1 1.2.937.330 8944 475825 Univers 00:00:00 00:00:00 55233.1.1 350.1.13.41 ity of 3.412.2.[place].3.698 [place] .3.925047 084.8 .8 [facility] 2022-05-05 2022-05-05 Travel 1.2.840.1 1.2.946.152 5666 553844 Univers 00:00:00 00:00:00 40779.1.1 350.1.13.41 ity of 3.412.2.7 [place]7.3.698 [place] .3.396485 084.8 MD Olson [facility] 2022-05-04 2022-05-04 [facility], 1.2.840.1 [id number] 96201 40281 Univers 09:07:31 23:59:00 Encounter Ankur 90736.1.1 it y of 3.412.2.7 [place] .3.757689 .8 [facility] 2022-05-04 2022-05-04 [facility], 1.2.840.1 [id number] 85281 38222 Univers 09:07:31 23:59:00 Encounter Ankur 58252.1.1 it y of 3.412.2.7 [place] .3.331792 MD Zamora8 [facility] 2022-05-04 2022-05-04 [facility] GLENDY Diamond, 1.2.840.1 [id number] 6921 Univers 12:00:00 15:37:35 Patti Paul 51949.1.1 i ty of ts 3.412.2.7 [place] .3.866475 MD Olson [facility] 2022-05-04 2022-05-04 YESSICA Diamond, 1.2.840.1 [id number] 1215 Univers 12:00:00 15:37:35 Patti Fischer L 86784.1.1 i ty of ts 3.412.2.7 [place] .3.362738 .8 [facility] 2022-05-04 2022-05-04 Consult Ankur Nogueira 1.2.840.1 [id number] Univers 13:45:00 14:30:00 Thony Niño 74543.1.1 it y of 3.412.2.7 [place] .3.501299 .8 [facility] 2022-05-04 2022-05-04 Consult Ankur Loya 1.2.840.1 [id number] Univers 13:45:00 14:30:00 Thony Niño 30801.1.1 it y of 3.412.2.7 [place] .3.404946 MD Zamora8 [facility] 2022-05-04 2022-05-04 Outpatient GLENDY LOYA, [facility] [id number] 772 11:45:18 12:00:17 ANKUR Elias o 2022-05-04 2022-05-04 Office GLENDY Kuhn, 1.2.840.1 [id number] 5643 Univers 10:00:00 11:42:46 Visit Kimmy 21629.1.1 ity of 3.412.2.7 [place] .3.777629 MD Zamora8 [facility] 2022-05-04 2022-05-04 Office Magdalene, 1.2.840.1 [id number] 0595 Univers 10:00:00 11:42:46 Visit Kimmy 14484.1.1 ity of 3.412.2.7 [place] .3.500793 MD Zamora8 [facility] 2022-05-04 2022-05-04 Ancillary Reena Nogueira.2.840.1 [id number] 1094 [id number] Univers 09:45:00 10:00:00 Procedure Ankur 73719.1.1 it y of 3.412.2.7 [place] .3.504677 MD Zamora8 [facility] 2022-05-04 2022-05-04 Ancillary Reean Loya.2.840.1 [id number] 1094 740952 Univers 09:45:00 10:00:00 Procedure Ankur 83973.1.1 it y of 3.412.2.7 [place] .3.299756 MD Olson [facility] 2022-05-04 2022-05-04 Clinical Ankur Nogueira 1.2.840.1 [id number] 6 [id number] Univers 08:00:00 08:00:00 Support Gemma Soliz 76797.1.1 ity of 3.412.2.7 [place] .3.188935 MD Olson [facility] 2022-05-04 2022-05-04 Clinical Ankur Loya 1.2.840.1 [id number] 6 [id number] Univers 08:00:00 08:00:00 Support Gemma Soliz 02726.1.1 ity of 3.412.2.7 [place] .3.674847 MD Olson [facility] 2022-05-04 2022-05-04 Travel 1.2.840.1 1.2.086.375 7103 271264 Univers 00:00:00 00:00:00 73160.1.1 350.1.13.41 ity of 3.412.2.[place].3.698 [place] .3.762822 084.8 MD Olson [facility] 2022-05-04 2022-05-04 Travel 1.2.840.1 1.2.617.140 5455 882054 Univers 00:00:00 00:00:00 97305.1.1 350.1.13.41 ity of 3.412.2.7 2.[place]7.3.698 [place] .3.139977 084.8 MD Olson [facility] 2022-04-15 2022-04-15 Orders Doctor MARISSA 1.2.840.114 [id number] Univers 00:00:00 00:00:00 Only Unassigned, JERILYN 350.1.13.10 ity of [place] [facility] 4.2.7.2.686 Chris as 254.0148133 [facility] kemi 009 [place] 2022-03-31 2022-03-31 Michael Loya, 1.2.840.1 [id number] 060095 2330 Univers 00:00:00 00:00:00 Only Ankur 62134.1.1 ity of 3.412.2.7 [place] .3.225703 MD Zamora8 [facility] 2022-03-31 2022-03-31 Michael Loya, 1.2.840.1 [id number] 681196 3079 Univers 00:00:00 00:00:00 Only Ankur 20805.1.1 ity of 3.412.2.7 [place] .3.715933 MD Zamora8 [facility] 2022-03-31 2022-03-31 Prep for Vincenzo 1.2.840.1 [id number] 66259 24181 Univers 00:00:00 00:00:00 Surgery Ankur 39791.1.1 ity of 3.412.2.7 [place] .3.109599 MD Olson [facility] 2022-03-31 2022-03-31 Orders Vincenzo 1.2.840.1 [id number] 8744 Univers 00:00:00 00:00:00 Only Ankur 32344.1.1 ity of 3.412.2.7 [place] .3.012097 MD Olson [facility] 2022-03-31 2022-03-31 Michael Loya 1.2.840.1 [id number] 101972 4656 Univers 00:00:00 00:00:00 Only Ankur 02265.1.1 ity of 3.412.2.7 [place] .3.971121 MD Olson [facility] 2022-03-31 2022-03-31 Prep for Vincenzo 1.2.840.1 [id number] 61939 51946 Univers 00:00:00 00:00:00 Surgery Ankur 07416.1.1 ity of 3.412.2.7 [place] .3.736547 MD Zamora8 [facility] 2022-03-14 2022-03-14 Consult Kuhn, 1.2.840.1 [id number] 6741 Univers 10:00:00 10:52:25 Kimmy 04153.1.1 ity of 3.412.2.7 [place] .3.497845 MD Olson [facility] 2022-03-14 2022-03-14 Consult Kuhn, 1.2.840.1 [id number] 8663 Univers 10:00:00 10:52:25 Kimmy 62192.1.1 ity of 3.412.2.7 [place] .3.665596 MD Olson [facility] 2022-03-14 2022-03-14 Travel 1.2.840.1 1.2.402.249 0674 365789 Univers 00:00:00 00:00:00 39894.1.1 350.1.13.41 ity of 3.412.2.7 [place]7.3.698 [place] .3.548955 084.8 MD Olson [facility] 2022-03-14 2022-03-14 Travel 1.2.840.1 1.2.487.695 9130 389511 Univers 00:00:00 00:00:00 54263.1.1 350.1.13.41 ity of 3.412.2.7 2.[place]7.3.698 [place] .3.817538 084.8 MD Olson [facility] 2022-03-09 2022-03-09 Telephone Lobo, 1.2.840.1 [id number] 1093 [id number] Univers 00:00:00 00:00:00 Amado L 36640.1.1 ity of 3.412.2.7 [place] .3.444543 MD Olson [facility] 2022-03-09 2022-03-09 Telephone Lobo, 1.2.840.1 [id number] 1093 [id number] Univers 00:00:00 00:00:00 Amado L 09356.1.1 ity of 3.412.2.7 [place] .3.509130 MD Olson [facility] 2022-03-04 2022-03-04 [facility] 1.2.840.1 [id number] 86560 Univers 07:58:58 23:59:00 Encounter 02405.1.1 it y of 3.412.2.7 [place] .3.093566 MD Olson [facility] 2022-03-04 2022-03-04 Hospital 1.2.840.1 [id number] 86701 84476 Univers 07:58:58 23:59:00 Encounter 46128.1.1 it y of 3.412.2.7 [place] .3.275768 MD Zamora8 [facility] 2022-03-04 2022-03-04 Travel 1.2.840.1 1.2.417.091 1199 902332 Univers 00:00:00 00:00:00 98112.1.1 350.1.13.41 ity of 3.412.2.7 [place]7.3.698 [place] .3.766614 084.8 MD Olson [facility] 2022-03-04 2022-03-04 Travel 1.2.840.1 1.2.848.225 4676 695371 Univers 00:00:00 00:00:00 06014.1.1 350.1.13.41 ity of 3.412.2.7 [place]7.3.698 [place] .3.144576 084.8 MD Olson [facility] 2022-02-24 2022-02-24 Ancillary GLENDY Diamond, 1.2.840.1 [id number] 1093 [id number] Univers 20:55:00 21:00:00 Procedure Amado L 18728.1.1 it y of 3.412.2.7 [place] .3.868119 MD Olson [facility] 2022-02-24 2022-02-24 Ancillary Lobo, 1.2.840.1 [id number] 1093 620759 Univers 20:55:00 21:00:00 Procedure Amado L 39322.1.1 it y of 3.412.2.7 [place] .3.362697 MD Olson [facility] 2022-02-24 2022-02-24 Ancillary GLENDY Diamond, 1.2.840.1 [id number] 1093 212292 Univers 20:50:00 20:55:00 Procedure Amado L 18447.1.1 it y of 3.412.2.7 [place] .3.199345 MD Zamora8 [facility] 2022-02-24 2022-02-24 Ancillary Lobo, 1.2.840.1 [id number] 1093 261991 Univers 20:50:00 20:55:00 Procedure Amado L 94494.1.1 it y of 3.412.2.7 [place] .3.290654 MD Zamora8 [facility] 2022-02-24 2022-02-24 Ancillary GLENDY Diamond, 1.2.840.1 [id number] 1093 653188 Univers 20:45:00 20:50:00 Procedure Amado L 88335.1.1 it y of 3.412.2.7 [place] .3.836313 MD Zamora8 [facility] 2022-02-24 2022-02-24 Ancillary Lobo, 1.2.840.1 [id number] 1093 816114 Univers 20:45:00 20:50:00 Procedure Amado L 68019.1.1 it y of 3.412.2.7 [place] .3.862270 MD Zamora8 [facility] 2022-02-24 2022-02-24 Ancillary GLENDY Diamond, 1.2.840.1 [id number] 1093 122284 Univers 20:40:00 20:45:00 Procedure Amado L 73837.1.1 it y of 3.412.2.7 [place] .3.973154 MD Zamora8 [facility] 2022-02-24 2022-02-24 Ancillary Lobo, 1.2.840.1 [id number] 1093 [id number] Univers 20:40:00 20:45:00 Procedure Amado L 71743.1.1 it y of 3.412.2.7 [place] .3.089910 MD Zamora8 [facility] 2022-02-24 2022-02-24 Ancillary EL Lobo, 1.2.840.1 [id number] 1093 773749 Univers 20:35:00 20:40:00 Procedure Amado L 28780.1.1 it y of 3.412.2.7 [place] .3.549346 MD Zamora8 [facility] 2022-02-24 2022-02-24 Ancillary Lobo, 1.2.840.1 [id number] 1093 163752 Univers 20:35:00 20:40:00 Procedure Amado L 10393.1.1 it y of 3.412.2.7 [place] .3.852283 MD Zamora8 [facility] 2022-02-24 2022-02-24 Ancillary GLENDY Diamond, 1.2.840.1 [id number] 1093 288166 Univers 20:30:00 20:35:00 Procedure Amado L 49095.1.1 it y of 3.412.2.7 [place] .3.690864 MD Zamora8 [facility] 2022-02-24 2022-02-24 Ancillary Lobo, 1.2.840.1 579717057 1093 197139 Univers 20:30:00 20:35:00 Procedure Amado L 36333.1.1 it y of 3.412.2.7 [place] .3.883274 MD Zamora8 [facility] 2022-02-24 2022-02-24 Ancillary GLENDY Diamond, 1.2.840.1 [id number] 1093 916249 Univers 20:25:00 20:30:00 Procedure Amado L 29579.1.1 it y of 3.412.2.7 [place] .3.920225 MD Zamora8 [facility] 2022-02-24 2022-02-24 Ancillary Lobo, 1.2.840.1 [id number] 1093 [id number] Univers 20:25:00 20:30:00 Procedure Amado L 31604.1.1 it y of 3.412.2.7 [place] .3.865852 MD Zamora8 [facility] 2022-02-24 2022-02-24 Ancillary GLENDY Diamond, 1.2.840.1 765032215 1093 398406 Univers 20:20:00 20:25:00 Procedure Amado L 89317.1.1 it y of 3.412.2.7 [place] .3.763517 MD Zamora8 [facility] 2022-02-24 2022-02-24 Ancillary Lobo, 1.2.840.1 [id number] 1093 663326 Univers 20:20:00 20:25:00 Procedure Amado L 20910.1.1 it y of 3.412.2.7 [place] .3.493388 MD Zamora8 [facility] 2022-02-24 2022-02-24 Ancillary GLENDY Diamond, 1.2.840.1 [id number] 1093 [id number] [facility] 20:15:00 20:20:00 Procedure Amado L 79229.1.1 it y of 3.412.2.7 [place] .3.121693 MD Zamora8 [facility] 2022-02-24 2022-02-24 Ancillary Lobo, 1.2.840.1 [id number] 1093 [id number] [facility] 20:15:00 20:20:00 Procedure Amado L 75916.1.1 it y of 3.412.2.7 [place] .3.115175 MD Zamora8 [facility] 2022-02-24 2022-02-24 Ancillary GLENDY Diamond, 1.2.840.1 [id number] 1093 [id number] [facility] 20:10:00 20:15:00 Procedure Amado L 12112.1.1 it y of 3.412.2.7 [place] .3.463827 MD Zamora8 [facility] 2022-02-24 2022-02-24 Ancillary Lobo, 1.2.840.1 [id number] 1093 [id number] [facility] 20:10:00 20:15:00 Procedure Amado L 40593.1.1 it y of 3.412.2.7 [place] .3.671358 MD Zamora8 [facility] 2022-02-24 2022-02-24 Ancillary GLENDY Diamond, 1.2.840.1 [id number] 1093 [id number] [facility] 20:05:00 20:10:00 Procedure Amado L 02816.1.1 it y of 3.412.2.7 [place] .3.599601 MD Olson [facility] 2022-02-24 2022-02-24 Ancillary Lobo, 1.2.840.1 [id number] 1093 [id number] [employer] 20:05:00 20:10:00 Procedure Amado L 68155.1.1 it y of 3.412.2.7 [place] .3.074255 MD Olson [facility] 2022-02-24 2022-02-24 Ancillary GLENDY Diamond, 1.2.840.1 [id number] 1093 [id number] [employer] 20:00:00 20:05:00 Procedure Amado L 25879.1.1 it y of 3.412.2.7 [place] .3.884679 MD Olson [facility] 2022-02-24 2022-02-24 Ancillary Lobo, 1.2.840.1 [id number] 1093 [id number] [facility] 20:00:00 20:05:00 Procedure Amado L 10450.1.1 it y of 3.412.2.7 [place] .3.342931 MD Olson [facility] 2022-02-24 2022-02-24 Telephone Apollo, 1.2.840.1 [id number] 1093 [id number] [facility] 00:00:00 00:00:00 Brendia 85826.1.1 ity of 3.412.2.7 [place] .3.639784 MD Olson [facility] 2022-02-24 2022-02-24 Telephone Apollo, 1.2.840.1 [id number] 1093 [id number] [employer] 00:00:00 00:00:00 Brendia 95040.1.1 ity of 3.412.2.7 [place] .3.783156 MD Olson [facility] 2022-02-23 2022-02-23 Orders Doctor ANN 1.2.840.114 [id number] [facility] 00:00:00 00:00:00 Only Unassigned, JERILYN 350.1.13.10 ity of [place] [facility] 4.2.7.2.686 Chris as 325.3144303 [place] [address] [place] 2022-02-23 2022-02-23 Michael Diamond, 1.2.840.1 [id number] [id number] Univers 00:00:00 00:00:00 Only Amado L 00015.1.1 ity of 3.412.2.7 [place] .3.366974 MD Zamora8 [facility] 2022-02-23 2022-02-23 Michael Diamond, 1.2.840.1 [id number] [employer] 00:00:00 00:00:00 Only Amado L 77516.1.1 ity of 3.412.2.7 [place] .3.652436 MD Zamora8 [facility] 2022-02-22 2022-02-22 [facility], 1.2.840.1 [id number] Univers 13:01:49 23:59:00 Encounter Yamileth 69940.1.1 it y of 3.412.2.7 [place] .3.746965 MD Zamora8 [facility] 2022-02-22 2022-02-22 [facility], 1.2.840.1 [id number] 019 [id number] Univers 13:01:49 23:59:00 Encounter Yamileth 49281.1.1 it y of 3.412.2.7 [place] .3.926645 MD Olson [facility] 2022-02-22 2022-02-22 Ancillary GLENDY Diamond, 1.2.840.1 [id number] 1093 [id number] [employer] 20:00:00 20:05:00 Procedure Amado L 17381.1.1 it y of 3.412.2.7 [place] .3.993321 MD Olson [facility] 2022-02-22 2022-02-22 Ancillary Lobo, 1.2.840.1 [id number] 1093 [id number] [employer] 20:00:00 20:05:00 Procedure Amado L 12554.1.1 it y of 3.412.2.7 [place] .3.900552 MD Zamora8 [facility] 2022-02-22 2022-02-22 Clinical GLENDY Diamond, 1.2.840.1 [id number] [id number] [employer] 15:20:00 15:20:00 Support Amado Paul 84748.1.1 ity of 3.412.2.7 [place] .3.729678 MD Zamora8 [facility] 2022-02-22 2022-02-22 Clinical Lobo, 1.2.840.1 [id number] 29110 [id number] [employer] 15:20:00 15:20:00 Support Amado Paul 94252.1.1 ity of 3.412.2.7 [place] .3.520303 MD Zamora8 [facility] 2022-02-22 2022-02-22 [facility] 1.2.840.1 [id number] Univers 11:59:24 13:00:00 Encounter Yamileth 97561.1.1 it y of 3.412.2.7 [place] .3.451888 MD Zamora8 [facility] 2022-02-22 2022-02-22 [facility] 1.2.840.1 [id number] Univers 11:59:24 13:00:00 Encounter Yamileth 45794.1.1 it y of 3.412.2.7 [place] .3.440517 MD Zamora8 [facility] 2022-02-22 2022-02-22 Office LGENDY Diamond, 1.2.840.1 [id number] Univers 10:40:00 11:38:37 Visit Amado Paul 13947.1.1 ity of 3.412.2.7 [place] .3.465906 MD Olson [facility] 2022-02-22 2022-02-22 Office Lobo, 1.2.840.1 [id number] Univers 10:40:00 11:38:37 Visit Amado Paul 64757.1.1 ity of 3.412.2.7 [place] .3.417482 MD Zamora8 [facility] 2022-02-22 2022-02-22 NPR EL 1.2.840.1 [id number] Univers 09:30:00 09:30:00 96323.1.1 ity of 3.412.2.7 [place] .3.796893 MD Olson [facility] 2022-02-22 2022-02-22 NPR 1.2.840.1 [id number] Univers 09:30:00 09:30:00 02990.1.1 ity of 3.412.2.7 [place] .3.784107 MD Olson [facility] 2022-02-22 2022-02-22 Travel 1.2.840.1 1.2.876.445 [id number] Univers 00:00:00 00:00:00 70571.1.1 350.1.13.41 ity of 3.412.2.7 [place].698 [place] .3.278[place] 084.8 MD Olson [facility] 2022-02-22 2022-02-22 Travel 1.2.840.1 1.2.651.992 [id number] Univers 00:00:00 00:00:00 01889.1.1 350.1.13.41 ity of 3.412.2.7 [place]3.698 [place]3.9533[place] 084.8 MD Olson [facility] 2022-02-14 2022-02-14 Telephone Dawson Mayer [facility] 1.2.840.11 4 [id number] Univers 00:00:00 00:00:00 CESAR 350.1.13.10 it y of WOMEN'S 4.2.7.2.686 [facility] [id number] [facility] [address] 2022-02-11 2022-02-11 Orders Henry, 1.2.840.1 [id number] Univers 00:00:00 00:00:00 Only Yamileth 07524.1.1 ity of 3.412.2.7 [place] .3.381314 MD Olson [facility] 2022-02-11 2022-02-11 Orders Henry, 1.2.840.1 [id number] Univers 00:00:00 00:00:00 Only Yamileth 81017.1.1 ity of 3.412.2.7 [place] .3.578995 MD Zamora8 [facility] 2022-02-07 2022-02-07 Dawson Herbert 1.2.840.114 [id number] Univers 00:00:00 00:00:00 ANGLEAGUSTÍN 350.1.13.10 i ty [facility] [place] [id number] Ok dical [address] 2022-01-31 2022-01-31 Dawson Herbert 1.2.840.11 [id number] Univers 00:00:00 00:00:00 CESAR 350.1.13.10 it y of W[place].2.[place] [facility] [id number] [address] 2022-01-18 2022-01-18 Outpatient R DAWSON [facility] RAD [id number] Univers 00:00:00 00:00:00 ity of [place] [facility] 2021-10-05 2021-10-05 Outpatient R PANCHO [facility] [id number] Univers 13:30:00 13:30:00 MYRIAM ity of [facility] 2021-10-01 2021-10-01 Outpatient R DAWSON MAYER [facility] [id number] Univers 08:30:00 08:30:00 ity of [facility] 2021-09-23 2021-09-23 Outpatient R DAWSON MAYER [facility] [id number] Univers 14:00:00 14:00:00 ity of [facility] 2021-09-01 2021-09-01 Dawson Herbert DERENETTA ACEVES 1.2.840.11 [id number] Univers 00:00:00 00:00:00 CESAR 350.1.13.10 [place] [facility] [id number] [address] 2021-08-31 2021-08-31 Outpatient R DAWSON MAYER [facility] [id number] Univers 15:30:00 16:33:24 ity of [place] [facility] 2021-08-31 2021-08-31 Office Dawson Mayer [facility] 1.2.840.114 [id number] Univers 15:21:31 16:33:24 Visit DEBORAH 350.1.13.10 i ty of [place] [id number] Ok dical [address] 2021-08-31 2021-08-31 Telephone Dawson Mayer [facility] 1.2.840.11 [id number] Univers 00:00:00 00:00:00 CESAR 350.1.13.10 [place] [facility] [id number] [address] 2021-08-12 2021-08-12 Outpatient R DAWSON MAYER [facility] [id number] Univers 08:00:00 08:00:00 ity of [place] [facility] 2021-04-21 2021-04-21 Outpatient Chance KAPOOR [facility] [id number] Univers 16:30:00 16:30:00 WENTONG ity [facility] 2021-04-15 2021-04-15 Outpatient JAN [facility] [id number] [facility] 00:00:00 00:00:00 CHEYANNE 387 [facility] i 2021-04-15 2021-04-15 Outpatient JAN [facility] [id number] [facility] 00:00:00 00:00:00 CHEYANNE 388 Method i 2021-04-01 2021-04-01 Outpatient R FRANCIANORAHN [facility] [id number] Univers 15:00:00 15:00:00 ity [facility] 2021-01-20 2021-01-20 Outpatient R ANTWON [facility] [id number] Univers 09:00:00 09:00:00 WENTONG ity [facility] 2020-10-06 2020-10-06 [facility] 693 [id number] Univers 11:59:49 13:47:00 ity [facility] 2020-09-02 2020-09-02 Outpatient R FRANCIA DAWSON [facility] [id number] Univers 00:00:00 00:00:00 [facility] 2020-08-12 2020-08-12 Outpatient R DAWSON MAYER [facility] [id number] Univers 10:15:00 10:15:00 [facility] 2020-07-22 2020-07-22 Outpatient R KAPOOR, [facility] [id number] Univers 09:00:00 09:00:00 WENTONG [facility] 2019-08-26 2019-08-26 Outpatient R RADIOLOGY [facility] [id number] Univers 08:47:04 08:51:00 [facility] Results Test Description Test Time Test Comments Results Result Comments Source Pathology Surgical Interpretation 2022-05-16 19:57:24 Test Item Value Reference Range Interpretation Comme nts Addendum x6bsaNPnPVSywCL3GRPsHVSrm8xvo2TbiQZbrNIlQLgouMTfdeGzyh56rZY6gC51AV7zGAIaRaY2DXUl tyY1Dyd8LZRoUSMroCYaC526AJCxSRUkoAnbqzr8kM51LJWcmN3cuHTsMKhzrbEtBKybwiIxodNkZqu2 XDJ8pWmdBJSzdbigXtO0HJnjBGUdstdrIWc2QRgaGMV 1 (test buGW1HKHpgMLqH0PaMIWbQD1ieth2ZHT1EKasJHHvFpY1SFBlgYSqQFDvuIwhNFgwd279QWN8ObGlKKG romYjiKjzwM6bBoAhKAAUFBRhxWcoioCjINLsA6Gvn23dUY0qGZ1hslvgcwSzIzCmpEOmmTQtsM2gkrI XGYyEFxNjXY3jNDBvGSrdYXTxSMUxvixtu1XbQqKRcO code = Lfx1QoY6vzMUraCJtdI99cj1gzJTgkCMDoD0mcvcqdAZ2svMTlNYOsojmyULPsVjkpSNpmfwSeKVMQQG DPLs8LL6WEZEuvRAZiB2OoS6yoAY0nBOxhBPewgoGdYOKdwiSoSshpFWVxn49rhFRaBVxtZmEqWYezsb P7IQVKtw5sRVP7ayN1YONrRIBVc3GmcZIzVZP4PCR3t 37) 077NUSiuaxlTWDqKYLiThLjS3CdL7oiTI8lQTmoVCzeicUeDLA9YPLlkLg3dNmgPlUzREeqVyBqdDTmK BjwASedpD8dLUBpXiUeJuKlJdHIkeCOnLU1BZEdmjTodm8zJNwqQEKktLcwPeDzbLkmByIyYKHocIvgT XRlZCBTXGYwXGZzMjAgaXplIChcZjFcZnMyMiBlXGYw FNWoUsNlqQUjycEtLV5rEMKCWMX3UEAdLKC5NEFcXrDhAeVxXtLdwAitLMPtJbZExRP3m0rgB8plCVOm RvJpNqXoGXH2eSX6OSViCPNZaPQ4LSqrI6TvO7psf40fYQdrDCFsgLFtiRIoPNCtTaItXhDxBoFZhkZv uUYnQ3Z6btHfZHNcBbOmKhBrOTOacASboq1tDgifHXY aS39idJUlwOOiCIUqBuHzZqYlZqAShDNmNZOxZTwiWkCdAtOsLYJgLPDkJghgFORmHdsqDQTeRkZVDSL id4NhadhzKcZdGSRkBJGfbaCmoGFyKKnqMAivwY5kLKOlNmVmAoUmBtZIwT7zhbCPcYWjidYwz17rxKW rJNccMyZiLCoibsA8DZONbFNekAL4LRKnKKAGXJmrsH a2KFvrANZymRshXUyoclXlVtqrDUvukmNpQA4ahhzcttCiCgPpAgZjHcN3SXAyOIQDTQVaNJYpJfWjB3 FxUPYnpQSwd6AwDsYarSPcfu4lQPKkRMRmztWyxodymhGuoALypcVgS4xfzLOiDYAeqI1bCCIoRAYrl7 RvHXCwOY5fYIZrzORarr9gDJ65dKCcTT8ocijdncSfs N1hILksWLJdhVFib00laRNlugEbpryifjKdOISreK7vTYKkYLyaEC8xW2U7bHUvLKBufxipRUXuHRKBU Oaqg29yyFHUxY6imRQKf0ImjaucWoHeFAGumP19x8y1ZREzAeaybYYte6TzT1ExyFUctPZqNJtsFmSuY MwlmlS1BRexNR08aDDbuhWoBvCHnC6qmMGGb6JeeqXZ zAAkxA6gXSfhDmOmATRaCEiyOCPkFaMXlY8wJVRhi1EhB4MegYrbIPqbQc1oYVEbMMoiiRgxLCK9PGMk ULR4JBFymckgoQIzcHagIKjaDVOwWNUmDsFrIYOwUTXhEE40OIMbRcVklNxzETAhJQ3tJCpsm7liEVHm COI3ikvxF2ZtYSCwMFKeqMibgVReOGVhHRB3eL0pc0d wLnXLJFQjYQSiWbSvvQCiNTExNNGkBnPcPTXAfNYog4bvtMLtoIkjtfkoNEgtybLkRNCijHKMMZecMXm hwsZhXHxgQToPScR4OMR9cDIjWGSjAS9wp8RqMWZtmFEpCCIfhVJgt30hJnEwEcEkZPSjXAGefpcphKS 5ECdwjB7xIdOkJoFdYrOjRpUHnkujGCR9MTPtWiBdLk CaSAK4fD3eDMyxUJc4NLPsFFKhMJPiTYRuIyHjNCbgJOlKG5dLLKcfCOLgHcTFBAprp63bcBYOVYCeYV SyRrDglW6ebSHbLtFmXcThPgOFGBTsORVhZkXfb6GnsrEbfR9oGlajQKKyrT8aIKFskzegNRMkOCStZq FgXQetbHLgxBIEHQNlAWQpMfIgQRIyb9Xjm6uwRErnV Vz5XNBvFZIQV6MkcRNfDJgcWVuggX9zTWMfOR5boDtjVJI3LZtwXUrpfyJnUTSzSuYtBqOyUXW2dDBjM NF1XQYwCOJWXGZfnRDshfvfhIXzH5QqLNxtFVNvrHJgDUswOZA1 Submitted n1rolHOvCTWjg2foEUDmuMFpAeEqEsIqWsSzTkejsFBvARaqwxMcLGhir0JjF0YhTkZzVBfndbHbIPBc TxvzsfrxXAEfAQP6szXgJBFqECctIRCsITnrIf1wzNXkvIlqHcPnORAem6rdxuNPjjyqiPj7u7bqQXFj MmT3nFIzIBijJ3qvdkUarJWmIENfXQh5aG12LZBhcM5 Clinical ywGJyYFeatxVlCkN2DXpqSZWaNvA0HFJxbMSpCZYgH4whLRUnLWclCYFpWGyupSUhOZQ2mVpgr3L9oOR goKQbvZnhJxZkJzQrJbYYg0UwXNc6zFnqG7JcBUNnYdW4nARyUNPoEVcyPDYhKXLxjrA5dA65BOxsdaN 3zQUic8Shb57wz545gY4vhOKoCYB4ZRCzDZBkjHZyKC History EfPZD2HDQwyUHwQ4jdBOXcNI9isporLKdeNMotGVWctWN1QCWyxITqC3DpIVAuTCzzRLBpicy4VlPkQx 5wzRMakIghXWzdt6mxn7cjiJCwMbg3CABjNhSaHynbVEeyl5Cxl0kdCYVgfn9nEFR6tJUdwEaom9J9qG RpZAZabAFxeoPyCAKtPbI4XMpmYS9crn84OBLvDFL3z (test a0wqWScaBfzzxSufQCsPAxeN0CjKNQpj838ZIPcO7SkNFDmv4C6woJgCjZnIANcsWL4qzQ8SJPhIBs6h PVndqA3hmNieZQdT4hkwA2hYMQlAE6hxsqby0joAXlrFFyzUTIvlTO3gvP7ANJrnRWpA5GpoG1cMMSfK MhlKVTzwvs4ShOfEm0oyEHxdJokMUckXbwvNPapSAVv code = nsBvdcHqzQwsNSSdFSKsWFyzCAAyCLwvWBRyJNMnAzBfcKjidIawyW7hGaIrBhEmXVslIO0fIERyK3oc vPRmAUZcKCFuQ8akKyYmsD6ayIjoHShffhTkXETMySI1TMZ3R3WxtHYrPMRqfK3qdQPooJ6cf9f3jHKo ZsEpMNU5RUG1NGVbsUSepPVvVoIwDOO4IfIcZIdyyAW 87010) pblxmMVxmczIyXGxhbmcxMDMzXGh oY4hmLlZpVGHzqZyjFKify8BuKROsQFCcZaJanLNkgZ4= Diagnosis s0iczSNgZMImwWB7TEIqVTAfm1aiq9DlzDLtpBFqTQeuaHWfjfKdlt67iCL8nT11AZ9wLAJhFmC0PGVt nzK1Hmj9YPDgMHQhwVQzN323w1lgu5qsonJdxQY8BDYkLOKzE2WtKE2rMLVcxXMbA27qlSRkIVM2JHUf MUMluMEvEFHaEMD4EGPkaDSfH2ygMJCyPR2mqsgoLHq (test iWQfbAOGfmSP1BGXlfAIsF8NxQFTbSAhqVDVrfpg8TjOeTk0znQGdaKocGIyuQFZjXYOeOAlfPEUpWsM rY1YyWET1RJojPdVkAnMcGOS3RZUpvSUaUQ8uo5NqQ7TqtXf1AXbipeFeNFGDAZJRUGIPOnMTMw8OLTC HMtHMTNSTBWqUK0tLNCffKN3HMGAZIFCFDOLDEOpUVA code = GUVGHBB1gTQSXVOKGBLOdAUDqwV5FDXEQQEJQJWKXQT8PGXrVDUdClHLbDYr3XPHaLPREWL1HSYG9BCb 7dnApkFVJNJ8sNZBhmhu9slnUmFLUpPUCoVLXjr1LsCVXxmc00yD1suIGhpLF3DMBkOLjmHHHwKVMczr WrxbzseqOrpvZqa8TkIApajrSfPYVVRmBylyGygtBwQ 34) D52OUL6IHpfWCJ7NYYncO8zPkRbvKG4dVFerO9oEYEjb8Qmj7CjKCBkoGRlVUsngYRcA3jlSBSmvxNfa N3kNDU2jVJjJUFqU65nYrFgxWFigWcepyGhSBVxwS2ePL4xTYC8Dv9aqXTeFQHbXML5uT7rmc9ffJcvB CGRwLgudZAbhBVrj6G8pUQaQWp2hVAoxAjil2njLYod oUuwOGCbWEMma8HxJ2BoyZl0TNNuHmCdt3D0aIHcMABurmSsdg4kYZIowoJasIT4MxxdeL3tXW8cySCc HPqtqc6ryZUrv2OizVNgs6YmwH3ipUsaVDEIjHPxKOPlENZhcuYaTCc1bHKkTX8xEAXuYRSqkuG6wT1j dwNhkhCnEM87GywmYMZrX0OeKIKqrpfrEcTgWdisGWO scLChuZihhUGriLZzMC34tM8qvENpdL6vdOWfy1IcSPSgGgqrGURbR07hGMj9tLCtFP0oAXIrYH1sPIX 2mC6kXXMhAHOskvVmOAQrtoisXdPubAHlYDBzYUXFYaKGGKB2ACY9sCfqWCD1NNNklgNhlwSgNWl1tJV qSJ6wKEDoYaB9GKkanxXlO7N5GO3clCmicLgazl3eGT ExJT3dGHD6uO1dKDCnWEWeziFnPKTygpzdZqBdkXOmVVAcIFXXEvWRFVO9SCNnYAJqjAKxv3nbZC5vBG zdiDowhCEuSYZdPMOCj0omXWZjOZEvmRUmxPKrndSxfRDbJmofol8cEYher3WkUMDza4V9LHJ3pMKmIZ HxFd6znmzenVDyk7QnENVah8cyWvhuWJBjmMDbGDDlO AMQArTPFNB1BARvBFNviGXeDEQlwQtkllWqDJqdDcQovT5wQE1zikgoaxltnFSsFQEpRUXBqXVxy0Lrh YPvw7EabQpcx6XxBADkceL5uC4munObzeFuMC82SntrBYTobWHqONlmXXD9 Comment q8hqvYCbEDMdqRR5AOFjOXDyl9sxt4DscQEaaAYzZCnhtXGltaGxxa14nWZ4vW36SX5sFUNoIeW9XYHw cpQ1Gvw7PFFkMHXocQJlO918z6ski2stviFatQE8mVenENShbywlWmU4IDbqYAQxroqsVOl2WUbqKHGa fQX3KUIfwPYcD1LnXOXkEL8wygu4YTI0JRvpXGFoFyX (test 7HTWcvDPlFRKboDauDSipe265CZD1VrZhBFOyepJdaTrqdM0vBgJjUSRBBNJejDmtvrCbMNKsZ0Bkr47 mSA2wDU5dwacmqgFoOtFfgMX5hMUeqGU7MDIbfOUei8P5bF9tQU2gFFCyQHTlvPMiuX9dmnZgcrClrYX xNIhjFm2ioOScuF== code = 9835) Gross s1ztcYPsTCLxuGI3PSJsPBSrg7frb7ZzyIBreJDcOZybsFPuueRfcb92sOY1pG34JJ7bAHXuSfP4GFTx xzS9Bmu3WVVmMERmqQIsJ782h1weq7lnqgJlhXG1TQRuUOKeL1QpXP3iZHAcvTNtI45zeXYvBNL9AOWw IRZjpYZrFQMmUUU7STIwhXMzA8azBGFwSG9dnzdzPWk Descripti yXGveDPCvjOJ5ARWluKRaO8VgGFHmNCapFSGrlry3RsKyOr4yxACipYinUUfjGVGkl2biPUDhnPDePSH 5JJlzqMMjQRWcZRGuLWk9AZJsBUobuGKnVR0qcZehWqxcrPxrb1CzuWNxVHquUDBoCZXyOZquJWPrI6O VSMVjSJQ2RMM9VDPaQDn3SUmuO5KAHDLgSVA2PMKsBl on (test F4VuA1TDb6NYUNFf2xVVMjJlUcDQV7RyC2KDU4YFNkSZOtVuOyCBAlKVxhFdSZjkmlmNDdGNUeJDGeCF viZaFgQEbhW90fpLoxzC6aCgkaccHfDVB9IKRxglieBfKcLnWuXEP9KHSxHMU0QGAfgpOxNWEtJDnxQi DjKkVxMKK3MRNupFGeQC6ij6QzM8ZvsXshCGTltQTnA code = FDdrMx7S3syYIAtGeJtF9Wge7KfVGUeXN36VgmsCZrujstyh8LvhRRnRrY6GD5pO3blJ6hoRGFiwuizR TUkgYz7I1gkkAM1UONbhIKxVZcxnuS1YFehnHJwwYU8LQZnpf0xGDWuiH6kNGBnAWI9MPVnFSXZGLOrx AEpLW6so7OoL1BhmLubu5GjD0idLM7gtRUtp0DpcA7v 088779963 KSX1LSZnXJGlq03du4TfBGCdx5SgsH8diQ6xIHLlm1SpWCE6NXYrBKNgd59qhVXdjUSyPFZvXVapsSUp MIwkZX4zXFKcN57bRyOfvPRxjeAhofadguL3znUny0S1ULNfn8EbLIEeUMWvlFAnwP2wzyD5KChrpCRk PCLqAJMtMvPXwDRaf8LcR4jkBJ0hyKOpi7YtEzKwJUU 1) [file] WsjHVrHsWqzP3jiWbgoT2cDnThHElyVWKmT9QuX2VlqsC4z7ixhLqd o9FhbZUxFI4gaGKveU== Intraoper w3kgtDGzVRJxbIJHOXelLYafjyOkPAWjkIDgW3VtidcjSMdmYR4gHH2xdIxqoJDvuPTcCY0RBJEdRuZi HYVknEBfcxApCaXcXDDoyDSvnDQ4GNIxGI2vndpzZKcyFJesJTObaaC5VZDruNDfM3TsXBDrKP3vemmk YCS9JXrtdW8spcOTJdzgJr1daMZxrCflWfFxTnTpJTH ative wQAHsCCLovRrhQVHuTEx2dJ3MRndfCLX3FJWXIcbnNGLbSK8Hf6rjMFBpjCWjTLK6RMfsrNEpXCFiPNW aAAd1INRqXMevyIAcDA6poLxnKrypsWson4WexKGkSSbzVIVqNBVyJWylAWIzWX7PIcHnLLMwSfY3YJO pDNw3FUc5ST1QOaXfTMRrYDQ7QLC6SRZkCVt9ZMgdLB Evaluatio 3SBZQrYHY1VUj7BcYrUMZgAHtbBSp9RAYwJXcrGJPvvWToSWuhOqKxQHLzSGqcTxSxEMYbTHiipiR9QT UvKHnyMFCdTeRtMYVGCzhsWONvURczuOgktB2wASZoY83ws4HKi4XyBF9KNMm4fyKpnbhugG1rWXFicz NlRIpbuRDoJ2qoYisfcmCtVLEcPLMhmQxfeESuqDubr n (test 9TwHMquZBXrYNG5GLAlFMNnoPD1t5DmyQUtWPN0FZX4d088PUscn4PrzJUyd5JnlILgTR8jNWZhambaf D9uwnswMZEqaDRxKKAfx32gWNJ8dXZzdEdcNhMcB9Knp4OyZNOiqO8orIVgb7VdfEAyCAhxeIWnNHuwV SL1MSKfxAEwqT3dZPmcnSLahNEkJ1Utu4pvPasjmVWp code = OU6FCOyrLnEvDIrzkorlDPIFPaglQXIHzkYdP3cwiYUmjlXmHGRnpUsltKXsZmBJNXoguVGsB3E0tF8k ARYpF8ZnxPchcKLno3PtrWIhcS6fLZW8fqB1tNLdtW7jKYMuc6EsxLSrS5knXmbeDVLnPBjPAV8GTJHc j9IgW3P6UWXfYJmav1hkKMOhBIysx4ToLYwWSRRYGU6 153284190 ZTE0mvWA3HRiSZ0QTN8fHbMAxOJW8dSD4BMUOUvszqRQ2sPR1pG57GWXrVWFecCLeQBzbA359PSl9ZMS gEGapl6bnJQXoURrfm6UdKDsMTPZWOR2QCW8tcNW1MQhYL9WTVOprPTQiPckxsHBJRXD2PNmniWesnMn 2r5reiJUrl8i5LIwzTRW1pWgsrIZodkinjFUrzQqkcn 5) MnNEUuelVUHdxhPYIbYBa7ijBngmIROsyksPlxAkHzhPUmVzDkbcZ1XPAymXDvYTI6XF3yJSPcyfmtGA SuQDRiBCV8BVxojV64iSCvJVByWKHuyLDqmJirmQJgqkBKYmcqfC6mDgAvj6uyvFx6HLAAEufzvQIexd bjwcZ9OAOaf6hoyQtrm8AulEMdEX9juOkxhI6eMtAtQ iANCn0= Biomarker l5lqzVRfLGGivYQ3NCEzYLWzi5cln6OelURykTOhXVjchUOschHegc81aBL8zG92CC0xWPExIwR9ZIMv nnV2Tne3UVJgRCAwvNDlA575b2zdi1grqcBdiLT3pZreOKKvrpbpIqN9FTovTYAbmfpjRMj3JHdaBTAp zZZ5IQKstFVtW4YeIWHkMV6nuhx4RFF0OJyuNXFoWuC Block(s) 0XAFmaTTkVOPxxNfcJLsrq146UVQ4NrCwKDBlzcXsbXxunZ9jVqLhP CBBOFxwYXJ9 (test code = 9841) Disclaime a5cymWFkLMRvjIWkRiNkUVMnIICcl1lnJYPoiDCiPfPiOxGqWbMtBnezcZFhSDMkDnKjb1ter995rDBn t7hvSZXaCaH0wYBeLFNtdOAaW914NIXkOTqpa1xxp8RfCLKgjHThk5P8ASNZgijilQp6nSocG94vg5I1 EggaU9gzIGBmSZUaE0OrXJ9oYISkXqb6QBB3VOV4JPB r (test hFPGpD7JnTS6vGBCrlGHxDDo6w9xywBlsADWdQUW3f5ynUJvkdzFmLU3rut7hlFi9w1ypbsMhTWAhRWL cjIHVGQHhA5ZioZycTh6gsPm9bPzmRidrYJP6Ctr2GO3chp23kpt7sZcgEDCqyojxKxK0HHceCGGwdwx kTQg4HErjGXQuzTY8YDIxfKEwQ3WtJCIjOJ7xkwq4HJ code = B5XOcqIBEfYbA5QOKycBMsGOHbiFoeVQzck246DJM3IoLzSZ2dJ4Coe1K2lP1ktGMoTYWccEXcHfRtFS Yhkx6cwRVhUKjbr5ZzXFB0pkQ3kHXtlPZoRQChLY87Ovzfu2MjAnfvOKT2QVKzieZvf0Wam9lpShDvwb WpB4njS7YmXUMbIWPcAAKoJwBgqkGcv3Vus5WxgKUfj 9844) Wl9g6vjLZXoKLYhqIecp1qyKUT3BHFwF1H6yOUmx5mkTTesHFIpjVY5zfX9RJSjjITmC4ShhB3kFHZpK W4okpb1x3vyWSM1VTijPVEvQnX4haA0EVWfhHMsZRIzbRohFTzve210SSP7IrUaIGQwp7VjA1TaeHexV 40lgAjsS64qDSKakQvocO7noFzwmI3nViUjLrSmMHho nWyipWUlgkvbDKfcdwX2KMxfkguqFMQpUGljI0xhMhIfWYFmoGwfVGjok7QsIDHsOCDcEoryiqW0BUYJ t41lLSGtv8KwJTYdyO7dyRGmGFuzxaNljPK8PDksbiSuGwSqgwNnJEFviM2ySSPtMW7pNYScsqWvdn0u xmIiXPIjDQHqV8OagtbneAgixyXhSAWdtj6aidGwVXX 7HUJAGS9AYIWjLHJhl13bYQGwzArdbO5buKChyoCtYGHmv7HlzC4xwPTNOFTtE5nbVV6sLDisa4TstQK xeXMyzZO4YSBrt6HeCcGwpgDwjZEvtSDxK2NmnDgmZ0htBHUiRDNhekTtsHQzk9IrHGLlaWV9dEBxJQ9 VGbITx54sSOHiRTQDbnWtSSKjyHooqAR9lzA4gW0vSt MTUvMtuDQuyUNcQcuwESIed328by3yigJ9PUYeGCZrozeea6GcWAPkQDQuoL09RGFrOJAlwb3gycjbzX CjivYtI0Objgz2eC2xMVCiLTqoBPDdVWYxYzVnkZZdLcBlXlOxjVcrjAofEDxoWxDqWWRwVZsdC8qxYm FcZnMyMlxwYXJ9 [facility] 2022-05-16 19:57:24 Test Item Value Reference Range Interpretation Comments Addendum 1 (test code = 37) j4puaYEfFEAjfXE3QM PqATGxu9esk5PtdOPr cGFyXGpleHBhbmRcbm 88lKY2gK48RK2jBMCx SsQ9KJJczgN3Cpy5NI ArLXVcmTLxO325LIKy SVPhoDfafgg6vB17FU OuyV8cfYXiCHggwtDt GEzsjfAasfHlMrn5IP M2kMxwLONvsyvzPxP6 BSlcMFYjeejgUKz7RR vfPWSppRF3LCYooMVo D8TeOZLuNZ1yifq7BX S2IUiyNNJvZwI7OLGm aGVhZGVyeTcyMFxmb2 48YEC9GnZwMOUqkwGe yHstuF5aPfAePCQQVQ RowGnzqnGsLGCnM1Ck r66pPQ9mDK6knvirxp PxMhVpoEFbrGRlmZ8c ccXOCYeMBxPqQN4iFM EyNCkgYXJlIHJldmll a8QiEwVPvIHfw1LqS9 eoFPldAGkwG73kr4by GOikJINjU2eflfchRU 5ccGFyXHBhclxwYXJc YlxmMVxmczIyIENBUC UMZf8UL9SYLFkjXCEv B9FzD1pcFK9hPNmjJF xmczIwIGRlbnRpZmlj ASJpg80myBPhPMnsOt PyAJwnfcN0HRPWjb3a TMR2qpW6NKVySMCNk6 KyrEQnLIR0FJI5v901 XHBhclxiXGYxXGZzMj XjT4VdK8utIW6cIIjs BOxnuoSmMHJ7DQUadT q1zHykOrZjIIeqPePf oUQrQYmuLOgzrU7lCT JcZjFcZnMyMiBJbiBT bOK3ELNwcsXtee0nOP xwYXJcbGkzNjBcbGlu MzYwIEVzdGltYXRlZC BTXGYwXGZzMjAgaXpl IChcZjFcZnMyMiBlXG YwXGZzMjAgeHRlbnQp KW1cZDOLCOH0ISBqSH G9JXYhSvScSmVjDzAq cIejNEMzVrNHjSH8w8 foN5osEKWfAmXpRiQj BHW7aXI2TLTsONWApF O9XMnzO1ErV8frz03m IGluIHNpdHVccGFyXG JcZjFcZnMyMiBBcmNo lVPyM9Y5vbSnSZSpWh VkZuSxLOOvgCUgdo1n MsrpNUIeC28lsUEvaP FyXGJcZjFcZnMyMiBO dWNsZWFyIEdcZjBcZn MyMCByYWRlOlxiMCAg MlxwYXJcYiBOZWNyb3 NpczpcYjAgIFByZXNl bnRccGFyXGxpMFxsaW 4wXGJcZjFcZnMyMiBU yM9rrtCTdULpqwBty4 5ccGFyXGxpMzYwXGxp tfF3OUEJhSFupUS9YH WzIOONCMrlwTq0ZZsg YXJcbGkwXGxpbjBcYl cyTAwblsElEN7fzjvv jqWcJuYtCqKzRiA7EW IwICBBXGYwXGZzMjBc B8BiZUHsdWZjt2NiRd EazDVfyf6dEYTbRGSa bmZlcmlvciBzdXBlcm VhV5ghoPDdVAHgvN0s EYQrIHEmo6ToOBVpGD 9vOHFtgEPhgv2nQW74 fGYgVZ4lxilliuPzcZ 7iKRqnINQkyVVlv36g bCBpbmZlcmlvciBtYX SafO7bVPQzVMebSO5a W6F2yJZqXRMwpttrHZ UhFCQFPGrti07kgYWP eY9mhIVDo5AohormZd MsTORteS58x0h7DZMj RgcapQQts3WfN9WckL NccGFyXGxpMzYwXGxp fbM3FHcvNM73tXZzzq ZeXnWFfO5raHPEa4Py trTOnIPwwO4oALpkYc AgIDExIFxwYXJcYiBO qT7jPSFgm1BxH2VveT rzRWjrCa2qQSDyVNih dVvoXBG3TGLmHGH7WZ BhclxsaTBcbGluMFxi XGYxXGZzMjIgVHJlYX FwJT27JNOpWjJugAsu HKAxHE5dFSbfj9oaMU RnJNB1urkuU9DmJZHf ZXJhcHlccGFyXGIgUG K1lT5pn1acWoDYMMBo XGZzMjAgdGFnXGYxXG LnVeZbXFQNnPGnk4gy aWNhdGlvblxmMFxmcz IwICAocFROTVxmMVxm gsKgRWluVGfGJtZ6TD D0mICvZRKbZD0ds6Wo ZXJzdWIgIEVkaXRpb2 5cZjBcZnMyMCApXHBh tdlweEK5CFovjJ5sLi BcZjFcZnMyMiBQcmlt VOA6UDCtFpZmScKlOD D1vF2gXKohXSs5TZAj ICBwXGYxXGZzMjIgVG krSJiHX5mTZZsdVKAt FbPYFLgxg15asUAXOR SeCABdMaBimR1wsUSk ZjFcZnMyMiBOXGYwXG UjWbFcq6LfvcUtrV0d JbakCGHjqT3nBTQvrf xiXGYxXGZzMjIgRGlz dGFudCBNXGYwXGZzMj OrYFBhg9Xek4ihLRth LQl9XKCpRCQHP1PrvX JnRMfkJXypnI2fNUTs EM2jpAwoUHR8HUzwST xmczIyIFNcZjBcZnMy MHM0tYIxAUC4GHJdWL BTZWUgcHJldmlvdXMg Y1UeTBhzTCBjfUXsZV xwYXJ9 Submitted Clinical History u9qtxAHwVXPsc1egNV (test code = 96487) VmbGFuZzEwMzNcZnRu YmpcdWMxIHtccnRmMV ooz1XuE3XzXfVqLGgr bnNpXGRlZmxhbmcxMD AiITS5gfKgNLDiSYeo AAGpYYulMi7foYEjwJ muRtKyQVBvw8uqxxOK yletcDo1s2yeSXZjGd G8xMTpYEotC1hwuhHe iFGxMXLiQRw9cV51ZT OxoE2isMRtJXiatvXw LxT4TPnxTYMaUyH7QU CixLRcMQRhF4seQNGu XGdyZWVuMFxibHVlMC N4jYpea0F3oQVpyLXk dHtcZjBcZnMyMiBOb3 MuDLw6uJkxW8VpHBAv NoJ5dTQiQCXoIAyeHB OvPJYchsB8iP75IQvi pzE0mNLfl4Tpb97fc7 52hM3zeHPpYXC1NNPf TUMizEAkXWRiGGJ3EC OwxERjO2fnENAiVP5k cmdyMTgwMFxtYXJndD N2AEAczIGpK2IiGXGk SGzpBBFzwhb5VeQxBj 3ajLXvzRrkIJdek0dg y5rlcIEoJfi1GOOyNn YkIcorVHhog8Mea3cj WFDqgb5zWJL7kDIljG zyr1M3hLVpPNSbwRPq vzXzYATgLfW0PArnIU 6qjs39LNGhGYL8xm8x bGNccGdicmRyaGVhZF ywP5SqBRNyo706HYJq Y8CrHCCep7U3yaBjRp ZvNBCqpDA7tlY2ZMVo GBo1dQOzdxF9sbPcvG RmK0mgiI3oWMUfTV7j tsezm0tnYMxjOUktIH WezXX9ukU1WLCmtPHb B2NgrH3eGSEoNFxkBW Qozdj5MwYzGs8jiBFg eTcyMFxzYmtwYWdlXH BnbmNvbnRccGduZGVj XHBsYWluXHBsYWluXG YwXGZzMjRccWxccGxh sJ5vPcDpXcEqGTpfTS 5qUTBiU0feyVTeOQVv HYRaN3jdOyBftP7hgZ xmMVxmczIwIHBUaXM6 AMR2Q3YqgOCuRYXnsL 8mfKYbaH2ar0y7qEDr EvNvOPP9AQI2AECxjA TafAMwWuOtDVW0JdNo XVxwbGFpblxmMVxmcz IyXGxhbmcxMDMzXGhp G7baIiJmYIJqrMlgLY dqh5NoIQQpKTJqVhIi cGFyfX0= Diagnosis (test code = 34) i4owqPKzKILahFC4ES ZwAHHlg8arz4TowFHl cGFyXGpleHBhbmRcbm 41wCW9yA17IF2eSSRi ErJ9GEQnbrU8Tqv9DX PvVUSxeRXnE746b5uf y0jemxBekCU6QYDuZI QmY2DhHO8mKRYunWJm X86erKQiYST4SWEkMA DacQHxQOPgIFO8XONn lTLeN5biVNVcOV5xzn dyMTgwMFxtYXJndDE0 PRXfyGZzJ4EmCJYnLD psGAWizco3XeYyXm8r dGVyeTcyMFxwYXJkXH AqJKriAWLxLxRvW8Ta IHU8GYrsScAuVpBeXA L1UTFbqQWeMM0ax2Kb Z0FtrOt8WXbdulHiPG JTWHQUTKJAGkVMXn3X QSBJTiBTSVRVIChEQ0 gZIHdzFC0OBQHMOALL QVRFIEdSQURFLCBTT0 xJRCBUWVBFIFdJVEgg M9MFPGDVJSKFEBYVN4 SLTlIPDpUyVBuWLn8J DIaZAKUDK1FIPX8CVz 6bhNywRYPIX6pTSIzn vd1jjkOiGDJcYSBbKR Peo8LbLGUsmo23jR1f cTBtmIQ3RLBeIBseDE RoZSBpbmZlcmlvciBi isVpo4JsURjrasTeJG BODaGmvuZssrEzXR68 IKN6KDpdMSJ3BOHpkS 3jKeCqtJW2xACfzH5f FJKlm6Lje3XqKERnbY IzHPurlUJxE7jmTVSn jsSpmH4aMAD5yLHoPF NqV80xUnGviOIniBxg jrGlFFYbrT4ePY9zOY Q3Mr5lgHLqGIFqPRW9 rX7wja1jxSjbNXAZuV vvhMLcaSYva1P3iADp LFi1sLTlwDpog9vzKV cjvUdgFBTwVPHvt7Br M5VxuCi5CCCdLhKps2 J6rUKfOSPmddNbcq0b IQQkahJpvTY1XkcprI 6oSB1qaYJgDQcpcj0p uEFyz9UuxTXol1SszM 5cbGluZSBUaHJlZSBs SAJpudNxIWr0iNSaSZ 9hFHElDKFpsxG7iI7i drBvjlXjLV20MweeCA MnQ7ZmYFJbhvrrQuHl QjogTGVmdCBheGlsbG SagHXfXE19tM9byKHg vE4srCInm4TiFQDfIb dvBRTaN84xBHv7yVGf GM0cWXJmZW7lBTE7uX 9yIHByZXNlbnQuXHBh clxjZjBccGFyXGNmMS PPQeLFXQY6CWZ9wFkn AAO5ADOstoEeueRaSZ m5xZPrIU7xYDCzTuB5 SUoihhYsL9J6HV6drG gmjZmyko1rUWRzPW2z UVX3mF3cAQVgBYDbgg QuXHBhclxjZjBccGFy SEXfZJSXFtZERKL8EE TmJQUiyWTzh0diOY3r ZGlhbDpccGFyXGNmMC VHx7xcOSIiJZFzzCKf dXRhbmVvdXMgZmlicm 9yWIgil1YmHUKri3Z4 DFR6tCEpKGYjXm0ybn uxcUWjb6LxMRQlu1wd LlxwYXJccGFyXGNmMS XCPnFNDED2XQBiHAAf dCBhZGRpdGlvbmFsIG xqCtIiaJ9aTD0bwlwh bjpccGFyXGNmMCBGaW Tix7WgcFKei0PwuScc d8CnVWIkyhS8pQ4ldw QuyyZbQA54OfjhTUDh cGFyZFxwYXJ9 Comment (test code = 9835) l4kwbNJjDKAjpWM8VD FsIPVfe5ppd0WajHQx cGFyXGpleHBhbmRcbm 75bOB0dG64QU9cYYLo MxW4PKQhjgL5Kne2AV PcTACqdXVmX117j4zj g9bvueOrqFL2jVpmRA ObtayaGpB1KFyoDMAu uiflQXo6GFnmCANchA G6TOLadMGwE0PvOZMc UR9xyty2KYJ6SLvrHX YfYxD4NCHrgLFrUDCg oOzaCQwep210FFY2Qv VnEGMlbpOknOcsnF7d ZnMyMCBBZGRpdGlvbm XaEECdN5Ewx41uAL0e HZ5bedzmlrSdRzSqaP V8zXDtgMO9IELftWJw i6W9iY9oIE2eWYPjSN ZbjJIfeH8peiZytnSp qBDiBNziJx4dnNMroA == Gross Description (test q0rohYJiOTJdsMP3PY code = [id number]) FfTIIaj7wzj1SymTOy cGFyXGpleHBhbmRcbm 49zWA3aG33JQ5vMWBu RwC0GKZuxrZ1Dln0JZ WtDAEnkNNbF939t0gv t4deilOinOV6XJFzKC YnS0LkDK6qYTTyaLPd G21jdXQsWJC6KATvQX PgvTLsBJClSFE6IJKw rFQiF7xxQOSfHL4kzg dyMTgwMFxtYXJndDE0 LJZdxVMrK4CiVLJcAJ roTXEwmtm5CxYmCn9n dGVyeTcyMFxwYXJke1 bcRJSraSDsRLN5RHjo xPIzAUArWPHuMQp0ND XnBYdzxDYjEG3zeQrw MfjqgUloy0QzoRZuNV lkIDUxMDAyIFxcZGIg I4WPQSOzYBU7VXA4TZ DsJZq2HFfwZ2DHBUFc KPP0FVGmLsR7QpU1TJ c1IDVCVo5rYJIdQzPc MPK4PjB6KZB7ZKMnWX QgMiBcXGZsIFxcZiBB cmlhbCBcXGZzIDEwIF pdEaFgCYcfW70cwCrz iS9fQirgwgGhYRT7CA BhclxjZjEgQnJlYXN0 HYYrQJS1PBNadoYeYG AtIGxlZnQgYnJlYXN0 PMGezERdCB5np4NlR6 RvbXkgKGRvdWJsZSBz dOj4M2ghRLPnFiDkR0 Zcp5KqAQRyOV43Yyjh QNpxqqdgl5IpzVKjKm Q5TE3qC1cqF6edMQHh ondiUJGjfGn4W9zmnB W2OGXbrJHoMJtndgI3 IThhlJRasUP7PCOxtj 2bCTBrfO0fIKXcBPE8 XGIwICBBIHRvdGFsIG 8fs4WfC8WgkVxsz2Ds N2ipBZ4qhPLqg7MfgJ 1oNGO7WLAiQYJjl12e j4XjUOCpa3JpcY1utV 1tSOUiv7GsADH3PTSq DVFdn09mlINewDFsOS KnFPkvdXVrQSwrVE0s BDNsS04jLwUklMNrbt GzkguazwN9ltSka1W0 ZFOco5FtEABfBDLaiO QatG1cktA5ZNhfoWZl MTMzMCBnLiBUaGUgc3 EeZ6pvOR8uqEAho8Ls ZmFjZWQgYnkgMjIgeC AxNiBjbSBlbGxpcHNl JY4cSNUrkdgfjNGjDU KhcK7pt1p2hMYjLCMs bnRyYWwgZXZlcnRlZC ExeFWtrAJfFX55YGOh IGluIHRoZSBzdXJyb3 PwEIsfDcV2XapvB76y LSVpo7cvEnKQvPSwSH EridUczbGenIQ7iN7i BK2wMXZuNGMrw4kvJs xwYXJcdGFiIFRoZSBi btNln6JjmGRmy9DwwB IsxGxgk0ZwjHjxygMs OURoe90cgZMbhJSuET RlMSipoJEbENqnxI31 byAxMiBzbGljZXMgYW 4dHImsRBGsBErwK2Ve bEnwTD7uMRkqnnCadJ MgYSAzLjIgeCAyLjQg tPOoReGuT65jGAMmWN LgOoZvwCBba5GmycXs kdGpP0LfA6gmgDZtjE lvbnMgaWRlbnRpZmll SJEmeiW0xYKmxV5dSZ Wqz4LoFRVgVPX3HC7l WKVysVLlrqX3GNYdPZ OaoZX5AxDLeCohWFTq ZGFmA72uyOIvntPlPF ZrXOHqOXJsW8medHGl auOgzEFmRO1wQALfAM Ljv56bdZpyUGuvOcLn aK8yZY3tdtuksmlhMb 07DOOvCVWhu37uzNbq ADYvz6QdnbznkdKpME VrsY7pVP8uYRA6MfNs Q14rRqTkxHV6rPUil1 AqGNWst1MedBTjD6oz LlxwYXJcdGFiIFRoZS CpZI0udL5rfeotSlQw RMO2IUjkBTWfoKHdd0 XkUV4wZGLyqBHaxOtq YXRlbHkgMTAlIGZpYn EvlXNxqOptv8ZlGLdq dGggbXVsdGlwbGUgY3 lzdHMgaWRlbnRpZmll HE1oUHpafbWoVDBwMT RocmVlIGxhdGVyYWwg eRxqzDjopo8dNEAovQ FjvdRkPoltUSTbEN2y aK0yWNFxl27gUA8bON HqRKDwNFNudB8fmJSx AYMoIyFQZxnrL30PLG drHbw6KKidubUea6zx i8OoBOPes3ItvTOlO4 ekMDQingMxW5SgXK3v DYDxPUgyUwAtgC4aYO 8xtwnzhdstQpdcA4cg KL3wVQXtMQYnb2Byls esegIaVITpkO6iJKYf lfg2PENjS4BZRHhZVl TBR0ZXIuUTQByqcUOx XNPdsU2oPSVohDRcUR FoaqTzb0loS7OkeBxt HvCNKdsld2DouJmrvq QgXEBxBNGivyLwcT6t T8MtJ3wojCUwlCdvpg Rtu1avC8UaCc33ydmq QTMsIGNhbGNpZmljYX Cng99us3w0cJEjxvGm ttrjbyYcPAMiwF3tb4 tmE4IuNbw2JApfBIVp COJlUYg2nR0vHXvsN7 cuY2ouSDIrrfMrVVGa nNMlHSNsgpO5SWR0LJ BzdXBlcmlvciBtYXJn zV4yz6xsU4Vof7f1Hc FAFdcbl9SqZUTqx0Lo NYFze3UfTlbdfj85tl W9eIWeePIqo0zbB4Vw j2n4KiDGVkziO1tepG ZnkJHwVBzhiFnktS0y CTDbk0XkvFJuV8ulTR NsaWNlIHNpeDsgQThc AP5zLKGiMUQ3YRWdNY RpdGlvbmFsIGNpcmNs ZWQgYXJlYSBzbGljZS TljFf1UUWbHGjejJ1w mWUjrS9aPV4gspeqiu EoeSmiCSNuiBc6WOWw MSwgbmlwcGxlOyBBMT OyUN1msNUuJNGzZUCr OyBBMTMsIGRlbnNlIH Igl5I8XZPxeTvqIVR3 OyBBMTQsIGluZmVyaW 7vZK5lknzvnaXygIwf QDFbEKEfbkziSMC9NE IqHT8nnX6hcypuB3Tk B9lpeMIfyFrngzPjhI ljZSBzZXZlbjsgQTE2 KOVtRLO6cZ1gXZRyws RkVV34CDUlEQFvvKHr PgknEOZlu07ct4llH4 TlBAwcnKV8XDIrRucb sFHtXVZae9P1CXLrgL VnBGWxzvBgw9iuY5Si OQH9XZPsRIuoaB25FF Qnu4E5RJDllIWwUSCd vbIcp3kgG8IhDUL8CW IrIFbcgIVjIRGzh3P7 ZXIgcXVhZHJhbnQgc2 dvJ0Hay1tjC4YjQNP5 ALUdYMsweL60ARGsq3 A8CFPddARyUIKewoZq f6khI7QsFKQ5TZEmVB swxBllXPm4jGDkKW5q OBErTqZEUoHiPJ7jGS JosP1syXWdf8XkVZCo kQPpL1RnNZ8aSSGmu2 RwJ3V3XHWzJOwka8xd SDWbJCufe0YcUKfEYS SKAZ4VEK8kzMT7CYoQ P6TPY8kYmNDzSLB8cL B9WOZEXolqnIP4qWM2 nK34NJUyGOErxPNtXB faG985Ps39RQBzENez b4goUTHcCSvaq9WxBR mETFHCPG1CXX2vzII2 KClHL5BZHAqmMVQuAi hstAOJWJB9STwdwZhz cDu6p5bdtDAoi7p9BZ ymTYW1nSszsVLmharm czIwICBBMjMsIGluZm IbmR6tLD7resdavgVz mMefJMRkRYlwTRX9AU SjbE0dCFR4KHwhdQCa ZOxhaLIpF1gxMLHjbE NlIDEyLlxwYXIgVGlt ZKUnukFpi7ZwJVtoju Q2lwEps1luv6dlo0zv uKxja9WbyQBnSMbnGJ EbePXyRMiklW2bZoVv c8zcxWz6ZKltqjE3XZ Jbef68ZXcmZRAcP8Dm G8IrOBfbEAC8CZCrSy LvKMGsNC2ZDmEpXPEy FzX0UGIyLGn2ZKa9RA 7DOuCbHASzGLG3FLZ6 HhGhTSp1RKmpYT7NZH OcANStFAS6DNWiHRJb HKIySIk7NYUxOHhakS BcXGYgQXJpYWwgXFxm cyAxMCBcXGZiIFxcbm M0WMErTxsqqQLmYMNz MSBBeGlsbGEsIGxlZn MdSN9sEVD3DO2guJOl oSAnnWuafYKnj8fiHR ZbOHZix0ZeIqIhxXYb MQK5fus0mzUqy8NznO UlUzTgNUYeWQTkvl5x bmVudFxjZjAgOlxiMC UkQ27zt6abeLHhr1Ei WLKlCXgjNN38EV4fTQ Kfcg93DGabt3ieWhF0 sOiuz42ynOX8eYKndF Deu1f7qLHcu6UiiAFc BTHtfB4yuGKgb3KzNO 1yFWA3oduoZvWfQzBf eCAyLjAgeCAxLjIgY2 6vCTQEyKStsG9odaWw cdWgEFF1oJ8kAEPoKZ 5kIHBhbHBhdGVkIHRv IHJldmVhbCBhIHNpbm itXZUto8UqbLCyKDEb pJ3cwTYyt6AxPG5mCM A6puvkMyZjJtCyI38b iW3sF8ZoMGTbj1TpYU qpGX7pnZ5mOnJrVVqh NXKxb3HtJzsuTK7yWG Vhu4SarOFxhKtvo3Yi dGlvbmVkIGFuZCBzdW FrhVR7BUGsQC96xOLk fMsjJNLeuyb7LACoR6 UFCEhVOkJBL5EWWmQZ MMjajeNli6qhJaAsOG LtrT3gp9krhAIdbCoi hHtzvl6tVVWpSXLxAP rlcMKaGXS6yC4uJNHr JB9yDFF9Wx3qqTClQI VrauXnnmSzmR9uiHHj JWDuvtNLbY3tRHjhDX Kvlw8gaXwgWEjgZED3 NyIfME7rl46bMO1rOf 1dHAGzRPctnn76GKS2 f5bbtIZcTBuqBpkbwL LcuaX3XQoJQZXYUJfY MyLxJY2cXBdUQybDGT dJTnwyMTAxNnwyfFVT UMJ0VYdwoKyjxPz4u7 flnEGsr7i5FCbaSBW2 pAZIp9xqmNLbMByiKu igxHHsxeT4NIpOXVGE HRqAGvFkUP2nGQtIQh cCNnJ9YsMuAEQ9MvdR S8DVyPC8Tcm5DNb7aV tcZmxkcnNsdCBcJzFj oH3giIwkbY1hHiDiBK zmBIAnY1ObW6VotyGm wZEzIVSpsmTqb2jyWT Y3WBRaoFVxgKBnIpFw TlqlRAL2o8vxVPXxwR EwRMM4CVrloILdYAPn MDIgXFxkYiBPVlIgIi NwQIVeECYwVuJ7KXh5 OSBPVlMgIiAgIDUxNT ZcQPbgTLn5TKx7BFuB ZwUbMYHdEzd6Ezd1EI J4IDt1WPkzeBMxFNqa ZmwgXFxmIEFyaWFsIF xcZnMgMTAgXFxmYiBc AG1auQxaNRY6UAGxoe xjZjEgQXhpbGxhLCBs EGG8IDEcfnWlRJTcWD xlZnQgYXhpbGxhIHNs ayKqWJBjlU89YXIuYx i0YOShuMRcsq8pV620 inKiIWm9KmQoNTAkxr 1hbmVudFxjZjAgOlxi MMMrA43lc7vhwSOsc2 FepROxpEldnJPgu5Ng cDWamURna6QesUPeCD jpoHyvtkJgECR8eARr t2I6VFEgd5I3WEB4sC GmKQEfk2NmLjohHEk2 xUCfSK1dGFMpXVIfN5 XvZ2X6bJ6nMSGvQTJo YYT8NYTxMUJ8IVHxNp WymA5bEV66hRIhfHxb XIKyv0ZuMclzJCo1fA BnBN8pJZXtSXDzTXMc fw5iz0a8HKQctJTkuB OfIR7uOML2qcjmOwUd FO0fPPOott9qMHRpQq 5xAeXlV79cZYKUkSXz dE0tbmEcnvZxwREloI S0VHTzNV59oPSxgZmf UCUhmmt3BAQsD7BNJK kWPyZCH2SIJdPZYZoh BKSnm6PqcVVpFEKlkC 6qqDUck3UakrHwdhIx F3W4BQUpJDHiMCHhs2 OsFlisXV9iVXWiRsgr SLW0NUQ5VACqPNGqRM 4tbD5coyuwDnQ7hDvi b78cpYZ4jXBykLIlXQ 50aXJlbHkuXHBhclxw YXIgVGltZSBpbiBmb3 JtYWxpbiBpcyAzOjIw SUYKEE7lEExiXQEfVy AyMiBccHJvdGVjdHtc LxlpdBI1JHpfYvqadK 5zdCBIWVBFUkxJTksg vmRaFJ8AWP0YVbVXDS 27RwHzTRU7D4tBE8RY hMW7Byx2JHi9sPavNb dwmsZorGYkUdOlnB8J LrgcDjrvbIU2GIxiHw ieoP7pxPGNWGMTKinZ WnkxykCwWJ8QSQ0BEN 6IiPIdGAV3pDJ3ARWM AynwzIU7eQO2tH42HS QzPCHpuYSjBGjfY809 RTGsYMyaFKHvCmF3BT SbgGNrKPW8UJ5dFYPz hlcgKJXjLVMfJNS6JX glyS45jJWmYEQhLXTn cGFyfXtcKlxlcGljc2 VjdCBcXGlkIDUxMDAy SXqkDRFiA6PATZJhDI K1DMM4QMLdEUa9VXln K2LTDFDaLYW3NBMvZh n3RpD6VTq3RQAWLb3v JXBjQuOlFDIzLyC5XQ D3ERHnHYOdMmAtWFGk IFxcZiBBcmlhbCBcXG ZzIDEwIFxcZmIgXFxu I06iNrNZVyiwYIBqA0 YzJKBrrS5wSPueVgXk WyBoAHR5WFCchhEkHP AtIGxlZnQgYnJlYXN0 AJJkkD0ijVFnfXAhTB 1co3IoeQWhKR8rzZTb rZIuBT4cySSxqNShJX 40ZRXzTFB5VNCsDQPK k49xtAN0fvWhZpAvjh BvcmllbnRlZCBzZWdt CI86HD0aXOZonc05kU k1SNPvj6vrQTsewDbi gY2kGKNwsXmqZeT2ZP 6nwMCelI19MOQlMcJx LtB2kCltc49bwUN8xF RdpDByM46ea8iynEAl iLJ2yRZnLJVlBJSiuG FmOPTshoMnhM1hAV4e RRM6rbawHrBbGY2cRW feRa9dAWgtHT6yFOIf RbXgRMboSBLwuF1je5 QdQbTwGDKxftDwuq0o y9x9UYTfdgDzLUIiHH NzWL3tRBMzz0W7pYRl IInaYFwaHR33tWCcGU CuNE4iUDIku3bxgdR6 ZWQgYXMgbWVkaWFsIH DicwS0rNXqk3FtF6Xn nj8qDFQeIQNaaFAnRG hmFUXuovtlnYy5XLRm D3Adv79kDNR8jzEoMB DdDToxADD8FY0bgJSf rX55ENIqOlQhRjQ2rL kcjQ8iCM2ovoflDmsn NAM7gZArbYEwTNKaWe ElBv3plDWvhQ9ectIq ciBhcmVhcyBvZiBjb2 8iCMBvZWGqKSFdeo3k r2b3VQidLW71pNQgFZ QuICBSZXByZXNlbnRh cVe0CTVnAYB2bY0rnm ItswCir0SkjAb2lGPt TFgbVZRza5XouABzop IQOS8TQe2otJCsFYEh fpNZtQ7zYFepGZVpwd 5mmAtwOYjeDNG4UvYu LS4us57hMI5sHh0zRD BrZQwndx74YID4l0aa aWVsZHtcKlxmbGRpbn G6FEvSNCMHIQuQEmYg PT6hHScGZynZGYdNKr spKPWtJki9dCKWMON6 NIgmmKaqnHu2a8gptK Wes6g5VKmyANR9uILN r6tppTCwSWtlVdzurG XazvF8LYtLJIWOZCwM ExVnBE4sIJjNFwjFEe J9JnRtGMC9JJrPL7BE cTP0Xxw6LKm4hVoxSf aoyhKixDKkJcPalK1f mMkhxJ6uMbZtQZhcYT CiF6KaL4OsenPecNWw QCXjmdElc1gfWKC1LE NsbXVsdDBcZnMxNlxw GHY5a1xiIODihTViYV H2PRoyfJQzOZBtVLBo XFxkYiBPVlIgIiAxMD DaDHKfJnB9TDr6FUCZ CoOlKbZhRYTmRZE3Ni UfYWt8CSy7QXaWVaEr ZPSdVtV6TMg5DMU3OD h9LKkpvWLzYYtiGxaz XFxmIEFyaWFsIFxcZn MhMMJbESlsIsVuML7p nXibNRO8HMAshirePf MjEiIiKIK3UVRwNDS8 RABoCPQ1RFVlWGTchP BhZGRpdGlvbmFsIGlu RoOekN3jNG8rfwmlkh sbL8jxjPRfzHYaj9Ks hIY3WUEoHUDzhP1xQ0 YwIDpcYjAgIENvbnNp m7JvRB5vTUNpCP2chG JxiTRaQVJdA36ofyNs c6DxjYXxBEgkkVbesc IgyBEqy8LjbYP1PNTe EpVdwVede6AyMQ4lRZ H9jxcuLhImQT99BMye DX76FRbpSQ2aOSNlBr JjQBAlvCsnhPUyh8Gk Y0lfZLhdJ7gfeMGgAF DsZXkcQK53fKNxLEQp c96um81nWIRufYAcyO DyriVqAPJoBAXnn3rq mlH1PWWnUXPfwIpaSU WbhCUieEKaG1hcIBNl zlM1sQNtb2MvW0Ywcb 8eDBPpTUI5tyNtHX9y cmdpbiBpcyBpbmtlZC NprLYlvk1pZIGkFETl bWVuIGlzIHNlcmlhbG p6XYUhK0Awd81vYFF2 jqMhKRAiOVucDCE6QS 8rdQGiwE12VEDvAfDs HlY4pXraQ3D9CAS6xc SqD0Vzh4a7iLQmtnPi sZE7jM0beLQpSLZpd4 4gcmVhZGlseSBpZGVu dGlmaWVkLiAgUmVwcm TeBV00CQRaplBkd4Zk eMgnfbXsCFAwDOW8Ff 1pdHRlZCBpbiBjYXNz BDE4ULYwYIPsLVTqVJ BhclxwYXIgVGltZSBp hhUsc8NdPDlnvtWpje Kyt4WuGW0brG5dqpIr RC3jKADnVWSvuPYdlB 3zbzYbmdJwzLDhfX5t Ty4fsYQkgJ7xd83yJL 3iPm4mSTBpOOytjn67 SDU5h4tbzHQwBBsjZh ajmFYfptB7NDwLLNDY MYqXZvJwMM0aBMuBSh tCRUdJTnwyMTAxNnw1 sAXQGRI9KLflqSzzcK j7f1wlzIZty2u4HYtu ZYU1nGITf2mbqHPzJB esYyqvxVLqxhK9NCdT RNOYGBcMKhWoSX4gXP vTHzpVVcM7SoTbCSL6 FFkSR0JWnCH5Gpu1TB b5pRjmVfhlaiQzzCSp KcCwrN5htKyhlH1iCt PqJGdcQKDgJ4MjR2Hd jiD4x4majOvlb9WjeR BlVZ6nqMKgwC== Intraoperative Evaluation h5tahGMcRLAweLUXWR (test code = [id number]) kwMVxhbnNpXHNwbHRw S5WahqnmHBwcCX0vML 1hnOtijSHfgPAwPI5V XGRlZmYxXHBhcGVydz EyMjQwXHBhcGVyaDE1 FWLsMJ8nfsdyNAjdKW vpFDSfigS9KZIvlIJh C2JoSZOnPK0bmbmfQO N4UTqewQ4bprUFAoht Sf4bgNKbjDfoXsLsNf NoYXJzZXQwXGZuaWwg YPZzWVp1nF1YXkloEZ C5YVMLCwcmSDXmIG9M g9loTUXxcWBuBDD7SF xcaWQgNTEwMDEgXFx0 TPVpLXbzfHXyKR5wcQ laMbmcbNbrz1PflQOd XGlkIDUxMDAyIFxcZG HoNU7FCzRfTVWgMiC7 WNXqVHe5LRz5MH8ZLq SnSGBbYXV2HEL1KSXc TWo5SQgyDW1GVXPlMZ E2BCs0PqUfSOFcOVqd OKf6IKBcYAanOQTblV FsIFxcZnMgMTAgXFxm HkIdMEPbCFmkvxZ9RS BsYWluXGJcZnMyMCBB OlxwYXIgDQpccGxhaW 8dVCUfZ62bn2CZi3St AX2KFEp4ucTzthkyzR 4wXHJpbjAgDQpcbHRy W1ceYdsdegWxALMdZS CzuAhtkDFpySbjq1Pb DEzfSLTkKMP2XPZiYP KqpJY9k7KqxXAtGEM8 SDL9v372YNtwb7HasV Ksu8LmsEOsVR9oCOWu huykqG2cqqnwDJVkmI HhDWHkp28oBUW4xFBw lBdyYwNhL2Fvp0WvVP UseT4xdOCwc6WwoXQm XNjnbMFmSHccNAB5NG SwuNLhgE6tNTgluLQj dDYpF0Zjl8tmPckfoI WsHU4XBMyqPwWwTMmj bjcyMCANClxiMCBPbm YsD7qiiCKeewNyJPIv dGlmaWVkLiBDYWxjaW ZsF1U8gM8tIUWsP9Bq hMomzULox6ExlGFxgM 0vRDN3esQ8kUOltR7n OCIpx4AiyQJzQ8mvGf apKSKgKQzBBB1FWXBz r9FmU3E1GNDfTXqlb7 xfQMGrMKeih2EmVVaL BSHOAC4FQX0hkAE7DG uNE5CGQ2dBqEMoSFM0 pQZ4SPAPIiapoVS4kF M0zN45UKVhJYLiwFMs KMnmH051MFg8FTYyYR edw8fwDVGfXWizh8Ra EXgHIBFSOY0BIR1wnN T4XGlCX8RSETatXXHi EcagfZYLHKF3EVdyoE tqhBy5i0uxqCVjr7l4 QRysDTI2yIagcRMbzu xsdHJjaFxmczIwXHBh beFFDxnsUEAsNOh3bl BhciANClxlcGljTmVz nQPpPsGihuE4SMAjmV KvBVB4OS8kLGEywpkj GUQmTLQkXFZ3QLnvwZ 11bHQwXGZzMTZccGFy fVxwbGFpbiANClxzbC 7vCuQyw8kedHi0UUTZ StxwgWIkzdbybeR0WD Ilv2oujPksi8BkrRUj PB4qlJeyoX7zVnSmZw ANCn0= Biomarker Block(s) (test q3ptiPWbUNEtvBR5HX code = 9841) BjAETfu1vty7LecJCm cGFyXGpleHBhbmRcbm 07bVL8kF56OY0zPOMq QaS1WLOmmiO9Fba4CE VcASWjoMYaR176m5df q2svcpXenSS1pAgrFP HnhbjdDxI0JAxkSIWb fjyaOCb5XCxeRYDcfN D1SLMosEPdP2PuSYQt UZ3uvrn1CKJ4UTnhEN AzVsS8NMYaiJBoISYz qSuvPYikf216UBQ0Nk YrBFJuduGngPcryR6h ZnMyMCBBOFxwYXJ9 Disclaimer (test code = o7rhtWKcETGmpFAoZm 9844) TpSAEbSSWbe5hcVKJs bGFuZzEwMzNcZnRuYm xzoHDiDCHhFeNfa9xa a684kTRss8lrJLEdDz C6uMOnEDQkoLJpB630 FKKdAFzik2nwf8ScYJ JfcDRiw2O2YDKGtzuf lUi8jWutZ89bt7U7Mk srV8ewQHSkMLPcT7Jk MX6cVBJcLtn8TNI8WF V4WUHwFFYfB4EsAP9k RKVbuHAxCFf6l0xfcV euGALpWRR9z9tkJQid okElJD9urp9diTr7t9 xjczEgRGVmYXVsdCBQ VENcU4OdvGkpKr5skY u3nPxvMzabWGV5Xyn5 YR5rfd14him7vFknUM LcsyheUcC6RMcmRVZp jakvKPd2AFthMLFduJ M7JFXbrOPjA1WbCQJw EN6vpwb3PSC8ZJpwCH GmKhA5FQVuoXQlEITr yCmrNMyht218RAU4Hc BwWG6oC3Qor4J9zP2z aXRcZGVmdGFiNzIwXG Pwge3utJXqBHoho1Ld HIQ5xqE5lTMhpWXyVV IcFR06Wffjk1RzGatu HZM3EVQbnsAju4Lkv8 lrQtZhrqSuC6oxB8Oc ZHJoZWFkXHBnYnJkcm Jnf3Bmy7BxbKLxfCx9 k7mlDEVrYIVosDrek1 gbLWZ6KGJvE6H6bODy s8kkWDwqACQxdCE8nu B7ARAnpSSqF3XmtU8n SRIsYI6phnk2x0fuUY H7XClaWMMlZwJ9luT3 NDBcaGVhZGVyeTcyMF uxx399HCU0RzFtEFFh s7XqO0QqkOjyM92imC lsR44yBRGmfTzxkQ3y nTyieZ9mFxTpMmUsKG xxbFxwbGFpblxmMVxm wkH1OAllxpvvXUTdTJ ibK6qkHmXbSJDoqAsb RMgbb1FyAUTiPTIgHc dpcnE0RRXUo15jUKPu i2WbQIIivF6gdFYzMI dpexGopSL8REbpztCd GuDmtqFmMPZzdY4bRM UvAR7vYNKzdlYctv7u fiOgYMIbYXUvK4Koaz fgvBoltvVwCIHxsz3i qiRcFCS6DKLOSM5SCO RpMPVsy69nMONgqVnk zL1ecQWfrfFwINYrq6 TmmF0kyODTDJBbR5xd NJ2hZUcwg3LzlSJftB AooGP7TFJhu8YtEoNv mrGfdJVyvYQpT4DerA bdI7cjHZWsDERlxjQm vAVyp3VmQBRflUG2mW MiRF7BPvGZj02gNQZf ZCBEcnVnIEFkbWluaX B9uoV8oB5mYjKMAtZx cHBsaWNhYmxlLCBjb2 54uz6tgkL0RIPuSSYa sielu2YlDNInTDUbdO 72AXUvBCDick6cssgf vXQqgcNkQ6Xtsng3cC 4iXHBsYWluXGYxXGZz MjJcbGFuZzEwMzNcaG ljaFxmMVxkYmNoXGYx JSnrM5qgCaScFoWvRb xwYXJ9 [facility] Glucose [id number] 01:33:46 Test Item Value Reference Interpretation Comments Range POC Glucose (test 130 mg/dL 70-99 H Capillary blood code = 18176-2) samples, e.g . obtained by fingerstick, ma y have inaccurate resu lts in patients with [...] Capillary code = 9554) Performing Lab (test [facility] code = 68128) [facility] n[facility] Lab, [address] [place] [id number]; Industrial Seamstress: Faiza Harris MD Lab Interpretation Abnormal (test code = 87340-9) [facility] Glucose [id number] 01:33:46 Test Item Value Reference Interpretation Comments Range POC Glucose (test 130 mg/dL 70-99 H Capillary blood code = 43905-8) samples, e.g . obtained by fingerstick, ma y have inaccurate resu lts in patients with [...] Capillary code = 9554) Performing Lab (test [facility] [place] code = 59661) [facility], [address], [facility] [place] [address]; Industrial Seamstress: Faiza Harris MD Lab Interpretation Abnormal (test code = 89305-4) [facility] (LYNDSEY-CoV-2) PCR [id number] 23:08:41 Test Item Value Reference Interpretation Comments Range COVID19 SARS Pre-OR Procedure Indication (test code = 72090) COVID19 SARS Result Not Detected Not Detected (test code = 99842-9) COVID19 SARS SARS-CoV-2 NOT Detected. Interpretation (test Reference Range: Not code = 97923) Detected Methodology: The [employer] RealTime SARS-CoV-2 assay is a qualitative real-time reverse zinc plating machine operator polymerase chain reaction (odd bundle worker-PCR) test to detect RNA from SARS-CoV-2 in nasal, nasopharyngeal and oropharyngeal swabs from patients with signs and symptoms of infection who are suspected of COVID-19 by their health care provider. The [employer] RealTime SARS-CoV-2 performed on the [employer]000 System is a dual target assay with [...] CLIA-certified, high-complexity Molecular Diagnostics Laboratory (MDL) at [facility] under the Food and Drug Administration (FDA) s Emergency Use Authorization. Factsheet for patients: [email or web address] AbbottFactSheetPatientsFact sheet for healthcare providers: [email or web address] AbbottFactSheetHCP Test performed by:[facility] Diagnostic [id number] [place] [address] [facility] COVID-19 (LYNDSEY-CoV-2) PCR [id number] 23:08:41 Test Item Value Reference Interpretation Comments Range COVID19 SARS Pre-OR Procedure Indication (test code = 07543) COVID19 SARS Result Not Detected Not Detected (test code = 24319-3) COVID19 SARS SARS-CoV-2 NOT Detected. Interpretation (test Reference Range: Not code = 89040) Detected Methodology: The [employer] RealTime SARS-CoV-2 assay is a qualitative real-time reverse zinc plating machine operator polymerase chain reaction (odd bundle worker-PCR) test to detect RNA from SARS-CoV-2 in nasal, nasopharyngeal and oropharyngeal swabs from patients with signs and symptoms of infection who are suspected of COVID-19 by their health care provider. The [employer] RealTime SARS-CoV-2 performed on the [employer] System is a dual target assay with [...] CLIA-certified, high-complexity Molecular Diagnostics Laboratory (MDL) at [facility] under the Food and Drug Administration (FDA) s Emergency Use Authorization. Factsheet for patients: [email or web address] AbbottFactSheetPatientsFact sheet for healthcare providers: [email or web address] AbbottFactSheetHCP Test performed by:[facility] [id number] [place] [address] [facility] [id number] 15:24:11 Test Item Value Reference Range Interpretation Comments A1C (test code = 4548-4) 5.8 % 4.3-5.6 H HbA 1c values >=6.5% are diagnostic of diabetes mellitus.Diagno sis should be confi rmed by repeat testing.Therape utic Action suggeste d: >8.0% HbA1c; Go al oftherapy: <7.0 % HbA1c Lab Interpretation (test Abnormal code = 54883-6) [facility] [id number] 15:24:11 Test Item Value Reference Range Interpretation Comments A1C (test code = 4548-4) 5.8 % 4.3-5.6 H HbA 1c values >=6.5% are diagnostic of diabetes mellitus.Diagno sis should be confi rmed by repeat testing.Therape utic Action suggeste d: >8.0% HbA1c; Go al oftherapy: <7.0 % HbA1c Lab Interpretation (test Abnormal code = 30936-2) [facility] 2022-05-04 15:14:34 Test Item Value Reference Range Interpretation Comments aPTT (test 27.5 See_Comment Testing Perform ed code = atACB Lab Ambul atory 96602-6) Care [address] [address] [Automated mess age] The system [employer] generated this result transmitted ref erence range: 22.8 - 3 4.2 second(s). The reference range was not used to int erpret this result as normal/abnormal . SHANTELLE (test code This lab cannot be = SHANTELLE) scheduled at the following locations due to collection/proccess ing restrictions: [facility] and [facility]. [facility] 2022-05-04 15:14:34 Test Item Value Reference Range Interpretation Comments aPTT (test 27.5 See_Comment Testing Perform ed code = atACB Lab Ambul atory 45030-0) Care [address] [address] [Automated mess age] The system [employer] generated this result transmitted ref erence range: 22.8 - 3 4.2 second(s). The reference range was not used to int erpret this result as normal/abnormal . SHANTELLE (test code This lab cannot be = SHANTELLE) scheduled at the following locations due to collection/proccess ing restrictions: [facility] and [facility]. [facility] AliceProthrombin Time with [id number] 15:14:33 Test Item Value Reference Range Interpretation Comments PT (test code 12.1 See_Comment Testing Perfor med = 5902-2) [facility] Lab Ambul [facility], [address] [address] [Automated mess age] The system [employer] generated this result transmitted ref erence range: 11.9 - 1 4.1 second(s). The reference range was not used to int erpret this result as normal/abnormal . INR (test code 0.93 0.89-1.10 Testing Perfo rmed = 6301-6) [facility] Lab Ambul atory [address] [address] SHANTELLE (test code This lab cannot be = SHANTELLE) scheduled at the following locations due to collection/proccess ing restrictions: [facility] and [facility]. [facility] Alice[facility]throm[facility] Time with [id number] 15:14:33 Test Item Value Reference Range Interpretation Comments PT (test code 12.1 See_Comment Testing Perfor med = 5902-2) at[facility] Lab Ambul atory Care [address] [address] [Automated mess age] The system [employer] generated this result transmitted ref erence range: 11.9 - 1 4.1 second(s). The reference range was not used to int erpret this result as normal/abnormal . INR (test code 0.93 0.89-1.10 Testing Perfo rmed = 6301-6) at[facility] Lab Ambul atory Care [address] [address] SHANTELLE (test code This lab cannot be = SHANTELLE) scheduled at the following locations due to collection/proccess ing restrictions: [facility] and [facility]. [facility] AliceFractionated [id number] 15:09:28 Test Item Value Reference Range Interpretation Comments Bili Total (test 0.3 mg/dL <=1.2 Indocyanine Green (ICG) code = 1975-2) may cause fal sely elevated biliru bin results. Total and direct bilirubin must not be measured from s amples containing indo cyanine green. False el evation of total bilirubin can be seen in patient s with IgG concentrations above 28 g/L.Testing Per formed at [facility] Lab [facility], [address], [address], [place] [address] Bili Direct (test <=0.3 Indocyanin e Green (ICG) code = 1967-7) may cause fal sely elevated biliru bin results. Total and direct bilirubin must not be measured from s amples containing indo cyanine green. Testing Performed at [facility] Lab [facility], [address], [address], [place] [address] Bili Indirect (test See Note 0.0-0.9 Unable t o calculate code = 1970-09) Indirect Bili ward result due to some par ameters are outside rep ortable rangeTesting Pe rformed at [facility] Lab [facility], [address], [address], [place] [address] [facility] AliceFractionated [id number] 15:09:28 Test Item Value Reference Range Interpretation Comments Bili Total (test 0.3 mg/dL See_Comment Indocyanine Green (ICG) code = 1975-2) may cause fal sely elevated biliru bin results. Total and direct bilirubin must not be measured from s amples containing indo cyanine green. False el evation of total bilirubin can be seen in patient s with IgG concentrations above 28 g/L.Testing Per formed at [facility] Lab [facility], [address], [address], [place] [address] [Automate d message] The system [employer] generated this result transmitted ref erence range: <=1.2. T he reference range was not used to interpr et this result as normal/abnormal . Bili Direct (test <0.2 See_Comment Indocyanin e Green (ICG) code = 1968-03) may cause fal sely elevated biliru bin results. Total and direct bilirubin must not be measured from s amples containing indo cyanine green. Testing Performed at [facility] Lab [facility], [address], [address], [place] [address] [Autom ated message] The sy stem which generated this result transmitted ref erence range: <=0.3 mg /dL. The reference range was not used to interpr et this result as normal/abnormal . Bili Indirect (test See Note 0.0-0.9 Unable t o calculate code = 1970-09) Indirect Bili ward result due to some par ameters are outside rep ortable rangeTesting Pe rformed at [facility] Lab Ambulat [facility], [address], [place] [address] [facility] Rate 2022-05-04 15:09:26 Test Item Value Reference Range Interpretation Comments eGFR-AA (test code 81 See_Comment Normal eG FR >= 60 mL/min/1.73 = 02444-9) m2 Note: The eG FR is calculated [...] Kidney failure <15 Chelle ting Performed at [facility] Lab [facility], [address], [place] [address] [Automated mess age] The system which [employer] nerated this result transmit john reference range: >=60 mL/ min/1.73 sq. m. The referenc e range was not used to int erpret this result as nishant l/abnormal. eGFR-RADHA (test code 71 See_Comment Normal e GFR >= 60 mL/min/1.73 = 05963-7) m2 Note: The eG FR is calculated [...] Kidney failure <15 Chelle ting Performed at [facility] Lab [facility], [address], [place] [address] [Automated mess age] The system which [employer] nerated this result transmit john reference range: >=60 mL/ min/1.73 sq. m. The referenc e range was not used to int erpret this result as nishant l/abnormal. [facility] AliceGlomerular [facility] Rate 2022-05-04 15:09:26 Test Item Value Reference Range Interpretation Comments eGFR-AA (test code 81 See_Comment Normal eG FR >= 60 mL/min/1.73 = 68714-7) m2 Note: The eG FR is calculated [...] Kidney failure <15 Chelle ting Performed at [facility] Lab Ambu latory Care [facility], [address], [place] [address] [Automated mess age] The system which ge nerated this result transmit john reference range: >=60 mL/ min/1.73 sq. m. The referenc e range was not used to int erpret this result as nishant l/abnormal. eGFR-RADHA (test code 71 See_Comment Normal e GFR >= 60 mL/min/1.73 = 60717-9) m2 Note: The eG FR is calculated [...] 5-593b Moderately to s everely decreased GFR 30-444 Severely decrea sed GFR 15-295 Kidney failure <15 Testing Performed at [facility] Lab Public Health Director [facility], [address], [facility] [place] [address] [Automated message] The sy stem which generated this result transmitted ref erence range: >=60 mL/min/1.7 3 sq. m. The reference range was not used to interpret th is result as normal/abnormal . [facility]neeTotal [id number] 15:09:25 Test Item Value Reference Range Interpretation Comments Total Protein (test 7.4 g/dL 6.4-8.3 Testing Performed at [facility] code = 2885-2) Lab Ambulator y Care [facility], [address], [place] [id number] [facility] AliceTotal [id number] 15:09:25 Test Item Value Reference Range Interpretation Comments Total Protein (test 7.4 g/dL 6.4-8.3 Testing Performed at [facility] code = 2885-2) Lab Ambulator y Care Bl, [address], [place] [id number] [facility] AliceCalcium [id number] 15:09:24 Test Item Value Reference Range Interpretation Comments Calcium Lvl (test 10.1 mg/dL 8.4-10.2 Testing Pe rformed at code = 47191-7) [facility] Lab Ambu latory [facility], [address], [address], [place] [address] [facility] Alice[facility] [id number] 15:09:24 Test Item Value Reference Range Interpretation Comments Calcium Lvl (test 10.1 mg/dL 8.4-10.2 Testing Pe rformed at code = 99859-0) [facility] Lab [facility], [address], [place], [place] [address] [facility] AliceAlbumin [id number] 15:09:23 Test Item Value Reference Range Interpretation Comments Albumin Lvl (test code 4.7 See_Comment Testi ng Performed at B = 4763) Lab Public Health Director [facility], [address], [address], [place] [address] [Automated mess age] The system which ge nerated this result tra nsmitted reference range : 3.5 - 5.2 gm/dL. The refe rence range was not used to interpret this result as normal/abnormal . [facility] AliceAlbumin [id number] 15:09:23 Test Item Value Reference Range Interpretation Comments Albumin Lvl (test code 4.7 See_Comment Testi ng Performed at ACB = 4763) Lab Public Health Director [facility], [address], [address], [place] [address] [Automated mess age] The system which ge nerated this result tra nsmitted reference range : 3.5 - 5.2 gm/dL. The refe rence range was not used to interpret this result as normal/abnormal . [facility] AliceAspartate Aminotransferase 2022-05-04 15:09:22 Test Item Value Reference Range Interpretation Comments AST (test code = 18 U/L <=32 Testing Per formed at [facility] 1920-8) Lab Public Health Director [facility], [address], [place] [address] [facility] AliceAspartate Aminotransferase 2022-05-04 15:09:22 Test Item Value Reference Range Interpretation Comments AST (test code = 18 U/L See_Comment Testing Per formed at [facility] 1920-8) Lab Public Health Director [facility], [address], [address], [place] [address] [Automated mess age] The system which ge nerated this result transmit john reference range : <=32. The reference range was not used to interpr et this result as nishant l/abnormal. [facility] AliceALT2022-08-10 15:09:21 Test Item Value Reference Range Interpretation Comments ALT (test code = 20 U/L <=33 Testing Per formed at [facility] 1742-6) Lab Public Health Director [facility], [address], [address], [place] [address] [facility] AliceALT2022-08-10 15:09:21 Test Item Value Reference Range Interpretation Comments ALT (test code = 20 U/L See_Comment Testing Per formed at [facility] 1742-6) Lab Public Health Director [facility], [address], [address], [place] [address] [Automated mess age] The system which ge nerated this result transmit john reference range : <=33. The reference range was not used to interpr et this result as nishant l/abnormal. [facility] AliceElectrolyte [id number] 15:09:20 Test Item Value Reference Range Interpretation Comments Sodium Lvl (test code = 140 See_Comment Test ing Performed at [facility] 2951-2) Lab Public Health Director [facility], [address], [address], [place] [address] [Automated mess age] The system which ge nerated this result tra nsmitted reference range : 136 - 145 mEq/L. The reference range was not u sed to interpret this result as normal/abnormal . Potassium Lvl (test 4.8 See_Comment Testing Performed at [facility] code = 2823-3) Lab Ambulator y Care [facility], [address], [address], [place] [address] [Automated mess age] The system which ge nerated this result tra nsmitted reference range : 3.5 - 5.1 mEq/L. The reference range was not u sed to interpret this result as normal/abnormal . Chloride (test code = 104 See_Comment Testin g Performed at [facility] 0) Lab Public Health Director [facility], [address], [address], [place] [address] [Automated mess age] The system which ge nerated this result tra nsmitted reference range : 98 - 107 mEq/L. The refe rence range was not u sed to interpret this result as normal/abnormal . CO2 (test code = 27 See_Comment Testing Per formed at [facility] 2028-05) Lab Public Health Director [facility], [address], [address], [place] [address] [Automated mess age] The system which ge nerated this result tra nsmitted reference range : 22 - 29 mEq/L. The refe rence range was not u sed to interpret this result as normal/abnormal . Anion Gap (test code = 9 See_Comment Testi ng Performed at [facility] 90520-7) Lab Public Health Director [facility], [address], [address], [place] [address] [Automated mess age] The system which ge nerated this result tra nsmitted reference range : 4 - 14 mEq/L. The refe rence range was not u sed to interpret this result as normal/abnormal . [facility]neeElectrolyte [id number] 15:09:20 Test Item Value Reference Range Interpretation Comments Sodium Lvl (test code = 140 See_Comment Test ing Performed at [facility] 2951-2) Lab Public Health Director [facility], [address], [address], [place] [address] [Automated mess age] The system which ge nerated this result tra nsmitted reference range : 136 - 145 mEq/L. The reference range was not u sed to interpret this result as normal/abnormal . Potassium Lvl (test 4.8 See_Comment Testing Performed at [facility] code = 2823-3) Lab Ambulator y Care [facility], [address], [address], [place] [address] [Automated mess age] The system which ge nerated this result tra nsmitted reference range : 3.5 - 5.1 mEq/L. The reference range was not u sed to interpret this result as normal/abnormal . Chloride (test code = 104 See_Comment Testin g Performed at [facility] 0) Lab Public Health Director [facility], [address], [address], [place] [address] [Automated mess age] The system which ge nerated this result tra nsmitted reference range : 98 - 107 mEq/L. The refe rence range was not u sed to interpret this result as normal/abnormal . CO2 (test code = 27 See_Comment Testing Per formed at [facility] 2028-05) Lab Public Health Director [facility], [address], [address], [place] [address] [Automated mess age] The system which ge nerated this result tra nsmitted reference range : 22 - 29 mEq/L. The refe rence range was not u sed to interpret this result as normal/abnormal . Anion Gap (test code = 9 See_Comment Testi ng Performed at [facility] 46030-7) Lab Public Health Director [facility], [address], [address], [place] [address] [Automated mess age] The system which ge nerated this result tra nsmitted reference range : 4 - 14 mEq/L. The refe rence range was not u sed to interpret this result as normal/abnormal . [facility].Serum Ogivlnpigr4449-17-23 15:09:19 Test Item Value Reference Range Interpretation Comments Creatinine (test code 0.87 mg/dL 0.51-0.95 Testin g Performed at = 2160-0) [facility] Lab Ambulat ory Care [facility], [address], [place] [address] [facility].Serum Tqjooynwbi4813-57-90 15:09:19 Test Item Value Reference Range Interpretation Comments Creatinine (test code 0.87 mg/dL 0.51-0.95 Testin g Performed at = 2160-0) [facility] Lab Ambulat ory Care [facility], [address], [place] [address] [facility] AliceBUN2022-08-10 15:09:18 Test Item Value Reference Range Interpretation Comments BUN (test code = 23 mg/dL 6-23 Testing Per formed at [facility] 3094-0) Lab Public Health Director [facility], [address], [address], [place] [address] [facility] AliceBUN2022-08-10 15:09:18 Test Item Value Reference Range Interpretation Comments BUN (test code = 23 mg/dL 6-23 Testing Per formed at [facility] 3094-0) Lab Public Health Director [facility], [address], [address], [place] [address] [facility] AliceGlucose [id number] 15:09:17 Test Item Value Reference Range Interpretation [...] diabetes Te sting Performed at [facility] Lab Public Health Director [facility], [address], [address], [place], [place] [address] Lab Interpretation (test Abnormal code = 37577-6) [facility] AliceGlucose [id number] 15:09:17 Test Item Value Reference Range Interpretation [...] diabetes Te sting Performed at [facility] Lab Public Health Director [facility], [address], [place], [place] [address] Lab Interpretation (test Abnormal code = 88197-5) [facility] AliceAlkaline Ixoxuejtkor3260-27-72 15:08:58 Test Item Value Reference Range Interpretation Comments Alk Phos (test code = 119 U/L 35-104 H Testin g Performed at 6768-6) [facility] Lab [facility], [address], [address], [place] [address] Lab Interpretation (test Abnormal code = 55809-7) [facility] AliceAlkaline Cwepozkyrgq1984-32-20 15:08:58 Test Item Value Reference Range Interpretation Comments Alk Phos (test code = 119 U/L 35-104 H Testin g Performed at 6768-6) [facility] Lab [facility], [address], [place] [address] Lab Interpretation (test Abnormal code = 53006-0) [facility] AliceDifferential2022-08-10 14:36:25 Test Item Value Reference Range Interpretation Comments Neutrophil % (test code 57.1 % 42.0-66.0 As p art of = 770-8) Differential performed at [facility] Lab Public Health Director [facility], [address], [place] [address] Lymphocyte % (test code 35.3 % 24.0-44.0 = 736-9) Monocyte % (test code = 6.3 % 2.0-7.0 5905-5) Eosinophil % (test code 0.7 % 1.0-4.0 L = 713-8) Basophil % (test code = 0.2 % 0.0-1.0 61271-8) IGRE % (test code = 0.4 % 0.0-0.4 IGRE % c ount includes 33007-1) Metamyelocytes, Myelocytes, and Promyelocytes. As part of Differe ntial performed at [facility] Public Health Director [facility], [address], [place] [address] Neutrophil Abs (test 6.15 K/uL 1.70-7.30 code = 751-8) Lymphocyte Abs (test 3.81 K/uL 1.00-4.80 code = 731-0) Monocyte Abs (test code 0.68 K/uL 0.08-0.70 = 742-7) Eosinophil Abs (test 0.08 K/uL 0.04-0.40 code = 711-2) Basophil Abs (test code 0.02 K/uL 0.00-0.10 = 704-7) IG Abs (test code = 0.04 K/uL 0.00-0.04 67140-7) Lab Interpretation Abnormal (test code = 83650-1) [facility] ZgppmrRhezqawyinqm0466-80-31 14:36:25 Test Item Value Reference Range Interpretation Comments Neutrophil % (test code 57.1 % 42.0-66.0 As p art of = 770-8) Differential performed at [facility], [address], [place] [address] Lymphocyte % (test code 35.3 % 24.0-44.0 = 736-9) Monocyte % (test code = 6.3 % 2.0-7.0 5905-5) Eosinophil % (test code 0.7 % 1.0-4.0 L = 713-8) Basophil % (test code = 0.2 % 0.0-1.0 81914-3) IGRE % (test code = 0.4 % 0.0-0.4 IGRE % c ount includes 90762-1) Metamyelocytes, Myelocytes, and Promyelocytes. As part of Differe ntial performed at [facility] Public Health Director Bldg, [address], [address], [place] [address] Neutrophil Abs (test 6.15 K/uL 1.70-7.30 code = 751-8) Lymphocyte Abs (test 3.81 K/uL 1.00-4.80 code = 731-0) Monocyte Abs (test code 0.68 K/uL 0.08-0.70 = 742-7) Eosinophil Abs (test 0.08 K/uL 0.04-0.40 code = 711-2) Basophil Abs (test code 0.02 K/uL 0.00-0.10 = 704-7) IG Abs (test code = 0.04 K/uL 0.00-0.04 78133-0) Lab Interpretation Abnormal (test code = 60596-5) [facility] [place].DTA9956-02-45 14:36:20 Test Item Value Reference Range Interpretation [...] individual mart noe testing perform ed at [facility] Lab Public Health Director [facility], [address], [address], [place], [place] [address] [Automated mess age] The system which ge nerated this result tra nsmitted reference range : 12.0 - 16.0 gm/dL. The reference range was not used to interpr et this result as normal/abnormal . Hct (test code = 45.4 % 37.0-47.0 As part of CBC or as an 4544-3) individual mart noe testing perform ed at [facility] Public Health Director [facility], [address], [address], [place], [place] [address] MCV (test code = [...] RDW-SD (test code = 41.7 fL 35.1-46.3 82203-0) RDW-CV (test code = 12.8 % 12.0-15.5 788-0) Platelet count (test 244 K/uL 140-440 As part of CBC or as an code = 777-3) individual sangita rodriguez testing perform ed at [facility], [address], [address], [place], [place] [address] MPV (test code = 8.9 fL 4.0-10.4 51815-1) INRBC (test code = 0.0 % <=0.0 The INRBC (instrument 88439-0) NRBC) value ref lects the enumerationof n ucleated red blood cells contained in a 200uL sampleof whole blood analyzed by the instrument. Thi s value maydiffer from the NRBC value reported in a manual differential,wh ich is based on a 100 cell differential. A s part of CBC testing per formed at [facility], [address], [place] [address] [facility] [place].XEC2091-80-79 14:36:20 Test Item Value Reference Range Interpretation [...] individual mart noe testing perform ed at [facility], [address], [address], [place], [place] [address] [Automated mess age] The system which ge nerated this result tra nsmitted reference range : 12.0 - 16.0 gm/dL. The reference range was not used to interpr et this result as normal/abnormal . Hct (test code = 45.4 % 37.0-47.0 As part of CBC or as an 4544-3) individual mart noe testing perform ed at [facility] Public Health Director [facility], [address], [address], [place] [address] MCV (test code = [...] RDW-SD (test code = 41.7 fL 35.1-46.3 87340-4) RDW-CV (test code = 12.8 % 12.0-15.5 788-0) Platelet count (test 244 K/uL 140-440 As part of CBC or as an code = 777-3) individual sangita rodriguez testing perform ed at [facility] Care [facility], [address], [address], [place], [place] [address] MPV (test code = 8.9 fL 4.0-10.4 21370-7) INRBC (test code = 0.0 % See_Comment The INRBC (instrument 99630-3) NRBC) value ref lects the enumerationof n ucleated red blood cells contained in a 200uL sampleof whole blood analyzed by the instrument. Thi s value maydiffer from the NRBC value reported in a manual differential,wh ich is based on a 100 cell differential. A s part of CBC testing per formed at [facility], [address], [place] [address] [Automate d message] The sy stem which generated this result transmit john reference range : <=0.0. The reference r sylwia was not used to int erpret this result as normal/abnormal . [facility] Biopsy Interpretation 2022-03-08 17:05:01 Test Item Value Reference Range Interpretation Comments Addendum 1 (test code = u0mwoYFxPFQsiMT1KIF 37) rQPXym4yfa8UhaTQwpC ZmBYyelUWcklLoci48f SB0fR65NP6qAZJvAdY4 RVGhvfC0Aor5VKRqVAH uuHQiP101q3uxh4jtmg UieEY0zSqbMRQyjlzpZ nA5XKlxBFEblzcqKFp5 JVvbDBEzyYY9UYCrfCW fU1BuDNIqDL5uelj9FL S6SLjyJFJlEiM6RDPzl LYiEADzfFhxTJhua554 AOJ1VnBgBNDnknCszQn 6Q4yleL08L8nhXEJgRS AlAQtoKFAnCnAmAG7ux O7giCjjaR9psMFoyVLa bCBzdGFpbmluZyBpcyB kIAKoz0QsIYDbzN0qe5 VyIGxhYiBvbiBhIHJlc NWgi0TwbNZ0cOTgSAFn cmFmZmluLWVtYmVkZGV fSDBcU7Izg61kACGutd gugAL7UMmkvX5kQNfrY 9YlY4wjRT1qKHelB32h t3rzCrm+LHYYO1YBGTR JFYASAY8QPQIcQF0bW9 gAIAzzSUXpEclnD7w7T R9rpcOgZLWwdwxoMMOz nNVyF3UaNOWtX5QrsF3 yXHBhclxiMFxpXGZzMT BxMM01gLQmIXsaV1znb hQ2ZYNTAHJnSCdwhXQw GUihLFWrOB9bjNXxfdR gMTEgLSAxMDAlIExvdy UDl0XayBm1NJRfBYIeH UsqZQIbeHl0VaRjaUrq ONz9VTjqARUaRzFsARH 1rg7yWZ0hGhGzPNZ1c1 QkLyHqdQi0bzchHX2sb XRpdmVccGFyIEVzdHJv G4GqVYCrW1SlbA7jGMO fiuDssoBdA9KzlW1fky t3SE98UIJoaKFqBKAuc POdA3HyNYCyC6NznS8d BMU8GWsaoO6nXHxblDF fo1w7bYzsU6Clx82xGE YhijzcnGX7VTdzdG2uV DqpJnCYlc1kNCH0LKMy jiThMaJwPBU7x0CblOR yXGIwXGlcZnMxNiBBbn SjFe1miKBhhE1kNOfiN TYgKExlaWNhKVxwYXIg QJ6tqWFuckMbEMEgFZF mDWOiZOblkbJAg9UqpA l0FBVuXVIjAVlvWHBfb Do2FoYmzXtfGVq2VHnx MLFrUsIsGNHlJ8DdgJY jf77tHTVoM0SbvB6tZO Fvs9TahPB9UFSwj9c7k AFlCJLfnmMOwl1jHFL8 BTNesqLcBiThDZT9m9S cNXRzG9YhpQBBdVLhpm luZzogMjAlXHBhciBQc y1qXDI7WSVhlaSkQyTw VJT8h7HbU8GjjD3yjds gEE98EW3otSE9RzZVeE ZjqfpnqRSlPZdeLvx5G UiojqK5QNuhATVtp2Iq r7PvHDTmijfkfWY2Ohl haL54PwRse9GsVMHaOz UxlXzvpsW4IQAwLYKjm JEizUGcxJ0tcrAexMFc ANQec2MoRDY0MCUwdA5 jxwwhlWFbP67fu5EbWi NsZYXsGKIqT3SinvKgt VAfi8JjsdMwbbTnOpd5 DWUmbM4iXf3xpZEfeB3 kSm1gLQG8WMndZTV8ZG CcxM56ynAcIG9hRLpkm mVyYWxseSBsZXNzIHRo QP6iWWmkpD09mbUgDOW 8hPSwl5KjWIlchyRprW hhdGlvbiBleGNlZWRzI UO9IRwpzBZjRK1uGJfo eNlgWIhiMZOeCTC1YJV qUU8byr5tySUmEDejSX ZsRCGdkLDqqO7dcuDpE XMgYmVlbiBmaXhlZCBm v3ScfO6yP1JzEDKtWN8 jKoIstU23kxXqEZIspw VnYXRpdmUgSGVyIDIga V1etB1yqTituO3qfTKm aWNhbCAoSUhDKSByZXN 0qLTzjXR8PMBhLA9bIC ZgY9PwnBrmumZyuhBqB Q40IJZsZxYwf2EqbgZf YXRpdmUsIGFsdGhvdWd pPYZ6hCMzDNUsbLR5EL CpwG73qmS6lDI8LRHqR WCqeBTrkuQmQJ5iHdQc Thb2EQIwPd0qZNMcKWt cmbpeHYDvUjC0IKTtzy B7mDDhl0P6NXHuRyBlh BdvGeBUKOBax6PdlM7t wzgbnoTevJd7ks2rPKj pghZrx0EpJJSjXM8vF0 Y6mWAfXBGup4GjtEUou O08eGUwGkPuwdSjkOPa JSIqWuanEEGptPYuy98 puQJ3PPK1zdHbniCxwM Macl4lbEl9FSAtMS0og GVzIGlmIGFwcHJvcHJp MRKfVeLKDTEsbhPfM8J gQXJiZXIgZXQgYWwuIE RelUbeKJwzgBDdq1bwe 3GaX3fpfU6mIR0gJZ9n ewCeOrSvUBucIUP0SJZ 9Hn2zVMLjFYGuejJEMr L5oXFib2AlH3fhWH9yk 3ZuBR2kuLIuuvk0pAEz gTjsaZRlS6Awe0YcWHK 3NV4UJKVaDXObw62rIF CtjlEhUE2yoDw1kLVse APjnSsffXmyqtP0jZ2m bxOeKLpzXrQmZk14woX owL8lhKajKUWdS98guV RatOjlCrFrTDCyh7nsW 7ozdtSkz7R7OnlwWEXc XUedq7KbROMiIKgoCOx skiDvfw83FUZpAM6zdl HskDXgaYKvTV5kTZXvC 1XuU1vztUWnRLQff8S8 IFLyKN2sRgJdeOt6bfM leZ23xHJzMkKucE37ZI AjomG7VASqw2q6aYLpV RN1gZ0dSMdfrnAsORBb HUQzbNbkfMqfm30iEC7 wIYTydFFqCR2kJ6T4qX TlaLiwz01nPRSmBKizm HUoTKMfd7SkX0roKE0l LlxwYXJccGFyZFxpMFx mczIwXHBhcn0= Submitted Clinical History a3ogrJQyAADsh8ynJHU (test code = 23520) mbGFuZzEwMzNcZnRuYm pcdWMxIHtccnRmMVxzc 7LvW3OiJnBwLWppakGm XGRlZmxhbmcxMDMzXGZ 0bmJqXHVjMVxkZWZmMH bvKt0xdHAtfMheVgDfH ZAdr1nkieKPydtutUe9 b6jtABBuDcY8fRMuAKu lQ7uqgbSegAOaZOInHK d2kJ95FMBuyN1caSJpI OizqjMaAcU6DXihYERm CjE2TVMcgCRwNTIrF7n yZWQwXGdyZWVuMFxibH RcTCQ7hTcwx7M2sXOle GVldHtcZjBcZnMyMiBO q6KvAPg1zMfnT5MaBKT zIbX1vYBsKFYdIHvjXH WsLIFnuyU6eK48AWxsd qF0rKBqt3Doc35rc824 dN8uuOKtCNC6KBCjDNG jwFSgGUClLJM9UXUchW LnP7miGBLiDU0onargX ReeIHpcNHRiwHJ6FRTv aWAcM5NdYJSbKCpdBMI ynjp2UyUuYd2knBSqzH xvBUqnt4ocb6ceeLKrP yh5QHCgGnGhGofkRTod w0Abs6ulGKDdxp2kUEO 7lGWaxPaqa5E8wEJfYT PaoZHnwiIeSOJfMuT8K ZbeXA1fmb02CJXjSXF6 ji9reWHbxBzhhqQbaBI gFCoyB3QrIEUhd293TU VwD8IaJICtv3C5ouNbA gRoYFOzyEN1eqP8UWYa ZTc5qPHwkuV4ieOfuIB oB9amdJ1bBRLxWC9yvs ckr2jcZEisNVosOZHox UX7jsL6JGVwwOTwR4Kp tU0nUHPcRUxxVOCttom 6EgDxNy6nzVMuvYfiBQ xzYmtwYWdlXHBnbmNvb nRccGduZGVjXHBsYWlu XHBsYWluXGYwXGZzMjR jzRbdzVvrzJ9jWzIuWn DoTMjxVZ0pDLTuO8fkm SCsORSaTMCaB8iwDwCf lZ5goPwgMCmgpcNnPI4 geQ4zO4BxdIm4NUQxpf 2apCRyXKpKEHKzPP5cc VblbU9mUrEyJjPiWwxz HL3hWYSzT2khcXSwOGN wLGKvU5tqPlZuqD1ysN dqBVmomaQiPFQcru48 Diagnosis (test code = 34) n0ybkKJiIMVfmUN4QSX bLMPej3xlp8UduQOlwY TmCOeyrWVcfsHsfa60i GI8uZ06TN8ySKHjHjY1 JWAzqbB3Aoo4CDFvHMR goLWnX448b3hls7dtzr MnvVV9eWneFPPrmxwnW vM7AWzjXKQipaojSKy8 XFjfKMMjrZR5ZOZhmHW hD3QyDPWnEJ3rmkz4SI X7XWkuOERsGxM9ZPGso DEuSMPebSpzPElfb251 TBI8TfVzIQNraaLkuRu hnP5cUqRwROOWSxYeGU ZspLYjivBnw2EfPSWxg BYhIubnLASki89tIAH4 RRB4AHZqCMDsU16jFfA kaIFngMLkpOXsTVF0PW Bcq0RnQ7SuTuVfd7VrJ OJqy7JeiWbpaPWpJONN A6VKSCKRVJGBBI4HVTK oKF2fC6qBCJEwQNYFDw ksIElOVEVSTUVESUFUR RXMHlNBUDcgR28YNABp VFlQRSBXSVRIIENFTlR ILYbuHvUHRv5EDYLiMY 4NZX8ZY8KBK4KFW9lVG UNBVElPTlMuXGxpbmVc cGFyfQ== Comment (test code = 9835) z3huoKUbRXBxlTY9YTB hGTFca7jge5YzyQRwiJ EiCOinpHXfjaGbak51f ZP8hM13FQ7nQUDvXtS8 SWRkyqM7Rus7IDQdLIB bfRHfP578n5eqx6jdfw TtzFJ1vDthUWBnqwllT iK7KVbdMQJfzjuiNOr6 AYqaCDVxnCS5MXPlyXC sK8GmNXIqBV8tqwn0UK L7PKmuZJQoXjQ9XACtg ZHzJAFtfMepQDgxb390 YER1FbLqFVQmdrTicDk roO3cMvOgLWGDyROqrH GnN9KkhPFfu6C2zaStS eMPH2eAEG0jUYW5yoYg IGFwcHJveGltYXRlbHk yUzDlqZQuuhU4dQtxAO XqqaPmUufgyAM0TcXbB FUvb0DlbCAeo5QnDAT8 lWOlMTTpd3dsvUTbVXX rUXMmi2MbZGGmYXLnab 0= Gross Description (test k8iynEZvEUPnaPHHSBy code = [id number]) wMVxhbnNpXHNwbHRwZ3 PpoxyiVKwtZI3zXD4zj LpdnUYzgMUrCR3IZDHw ZmYxXHBhcGVydzEyMjQ dBNQzqSAzdJW8ERTtQY 1hcmdsMTgwMFxtYXJnc kO9RPWqnXOqF4VwUEOu PT1wbijiJFY8OGbrzO6 afoIGOpioVl6soEDngY tcZjFcZmNoYXJzZXQwX FPgvCwqMNXbDDd0fL3N FuqcQ39mo9U4Jua7OJT aIZNyU1WfRR3yIHLdcZ XgF15ARqwfOZL4MFUEA ktpYRBnGO5Ra6edNLRq bGCuVAG3NJtjwQVnBZM dGGJmRNn5TQZqHEfmjU WxCU3xiQirOqqfeVovt 2VjdCBcXGlkIDUxMDAy SRqgPLJzAE3JVkQcMUE rGIbcWrclXBz0NKy4WD 9WUyAiICAgNTEwNTIxN zVbUEv0XXhbEO2IAEXk NjIyOTkxNjggNTUyNjE bVWi6ODJwHKrvVMDmfH FsIFxcZnMgMTAgXFxmY hVfMRSbPDojzuM0CKYm YWluXGJcZnMyMCBBOlx eJFKoZFcqhRpvpO0wKJ IaS77cl7YSz0GiWC8KZ Tz4vkRzdkhfuU9pXNEk mmFgFYqmjSGuK8fbTgi jZjFcZnMyMCBCcmVhc3 QsIGxlZnQsIGxlZnQgY yBfWIQ5IOQ7YN0zY1ot V1hcPYHoslt0WDLgUMF sKPNgWDzvQaWnJ3ErVF Z8CZgevRtolg07OI1zQ hjjki0wLQR0oBVgs7Hk opVbWmV8yLBikILpYYJ hbmdpbmcgZnJvbSAxLj RlHt0vJJHoHWqkTIswh jw2qMJ7CXXeIkZdwGHe biBkaWFtZXRlcikuICA 5RO1rPPYuPBTbk6Ytzv MsuaDyebDaHFi7LKCnl C2kQEKcrP8hJZWdb7Dt oYLuKkJClZXbG44vMQL kFRAwDGU9Eb4lyFUbBO ZprgZsscLscS4opWstZ DMzfLpxEINCMKHHOC7K KXQYAAD1DDRsPEBnMUU ujeVdLLVqz84mcEuqKU HwzgxfV7Afe9P8uOB8Y EEyLUEzLCBlYWNoIGNh b8BfmALlWZDsQ29oYKI eKeVjxZH7hUZcrEabjd DwBOZiKBO3MHzwHDSiV E0qNOTps3IaEwKtGkhJ HQqvNCOpW59sb1NAi8L uAAOzn8zizLupd8OkqZ VuZFxwYXJccGFyZFxzb M6lBiYau9mfrHy5EYny zyG3OYCuor5zjRgbaF1 pMPrgj3bcYZM0DNGkpT MjjGCwDOnruQhmvK0hG vNqIwk3VDtiRYShB0Rb V6SclvV3UXHkIOkbUFS zMTYgDQp9 Biomarker Block(s) (test b1srzKCwRRUsaOS5XPK code = 9841) pSDYzz5waw0IhkJXumR EqLStusZIabkGmvw28v NC7uO97QK7mGCTxQzE7 DBTzexC6Jfx7RGUeFYT egOJgM109e8bqt0yfld OpvNK6hQubAFLzcrwkY fS6ZXkdRLJkbdyjPHg5 RAnmHKNclNN1DRHhlJZ aE3KiCHUxPV3dgmz8GR Q9RWyfRNRaRkV5LGDoq EGwVUIifWhtIZpya920 OOD1PfJnKRFbpjYtbIl jnG0qDhPjXDVTZXgoDB J9 Disclaimer (test code = w6souKDfTFEkmWLoEgZ 9844) vICHpICAei5gmQPKnsN FuZzEwMzNcZnRuYmpcd ULcYLMeIuOzp5onz627 yOPri3xgUNEoZjV5mZS zGGXxzXFaR891ZJZnDH lku3rvo0EeYBDhnWSsc 3B1CABLkmsljPv6fEjl E11qs1O5GbhsJ6xxXSL qFCKfJ4YkAA4dXRFlCf z0WDY7VVZ3QITeLLCuB 7UvDD1pMEVelKFyMCn2 w0puvKqcMNHlOQT2h9b iYMszfhFhZG4diu9ikG p6h6wvixHsJTXrEOKcj IBMZGOgR2XruIjwSo4a bTc2lBrsYygeAAF8Xco 7UF7zos77xnl6jBcyGQ PulpjyUyI3HDtuYXPzz imiTGp5EPhtDPUknKG7 VLBwwSRyS9NdFADpUE4 onnf3FJK4XNjoOGChWp M4CIXuvAQwGTVlkTttQ Ryel285WPI0ZjEhET3c A3Nre1Q8fG7yyEIsSNC mvXEjHxBgAWBvqq0vcN JlUGsvg6AkNQT5mkU4g HVktXAdEVQlMG50Kkql l0HvHlbsRYC4MLGajfB mv9Lfr5sqNpXkbcDlM5 zwQ3AzBGNxQHZzIASgR dMyabKzf2Wev6UztBRv qIp9g8jzLPUpLBLbjBj dw5brCHQ6XVGuV6I9wM Vgo3fbMKtgVTCslBR1y mS9DBLqrVPwZ6ZvfE2v JWFkFW5aowx8d2kkSJJ 9HUthHTDtMyF1tuT6YT BcaGVhZGVyeTcyMFxmb 090DZU3LrVtFGNno2Qx S4IzwNmmT92cfPxxR55 pTKTncFocgF3clIonuX 5cZjBcZnMyNFxxbFxwb CRjakvsSYdtqeL8WTgq gjrrBDLeCUbtO1joVoT eVGPjdNgmDNkzi8WwKP CiWFEvRmqtlfA4ECHBj 13uJVRgk9JbAAOmcM7x oZNbLAftycJfaSI3BKl hdmUgYmVlbiBkZXZlbG 5bOACqTE8iAFNrfnRny n4uosLdMLAyIAKvN9Lm cmlzdGljcyBkZXRlcm1 gsyCfNFB4JJSUZS4BUU QbYEUoh61gSKXvqPjdh F6ucKJjxcErEWJkw8Jb gL0eaKXKONMyV4qwTY0 nTZccd6UukSXywMFrzU E2VSSov7FiNdSetuRrz AAmqHBiA9SfxPftI0iv DMRfVMLsilWbfWKjc2V zJJVucOB4qPCyCR2PAq FUn88qTLIrYLHFzcOcR NCskDxjfVT7qzC3uO7u LiBJZiBhcHBsaWNhYmx jWPKyr623vg5aonN3DO AwTKSszdnur9FqSGWoT LHshZ36UDHcQZPyzz9d lsiosEIdcpGtD0Haplw 9hK5cJNRsTNxrJWYiDQ ZzMjJcbGFuZzEwMzNca GljaFxmMVxkYmNoXGYx CBhvQ4uuBbXwIgRbHds wYXJ9 [facility] Interpretation 2022-03-08 17:05:01 Test Item Value Reference Range Interpretation Comments Addendum 1 (test code = [id number] 37) yYMYfc2cfk6PqxSSvlY LnHXmzeWLxtgBihl87w EC6qJ79CK0fJZZvTlV1 JQFykvE7Lmg4SCMwPQI ezDFhP607f0xcm1ofru BydSU3zWerXGLyiyjvY rN0NNbpDJWpwhxyJLr1 HXhhVWKxdAU8CUIluJL zD0ScVXSjQJ1pcgp9KA C4XKtjAGJsHiW9KWNwo PSvOXNwpBamUTmrl228 EUA5LoIqILHyenGvgVl 5D2qfjH44X0zbUUQeYO MjNVbmBUHwOfTxUZ7mc N6vhWlcnK6fmLSwoHHc bCBzdGFpbmluZyBpcyB lVXMfp0CrCLJitD7ru9 VyIGxhYiBvbiBhIHJlc GQfz4HhyJM3nZExHKBl cmFmZmluLWVtYmVkZGV uATRyI7Kds34uPGByhk bvvYS1YEpaiW7cLSexT 7UjV1rkCW2jULylE69a e1aiQwv+FJZYX2WSSAQ UAXXJJZ8COQRwJK0vN0 mHGUpiMYJxDgiuZ9s8S D2smdLqQEKwbxxnBCXd pXCnQ2JjSFWiS5QmrK3 yXHBhclxiMFxpXGZzMT YkWN08lRYvLNzlC2gda wN6TPNARODqIGnkiDMi DPgaWGLsVD1glERplzJ gMTEgLSAxMDAlIExvdy RXh0AynXc2WSAdIUGwX JpsLIWvmQv3QrEsoUwh FRe2NRngNEZcChIiENK 2cl6rTX4kDkRwYPL7z2 RbHtRcgUe5wdxmLS3xu XRpdmVccGFyIEVzdHJv L2HsENHqQ4DehL2mBUZ zyfCbjaGmG0JtcK9hbb d1JP64MFViuRFfFRHhj MItF6OeFMJqC4DozE6n JVN3YIrvqM6vKTqzcKS dn5r1bMzeU3Opd66qTJ BymbxjaRQ4KHwkzQ9mF BttWvOArp4bTFG7NSFd jnByNrRdJGM3u8EzeAY yXGIwXGlcZnMxNiBBbn IjXv7dfRRezG0cUDbpG TYgKExlaWNhKVxwYXIg EW8qwSLaqjEaAKUbHDG tPCTzFOppxcMVe3DorB b5PCReDOZnPFyrQKXaw Db9MvCdrLnrVMb6IAjf OKMcLdUqTRKyG3HwgVZ lw56aHYWhW1SmhD3oJX Wko2ZnxCS8OLThr0y3r SMcBITyjzHMld3qKFS5 QHRmkyZrPbNpSSN3q1U fVVXfK7BamYDVaWYvzn luZzogMjAlXHBhciBQc j3qTBJ2DYLwqlIoStSg LKU2d8WhE5TywP5gbtr vAH02JG3bgDS0BvHHnD JriwojsKKcHHchAaz5L GkyyoA6EExrSUBli2Ls t3JrNJNihlnjrVA9Tbg xmJ87OvBad5MlXRSsAi YlyTpvteD4UVBkYHEpc UMipSElnP6kzeRokBOe DQDyq4LdQAH6RPNucZ4 mcipiuJSeC70uu2GwYh GtXAYmLQRsD1JdjvFur KGxj0OofvSexzNgYfs4 ELIsfP0wLu9qhIJswS2 gZr0oWKT9OKqiUMT7VQ VnzD68wiAmAU4qJTjyu mVyYWxseSBsZXNzIHRo YE1vSNpomH42jsNdDPV 2bTGyb9RbREfirjLmcW hhdGlvbiBleGNlZWRzI BQ4HRjcyYZyND0jLBcp lJzzGIzzXRLvGWM3CHD wGA5qwy7dgCNoBWseWU GuVDKkaVQywA2ewcHfP XMgYmVlbiBmaXhlZCBm p0IzbO5oV3QvHVZwYH3 eAeSnjN56gxJwQZGiqp VnYXRpdmUgSGVyIDIga F0ymH5bmBubtO2ssKDw aWNhbCAoSUhDKSByZXN 1gGCqoVR0TFRfGN6bFC FoR1FjxUcazlDxmyIuX Y75HJHxVcDwa6ZiywUw YXRpdmUsIGFsdGhvdWd tMRF2wFKaADWjsPM4LW BewF21xhO4tQE8SNGoW COexMGxwqXdJK7yDeWq Wkq1VZPnNv0nSHMhZOq frdeaHTWgPsC3FTLuvb R2tJZou6E6UAFoCyWwd YymOeFAETQms7GyqB5d enrxfbVemFk9oj2rULn uhgNhx5XoVLAgRX2gM6 A8pYVxITPrl6VsdVFjp O56cUNyGsFkxtXieFEy DIUdYhahMDKyhSOjk21 noXA6SXA4yiFznrAvjZ Pkou8tiDa3YSHqKI0ox GVzIGlmIGFwcHJvcHJp PCQsKpLVKUGyhnKdL9U gQXJiZXIgZXQgYWwuIE YazAaaPKixnRKaf4wds 9SxZ1vngR3bJI3rFF0h xmChZpFlNHrpVOF9DDV 3Eg4sMIDbMXXowwMKTc Y9gVKre1RbM9gcDW5fl 6RhFX0wzYZfbuu1bLMc oMidzVYwB3Sol3XkYTB 6DZ0ZMXAdCXYwk99lQN VcbmBlJA9acHj3mGZon XJsqWoiuFdrbsC2aR3u nhJkFKfpUlWeVp71frY rjQ3evQtpSOFfX71ahQ PcmCjlSgHzREIca1lgP 6ivtxGrb8T0TnqkVKOc NKnpq7DxFIPjAUhqDJs xiyOxlu11QJBxVF5wps PwbHAqmCIyYD4oCTHxQ 7GjC4geoPWpYTDzv3G2 RKWiLZ4oLhSlcIe2vuW elA73fJBqArRyoR12WQ TypuG2ANKvo0u3fUXuO EB1dH4hIJyoqfVsWPUp PIRahWxkpFjeo86pBX3 zBJGwgVCuBQ1qS0H2fE GftEcqc66kWKGlCPgus LOcFTGmk1FuY8lbGC2u LlxwYXJccGFyZFxpMFx mczIwXHBhcn0= Submitted Clinical History i2pkiBRkDNGot0lhDAG (test code = 55581) mbGFuZzEwMzNcZnRuYm pcdWMxIHtccnRmMVxzc 4SwS6FhPuGfCGktexZc XGRlZmxhbmcxMDMzXGZ 0bmJqXHVjMVxkZWZmMH rmYs5loVOvdLyoIxMjZ OYwj2cqvgFAswvimSv3 y9iqRHZeRvA1jQJpXQc lM5fuwtTxaADbTFKzEU u2oR61SESwvL5goZCxI VsvppCaYgZ2FTtyIBRt ExX1NJUpnNVcNENsP5f yZWQwXGdyZWVuMFxibH TlXCW3vFtok2K2yTWej GVldHtcZjBcZnMyMiBO v8ViSRy5rLxbD7KmXAB iOiH2lYOfRSUiDBpbDQ ImSGPfpxB1jZ44PYgki lD8fTDfh8Mhq90nw257 oO7jkOKbYAS6ERUsYDX jpWFxVEXbIBI3SOUdsB ApN9srULUvEO9gojqmP JyaWCsaPCDioQK6YRSg oEElG4YnCLDzJEowOMV efcp8NrNjEq2ydJVgiA plGFfzb7ywf7ejvKBaC re1NIZkCoHcWxanIZzv n0Lvj9uaDJAwbb8iTRO 2hAQedWcfn1D7xLRePD TtcVJqlxNmTSHwNbQ5W YhyRW3acx85TQMkRUD7 wl1pyWYviHgxwnAebNE jKOxgI8UrEHSid932GC EtE6EvAGZsj2M2neGhG rFjCGUwtFV1meF0NUSx UZm1pWGimlL5jaHuvZX cC7xzyQ7zTVTvPV8pyq sqa3vbRBypMZmzCEGuv GU3pqO5AEDbkXRlS8Nx lP0zSRRaLQieCOOfmei 7BzTnVe8ndQXieGrhHK xzYmtwYWdlXHBnbmNvb nRccGduZGVjXHBsYWlu XHBsYWluXGYwXGZzMjR bvVxhfErysE5eCyCfKy UhCLikQB1rMXJrR3gxx JKhXBIzNBYoY5sdEdPl kD9esSwsBJaltsZuZW6 nyT0dP9JqsPe6RDFwiz 1vlCAoVEiRTQUgKW7qg XzzdH8mFfHoDyNbCxcj UN9sGQOaU0xrfUHlPUK tMNCxB0ksQwRijX7aoL rhPLflnqEuWBOhyx92 Diagnosis (test code = 34) t1azpVGkLHZurGF7VGW cZDSsk6jbr4MfoSLbwM EqBZjruPKcznYmre56f HY7eU48TE2rSOQnQxD2 RBBsawA5Yhm3OCDoBFL zlYYmE246t0evm9fkji CatAR5iEbhKBLpfsaxF qQ7OMgqDYFojtdcSLx1 SJzzLLSflWF7GFDxdLY jQ9GyMTKzHQ8ymov4BE B6GZvmWXVhWlP8JROuq HFpBDDacAylUWwpu583 NYG0FmQsDKZqegAvhGz hqW9eLyFsFVPWRmApFB KagPXqomPyx6QzALUoo IIfLmlpTUVfa43vJLF7 LMR2LLVaFXLpA42jApS ocABmxYFxmELkKIH2EX Fym8SiF3RxIfNqz7NkQ APro6HnqBrogOUyOTTL X7DNANSMRTFXBT8PKPK pXP4gO1jTRKGfHOBVGm ksIElOVEVSTUVESUFUR YNWCcNJEZukX67TXVRt VFlQRSBXSVRIIENFTlR EYYogDzWHKl7NFFJxBC 8YRH5LF2KET8BXC4aLT UNBVElPTlMuXGxpbmVc cGFyfQ== Comment (test code = 9835) n3edfZIgXQNvgPH1MFK iSXXic9fbr0HisQNrgE HzLLfsnJZcfjJmse07a JV3bJ21JK5gGAWxRfW0 GLZaknA9Kdv9WWIoTES htCMpN914v1seo4sfrd VwlZK7sLasDWEbesbvH kC9FFxoSMAbfftvLSg4 MTrtHKPvtMU1ETGtqOS iV2NzQXUrAY5sgjf4EH U3AOziFUUhBuQ4ZPXuv QQpXPTjmDxsPMami174 MSO4KnMsTDLggpDjuCh qrL8fRwSvJPTPmIJoyS RnT3KjpVIct6R0ctWcP bXTQ8tJQB1aWUY3yvTr IGFwcHJveGltYXRlbHk fAyPmsNGurbF8lZdrTD SlbbBzTwvunLL6XwUnR FLfs5JzpKFwl2LkVEU9 cWCdFAGcw5oebORbNMZ gLIDta5NdZRBvTTJqxk 0= Gross Description (test n3spkEXbENAmbVWXVOz code = [id number]) wMVxhbnNpXHNwbHRwZ3 WmxsseNRogCH4fUC5te AtvmFWdbLFoXS4ZZACg ZmYxXHBhcGVydzEyMjQ gWZOxzQHglMC8UCPuKO 1hcmdsMTgwMFxtYXJnc qU9ROTqtSJjQ5JtUKTd IZ7tpvzqLDW8LGyvfF9 mvtAYVhohZa0vsAQgeA tcZjFcZmNoYXJzZXQwX PJalKhjNKDtMDt7pX8Y OuejF43mj5Z4Jtn8LKJ oWUApK2TbKR9xMWHypF VdI10GQraeKYW6PUJOL mcaCHLbDZ1Jx4jaXIMu nBKiFIT1UPfdcJGiZBM mBFLzXAm6NDEoFJarsW WcPY4xtLnnLwzsdHbwv 2VjdCBcXGlkIDUxMDAy KOnwPZQvMA1OEqZfKCC dNGnpNtwjDLw2DBv1TA 9WUyAiICAgNTEwNTIxN iOeLNf5YLazSG6WSCUk NjIyOTkxNjggNTUyNjE tYCm2YXVsBDttQGEttT FsIFxcZnMgMTAgXFxmY qAeDMJjZXfpkwQ0YIUc YWluXGJcZnMyMCBBOlx sAAZhPDvyvPfimI0bCJ CnQ11yk0GFt6FzKJ9MJ Eg1dtBanqlsjH5lCERx phPqVLiuuEPxX0dsMfv jZjFcZnMyMCBCcmVhc3 QsIGxlZnQsIGxlZnQgY fCqUBL8MRB4CH5pN8qp Z5ybZTWmaay4XABvRYS vEADeZYtjVkItR9GxER C8XMrxtHmcqo52TK0oK qdvek5dSVW5nWEbi8Is ecBrXgF7hULgjTUsBCD hbmdpbmcgZnJvbSAxLj VgVi8tJTUqMWzvUObgo nh6fWL5FIRkCjOwfJZi biBkaWFtZXRlcikuICA 5JB1kOGTiECFsh1Ekth IgffTidhUeANl7DKLuw L6zYIIhrF4gDVBsm7Ou xHNjAtOFgWZnM21fHZL zPTNaUHX0Uc5hqWTwGN WxycIftlLquT1bzOdxE PFntOtaZUNMDWGJPA6O HJCBDJQ6VHLpDLXfFYI hcqZkVPNel65adNoiUO JfidwaY0Fqh5S7bFJ1B EEyLUEzLCBlYWNoIGNh b2GebVRwBOIeI06wTQD zFzOcvVL1iDUkfFycsw QoXWEcRXP4KOncDSPcB L5cUDUtu0XiZiNgVvfC JWajTGUuG68mq8RKw1Z hBENkz9hknZaaf4KavQ VuZFxwYXJccGFyZFxzb I4jFeYjk9rveAv5GLec rwR0HDLjrw9klYdsqQ8 oFJhfz5cgSPH5YBKxtE NdgNVgQXgnpQrggU0aP wCpCff4VFlzCBHvO8No L0DfpyP4UKOeNAxtSMU zMTYgDQp9 Biomarker Block(s) (test c0hdlIRrFSWyqIW2VNS code = 9841) vGSGte5avx3PqnEDnhU EfDFdmlEFwjxOhsc48t NL6eN47QL9zMALpHrU8 EICwjaT5Jls4ARQpDMH plHNlR267h2ori1bqtw MyoVZ8vEpqKHDgbxhwR yB7CAvrQCImohzzDDl4 DXlpPPRapCQ9RJIujMT tH2CySVBzPT7tvid1AY M1DSniVMYnRiU9UUUwl HAaYHVwyMtgRCbta492 TFB0SwKiCBGubbAsmRx buB2aUuVcZPGENHmuCF J9 Disclaimer (test code = c7sjrITiQNHuhUUkZcG 9844) aWERrWELnb4jiADFrdS FuZzEwMzNcZnRuYmpcd ZYpUXBrZhZwk0qmo049 tYChn0isSRQbWeQ8vXR oTSJjtEJmK725IYChYL jsh5maf9YpIIRdqRLkq 3O9EGDTfzykkFi9fPbq K63nn7R9LjvbN8osAUI dYYKaM6JkTF6rRMOxZe u7ZIP8QZE1VIMpIJByR 4OrKS5mDHDstAEnJZs5 x9xpoMqsZOHcBZA8j5c iKDlgpxMpHS3pei6vpZ d2e5lfoyQuJIJiDHYys MZBRGZnO7GqhXmnAj0p fFo5mGmoEhyrMYM6Dwy 1ZA2zcs80wrr7qEtxOF KbthqqIdW4GIzwTYUfp xboRTl8TIgwKYUflHG5 JBEcrKIdR1BtGJEgAE8 hhyi2TXL3YTtmXHKzFr P2CPQlgZAgPPPctLjlX Silq259XOE1OeXtEB7l H8Lcm1E7jP7wtDSaFEE kyTAjNqMhCMGrip8pmX QbIGffl1EdDJA4diD5b QMbsBHbZTHcLN84Isro w4ClWlpoAGM9YNIsdoG ev0Ulg8loLkVfwaBuP4 wbN2QlWGAkGTGfGCFiS tFpjdPwk2Hsx1AhlDCk sEp7z3giUMVrVNNcqXy ei9hbCRX0PCZtQ8V4fN Aqy1zoIAgkTIVscPQ9f tL1SYCeeRPpD8LjtM4u YCYuKY9kehe4t1omVKV 1GWqbPLElZiB4gtO8CF BcaGVhZGVyeTcyMFxmb 717UZR3TxCbHWIvb4Lx Q4AhpQagS96zlYugV82 kBTWshSayhA5kyTggxB 5cZjBcZnMyNFxxbFxwb GCakaeaOKwvfsQ7UAgh mazyXFMbJAzlM3kiTcR fFXPfjYmwLQwpb0DrUG NaUADtVlgkguN7QGUId 40uDXIpk5OyVHQroW0q gMVbSSdidoNbjCF0RYm hdmUgYmVlbiBkZXZlbG 2iKVMeJB1tWMLkchHqw e5fyxAqHNOcPGUaS9Rp cmlzdGljcyBkZXRlcm1 imcZrWJM8KQDYRP9VUA SbKIZdh45xQJOqjEymk S1jjFCdgbFqKMKjm7Xf oX3mkWTVQBCcT8giEA3 jYNouz5BcbWJuzOJqmU R8OGIau1CbCuFrprXke LZebEGrY4BjxEvrH3la ZRDhRYSvonJasMRer6E tIUXsdOJ7gBCkFI7VIy JJa17zETMqRELMscMyW ZCbuVwnhBY4szK5nF0t LiBJZiBhcHBsaWNhYmx gYKCrd838dz4ktfB3ML MoHTNvnibwo5FcXYZwJ XOezG79XUVtSECkpg8y tbwytIDvbhRbM7Ygejm 6rW0qNGWlHPsiLOUfYM ZzMjJcbGFuZzEwMzNca GljaFxmMVxkYmNoXGYx SAweM7bgGvFnClRuJzd wYXJ9 [facility] [id number] 19:20:33 Test Item Value Reference Range Interpretation Comments Radiology Study observation (narrative) (test code = 30697-4) IMP (test code = IMP) Calcifications in [...] Abnormality Lab Interpretation Abnormal (test code = 80430-0) [facility] [id number] 19:20:33 Test Item Value Reference Range Interpretation Comments Radiology Study observation (narrative) (test code = 07882-9) IMP (test code = IMP) Calcifications in [...] Abnormality Lab Interpretation Abnormal (test code = 22936-9) [facility]
[2022-11-15] MEDS ORDERED: NA CHLORIDE 0.9% 1,000 ML ONE (15:29)
[2022-11-15] MEDS ORDERED: ONDANSETRON 4 MG/2 ML VIAL ONE (15:29)
[2022-11-15] MEDS ORDERED: FENTANYL CITR 100 MCG/2 ML ONE (15:29)
[2022-11-15 15:47] LABS: Absolute Lymphocytes (CBC) 2.3 K/uL (0.7-4.9); Hematocrit 40.7 % (36.0-45.0); Lymphocytes % 26.3 % (15.3-44.8); MCV 84.7 fL (80-100); RBC Red Blood Cell Count 4.81 M/uL (3.86-4.86)
[2022-11-15 15:50] LABS: Protime INR 0.96
[2022-11-15 16:05] LABS: Albumin 3.6 g/dL (3.4-5.0); Bilirubin Direct 0.1 mg/dL (0-0.2); Bilirubin Total 0.4 mg/dL (0.2-1.0); Magnesium 2.2 mg/dL (1.6-2.4); Potassium 4.1 mmol/L (3.5-5.1); Protein, Total 7.5 g/dL (6.4-8.2); Troponin High Sensitivity 4.7 pg/mL (<58.9)
--- NOTE | 2022-11-15 16:28 | RAD REPORT ---
EXAM DESCRIPTION: Marjt Single View11/15/2022 3:53 pm CLINICAL HISTORY: COUGH COMPARISON: Chest Single View dated 06/05/2022; Chest Pa And Lat (2 Views) dated 04/18/2018 TECHNIQUE: Portable AP view of the chest. FINDINGS: The lungs are clear.Mild left basilar atelectasis, improved since the prior exam. No pneum othorax or effusion. The cardiomediastinal contours are unremarkable. IMPRESSION: No acute cardiopulmonary process.
--- NOTE | 2022-11-15 16:53 | RAD REPORT ---
EXAM DESCRIPTION: MRI - C Spine Wo Cont - 11/15/2022 4:12 pm CLINICAL HISTORY: Right arm pain/numbness COMPARISON: None. TECHNIQUE: Multiplanar multisequence MRI of the cervical spine performed without IV contrast. FINDINGS: Straightening of normal cervical lordosis. Minimal degrees of spondylolisthesis, due to en dplate and facet remodeling, most notably at C5-6, without significant subluxation. Cervical vertebra l bodies are normal in height. No compression deformities. No suspicious marrow edema or marrow repla cing process. Cerebellar tonsils and mid-line skull base show no suspicious finding. No significant finding at the C1 and C2 levels. C2-3 level: No significant findings. C3-4 level: Small central disc protrusion. Right more than left facet arthropathy. No significant can al or foraminal stenosis. C4-5 level: Mild broad-based disc bulge. Left more than right uncovertebral joint spurring. No signif icant canal stenosis. Mild left neural foraminal narrowing. C5-6 level: Mild broad-based disc bulge. Left more than right uncovertebral joint and facet arthropat hy. No significant canal stenosis. Dmew-pf-befwbcoy left and mild right neural foraminal narrowing. C6-7 level: Mild broad-based disc bulge. Bilateral mild facet arthropathy and ligamentum flavum buckl ing. No central canal stenosis or significant neural foraminal narrowing. C7-T1 level: No significant findings. Cervical cord shows no focal narrowing, expansion or signal abnormality. IMPRESSION: No acute abnormality of the cervical spine. Multilevel degenerative changes as above, co ntributing to [id number]-hxhlnkdu left neural foraminal narrowing at C5-6 and mild neural foraminal narr owing on the right at C5-6 and on the left at C4-5.
--- NOTE | 2022-11-15 17:46 | RAD REPORT ---
EXAM DESCRIPTION: US - UPPER EXTREMITY VENOUS UNILATE - 11/15/2022 5:21 pm CLINICAL HISTORY: Pain COMPARISON: None. TECHNIQUE: Real-time sonographic evaluation of the right upper extremity deep venous system was perf ormed. FINDINGS: Normal compressibility, flow augmentation, phasic flow and spontaneous flow is identified in the right upper extremity deep venous system, although spectral wave Doppler evaluation is limited in the right axillary vein, likely due to positioning and technical factors. No intraluminal filling defects seen. IMPRESSION: No evidence of DVT in the right upper extremity.
--- NOTE | 2022-11-15 17:48 | RAD REPORT ---
EXAM DESCRIPTION: US - Upper Ext Artery Uni Soto - 11/15/2022 5:21 pm CLINICAL HISTORY: PAIN COMPARISON: No comparisons TECHNIQUE: Right upper extremity arterial Doppler examination was performed with color duplex and sp ectral flow Doppler tracing. FINDINGS: Biphasic flow resistive flow seen in the right CCA. Triphasic waveforms are seen throughout the right upper extremity arterial system, to the level of the radial and ulnar arteries. No significant atherosclerotic plaque formation. IMPRESSION: No evidence of significant peripheral vascular disease in the right upper extremity.
[2022-11-15] MEDS ORDERED: DIAZEPAM 5 MG TABLET ONE (17:59)
[2022-11-15] MEDS ORDERED: dexAMETHasone 10 MG/ML VIAL ONE (17:59)
[2022-11-15] MEDS ORDERED: KETOROLAC 30 MG/ML INJ ONE (18:00)
--- NOTE | 2022-11-15 18:02 | ER ---
Nurse's Notes [facility] Name: Vianney Cody Age: 67 yrs Sex: Female : 1955 Arrival Date: 11/15/2022 Time: 13:16 Bed 9 Private MD: Anjana Chaves Diagnosis: Cervical disc disorder with radiculopathy;Cervical disc disorder with radiculopathy, unspecified cervical region Presentation: 11/15 13:33 Chief complaint: Patient states: she has been having right arm pain for approx 2 weeks. ap3 patient states that in the last few days the pain has started moving down into her right hand, and last night her hand started having a burning feeling. patient states that burning feeling has since resolved but she wanted to come get evaluated. Coronavirus screen: At this time, the client does not indicate any symptoms associated with coronavirus-19. Ebola Screen: No symptoms or risks identified at this time. Risk Assessment: Do you want to hurt yourself or someone else? Patient reports no desire to harm self or others. Onset of symptoms was November 01, 2022. 13:33 Method Of Arrival: Ambulatory ap3 13:36 Initial Sepsis Screen: Does the patient meet any 2 criteria? No. Patient's initial ap3 sepsis screen is negative. Does the patient have a suspected source of infection? No. Patient's initial sepsis screen is negative. 13:36 Acuity: IRVING 3 ap3 Triage Assessment: 13:35 General: Appears in no apparent distress. Behavior is calm, cooperative, appropriate ap3 for age. Pain: Complains of pain in right arm Pain radiates to right hand. Neuro: Level of Consciousness is awake, alert, obeys commands, Oriented to person, place, time, situation. Cardiovascular: Patient's skin is warm and dry. Respiratory: Airway is patent Respiratory effort is even, unlabored. Historical: - Allergies: 13:35 Codeine; ap3 13:35 Morphine; ap3 13:35 Craig; ap3 13:35 tramadol; ap3 - PMHx: 13:35 breast cancer; Hypercholesterolemia; Hypertensive disorder; ap3 - PSHx: 13:35 Left Mastectomy; ap3 - Immunization history:: Client reports receiving the 2nd dose of the Covid vaccine, Flu vaccine is up to date. - Social history:: Smoking status: Patient denies any tobacco usage or history of. - Family history:: not pertinent. Screenin:36 [facility] ED Fall Risk Assessment (Adult) History of falling in the last 3 months, ap3 including since admission No falls in past 3 months (0 pts). Abuse screen: Denies threats or abuse. Nutritional screening: No deficits noted. Tuberculosis screening: No symptoms or risk factors identified. Assessment: 14:37 Reassessment: See triage assessment. General: Appears in no apparent distress. ld1 comfortable, Behavior is calm, cooperative, appropriate for age. Neuro: Level of Consciousness is awake, alert, obeys commands, Oriented to person, place, time, situation. Cardiovascular: Capillary refill < 3 seconds Patient's skin is warm and dry. Respiratory: Airway is patent Respiratory effort is even, unlabored. 17:00 Reassessment: Patient appears in no apparent distress at this time. Patient and/or ap3 family updated on plan of care and expected duration. Pain level reassessed. Patient is alert, oriented x 3, equal unlabored respirations, skin warm/dry/pink. Vital Signs: 13:33 Pulse 64; Resp 17; Temp 97.6; Pulse Ox 94% ; Weight 137.44 kg; Height 5 ft. 5 in. ap3 (165.10 cm); 13:33 BP 147 / 69; ap3 14:37 BP 139 / 71; Pulse 69; Resp 18; Pulse Ox 95% on R/A; ld1 17:00 BP 142 / 71; Pulse 73; Resp 18; Pulse Ox 96% on R/A; ap3 13:33 Body Mass Index 50.42 (137.44 kg, 165.10 cm) ap3 ED Course: 13:16 Patient arrived in ED. as 13:17 Anjana Chaves DO is Private Physician. as 13:20 Messi Hunter MD is Attending Physician. alex 13:36 Triage completed. ap3 13:36 Arm band placed on right wrist. ap3 13:36 Patient has correct armband on for positive identification. Adult w/ patient. Pulse ox ap3 on. NIBP on. 14:37 Angela Morin RN is Primary Nurse. ld1 14:37 No provider procedures requiring assistance completed. ld1 15:39 Inserted saline lock: 20 gauge in right antecubital area, using aseptic technique. ld1 Blood collected. 18:00 Anjana Chaves DO is Referral Physician. alex 18:01 Lewis Mclaughlin MD is Referral Physician. alex 18:18 IV discontinued, intact, bleeding controlled, No redness/swelling at site. ld1 Administered Medications: 15:38 Not Given (Patient Refused): fentaNYL (PF) 25 mcg IVP once ld1 15:38 Not Given (Patient Refused): fentaNYL (PF) 25 mcg IVP once ld1 15:38 Not Given (Patient Refused): Zofran (Ondansetron) 4 mg IVP once; over 2 minutes ld1 15:38 Drug: NS 0.9% 1000 ml Route: IV; Rate: 125 ml/hr; Site: right antecubital; ld1 18:02 Drug: Ketorolac 30 mg Route: IVP; Site: right antecubital; ld1 18:02 Drug: Valium (diazepam) 5 mg Route: PO; ld1 18:02 Drug: Decadron - Dexamethasone 10 mg Route: IVP; Site: right antecubital; ld1 Medication: 13:36 VIS not applicable for this client. ap3 Outcome: 18:02 Discharge ordered by . alex 18:18 Discharged to home ambulatory. ld1 18:18 Condition: stable 18:18 Discharge instructions given to patient, Instructed on discharge instructions, follow up and referral plans. Demonstrated understanding of instructions, follow-up care. 18:18 Patient left the ED. ld1 Signatures: Messi Hunter MD MD cha Martinez, Amelia as Prokisch, Amanda, RN RN ap3 Angela Morin RN RN ld1
--- NOTE | 2022-11-15 18:02 | EDPHYS ---
Physician Documentation [facility] Name: Vianney Cody Age: 67 yrs Sex: Female : 1955 Arrival Date: 11/15/2022 Time: 13:16 Bed 9 Private MD: Anjana Chaves ED Physician Messi Hunter HPI: 11/15 17:55 This 67 yrs old Female presents to ER via Ambulatory with complaints of Arm alex Pain. 17:55 The patient or guardian complains of decreased range of motion, pain, tenderness. The alex complaints affect the dorsal aspect of right forearm, posterior aspect of right shoulder, right tricep and palmar aspect of right forearm. Context: The problem was sustained at an unknown location. Onset: The symptoms/episode began/occurred 30 day(s) ago. Treatment prior to arrival includes: no previous treatment. Modifying factors: The symptoms are alleviated by remaining still, the symptoms are aggravated by movement, lifting weight. Severity of symptoms: At their worst the symptoms were mild, moderate, in the emergency department the symptoms have improved, mildly. The patient has experienced similar episodes in the past, several times. Historical: - Allergies: 13:35 Codeine; ap3 13:35 Morphine; ap3 13:35 [place]; ap3 13:35 tramadol; ap3 - PMHx: 13:35 breast cancer; Hypercholesterolemia; Hypertensive disorder; ap3 - PSHx: 13:35 Left Mastectomy; ap3 - Immunization history:: Client reports receiving the 2nd dose of the Covid vaccine, Flu vaccine is up to date. - Social history:: Smoking status: Patient denies any tobacco usage or history of. - Family history:: not pertinent. ROS: 17:55 Constitutional: Negative for fever, chills, and weight loss, Eyes: Negative for injury, alex pain, redness, and discharge, ENT: Negative for injury, pain, and discharge, Cardiovascular: Negative for chest pain, palpitations, and edema, Respiratory: Negative for shortness of breath, cough, wheezing, and pleuritic chest pain, Abdomen/GI: Negative for abdominal pain, nausea, vomiting, diarrhea, and constipation, Back: Negative for injury and pain, : Negative for injury, bleeding, discharge, and swelling, Skin: Negative for injury, rash, and discoloration, Neuro: Negative for headache, weakness, numbness, tingling, and seizure, Psych: Negative for depression, anxiety, suicide ideation, homicidal ideation, and hallucinations, Allergy/Immunology: Negative for hives, rash, and allergies, Endocrine: Negative for neck swelling, polydipsia, polyuria, polyphagia, and marked weight changes, Hematologic/Lymphatic: Negative for swollen nodes, abnormal bleeding, and unusual bruising. 17:55 Neck: Positive for pain with movement, pain at rest, tenderness, of the right tricep and palmar aspect of right forearm. Exam: 17:55 Constitutional: This is a well developed, well nourished patient who is awake, alert, alex and in no acute distress. Head/Face: Normocephalic, atraumatic. Eyes: Pupils equal round and reactive to light, extra-ocular motions intact. Lids and lashes normal. Conjunctiva and sclera are non-icteric and not injected. Cornea within normal limits. Periorbital areas with no swelling, redness, or edema. ENT: Nares patent. No nasal discharge, no septal abnormalities noted. Tympanic membranes are normal and external auditory canals are clear. Oropharynx with no redness, swelling, or masses, exudates, or evidence of obstruction, uvula midline. Mucous membranes moist. Chest/axilla: Normal chest wall appearance and motion. Nontender with no deformity. No lesions are appreciated. Cardiovascular: Regular rate and rhythm with a normal S1 and S2. No gallops, murmurs, or rubs. Normal PMI, no JVD. No pulse deficits. Respiratory: Lungs have equal breath sounds bilaterally, clear to auscultation and percussion. No rales, rhonchi or wheezes noted. No increased work of breathing, no retractions or nasal flaring. Abdomen/GI: Soft, non-tender, with normal bowel sounds. No distension or tympany. No guarding or rebound. No evidence of tenderness throughout. Back: No spinal tenderness. No costovertebral tenderness. Full range of motion. Skin: Warm, dry with normal turgor. Normal color with no rashes, no lesions, and no evidence of cellulitis. MS/ Extremity: Pulses equal, no cyanosis. Neurovascular intact. Full, normal range of motion. Neuro: Awake and alert, GCS 15, oriented to person, place, time, and situation. Cranial nerves II-XII grossly intact. Motor strength 5/5 in all extremities. Sensory grossly intact. Cerebellar exam normal. Normal gait. Psych: Awake, alert, with orientation to person, place and time. Behavior, mood, and affect are within normal limits. 17:55 Neck: External neck: is normal, no acute changes, C-spine: appears grossly normal, no acute changes, Thyroid: appears normal, no acute changes, Trachea: is midline with no obvious abnormalities, ROM/movement: is normal, pain, that is mild, with rotation to the left, with rotation to the right, limited range of motion, that is mild, with flexion, with extension, Meningeal signs: are not present, Kernig's sign is negative, Brudzinski's sign is negative, Lymph nodes: no appreciated lymphadenopathy. 17:55 ECG was reviewed by the Attending Physician. Vital Signs: 13:33 Pulse 64; Resp 17; Temp 97.6; Pulse Ox 94% ; Weight 137.44 kg; Height 5 ft. 5 in. ap3 (165.10 cm); 13:33 BP 147 / 69; ap3 14:37 BP 139 / 71; Pulse 69; Resp 18; Pulse Ox 95% on R/A; ld1 17:00 BP 142 / 71; Pulse 73; Resp 18; Pulse Ox 96% on R/A; ap3 13:33 Body Mass Index 50.42 (137.44 kg, 165.10 cm) ap3 MDM: 13:20 Patient medically screened. alex 17:59 Differential diagnosis: contusion, tendonitis. Data reviewed: vital signs, nurses [facility] notes, lab test result(s), EKG, radiologic studies, doppler, MRI, plain films. Consideration of Admission/Observation Escalation of care including admission/observation considered. Management of patient was discussed with the following: Intel Analyst: DR PATRIC ALVAREZ. Test considered but Not performed: CT: CT HEAD WO. Care significantly affected by the following chronic conditions: Hypertension, Cancer, INCREASED CHOLESTEROL. 11/15 15:22 Order name: Basic Metabolic Panel 11/15 15:22 Order name: CBC with Diff 11/15:22 Order name: LFT's 11/15 15: Order name: Magnesium alex 11/15 14:22 Order name: NT PRO-BNP [facility] 11/15 15: Order name: PT-INR [facility] 11/15 15:22 Order name: Troponin HS [facility] 11/15 15:22 Order name: Lipase [facility] 11/15 15:49 Order name: CBC with Automated Diff; Complete Time: 17:12 EDMS 11/15 15:50 Order name: Protime (+INR); Complete Time: 17:12 EDMS 11/15 16:06 Order name: Basic Metabolic Panel; Complete Time: 17:12 EDMS 11/15 16:06 Order name: Liver (Hepatic) Function; Complete Time: 17:12 EDMS 11/15 16:06 Order name: Troponin High Sensitivity; Complete Time: 17:12 EDMS 11/15 16:06 Order name: NT PRO-BNP; Complete Time: 17:12 EDMS 11/15 15:22 Order name: XRAY Chest (1 view) [facility] 11/15 15:22 Order name: US Extremity Venous Unilateral Ltd [facility] 11/15 15:22 Order name: US LE Artery Uni Ltd [facility] 11/15 16:06 Order name: Magnesium; Complete Time: 17:12 EDMS 11/15 16:06 Order name: Lipase; Complete Time: 17:12 EDMS 11/15 16:28 Order name: RAD; Complete Time: 17:12 EDMS 11/15 16:54 Order name: MRI; Complete Time: 17:12 EDWV 11/15 17:46 Order name: US; Complete Time: 17:54 EDMS 11/15 17:49 Order name: US; Complete Time: 17:54 EDMS 11/15 15:22 Order name: EKG; Complete Time: 15:22 [facility] 11/15 15:22 Order name: Cardiac monitoring; Complete Time: 15:38 [facility] 11/15 15:22 Order name: EKG - Nurse/Tech; Complete Time: 15:38 [facility] 11/15 15:22 Order name: IV Saline Lock; Complete Time: 15:38 [facility] 11/15 15:22 Order name: Labs collected and sent; Complete Time: 15:38 [facility] 11/15 15:22 Order name: O2 Per Protocol; Complete Time: 15:22 [facility] 11/15 15:22 Order name: O2 Sat Monitoring; Complete Time: 15:22 [facility] EC:55 Rate is 70 beats/min. Rhythm is regular. QRS [place] is Normal. HI interval is normal. QT alex interval is normal. No Q waves. T waves are Normal. No ST changes noted. Clinical impression: Normal ECG and No evidence of ischemia. Interpreted by me. Reviewed by me. Administered Medications: 15:38 Not Given (Patient Refused): fentaNYL (PF) 25 mcg IVP once ld1 15:38 Not Given (Patient Refused): fentaNYL (PF) 25 mcg IVP once ld1 15:38 Not Given (Patient Refused): Zofran (Ondansetron) 4 mg IVP once; over 2 minutes ld1 15:38 Drug: NS 0.9% 1000 ml Route: IV; Rate: 125 ml/hr; Site: right antecubital; ld1 18:02 Drug: Ketorolac 30 mg Route: IVP; Site: right antecubital; ld1 18:02 Drug: Valium (diazepam) 5 mg Route: PO; ld1 18:02 Drug: Decadron - Dexamethasone 10 mg Route: IVP; Site: right antecubital; ld1 Disposition Summary: 11/15/22 18:02 Discharge Ordered Location: Home alex Problem: new alex Symptoms: have improved alex Condition: Stable alex Diagnosis - Cervical disc disorder with radiculopathy alex - Cervical disc disorder with radiculopathy, unspecified cervical region alex Followup: alex - With: Anjana Chaves DO - When: 2 - 3 days - Reason: Recheck today's complaints, Continuance of care, Re-evaluation by your physician Followup: alex - With: Lewis Mclaughlin MD - When: 2 - 3 days - Reason: Recheck today's complaints, Continuance of care, Re-evaluation by your physician Discharge Instructions: - Discharge Summary Sheet alex - Cervical Radiculopathy alex - Herniated Disk alex - Herniated Disk, [id number] alex - Cervical Radiculopathy, [id number] alex - Radicular Pain alex Forms: - Medication Reconciliation Form alex - Thank You Letter alex - Antibiotic Education alex - Prescription Opioid Use alex Prescriptions: - dexamethasone 2 mg Oral tablet - take 1 tablet by ORAL route 2 times per day; 10 tablet; Refills: 0, Product alex Selection Permitted - Valium 2 mg Oral Tablet - take 1 tablet by ORAL route every 6 hours As needed; 20 tablet; Refills: 0, alex Product Selection Permitted - Diclofenac Sodium 75 mg Oral tablet,delayed release (DR/EC) - take 1 tablet by ORAL route 2 times per day; 20 tablet; Refills: 0, Product alex Selection Permitted Signatures: Dispatcher [employer] Messi De Los Santos MD MD cha Mickail, Joel, PA PA jmm Prokisch, Amanda, RN RN ap3 Angela Morin RN RN ld1
[2022-11-15 18:37] VITALS: TEMP 97.6
[2022-11-15 18:48] VITALS: BP 142/71; O2SAT 96
--- NOTE | 2022-11-16 15:22 | EKG ---
Test Date: 2022-11-15 Test Time: 15:36:34 Towboat Engineer: DAVID MEASUREMENT RESULTS: Intervals: Rate: 70 AR: 166 QRSD: 86 QT: 402 QTc: 434 [place]: P: 73 AR: 166 QRS: 34 T: 57 INTERPRETIVE STATEMENTS: Normal sinus rhythm Normal ECG Compared to ECG 04/18/2018 16:15:50 Myocardial infarct finding no longer present Electronically Signed On 11-16-22 15:19:59 INDUSTRIAL PRODUCTION MANAGER by Masoud Crawford
== END 2022-11-15 18:18 | disposition home or self-care (01) ==
LOC: ER 13:14
DX: M50.10 Cervical disc disorder with radiculopathy, unspecified cervical region (principal)
CPT/HCPCS: 93005; 85025; 80048; 36415; 83735; 85610; 80076; 84484; 83690; 83880; 71045; 93971; 93931; 72141; 96375; 96374; 99284; J1100; J7030; J2405; J3010

== ENCOUNTER 2023-08-07 13:21 | Emergency (ER) | payer OTHER ==
--- OUTSIDE RECORDS SUMMARY | 2023-08-07 13:24 | XMS REPORT | Clinical Summary ---
:1955 Author Organization [facility] MD [facility] Address [address] [place] [address] Care Team Providers Name Role Phone Rabia Mayer Unavailable Amado Diamond APRN Primary Care Provider Yfn Whittaker MD Unavailable [phone] Nicol Edwards MD Unavailable Kimmy Del Castillo MD Unavailable Greg Holly MD Unavailable Thony Niño MD Unavailable Allergies Active Allergy Reactions Criticality Noted Date Comments Adhesive 05/06/2022 Blistered from clear sticky tape. No proble ms with bandaids or whi te medical tape. Ciprofloxacin 01/04/2023 Extreme joint pain, dizziness and n ausea Codeine Nausea And Vomiting 05/26/2015 Hydrocodone Nausea And Vomiting 05/26/2015 Morphine Nausea And Vomiting 08/12/2020 Tramadol Nausea And Vomiting 05/26/2015 Medications Medication Sig Dispensed Refills Start Date End Date Status atorvastatin Take 1 tablet 0 01/27/2021 Ac tive (LIPITOR) 10 mg (10 mg) by tablet mouth at bedtime. metoprolol Take 1 tablet 0 02/16/2022 Acti ve tartrate (50 mg) by (LOPRESSOR) 50 mg mouth twice tablet daily. UNABLE TO FIND Take 1 capsule 0 Active by mouth daily. Med Name: Prevagen Extra Strength aspirin 81 mg Chew 1 tablet 0 Ac tive chewable tablet (81 mg). Francie Take by mouth 0 Active acidophilus/Bifido daily. . longum (PROBIOTIC PEARLS ORAL) nystatin (Nystop) Apply topically 30 g 3 01/04/2023 Active 100,000 units/g to affected powderIndications: area(s) 3 Ductal carcinoma (three) times a in situ, solid day. type of breast, NOS <Female; Left> diclofenac sodium TAKE 1 TABLET 0 11/15/2022 Active (VOLTAREN) 75 mg BY MOUTH TWICE EC tablet DAILY tamoxifen Take 1 tablet 90 tablet 3 06/01/2022 01/04/2023 Disc ontinued (NOLVADEX) 20 mg (20 mg) by tabletIndications: mouth daily. 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 Staging: Clinical stage from 02/22: Stage 0 (cTis (DCIS), cN0, cM0, ER+, OH+, HER2: Not Assessed) - Signed by Nina Loya PA on 03/31/2022 Pathologic stage from 05/06/2022: Stage 0 (pTis (DCIS), pN0(sn), cM0, ER+, OH+, HER2: Not Assessed) - Signed by Nina Loya PA on 05/18/2022 Encounters Date Type Department Care Team Description 01/27/2023 Follow-Up [facility] - Andrew Rodriguez carci noma in 9:30 AM CDT Medical Oncology Roni, LOCATION MANAGER situ, solid type [address], NOS <Female; [facility], 5th Left> [place] [address] 01/27/2023 Travel 01/26/2023 Ancillary Procedure Jonny Elias ctal carcinoma in 2:45 PM CDT [facility] Roni, LOCATION MANAGER situ, solid type of [address] [facility] breast, NO S <Female; South Left> [address]nd [place] [address] 01/26/2023 Ancillary Procedure Jonny Elias carcinoma in 1:45 PM CDT [facility] Roni, LOCATION MANAGER situ, solid type of [address] [facility] breast, NO S <Female; [facility]> [address]nd [place] [address] 01/26/2023 Ancillary Procedure Jonny Elias ctal carcinoma in 9:30 AM CDT [facility], LOCATION MANAGER situ, solid type of [address] [facility] breast, NO S <Female; [facility]> [address]nd [place] [address] 01/26/2023 Travel 01/04/2023 Follow-Up Breast Center - Jerry, Andrew carci noma in 11:30 AM CDT Medical Oncology MD Nicol situ, solid type of [address] breast, NOS <Female; [facility], 5th Left> [place] [address] 01/04/2023 Travel after 08/07/2022 Immunizations Name Administration Dates Next Due Influenza, [...] r problems with ab normal pap smears OH MASTECTOMY SIMPLE COMPLETE 05/06/2022 Breast/Left Pr ocedure: TOTAL MASTECTOMY; Surg camilla: Kimmy Del Castillo MD; Location: MAIN O R; Service: BREAST OH INTRAOP SENTINEL LYMPH NODE 05/06/2022 Left P rocedure: ID W/DYE INJECTION INTRAOPERATIV E LYMPHATIC MAPPING; Surgeon : Kimmy Del Castillo MD; Location: MAIN O R; Service: BREAST OH BX/EXC LYMPH NODE OPEN DEEP 05/06/2022 Axilla/Left P rocedure: SENTINEL NODE AXILLARY NODE BIOPSY - AXILLA; Surgeon: Kimmy Del Castillo MD; Location: [place] IN OR; Service: BREAST Medical History Medical [...] glass of wine once a month Sex and Gender Information Value Date Recorded Sex Assigned at Not on file Gender Identity Not on file Sexual Orientation Not on file Job Start Date Occupation [...] Sign Reading Time Taken Comments Blood Pressure 142/84 01/27/2023 8:59 AM CDT Pulse 69 01/27/2023 8:59 AM CDT Temperature 37 C (98.6 F) 01/27/2023 8:59 AM CDT Respiratory Rate 18 01/27/2023 8:59 AM CDT Oxygen Saturation 95% 01/27/2023 8:59 AM CDT Inhaled Oxygen Concentration - - Weight 140.8 kg (310 lb 6.5 oz) 01/27/2023 8:59 AM CDT Height - - Body Mass Index 51.1 05/05/2022 1:40 PM CDT Plan of Treatment Date Type Department Care Team Description 01/30/2024 10:15 Appointment Breast Imaging Roni Rodriguez AM CDT [address] [facility], [address] [place] or [address] [place] [address] [phone] 01/30/2024 11:30 Follow-Up Breast Center - Medical Sekou Rodriguez AM CDT Oncology LOCATION MANAGER [address] [facility], [address] [place] [address] [address] [place], [place] [id number] [phone] Health Maintenance Due Date Last Done Comments COVID-19 Vaccination (05/26/2023 08/06/2021, , season) 11/27/2020 Medical Devices Implanted Type Area Sales Engineer Account Manager Device Shelf Model / Identifier Expiration Date Ser ial / Lot Right Knee Right: Replacement Knee Procedures Procedure Name Priority Date/Time Associated Comments Diagnosis US CHEST Routine 01/26/2023 3:03 PM Ductal carcinoma in Re sults for this CDT situ, solid type of procedur e are in breast, NOS the results <Female; Left> section. MAMMO DIGITAL Routine 01/26/2023 2:23 PM Ductal carcinoma in R esults for this DIAGNOSTIC RIGHT W CDT situ, solid type of pr ocedure are in HERIBERTO breast, NOS the results <Female; Left> section. US ABDOMEN LIMITED Routine 01/26/2023 10:15 AM Ductal carcinom a in Results for this CDT situ, solid type of procedur e are in breast, NOS the results <Female; Left> section. after 08/07/2022 Results US Chest (01/26/2023 3:03 PM CDT) Anatomical Region Laterality Modality Chest Ultrasound Specimen (Source) Anatomical Collection Method Collection Time Re ceived Time Location / / Volume Laterality 01/26/2023 3:03 PM CDT Impressions 01/26/2023 3:03 PM CDT There is no evidence of malignancy. BI-RADS Category 2: Benign Finding(s) Narrative 01/26/2023 3:03 PM CDT CLINICAL INDICATION: Patient is a 67 year old female and is s een for lump FILMS COMPARED The present examination has been compare d to a prior imaging study performed at [facility] [place] o n 02/22/2022. Images were obtained in multiple scannin g planes. Real-time sonographic imaging of the lef t chest wall was performed. Real time sonographic imaging of the left axilla w as performed. There are postsurgical changes of left m astectomy with benign areas of fat necrosis. No suspicious abnormality is seen. The palpable abnormality is not in the left chest wall. Please, see t he same-day abdominal ultrasound for the palpable finding. Level I axilla: No suspicious lymphadeno mickey. Procedure Note Josie Caldwell MD - 01/26/2023Formattin g of this note might be different from the original. CLINICAL INDICATION: Patient is a 67 year old female and is s een for lump FILMS COMPARED The present examination has been compare d to a prior imaging study performed at [facility] o n 02/22/2022. Images were obtained in multiple scannin g planes. Real-time sonographic imaging of the lef t chest wall was performed. Real time sonographic imaging of the left axilla w as performed. There are postsurgical changes of left m astectomy with benign areas of fat necrosis. No suspicious abnormality is s een. The palpable abnormality is not in the left chest wall. Please, see the same-day abdominal ultrasound for the palpable finding. Level I axilla: No suspicious lymphadeno mickey. IMPRESSION: There is no evidence of malignancy. BI-RADS Category 2: Benign Finding(s) Roni Rodriguez APRN [facility] US ORDERABLES Diagnostic Mammogram w Heriberto - Right (01/26/2023 2:23 PM CDT) Anatomical Region Laterality Modality Breast Right Mammography Specimen (Source) Anatomical Collection Method Collection Time Re ceived Time Location / / Volume Laterality 01/26/2023 2:57 PM CDT Impressions 01/26/2023 2:57 PM CDT There is no mammographic evidence of malignancy. Follow-up mammogram in 1 year is recomme nded. BI-RADS Category 1: Negative Narrative 01/26/2023 2:57 PM CDT CLINICAL INDICATION: Patient is a 67 year old female and is s een for history of breast cancer MAMMO DIGITAL DIAGNOSTIC RIGHT W HERIBERTO Digital Mammogram evaluated with Compute r Aided Detection (CAD). COMPARISON: The present examination has been compare d to prior imaging studies performed at an outside location on 08/29/2016, 08/30, 08/23/2018, 08/26/2019, 09/02/2020, 10/06/2020 and 01/28/2022, a nd at [facility] on 02/22/2022. FINDINGS: There are scattered areas of fibroglandu lar density. No dominant mass, distortion, or suspici ous calcifications are identified. Tomosynthesis performed in CC and MLO pr ojections. Procedure Note Josie Caldwell MD - 01/26/2023Formattin g of this note might be different from the original. CLINICAL INDICATION: Patient is a 67 year old female and is s een for history of breast cancer MAMMO DIGITAL DIAGNOSTIC RIGHT W HERIBERTO Digital Mammogram evaluated with Compute r Aided Detection (CAD). COMPARISON: The present examination has been compare d to prior imaging studies performed at an outside location on 08/29/2016, 08/30, 08/23/2018, 08/26/2019, 09/02/2020, 10/06/2020 and 01/28/2022, a nd at [facility] on 02/22/2022. FINDINGS: There are scattered areas of fibroglandu lar density. No dominant mass, distortion, or suspici ous calcifications are identified. Tomosynthesis performed in CC and MLO pr ojections. IMPRESSION: There is no mammographic evidence of mal ignancy. Follow-up mammogram in 1 year is recomme nded. BI-RADS Category 1: Negative Roni Rodriguez APRN IMG MAMMOGRAPHY ORDERABLES US Abdomen Limited (01/26/2023 10:15 AM CDT) Anatomical Region Laterality Modality Abdomen Ultrasound Specimen (Source) Anatomical Collection Method Collection Time Re ceived Time Location / / Volume Laterality 01/26/2023 10:27 AM CDT Impressions 01/26/2023 10:28 AM CDT No sonographic abnormality at the site of palpable and visible swelling. Narrative 01/26/2023 10:28 AM CDT FULL RESULT: Examination: US ABDOMEN LIMITED on 023 10:15 AM Clinical History: Breast carcinoma Indication: Other:, lump in the upper qu adrant of the abdomen Comparison: None Technique: Real-time grayscale and color ultrasound scan of the visible swelling in the left upper abdominal wall was performed Findings: No definite evidence of mass l esion is noted in the. Abdominal wall at the site of visible abnormality. The appearance may be related to laxity of the abdominal wall. Procedure Note Mayank Milner MD - 01/26/2023Form atting of this note might be different from the original. FULL RESULT: Examination: US ABDOMEN LIMITED on 023 10:15 AM Clinical History: Breast carcinoma Indication: Other:, lump in the upper qu adrant of the abdomen Comparison: None Technique: Real-time grayscale and color ultrasound scan of the visible swelling in the left upper abdominal wall was performed Findings: No definite evidence of mass l esion is noted in the. Abdominal wall at the site of visible abnormality. The appearance may be related to laxity of the abdominal wall. IMPRESSION: No sonographic abnormality at the site o f palpable and visible swelling. Roni Rodriguez APRN IMG US ORDERABLES after 08/07/2022 Insurance Payer Benefit Plan / Subscriber ID Effective Dates Phone Addre ss Type Group [employer]ETNA MEDICARE AETNA MEDICARE [id number] 2022-Presen [address] [place] [address] [phone] ([address]) [place] [id number] Vianney Cody Personal/Family Self [id number] ([address]) [place] [id number] Advance Directives Code Status Date Activated Date Inactivated Comments Full Code 05/06/2022 10:13 PM 05/07/2022 1:48 PM Care Teams Planning Associate Relationship Specialty Start Date End Date Rabia Mayer PCP - External Obstetrics/Gynecology 02/04/22 Referring Amado Diamond APRN PCP - General Cancer Prevention 02/09/[address] [place] [address] [phone] Yfn Whittaker Cardiology 05/04/22 MD [facility] [address] [place] [address] [place] [address] Nicol Edwards MD Consulting Physician Breast Medical Oncology 06/01/[address] [place] [address] [phone] Kimmy Del Castillo MD Consulting Physician Breast Surgery 03/14/[address] [place] [address] [phone] Greg Holly Consulting Physician Plastic and 05/05/22 MD [facility] [address] [place] [address] [phone] Thony Niño MD Consulting Physician Internal Medicine 05/04/[address] [place] [address] [phone]
--- OUTSIDE RECORDS SUMMARY | 2023-08-07 13:29 | XMS REPORT | Continuity of Care Document ---
:1955 Author Organization [facility] t Address [address] [place] [address] [address] [place] [address] Care Team Providers Name Role Phone Asked, No Pcp Primary Care Physician Unavailable SYSTEM, PROVIDER NOT IN Attending Clinician Unavailable Heidi Mcgowan APRN Attending Clinician HEIDI MCGOWAN Attending Clinician Unavailable Nicol Edwards MD Attending Clinician NICOL EDWARDS Attending Clinician Unavailable Doctor Unassigned, [place] Attending Clinician Unavailable Magdalene ATWOOD, Kimmy Attending Clinician Amado Diamond APN Attending Clinician Bashir BALDERAS, Cris Shields Attending Clinician Ankur Gonsalez Attending Clinician Dean Box RN Attending Clinician Unavailable Valeriano BALDERAS, Chirag Fletcher Attending Clinician King Guardado MD Attending Clinician Genaro Koenig CRNA Attending Clinician Unavailable Avni ATWOOD, Greg Wren Attending Clinician Bethanie Reilly MA Attending Clinician Unavailable Oh MD, Thony Attending Clinician ANKUR LOYA Attending Clinician Unavailable Heydi RN, Gemma Salinas Attending Clinician Unavailable Apollo RN, Hollis Attending Clinician Unavailable Henry PRODUCTION TECHNOLOGIST, Yamileth Attending Clinician Dawson Mayer MD Attending Clinician DAWSON MAYER Attending Clinician Unavailable MYRIAM DELEON Attending Clinician Unavailable BEVERLEY KAPOOR Attending Clinician Unavailable CHEYANNE MONTOYA Attending Clinician Unavailable RADIOLOGY Attending Clinician Unavailable KIMMY KUHN Admitting Clinician Unavailable RAJ ROLDAN Admitting Clinician Unavailable Payers Payer Name Policy Type Policy Number Effective Date Expiration Date Holger rivas AETNA MANAGED [id number] 2022 MEDICARE PPO-TRISTAN 00:00:00 Problems Condition Condition Condition Status Onset Resolution Last Treating Co mments Source Name Details Category Date Date Treatment Clinician Date Mammograph Mammograph Disease Active U nivers y abnormal y abnormal 5- it y of 00:00: 00 MD Carina velasquez [facility] Center Hypertensi Hypertensi Disease Active 2019-09 U nivers ve ve -18 ity of disorder disorder 00:00: 00 MD Carina velasquez [facility] Severe Severe Disease Active 2019-09 Univers obesity obesity 18 ity of 00:00: 00 MD Carina velasquez [facility] Hyperchole Hyperchole Disease Active U nivers sterolemia sterolemia 9- it y of 00:00: [place] 00 MD Carina velasquez [facility] 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, in situ, [place]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 solid type of breast, of breast, An derso NOS NOS n <Female; <Female; Cancer Left> Left> Center 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, in situ, [place]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 solid type of breast, of breast, An derso NOS NOS n <Female; <Female; Cancer Left> Left> Center Allergies, Adverse Reactions, Alerts Allergy Allergy Status Severity Reaction(s) Onset Inactive Treating Comm ents Source Name Type Date Date Clinician Ciproflo Propensi Active Extreme Unive rs xacin ty to 4-12 joint ity of adverse 00:00: pain, [place] reaction 00 dizziness MD wren and [facility]ina [facility] CIPROFLO DRUG Active 2023-0 MD XACIN INGREDI 4-12 Anderso 00:00: n 00 CIPROFLO DRUG Active 2023-0 MD XACIN INGREDI 4-12 Anderso 00:00: n 00 CIPROFLO DRUG Active 2023-0 MD XACIN INGREDI 4-12 Anderso 00:00: n 00 CIPROFLO DRUG Active 2023-0 MD XACIN INGREDI 4-12 Anderso 00:00: n 00 CIPROFLO DRUG Active 2023-0 MD XACIN INGREDI 4-12 Anderso 00:00: n 00 CIPROFLO DRUG Active 2023-0 MD XACIN INGREDI 4-12 Anderso 00:00: n 00 CIPROFLO DRUG Active 2023-0 MD XACIN INGREDI 4-12 Anderso 00:00: n 00 CIPROFLO DRUG Active 2023-0 MD XACIN INGREDI 4-12 Anderso 00:00: n 00 CIPROFLO DRUG Active 2023-0 MD XACIN INGREDI 4-12 Anderso 00:00: n 00 CIPROFLO DRUG Active 2023-0 MD XACIN INGREDI 4-12 Anderso 00:00: n 00 CIPROFLO DRUG Active 2023-0 MD XACIN INGREDI 4-12 Anderso 00:00: n 00 Adhesive Propensi Active [...] MD Class 8-12 Anderso 00:00: n 00 Morphine Propensi Active Nausea And 2020-1 Un gonzalez ty to Vomiting -18 ity of adverse 00:00: [place] reaction 00 MD holger Lim n [facility] MORPHINE DRUG Active NandV 2020-1 MD INGREDI [...] INGREDI 1-18 ity of 00:00: [place] 00 [facility] MORPHINE DRUG Active NandV 2020-1 MD INGREDI [...] MORPHINE DRUG Active NandV 2020-1 MD INGREDI 18 Anderso 00:00: n 00 Codeine Propensi Active Nausea And 2014-0 Uni vers ty to Vomiting 05-26 ity of adverse 00:00: [place] reaction 00 MD [facility] Hydrocod Propensi Active Nausea And 2014-0 Un gonzalez one ty to Vomiting 05-26 ity of adverse 00:00: [place] reaction 00 MD holger velasquez [facility] Center Tramadol Propensi Active Nausea And 2014-0 Un gonzalez ty to Vomiting 05-26 ity of adverse 00:00: [place] reaction 00 MD holger velasquez [facility] CODEINE DRUG Active NandV 2014-0 MD INGREDI [...] INGREDI 05-26 ity of 00:00: [place] 00 [facility] CODEINE DRUG Active NandV 2015-0 MD INGREDI [...] Univers ONE INGREDI 05-26 ity of 00:00: [address] Branch TRAMADOL DRUG Active NandV 2015-0 MD [...] 2015-0 Univers INGREDI 05-26 ity of 00:00: [address] TRAMADOL DRUG Active NandV 2015-0 MD INGREDI [...] TRAMADOL DRUG Active NandV 2015-0 MD INGREDI 9 Anderso 00:00: n 00 CODEINE DRUG Active [...] DRUG Active NandV 2015-0 MD ONE INGREDI 9-01 Anderso 00:00: n 00 TRAMADOL DRUG Active [...] 00:00: n 00 TRAMADOL DRUG Active NandV 2014- MD INGREDI 05-26 Anderso 00:00: n 00 CODEINE DRUG Active NandV 2014- MD INGREDI 05-26 Anderso 00:00: n 00 HYDROCOD DRUG Active NandV 2014- MD ONE INGREDI 05-26 Anderso 00:00: n 00 TRAMADOL DRUG Active NandV 2014- MD INGREDI 05-26 Anderso 00:00: n 00 CODEINE DRUG Active NandV 2014- MD INGREDI 05-26 Anderso 00:00: n 00 HYDROCOD DRUG Active NandV 2014- MD ONE INGREDI 05-26 Anderso 00:00: n 00 TRAMADOL DRUG Active NandV 2014- MD INGREDI 05-26 Anderso 00:00: n 00 Family History Family Member Diagnosis Comments Start Date Stop Date Source Natural mother Breast cancer [facility] Social History Social Habit Start Date Stop Date Quantity Comments Source History SDOH University o f Alcohol Frequency [facility] History SDOH University o f Alcohol Std Drinks [facility] o f Alcohol Binge [place] [facility] Sexual orientation Univer sity of [place] MD Harry erickson [facility] Exposure to 2022-05-22 2022-06-01 Not sure University of SARS-CoV-2 (event) 00:00:00 08:36:00 [facility] Alcohol intake 2022-06-01 2022-06-01 Current drinker Unive rsity of 00:00:00 00:00:00 of alcohol Kadie erickson (finding) [facility] History of Social 2022-06-01 2022-06-01 Univers ity of function 00:00:00 00:00:00 Kadie erickson [facility] Tobacco use and 2022-02-22 2022-02-22 Smokeless Universit y of exposure 00:00:00 00:00:00 tobacco non-user [facility] Alcohol Comment 2022-02-22 2022-02-22 glass of wine Univer sity of 00:00:00 00:00:00 once a month Kadie ATWOOD [facility] Sex Ass[birth year] Universit y of 00:00:00 00:00:00 Kadie Mcdonald [facility] Smoking Status Start Date Stop Date Source Tobacco smoking consumption [facility] unknown Never smoked tobacco [facility] Medications Ordered Filled Start Stop Current Ordering Indication Dosage Frequency Signature Comments Components Source Medication Medication Date Date Medication? Clinician (SIG) Name Name UNABLE TO Yes 1{capsu Take 1 Uni vers FIND 5-05 le} capsule by ity of 09:02: mouth [place] 35 daily. Med Name: Carina velasquez Extra Cancer [facility] aspirin 81 Yes 81mg Chew 1 Unive rs mg chewable 5-05 tablet (81 it y of tablet 09:02: mg). [place] 35 MD Carina velasquez [facility] L. Yes Take by Univers acidophilus 5-05 mouth ity of /Bifido. 09:02: daily. [place] longum 35 (PROBIOTIC Carina velasquez ORAL) Cancer [place] nystatin Yes Ductal Apply Univer s (Nystop) 4-12 carcinoma topically i ty of 100,000 00:00: in situ, to [place] units/g 00 solid type affected powder of breast, area(s) 3 An derso NOS (three) n <Female; times a Cancer Left> day. Center diclofenac Yes TAKE 1 Unive rs sodium 2-21 TABLET BY ity of (VOLTAREN) 00:00: MOUTH [place] 75 mg EC 00 TWICE MD tablet DAILY Carina [facility] aspirin 81 Yes 81mg Chew 81 Univ ers mg chewable 9-07 mg. ity of tablet 21:03: [place] 30 MD Carina velasquez [facility] aspirin 81 Yes 81mg Chew 81 Univ ers mg chewable 9-07 mg. ity of tablet 21:03: [place] 30 MD Carina velasquez [facility] UNABLE TO Yes 1{capsu Take 1 Uni vers FIND 9-07 le} capsule by ity of 10:27: mouth [place] 13 daily. Rikki ATWOOD Name: Carina velasquez Extra Cancer Strength [place] UNABLE TO Yes 1{capsu Take 1 Uni vers FIND 9-07 le} capsule by ity of 10:27: mouth [place] 13 daily. Med Name: Carina velasquez [facility] tamoxifen Yes Ductal 20mg Take 1 [...] NOS n <Female; Cancer Left> Center tamoxifen 2022- No Ductal 20mg Take 1 Uni vers (NOLVADEX) 06-01 04-12 carcinoma tablet (20 ity of 20 mg 00:00: 00:00 in situ, mg) by [place] tablet 00 :00 solid type mouth MD of breast, daily. Anderso NOS n <Female; Cancer Left> Center aspirin 81 2021- No 81mg Chew 81 mg Univers mg chewable 8-30 08-13 daily. ity o f tablet 20:07: 00:00 [place] 26 :00 MD Lim [facility] naproxen 2021- No 220mg Take 220 Uni vers sodium 8-30 08-13 mg by ity of (ALEVE) 220 20:07: 00:00 mouth [place] MG tablet 26 :00 needed for MD mild pain. [facility] UNABLE TO 2021- No 1{tbl} Take 1 Uni vers FIND - 08-13 tablet by ity of 20:07: 00:00 mouth [place] 26 :00 twice MD daily. [facility] Name: eva [facility] aspirin 81 0 2021- No 81mg Chew 81 mg Univers mg chewable 8- 08-13 daily. ity o f tablet 20:07: 00:00 [place] 26 :00 [facility] naproxen 2021- No 220mg Take 220 Uni vers sodium 8-30 08-13 mg by ity of (ALEVE) 220 20:07: 00:00 mouth [place] MG tablet 26 :00 needed for MD mild pain. [facility] UNABLE TO 2021- No 1{tbl} Take [...] 2021- No Ductal 600mg Take 1 Un gnozalez (ADVIL,MOTR 05-06 carcinoma tablet ity of [place]) 600 mg 00:00: 04:59 in situ, (600 mg) [place] tablet 00 :00 solid type by mouth MD of breast, every 8 Elias o NOS (eight) n <Female; hours for Cancer Left> 5 days. [place] acetaminoph 2021- No Ductal 650mg Take 2 Univers en 05-06 carcinoma tablets ity of (TylenoL) 00:00: 04:59 in situ, (650 mg) [place] 325 mg 00 :00 solid type by mouth MD tablet of breast, every 6 Connor rso NOS (six) n <Female; hours for Cancer Left> 5 days. [place] ibuprofen 2021- No Ductal 600mg Take 1 Un gonzalez (ADVIL,MOTR 05-06 carcinoma tablet ity of [place]) 600 mg 00:00: 04:59 in situ, (600 mg) [place] tablet 00 :00 solid type by mouth MD of breast, every 8 Elias o NOS (eight) n <Female; hours for Cancer Left> 5 days. [place] metoprolol Yes 50mg Take 1 Unive rs tartrate 5-25 tablet (50 ity o f (LOPRESSOR) 00:00: mg) by [place] 50 mg 00 mouth MD tablet twice Anderso daily. [facility] metoprolol Yes 1{tbl} Take 1 Uni vers tartrate 5-25 tablet by ity of (LOPRESSOR) 00:00: mouth [place] 50 mg 00 twice MD tablet daily. [facility] metoprolol Yes 1{tbl} Take 1 Uni vers tartrate 5-25 tablet by ity of (LOPRESSOR) 00:00: mouth [place] 50 mg 00 twice MD tablet daily. [facility] atorvastati Yes 10mg Take 1 Univ ers n (LIPITOR) 5-05 tablet (10 it y of 10 mg 00:00: mg) by [place] tablet 00 mouth at MD bedtime. [facility] ATORVASTATI Yes [id number] 10mg TAKE 1 Univers N 10 mg 5-05 TABLET BY ity of tablet 00:00: MOUTH AT [place] 00 BEDTIME Medical Branch ATORVASTATI Yes [id number] 10mg TAKE 1 Univers N 10 mg 5-05 TABLET BY ity of tablet 00:00: MOUTH AT [place] BEDTIME [facility] ATORVASTATI 0 Yes [id number] 10mg TAKE 1 Univers N 10 mg 5-05 TABLET BY ity of tablet 00:00: MOUTH AT [place] BEDTIME [facility] ATORVASTATI 0 Yes [id number] 10mg TAKE 1 Univers N 10 mg 5-05 TABLET BY ity of tablet 00:00: MOUTH AT [place] BEDTIME [facility] ATORVASTATI Yes [id number] 10mg TAKE 1 Univers N 10 mg 5-05 TABLET BY ity of tablet 00:00: MOUTH AT [place] BEDTIME [facility] atorvasta Yes 10mg Take 10 mg Univers n (LIPITOR) 5-05 by mouth ity of 10 mg 00:00: at [place] tablet 00 bedtime. MD [facility] Yes 10mg Take 10 mg Univers n (LIPITOR) 5-05 by mouth ity of 10 mg 00:00: at [place] tablet 00 bedtime. MD Carina [facility]quez [facility] aspirin 81 2019-09 Yes 81mg Take 81 mg U nivers mg chewable 0-28 by mouth ity of tablet 09:36: daily. [address] metoprolol 2019-09 Yes 50mg Take 50 mg U nivers tartrate 50 0-28 by mouth 2 it y of mg tablet 09:36: (two) [place] 20 times Medical daily. Branch aspirin 81 2019-09 Yes 81mg Take 81 mg U nivers mg chewable 0-28 by mouth ity of tablet 09:36: daily. [address] metoprolol 2019-09 Yes 50mg Take 50 mg U nivers tartrate 50 0-28 by mouth 2 it y of mg tablet 09:36: (two) [place] 20 times Medical daily. Branch aspirin 81 2019-09 Yes 81mg Take 81 mg U nivers mg chewable 0-28 by mouth ity of tablet 09:36: daily. [address] metoprolol 2019-09 Yes 50mg Take 50 mg U nivers tartrate 50 0-28 by mouth 2 it y of mg tablet 09:36: (two) [place] 20 times Medical daily. Branch aspirin 81 2019-09 Yes 81mg Take 81 mg U nivers mg chewable 0-28 by mouth ity of tablet 09:36: daily. [place] 20 Medical Branch metoprolol 2019- Yes 50mg Take 50 mg U nivers tartrate 50 0-28 by mouth 2 it y of mg tablet 09:36: (two) [place] 20 times Medical daily. Branch aspirin 81 2019-09 Yes 81mg Take 81 mg U nivers mg chewable 0-28 by mouth ity of tablet 09:36: daily. [address] Branch metoprolol 2019-09 Yes 50mg Take 50 mg U nivers tartrate 50 0-28 by mouth 2 it y of mg tablet 09:36: (two) [place] 20 times Medical daily. Branch Immunizations Ordered Filled Date Status Comments Source Immunization Name Immunization Name SARS-COV-2 COVID-19 2021-08-06 Completed Unive rsity of MODERNA VACCINE 00:00:00 [facility] SARS-COV-2 COVID-19 2021-08-06 Completed Unive rsity of MODERNA VACCINE 00:00:00 [facility] SARS-COV-2 COVID-19 2021-08-06 Completed Unive rsity of MODERNA VACCINE 00:00:00 [facility] Branch SARS-COV-2 COVID-19 2021-08-06 Completed Unive rsity of MODERNA 12+ YRS 00:00:00 [facility] Moderna SARS-CoV-2 2021-08-06 Completed Univer sity of Vaccination 00:00:00 [place] MD [facility] Moderna SARS-CoV-2 2021-08-06 Completed Univer sity of Vaccination 00:00:00 [place] MD [facility] SARS-COV-2 COVID-19 2021-08-06 Completed Unive rsity of MODERNA VACCINE 00:00:00 [facility] SARS-COV-2 COVID-19 2020-12-25 Completed Unive rsity of MODERNA VACCINE 00:00:00 [facility] SARS-COV-2 COVID-19 2020-12-25 Completed Unive rsity of MODERNA VACCINE 00:00:00 [facility] SARS-COV-2 COVID-19 2020-12-25 Completed Unive rsity of MODERNA VACCINE 00:00:00 [facility] SARS-COV-2 COVID-19 2020-12-25 Completed Unive rsity of MODERNA VACCINE 00:00:00 [facility] Moderna SARS-CoV-2 2020-12-25 Completed Univer sity of Vaccination 00:00:00 [facility] Moderna SARS-CoV-2 2020-12-25 Completed Univer sity of Vaccination 00:00:00 [place] [facility] SARS-COV-2 COVID-19 2020-12-25 Completed Unive rsity of MODERNA 12+ YRS 00:00:00 [facility] Moderna SARS-CoV-2 2020-11-27 Completed Univer sity of Vaccination 00:00:00 [facility] Moderna SARS-CoV-2 2020-11-27 Completed Univer sity of Vaccination 00:00:00 [facility] SARS-COV-2 COVID-19 2020-11-27 Completed Unive rsity of MODERNA VACCINE 00:00:00 [facility] SARS-COV-2 COVID-19 2020-11-27 Completed Unive rsity of MODERNA VACCINE 00:00:00 [facility] SARS-COV-2 COVID-19 2020-11-27 Completed Unive rsity of MODERNA VACCINE 00:00:00 [facility] SARS-COV-2 COVID-19 2020-11-27 Completed Unive rsity of MODERNA VACCINE 00:00:00 [facility] SARS-COV-2 COVID-19 2020-11-27 Completed Unive rsity of MODERNA 12+ YRS 00:00:00 [facility] Influenza, 2020-07-17 Completed University of Quadrivalent 00:00:00 [facility] Influenza, 2020-07-17 Completed University of Quadrivalent 00:00:00 [facility] Influenza Virus 2020-07-17 Completed Universit y of Vaccine Recomb Quad 00:00:00 [place] [facility] IM, Preserv and ABX Branc h Free 18-64 YRS Influenza Virus 2020-07-17 Completed Universit y of Vaccine Recomb Quad 00:00:00 [place] [facility] IM, Preserv and ABX Branc h Free 18-64 YRS Influenza Virus 2020-07-17 Completed Universit y of Vaccine Recomb Quad 00:00:00 [place] [facility] IM, Preserv and ABX Branc h Free 18-64 YRS Influenza Virus 2020-07-17 Completed Universit y of Vaccine Recomb Quad 00:00:00 [place] [facility] IM, Preserv and ABX Branc h Free 18-64 YRS Influenza Virus 2020-07-17 Completed Universit y of Vaccine Recomb Quad 00:00:00 [place] [facility] IM, Preserv and ABX Branc h Free 18-64 YRS Influenza, 2019-07-31 Completed University of Quadrivalent 00:00:00 [facility] Influenza, 2019-07-31 Completed University of Quadrivalent 00:00:00 [facility] Influenza Virus 2019-07-31 Completed Universit y of Vaccine Quad .5 mL 00:00:00 [facility] 6+ MO Branch Influenza Virus 2019-07-31 Completed Universit y of Vaccine Quad .5 mL 00:00:00 [facility] 6+ MO Branch Influenza Virus 2019-07-31 Completed Universit y of Vaccine Quad .5 mL 00:00:00 [facility] 6+ MO [place] Influenza Virus 2019-07-31 Completed Universit y of Vaccine Quad .5 mL 00:00:00 [facility] 6+ MO Branch Influenza Virus 2019-07-31 Completed Universit y of Vaccine Quad .5 mL 00:00:00 [facility] 6+ MO [place] Moderna SARS-CoV-2 Unknown Completed Univer sity of Vaccination [facility] Moderna SARS-CoV-2 Unknown Completed Univer sity of Vaccination [facility] Moderna SARS-CoV-2 Unknown Completed Univer sity of Vaccination [facility] Influenza, Unknown Completed [place] of Quadrivalent [facility] Influenza, Unknown Completed [place] of Quadrivalent [facility] Vital Signs Vital Name Observation Time Observation Value Comments Source Systolic blood 2023-01-27 13:59:50 142 mm[Hg] Univer sity of pressure [facility] Diastolic blood 2023-01-27 13:59:50 84 mm[Hg] Unive rsity of pressure Kadie Griffin [facility] Heart rate 2023-01-27 13:59:50 69 /min Universi ty of [place] MD Griffin [facility] Body temperature 2023-01-27 13:59:50 37 Zuleyma Univ ersity of [facility] Respiratory rate 2023-01-27 13:59:50 18 /min Univ ersity of [facility] Body weight 2023-01-27 13:59:50 140.8 kg Universi ty of [facility] BMI 2023-01-27 13:59:50 51.10 kg/m2 Universi ty of [facility] Oxygen saturation in 2023-01-27 13:59:50 95 /min University of Arterial blood by Kadie Shields [facility]erson [facility] Diastolic blood 2022-06-01 14:37:48 79 mm[Hg] Unive rsity of pressure [facility] Heart rate 2022-06-01 14:37:48 66 /min Universi ty of [facility] Body temperature 2022-06-01 14:37:48 36.5 Zuleyma Univ ersity of [facility] Respiratory rate 2022-06-01 14:37:48 18 /min Univ ersity of [facility] Oxygen saturation in 2022-06-01 14:37:48 97 /min University of Arterial blood by Kadie Shields [facility] Systolic blood 2022-06-01 14:37:48 136 mm[Hg] Univer sity of pressure [facility] Body weight 2022-05-26 15:18:00 134.4 kg Universi ty of [facility] BMI 2022-05-26 15:18:00 48.77 kg/m2 Universi ty of [facility] Body height 2022-05-05 18:40:00 166 cm Universi ty of [facility] Procedures Procedure Date / Time Performing Source Performed Clinician US CHEST 2023-01-26 20:03:00 Heidi Mcgowan [facility] MD [facility] MAMMO DIGITAL DIAGNOSTIC 2023-01-26 19:23:50 Heidi Mcgowan [facility] RIGHT W TATIANNA MD [facility] US ABDOMEN LIMITED 2023-01-26 15:15:00 Heidi Mcgowan [facility] [place] [facility] EXTERNAL PROVIDER RECORDS 2022-07-04 05:01:00 Doctor Unassigned, [facility] [place] [facility] POC GLUCOSE SCREEN 2022-05-07 01:22:00 Kimmy Kuhn [facility] PATHOLOGY SURGICAL 2022-05-06 19:50:00 Kimmy Kuhn [facility] INTERPRETATION [facility] TOTAL MASTECTOMY 2022-05-06 18:22:00 Kimmy Kuhn [facility] INTRAOPERATIVE LYMPHATIC 2022-05-06 18:22:00 Kimmy Kuhn [facility] MAPPING [facility] SENTINEL NODE BIOPSY - 2022-05-06 18:22:00 Kimmy Kuhn [facility] AXILLA [facility] POC GLUCOSE SCREEN 2022-05-06 16:26:00 Kimmy Kuhn [facility] BREAST SPECIMEN RADIOGRAPH 2022-05-06 16:16:42 [facility] BREAST 2022-05-05 18:19:00 Ankur Loya [facility] XR CHEST 2 VW 2022-05-04 14:46:09 [facility] [place] COMPLETE BLOOD COUNT W/ 2022-05-04 14:19:00 Ankur Loya [facility] DIFFERENTIAL [facility] COMPREHENSIVE METABOLIC 2022-05-04 14:19:00 Ankur Loya [facility] PANEL [facility] HEMOGLOBIN A1C 2022-05-04 14:19:00 Ankur Loya [facility] [place] PROTHROMBIN TIME 2022-05-04 14:19:00 Ankur Loya [facility] APTT 2022-05-04 14:19:00 Ankur Loya [facility] [place] Results CBC 2022-05-04 14:19:00 Ankur Loya [facility] [place] MANUAL DIFFERENTIAL 2022-05-04 14:19:00 Ankur Loya [facility] GLUCOSE LEVEL 2022-05-04 14:19:00 Ankur Loya [facility] [place] BLOOD UREA NITROGEN 2022-05-04 14:19:00 Ankur Loya [facility] ELECTROLYTE PANEL 2022-05-04 14:19:00 [facility] CREATININE 2022-05-04 14:19:00 [facility] .GLOMERULAR FILTRATION RATE 2022-05-04 14:19:00 [facility] CALCIUM LEVEL TOTAL 2022-05-04 14:19:00 Ankur Loya [facility] ALBUMIN LEVEL 2022-05-04 14:19:00 Ankur Loya [facility] [place] ALKALINE PHOSPHATASE 2022-05-04 14:19:00 Ankur Loya [facility] [place] ALANINE AMINOTRANSFERASE 2022-05-04 14:19:00 Ankur Loya [facility] ASPARTATE AMINOTRANSFERASE 2022-05-04 14:19:00 Ankur Loya [facility] [place] [facility] TOTAL PROTEIN 2022-05-04 14:19:00 Ankur Loya [facility] [place] FRACTIONATED BILIRUBIN 2022-05-04 14:19:00 Ankur Loya [facility] MD COVID-19 (SARS-COV-2) PCR 2022-05-04 12:20:00 Kimmy Kuhn [facility] ASYMPTOMATIC [facility] EKG, 12-LEAD (SCHEDULED) 2022-05-04 00:00:00 Ankur Loya [facility] EXTERNAL PROVIDER RECORDS 2022-04-15 05:01:00 Doctor Unassigned, [facility] [place] [facility] STEREOTACTIC BREAST BIOPSY 2022-03-04 14:52:00 Amado [facility] LEFT [facility] PATHOLOGY BIOPSY 2022-03-04 14:31:00 Amado Diamond [facility] INTERPRETATION [facility] EXTERNAL PROVIDER RECORDS 2022-02-23 05:01:00 Doctor Unassigned, [facility] US BREAST COMPLETE LEFT 2022-02-22 18:53:57 Yamileth Figueroa [facility] US CHEST 2022-02-22 18:53:57 Henry Yamileth [place] [facility] MAMMO DIGITAL DIAGNOSTIC 2022-02-22 18:01:00 Yamileth Figueroa [facility] BILATERAL [facility] OSI MAMMO BILATERAL 2022-01-28 15:03:00 Amado Diamond [facility] Plan of Care Planned Activity Planned Date Details Comments Source Future Scheduled 2023-08-02 COVID-19 Vaccination [facility] Test 08:32:27 () MD [facility] [code = COVID-19 Center Vaccination ()] Future Scheduled 2023-07-22 [facility] Test 22:52:48 malignant neoplasm of cervix (procedure) [code = 105134427] Future Scheduled 2023-07-22 BREAST CANCER [facility] Test 22:52:48 SCREENING [code = BREAST CANCER SCREENING] Future Scheduled 2023-07-22 [facility] Test 22:52:48 malignant neoplasm of colon (procedure) [code = 920294422] Future Scheduled 2023-07-22 [facility] Test 22:52:48 malignant neoplasm of colon (procedure) [code = 544885170] Future Scheduled 2023-07-22 SHINGLES VACCINES ([facility] 22:52:48 of 2) [code = SHINGLES VACCINES (1 of 2)] Future Scheduled 2023-07-22 65[facility] [facility] 22:52:48 VACCINE (1 - PCV) [code = 65+ PNEUMOCOCCAL VACCINE (1 - PCV)] Future Scheduled 2023-07-22 [facility]ACCINE [facility] 22:52:48 (#1) [code = INFLUENZA VACCINE (#1)] Future Scheduled 2023-07-22 [facility] Test 22:52:48 malignant neoplasm of colon (procedure) [code = 403497762] Future Scheduled 2023-07-22 [facility] Test 22:52:48 malignant neoplasm of colon (procedure) [code = 104910128] Future Scheduled 2023-07-22 [facility] Test 22:52:48 malignant neoplasm of colon (procedure) [code = 061373610] Future Scheduled 2023-07-22 COVID-19 VACCINE (#1) [facility] Test 22:52:48 [code = COVID-19 VACCINE (#1)] Future Scheduled 2023-07-[address] [facility] Test 22:52:48 (procedure) [code = 872432560] Future Scheduled 2022-11-14 COVID-19 Vaccination [facility] [place] Test 15:40:52 (4 - Booster for [facility] Cancer Moderna series) [code Center = COVID-19 Vaccination (4 - Booster for Moderna series)] Future Scheduled 2022-06-02 COVID-19 Vaccination [facility] [place] Test 07:16:47 (4 - Booster for [facility] Moderna series) [code Center = COVID-19 Vaccination (4 - Booster for Moderna series)] Future Scheduled 2022-05-28 HEPATITIS B VACCINES Met [facility] Test 01:48:22 (1 of 3 - 3-dose series) [code = HEPATITIS B VACCINES (1 of 3 - 3-dose series)] Future Scheduled 2022-05-28 COVID-19 VACCINE (#1) [facility] Test 01:48:22 [code = COVID-19 VACCINE (#1)] Future Scheduled 2022-05-28 Hepatitis C screening [facility] Test 01:48:22 (procedure) [code = 868659414] Future Scheduled 2022-05-28 [facility] Test 01:48:22 malignant neoplasm of cervix (procedure) [code = 276528946] Future Scheduled 2022-05-28 BREAST CANCER [facility] Test 01:48:22 SCREENING [code = BREAST CANCER SCREENING] Future Scheduled 2022-05-28 COLONOSCOPY SCREENING [facility] Test 01:48:22 [code = COLONOSCOPY SCREENING] Future Scheduled 2022-05-28 SHINGLES VACCINES ([address] [facility] Test 01:48:22 of 2) [code = SHINGLES VACCINES (1 of 2)] Future Scheduled 2022-05-28 [facility]FLUENZA VACCINE [facility] 01:48:22 [code = INFLUENZA VACCINE] Encounters Start End Encounter Admission Attending Care Care Encounter Source Date/Time Date/Time Type Type Clinicians Facility Department ID 2022-05-09 Outpatient SYSTEMMARCOS MDA [id number] 08:18:46 PROVIDER Elias velasquez 2022-02-04 Outpatient [facility] MDA [id number] 17:01:30 PROVIDER Elias velasquez 2023-01-27 2023-01-27 Follow-Up Juan M 1.2.840.[id number] [facility] 09:30:00 10:00:00 Heidi 75214.1.1 ity of 3.412.2.7 [place] .3.748656 MD Olson [facility] 2023-01-27 2023-01-27 Outpatient GLENDY MCGOWAN MDA MDA [id number] 08:46:28 08:46:28 HEIDI velasquez 2023-01-27 2023-01-27 Travel 1.2.840.1 1.2.044.470 [id number] Univers 00:00:00 00:00:00 35922.1.1 350.1.13.41 ity of 3.412.2.[place].698 [place] .3.427[place] 084.8 MD Olson [facility] 2023-01-26 2023-01-26 Ancillary Juan M 1.2.840.1 [id number] Univers 14:45:00 15:45:00 Procedure Heidi 76586.1.1 it y of 3.412.2.7 [place] .3.545649 MD Olson [facility] 2023-01-26 2023-01-26 Ancillary Reena Mcgowan.2.840.1 [id number] Univers 13:45:00 14:45:00 Procedure Heidi 91375.1.1 it y of 3.412.2.7 [place] .3.812518 MD Olson [facility] 2023-01-26 2023-01-26 Outpatient GLENDY MCGOWAN MDA MDA [id number] 14:37:56 14:37:56 HEIDI velasquez 2023-01-26 2023-01-26 Outpatient GLENDY MCGOWAN [facility] [id number] 12:38:49 12:38:49 HEIDI velasquez 2023-01-26 2023-01-26 [facility] Juan M, 1.2.840.[id number] [facility] 09:30:00 10:30:00 Procedure Heidi 34065.1.1 it y of 3.412.2.7 [place] .3.408034 MD Olson [facility] 2023-01-26 2023-01-26 Outpatient JUAN M [facility] [id number] 09:16:08 09:16:08 HEIDI velasquez 2023-01-26 2023-01-26 Travel 1.2.840.[id number] [facility] 00:00:00 00:00:00 71901.1.1 350.1.13.41 ity of 3.412.2.[place].698 [place]3.0999[place] 084.8 MD Olson [facility] 2023-01-04 2023-01-04 Follow-Up Crystal 1.2.840.[id number] [facility] 11:30:00 12:08:58 Nicol 22301.1.1 ity of 3.412.2.7 [place] .3.879054 MD Zamora8 [facility] 2023-01-04 2023-01-04 Outpatient CRYSTAL [facility] [place] [id number] [place] 11:17:52 12:08:58 NICOL velasquez 2023-01-04 2023-01-04 Travel 1.2.840.[id number] [facility] 00:00:00 00:00:00 64084.1.1 350.1.13.41 ity of 3.412.2.[place]3.698 [place]3.177924 084.8 MD Olson [facility] 2022-11-29 2022-11-29 Outpatient R [facility] [id number] Univers 13:00:00 13:00:00 ity of [facility] 2022-07-04 2022-07-04 Orders Doctor ANN 1.2.840.114 [id number] Univers 00:00:00 00:00:00 Only Unassigned, JERILYN 350.1.13.10 ity of [place] [facility] 4.2.7.2.686 Chris as [id number] [address] 2022-06-01 2022-06-01 Consult GLENDY Edwards, 1.2.840.1 [id number] [id number] Univers 13:00:00 13:00:00 Nicol 34879.1.1 ity of 3.412.2.7 [place] .3.927354 MD Olson [facility] 2022-06-01 2022-06-01 Office GLENDY Kuhn 1.2.840.1 [id number] Univers 09:00:00 10:57:05 Visit Kimmy 35823.1.1 ity of 3.412.2.7 [place] .3.196601 MD Olson [facility] 2022-06-01 2022-06-01 Travel 1.2.840.1 1.2.725.668 5243 [id number] Univers 00:00:00 00:00:00 52756.1.1 350.1.13.41 ity of 3.412.2.[place].698 [place] .3.474177 084.8 MD Olson [facility] 2022-05-26 2022-05-26 Clinical Amado French 1.2.840.1 [id number] Univers 10:30:00 15:09:09 Support Cris Camejo 97731.1.1 ity of 3.412.2.7 [place] .3.560811 MD Olson [facility] 2022-05-26 2022-05-26 Michael Loya 1.2.840.1 [id number] Univers 00:00:00 00:00:00 Only Ankur 77065.1.1 ity of 3.412.2.7 [place] .3.574942 MD Olson [facility] 2022-05-26 2022-05-26 Travel 1.2.840.1 1.2.750.396 1604 [id number] Univers 00:00:00 00:00:00 71770.1.1 350.1.13.41 ity of 3.412.2.[place]7.3.698 [place] .3.871333 084.8 MD Olson [facility] 2022-05-23 2022-05-23 Telephone Isauro, 1.2.840.1 [id number] Univers 00:00:00 00:00:00 Dean Jaffe 08149.1.1 it y of 3.412.2.7 [place] .3.682934 MD [facility] 2022-05-23 2022-05-23 Telephone Vincenzo, 1.2.840.1 [id number] 1096 [id number] Univers 00:00:00 00:00:00 Ankur 87567.1.1 ity of 3.412.2.7 [place] .3.060475 MD Olson [facility] 2022-05-20 2022-05-20 Clinical Amado French 1.2.840.1 [id number] Univers 10:30:00 14:56:37 Support Chirag Bal 60676.1.1 ity of 3.412.2.7 [place] .3.079089 MD Olson [facility] 2022-05-20 2022-05-20 Travel 1.2.840.1 1.2.188.404 5696 [id number] Univers 00:00:00 00:00:00 66954.1.1 350.1.13.41 ity of 3.412.2.[place]7.3.698 [place] .3.3456[place] 084.Lennie [facility] 2022-05-20 2022-05-20 Orders Vincenzo, 1.2.840.1 [id number] Univers 00:00:00 00:00:00 Only Ankur 22887.1.1 ity of 3.412.2.7 [place] .3.585415 MD Olson [facility] 2022-05-16 2022-05-16 Telephone Vincenzo, 1.2.840.1 [id number] 1096 [id number] Univers 00:00:00 00:00:00 Ankur 17541.1.1 ity of 3.412.2.7 [place] .3.042766 MD Zamora8 [facility] 2022-05-10 2022-05-10 Telephone Vincenzo, 1.2.840.1 [id number] 1096 [id number] Univers 00:00:00 00:00:00 Ankur 43836.1.1 ity of 3.412.2.7 [place] .3.761707 MD Olson [facility] 2022-05-06 2022-05-07 Hospital GLENDY Kuhn, 1.2.840.1 [id number] Univers 09:06:00 11:43:00 Encounter Kimmy 96378.1.1 it y of 3.412.2.7 [place] .3.837229 MD Olson [facility] 2022-05-06 2022-05-06 Hospital GLENDY Loya, 1.2.840.1 [id number] [id number] Univers 11:16:42 23:59:00 Encounter Ankur 21629.1.1 it y of 3.412.2.7 [place] .3.396930 MD Olson [facility] 2022-05-06 2022-05-06 Anesthesia King Guardado 1.2.840.1 101 [id number] Univers 13:36:00 16:58:00 Event Genaro Koenig 63598.1.1 ity of 3.412.2.7 [place] .3.820700 MD Olson [facility] [place] 2022-05-06 2022-05-06 Surgery Magdalene, 1.2.840.1 [id number] 4133 Univers 11:55:00 15:05:00 Kimmy 16361.1.1 ity of 3.412.2.7 [place] .3.207712 MD Zamora8 [facility] 2022-05-06 2022-05-06 Travel 1.2.840.1 1.2.523.357 6152 [id number] Univers 00:00:00 00:00:00 69246.1.1 350.1.13.41 ity of 3.412.2.[place].3.698 [place] .3.687238 084.8 MD Olson [facility] 2022-05-05 2022-05-05 Ancillary GLENDY Loya, 1.2.840.1 [id number] 1094 [id number] Univers 15:00:00 15:30:00 Procedure Ankur 27900.1.1 it y of 3.412.2.7 [place] .3.422066 MD Olson [facility] 2022-05-05 2022-05-05 Consult GLENDY Holly, 1.2.840.1 [id number] 2274 Univers 14:00:00 15:29:08 Greg 75881.1.1 ity of S 3.412.2.7 [place] .3.018664 MD Olson [facility] 2022-05-05 2022-05-05 Ancillary GLENDY Loya, 1.2.840.1 [id number] 1094 [id number] Univers 12:00:00 12:30:00 Procedure Ankur 73649.1.1 it y of 3.412.2.7 [place] .3.636331 MD Zamora8 [facility] 2022-05-05 2022-05-05 Ancillary GLENDY Loya, 1.2.840.1 [id number] 1094 [id number] Univers 11:00:00 11:30:00 Procedure Ankur 39691.1.1 it y of 3.412.2.7 [place] .3.513899 MD Olson [facility] 2022-05-05 2022-05-05 Anesthesia Reilly, 1.2.840.1 [id number] Univers 09:36:31 09:36:31 Event Bethanie Paul 53777.1.1 it y of 3.412.2.7 [place] .3.829076 MD Zamora8 [facility] 2022-05-05 2022-05-05 Travel 1.2.840.1 1.2.615.655 4643 [id number] Univers 00:00:00 00:00:00 60427.1.1 350.1.13.41 ity of 3.412.2.[place].3.698 [place] .3.097437 084.8 .8 [facility] 2022-05-04 2022-05-04 Hospital GLENDY Loya, 1.2.840.1 [id number] 79116 Univers 09:07:31 23:59:00 Encounter Ankur 35631.1.1 it y of 3.412.2.7 [place] .3.321525 MD Zamora8 [facility] 2022-05-04 2022-05-04 POEM GLENDY Diamond, 1.2.840.1 [id number] 2643 Univers 12:00:00 15:37:35 Appointcynthia Paul 75936.1.1 i ty of ts 3.412.2.7 [place] .3.461418 MD Zamora8 [facility] 2022-05-04 2022-05-04 Consult Ankur Nogueira 1.2.840.1 [id number] Univers 13:45:00 14:30:00 Thony Niño 44262.1.1 it y of 3.412.2.7 [place] .3.279535 MD Zamora8 [facility] 2022-05-04 2022-05-04 Outpatient GLENDY LOYA MDA MDA [id number] 11:45:18 12:00:17 ANKUR velasquez 2022-05-04 2022-05-04 Office GLENDY Kuhn, 1.2.840.1 [id number] Univers 10:00:00 11:42:46 Visit Kimmy 96233.1.1 ity of 3.412.2.7 [place] .3.409023 MD Zamora8 [facility] 2022-05-04 2022-05-04 Ancillary GLENDY Loya 1.2.840.1 [id number] [id number] Univers 09:45:00 10:00:00 Procedure Ankur 08546.1.1 it y of 3.412.2.7 [place] .3.970028 MD Zamora8 [facility] 2022-05-04 2022-05-04 Clinical Ankur Nogueira 1.2.840.1 [id number] Univers 08:00:00 08:00:00 Support Gemma Soliz 68912.1.1 ity of 3.412.2.7 [place] .3.124795 MD Zamora8 [facility] 2022-05-04 2022-05-04 Travel 1.2.840.1 1.2.246.811 8223 [id number] Univers 00:00:00 00:00:00 89211.1.1 350.1.13.41 ity of 3.412.2.[place]7.3.698 [place] .3.006649 084.8 MD Zamora8 [facility] 2022-04-15 2022-04-15 Orders Doctor ANN 1.2.840.114 [id number] Univers 00:00:00 00:00:00 Only Unassigned, JERILYN 350.1.13.10 ity of [place] [facility] 4.2.7.2.686 Chris as [id number] [place] [address] [address] 2022-03-31 2022-03-31 Michael Loya 1.2.840.1 [id number] Univers 00:00:00 00:00:00 Only Ankur 07062.1.1 ity of 3.412.2.7 [place] .3.194728 MD Olson [facility] 2022-03-31 2022-03-31 Michael Loya 1.2.840.1 [id number] Univers 00:00:00 00:00:00 Only Ankur 01894.1.1 ity of 3.412.2.7 [place] .3.306107 MD Olson [facility] 2022-03-31 2022-03-31 Prep for Vincenzo, 1.2.840.1 [id number] Univers 00:00:00 00:00:00 Surgery Ankur 56130.1.1 ity of 3.412.2.7 [place] .3.003866 MD Olson [facility] 2022-03-14 2022-03-14 Consult Kuhn, 1.2.840.1 [id number] 2159 Univers 10:00:00 10:52:25 Kimmy 38577.1.1 ity of 3.412.2.7 [place] .3.390121 MD Olson [facility] 2022-03-14 2022-03-14 Travel 1.2.840.1 1.2.715.085 2359 [id number] Univers 00:00:00 00:00:00 68463.1.1 350.1.13.41 ity of 3.412.2.[place]7.3.698 [place] .3.566890 084.8 MD Olson [facility] 2022-03-09 2022-03-09 Telephone Lobo, 1.2.840.1 [id number] [id number] Univers 00:00:00 00:00:00 Amado Paul 69827.1.1 ity of 3.412.2.7 [place] .3.924884 MD Olson [facility] 2022-03-04 2022-03-04 [facility] 1.2.840.1 [id number] Univers 07:58:58 23:59:00 Encounter 14181.1.1 it y of 3.412.2.7 [place] .3.768008 MD Olson [facility] 2022-03-04 2022-03-04 Travel 1.2.840.1 1.2.701.753 1934 [id number] Univers 00:00:00 00:00:00 67027.1.1 350.1.13.41 ity of 3.412.2.[place].3.698 [place] .3.438578 084.8 MD Zamora8 [facility] 2022-02-24 2022-02-24 Ancillary GLENDY Diamond, 1.2.840.1 [id number] 1093 [id number] Univers 20:55:00 21:00:00 Procedure Amado L 83299.1.1 it y of 3.412.2.7 [place] .3.267191 MD Zamora8 [facility] 2022-02-24 2022-02-24 Ancillary GLENDY Diamond, 1.2.840.1 [id number] 1093 [id number] Univers 20:50:00 20:55:00 Procedure Amado L 81411.1.1 it y of 3.412.2.7 [place] .3.257375 MD Zamora8 [facility] 2022-02-24 2022-02-24 Ancillary GLENDY Diamond, 1.2.840.1 [id number] 1093 [id number] Univers 20:45:00 20:50:00 Procedure Amado L 53474.1.1 it y of 3.412.2.7 [place] .3.223013 MD Zamora8 [facility] 2022-02-24 2022-02-24 Ancillary GLENDY Diamond, 1.2.840.1 [id number] 1093 [id number] Univers 20:40:00 20:45:00 Procedure Amado L 19723.1.1 it y of 3.412.2.7 [place] .3.814590 MD Zamora8 [facility] 2022-02-24 2022-02-24 Ancillary GLENDY Vazquezyne, 1.2.840.1 [id number] 1093 [id number] Univers 20:35:00 20:40:00 Procedure Amado L 86051.1.1 it y of 3.412.2.7 [place] .3.909119 MD Zamora8 [facility] 2022-02-24 2022-02-24 Ancillary GLENDY Diamond, 1.2.840.1 [id number] 1093 [id number] Univers 20:30:00 20:35:00 Procedure Amado L 06115.1.1 it y of 3.412.2.7 [place] .3.043067 MD Zamora8 [facility] 2022-02-24 2022-02-24 Ancillary GLENDY Diamond, 1.2.840.1 [id number] 1093 [id number] Univers 20:25:00 20:30:00 Procedure Amado L 45490.1.1 it y of 3.412.2.7 [place] .3.471901 MD Zamora8 [facility] 2022-02-24 2022-02-24 Ancillary GLENDY Diamond, 1.2.840.1 [id number] 1093 [id number] Univers 20:20:00 20:25:00 Procedure Amado L 84616.1.1 it y of 3.412.2.7 [place] .3.335577 MD Zamora8 [facility] 2022-02-24 2022-02-24 Ancillary GLENDY Diamond, 1.2.840.1 [id number] 1093 [id number] Univers 20:15:00 20:20:00 Procedure Amado L 19773.1.1 it y of 3.412.2.7 [place] .3.107271 MD Zamora8 [facility] 2022-02-24 2022-02-24 Ancillary GLENDY Diamond, 1.2.840.1 [id number] 1093 [id number] Univers 20:10:00 20:15:00 Procedure Amado L 81016.1.1 it y of 3.412.2.7 [place] .3.440553 MD Zamora8 [facility] 2022-02-24 2022-02-24 Ancillary GLENDY Diamond, 1.2.840.1 [id number] 1093 [id number] Univers 20:05:00 20:10:00 Procedure Amado L 30009.1.1 it y of 3.412.2.7 [place] .3.125784 MD Zamora8 [facility] 2022-02-24 2022-02-24 Ancillary GLENDY Diamond, 1.2.840.1 [id number] 1093 [id number] Univers 20:00:00 20:05:00 Procedure Amado L 13874.1.1 it y of 3.412.2.7 [place] .3.001135 MD Olson [facility] 2022-02-24 2022-02-24 Telephone [place], 1.2.840.1 [id number] 1093 [id number] Univers 00:00:00 00:00:00 Bremary lou 04665.1.1 ity of 3.412.2.7 [place] .3.393084 MD Zamora8 [facility] 2022-02-23 2022-02-23 Orders Lobo 1.2.840.1 [id number] Univers 00:00:00 00:00:00 Only Amado Paul 62070.1.1 ity of 3.412.2.7 [place] .3.898059 MD Zamora8 [facility] 2022-02-23 2022-02-23 Orders Doctor MARISSA 1.2.840.114 [id number] Univers 00:00:00 00:00:00 Only Unassigned, JERILYN 350.1.13.10 ity of [place] [facility] 4.2.7.2.686 Chris as 433.4406141 [place] [address] [address] 2022-02-22 2022-02-22 [facility], 1.2.840.1 [id number] Univers 13:01:49 23:59:00 Encounter Yamileth 23305.1.1 it y of 3.412.2.7 [place] .3.604712 MD Olson [facility] 2022-02-22 2022-02-22 Ancillary GLENDY Diamond, 1.2.840.1 [id number] 1093 [id number] Univers 20:00:00 20:05:00 Procedure Amado Paul 61657.1.1 it y of 3.412.2.7 [place] .3.562507 MD Olson [facility] 2022-02-22 2022-02-22 Clinical GLENDY Diamond, 1.2.840.1 [id number] Univers 15:20:00 15:20:00 Support Amado Paul 60949.1.1 ity of 3.412.2.7 [place] .3.879500 MD Olson [facility] 2022-02-22 2022-02-22 [facility], 1.2.840.1 [id number] Univers 11:59:24 13:00:00 Encounter Yamileth 81545.1.1 it y of 3.412.2.7 [place] .3.863973 MD Olson [facility] 2022-02-22 2022-02-22 Office EL Lobo, 1.2.840.1 [id number] 4104 Univers 10:40:00 11:38:37 Visit Amado Paul 79066.1.1 ity of 3.412.2.7 [place] .3.026684 MD Zamora8 [facility] 2022-02-22 2022-02-22 NPR EL 1.2.840.1 [id number] 7331 Univers 09:30:00 09:30:00 41370.1.1 ity of 3.412.2.7 [place] .3.591668 MD Olson [facility] 2022-02-22 2022-02-22 Travel 1.2.840.1 1.2.707.665 0993 [id number] Univers 00:00:00 00:00:00 93905.1.1 350.1.13.41 ity of 3.412.2.[place].3.698 [place] .3.0628[place] 084.8 MD Olson [facility] 2022-02-14 2022-02-14 Telephone Dawson Mayer ISS[place] 1.2.840.11 4 [id number] Univers 00:00:00 00:00:00 CESAR 350.1.13.10 it y of [place].2.[place] [facility] [id number] [facility] [address] 2022-02-11 2022-02-11 Psychiatric Figueroa, 1.2.840.1 [id number] 1092 [id number] Univers 00:00:00 00:00:00 Only Yamileth 40836.1.1 ity of 3.412.2.7 [place] .3.299482 MD Olson [facility] 2022-02-07 2022-02-07 Telephone Dawson Mayer 1.2.840.114 [id number] Univers 00:00:00 00:00:00 [place] 350.1.13.10 i ty [facility].2.7.2.686 [facility] [id number] Id dical [address] 2022-01-31 2022-01-31 Telephone Dawson Mayer [place] 1.2.840.11 4 [id number] Univers 00:00:00 00:00:00 CESAR 350.1.13.10 it y of WOMEN'S 4.2.7.2.686 [facility] [id number] [address] 2022-01-18 2022-01-18 Outpatient R [facility]WSON [facility] [id number] [id number] Univers 00:00:00 00:00:00 ity [facility] 2021-10-05 2021-10-05 Outpatient R PANCHO [facility] [id number] Univers 13:30:00 13:30:00 MYRIAM ity [facility] 2021-10-01 2021-10-01 Outpatient R DAWSON [facility]ER [facility] [id number] Univers 08:30:00 08:30:00 ity [facility] 2021-09-23 2021-09-23 Outpatient R DAWSON [facility]ER [facility] [id number] Univers 14:00:00 14:00:00 ity [facility] 2021-09-01 2021-09-01 Telephone Dawson Mayer [facility] [id number] Univers 00:00:00 00:00:00 CESAR 350.1.13.10 it y of PEDIATRIC [id number] [place] [facility] [id number] [address] 2021-08-31 2021-08-31 Outpatient R DAWSON MAYER [facility] [id number] Univers 15:30:00 16:33:24 ity [facility] 2021-08-31 2021-08-31 Office Dawson Mayer [facility] 1.2.840.114 [id number] Univers 15:21:31 16:33:24 Visit [place] 350.1.13.10 i ty of [place] 4.2.7.2.686 [place] [id number] Id dical [facility] [address] 2021-08-31 2021-08-31 Telephone Dawson Mayer [facility] [id number] Univers 00:00:00 00:00:00 CESAR 350.1.13.10 [place]2.[place] [facility] [id number] [facility] [address] 2021-08-12 2021-08-12 Outpatient R DAWSON MAYER [facility] [id number] Univers 08:00:00 08:00:00 ity [facility] 2021-04-21 2021-04-21 Outpatient Chance KAPOOR [facility] [id number] Univers 16:30:00 16:30:00 [facility] 2021-04-15 [facility] [id number] [place] 00:00:00 00:00:00 [place] 387 Method i 2021-04-15 2021-04-15 [facility] [id number] [place] 00:00:00 00:00:00 CHEYANNE 388 Method i 2021-04-01 2021-04-01 Outpatient DAWSON MUÑOZ [facility] [id number] Univers 15:00:00 15:00:00 ity [facility] 2021-01-20 2021-01-20 Outpatient Chance KAPOOR [facility] [id number] Univers 09:00:00 09:00:00 [facility] 2020-10-06 2020-10-06 Outpatient R DAWSON [facility]ER [facility] [id number] Univers 11:59:49 13:47:00 ity [facility] 2020-09-02 2020-09-02 Outpatient R DAWSON MAYER [facility] [id number] Univers 00:00:00 00:00:00 ity [facility] 2020-08-12 2020-08-12 Outpatient R DAWSON MAYER [facility] [id number] Univers 10:15:00 10:15:00 ity [facility] 2020-07-22 2020-07-22 Outpatient R KAPOOR, [facility] [id number] Univers 09:00:00 09:00:00 [place] [facility] [facility] 2019-08-26 2019-08-26 Outpatient R RADIOLOG[facility] [id number] [employer] 08:47:04 08:51:00 [facility] Results Test Description Test Time Test Comments Results Result Comments Source Pathology Surgical Interpretation 2022-05-16 19:57:24 Test Item Value Reference Range Interpretation Comme nts Addendum n1tdrZApLTHjmOZ1UYEjONYzw2srt7IdrWKqdFTpNEazmLYjukPfye31jNO7oZ64WI1wKFEeXoY0XWFa coJ4Yxy2NFWkAJYmnUFdW365IPAeDVIbsZhemgk0yQ74OVLobA1ykVOpZJgqmjArBChlvvLoksOmLwd1 LZO5mFqjFIAzhbwdFvF2LIvkQFOssbtpRUk5AExaMJK 1 (test ybPJ8MAAdjCWpH9MrQGIwQR3lyjo4BXE9NAkiSEAhLlB9JQIzeZDvCJHqlSnxSFrgk524ZIG4EkLpDCG utvVkyMysgX3jEqTiGOHFVXXygEwxijJtTXMcV0Meg77fCS2iIS0lokjwqvRjUoLrjVBgrQDweK6moaS RHYoCYvVyMV9iQNKvJIfdBFFcMZCnhovra5PvZwVVvS code = Gro2OfG2kgMRqwIZttX37sm5hsIMocWHVsD3nybbjyWC6yiNQmRGNtdpzyQZOuPvihZHqhnaZtZEZCXA FARb4UF0IIYVhiRLAwB8ZtZ3qaMH8yAYasDRpruxYzUBRoloNgIndhGFCwm13eaPAyPDtxSvLrLWxjev H6OYQZos2cPLR1lsC9BOKeZUHXs5EhiFXvPLT2PHT1w 37) 336SAZphjllWXPtPGNfLpNbP5KlZ3zzTI4fDBbfKIydzyVoACM5SBGyiYt8sGsjTlOiCGfvKgKhvWSzN ZolIUqjoQ8dSUEoYfKsYqCtPnJWjoIHtDW9SAKzhvEgxb1uIRyuRVYqvJebWjIfeWhmJdMxJMOfrRauM XRlZCBTXGYwXGZzMjAgaXplIChcZjFcZnMyMiBlXGYw RSMoTyCjnABwauBmFM3vLHILHPU2IMJiUAM7DGBtNqMkStJkLzCitRcePDAiDyAIqUS6t8edY9gpAYQx PmSyViZwABD1fOB0UTYoDZMTfKC7ILxhL6YxQ9hdr52yCWguTFZulSPjkOWhRCJtStVvSzYkXiUMfrQv cWHlC0A5ngCmSQNwPbPcJtLpMRVfqMIaen1fHxufVAE mN22wcDSwqKZvRFLnZuStAtVuObNOuFMyVVTyELuxFhGrTcNvXLJmABJeFmzcBXHnZrbvRLUrPcFZGET nk3JmvjohHsIjFACiDPMbdkPrfVIrEElpDTwzaF9fFWLaMxGmAcIvLvSMcG4vxrLDhHJxnjYro76fnRD vPXmrOqPnXXozmnE4QBEOmKUrzPS6DLBjXCJZQTgisW a5GEwtYDFhwFlkWPpieiCiQdafVYpwzuTiAU2vsjzjlbLpHbZgDeFcEzD4QVWdXFUSZHHqEMGuUvTuI8 GvQJKrwTPva5McMqUnfXElcb2dOZXvEWLwdsFkotshknMbnSDyzqDuJ2qtcNQlCFByzM4eDZVzMZNxi4 TdTEPrZL2uMRHngARzer4oWB37mLKkEF1ygnqneqNbn Y6tHIsaVHTnuMEde48alQEnqiVylfyypqRaMTZgeW3nSQYbGKkcPF7aA8Y6lLZtUSZupaxqNZBdDDMOM Lglt20pvHROkC6wlHACz9OvdwbzDuYjKKOvoI10e0g6KVAgNqahoKXne2ErH8JhxUJgmUGdIHmoOmEnZ LoodqD5YTspXL42vBIjcjSkJvFFwT4ktVDFv6RityJN jSStdK2lRVolNsQzYMPhHRunFZYhMgFGxQ8lGUWkn3KiV5EclMtoPRaqLl1nWKPlRTuumSehDTB6UZEf XTY9ZAGkrudxqVFlmTdsXIhcEEWnXWHcVoQpDELpFCUlXO12KZXdTdEvtRetQJDaYW6xCDgyr5mpQOLw GLC7wereZ3InQNBzQZGtiZawhMPdSGMyPXQ0qX7wv3c tYsZVEQEfGGNrAmYreYOkKCHxSPBnTaBlKJBXzEXvh8mkcDGiySggrchgYEdybkOfTHUhnXOHUKmlXZr tbdKmDOzrQDaGCkL7DPY2fDAxOMPuLE6kj1DrRXRybBHaNEIlyNXhx65bOdJmUlLlTUSyYOYoskzeqZM 7EJmjzS1yKhRqPjYrAgBaSdSZtaiaGDC0XXIsTyWoPj JrGSL3vD8eIWzwAUo2ISKjNOUrDKNzXFZyMzEoCQhjOTcYK1rQDXnkEVBwVmVETLshz35nbJRRUDSmHR RuCdAplQ7prHVfGzNbWnGtUnVVPYBeHJUjEdGae8JywnQaoQ6lFfftFHSnrG9uSHQrykcvGKYbTNUxJa ZpNHqcqJTbqKOXKBRgJGSxHaGsWBUvk3Csa4dqCSldR Ag3IGBmBNPVV0ItyMIeXNywXIvkhJ9dYIBvFM7vjOljGSV7IAszHXmzghJyPXOgKlNcViOhZUX0dWLwE IV6BXHkQHLZGQJjfHIazjivgMZhQ4XnBFukDBEsgDAjIVlkVAU8 Submitted o6xduXDiAATxq5uhWODrxAYrXmMsLeVqBbWlImvkmUAwTOvpoiEsTGlib7ZaE7ZcKnMzNAjnmkHcSRIe ZpajnapjVHDzDPH5hrInOUIiSEgqANWaRUkfPa7tnBTliOrsAxMnCPLkg3rpsaGVtrhehNe0f3hwXABp DyW4uCXtPLwpK7unxyAkzGXpKJLwQYj1fF72UJTlaL6 Clinical qtIRtVDhnmqShGtE2NLkuADKgStW5ZZStsHOwVVZuW5bgSTOuWNdrDJMtMTxtlGBxSKL2rAnfx0M3nIS ztNNfvWjpNeCwYbBjUcQRw4YcEXv8zAhnJ6DlJNPtJrI0ySZoIWFyFFrcSQYnAFRfzoO5qC39CBevrtP 1gXPxw8Eml01kv852mI5rhIPsXOG3LUBpYHZrqINcUB History OoXAB8LWMhyHVjN0wcOEWhPA7ntjybTZfjGSegSLYdgRM6JSVwmRYsV1UeZAIaMTygCRMpeuk0CgQoUd 1egAJvbNxaUSjnv1bsg3hllSZkJhg8GJRtNyElNwocYYili0Rpw5zqNLBcdk4dDFW9kFEkxOsfc7U2nZ CvTXDtkLPppvIsRDYaJaW1CWboCA4lur34XLSnSDM2m (test v9flFKhkTmvbhSziBJaTAaoZ2CiQJPhs145HFCrJ3HtOEMyw3R6kjKtVcBlRQGknKN6byQ3DJRmTUu8i XRemjJ3uhXjuTCxJ3lqgX3yFSXeQG3pagbzq8rzASmcHYpxLABpnSZ3gcZ0HUBvpHSyQ9JglJ8fIZSyM EljHJEmwqs7KnGeMw8fuABwhDlnWNpuSkrcGFdqBHLd code = ukNiouXhyDkoYYStVPUqYHrmEYFnLTmvDKWpBQDfUbUfcJbwfDkqhV9nAyOaHkZhBSwzLM1zWGMoQ8ou kOJxNQAcZIBxQ2qhZhWtjN1upCrkCYwguaMxGTYKpMB2YXP6X8CozBEnZLVupF3edRYghR7fc0o8iCGl OfEpVYC2DYJ6KOSgpYLxkPFqItEkJFG0IqRmKJtjeIU 88290) pblxmMVxmczIyXGxhbmcxMDMzXGh dZ0wnJfCsWLLwlFmeBLsfu5SgJPHfNDEoScIknUIscV9= Diagnosis d5yjzUNaDAQlbMO9AUEgYBQmz5uxr8GtwTNmnAPlDQdfnWOynkBmig04aQO2qI83OD4lTUDuBwU6THDj ziR1Vpd8OOXbBXPzsDCgM492l5nmt0hkfrKcdGL3ABGkJUOpC5QkAZ0hPRUhtMOtC57rdNLhATS2UPTa UJRwzNFtAWIpVOP8ULRuuBVxC7thRSIaKC7occoeJZj (test cIFivMDJzmPG5JMYsbVFbP2NyLROkBVvuMFUcrdg2HdZjUe3xgHOdhBayFGqqIDHgLZArOQrdWJEpZzV jM1OgZLA6RXcmJfCfAkNlRTK8AAQggEFnUZ5iz0UlX9DiaGx0ESdpgrZjPAOGROUCKRWVIjCNUu8XIQN IQtUIDPAGUCiDC0zKQRbpQI7XPSECQIMOMLQHSZuRAT code = HGQTXOS1fLMKAQIUCRFOpPQBnzU3IMDZNINXHEUJURZ3IVZbKRFuSaRMhZYz8OKRzUFAEES3EUHY7OFr 1dtRarWXMYN3iYNYpfkh3wzyCcVDJuVRLyKLKae2CeIDJkyv38tJ0rxAMriVN6JBWvEQexWRRdZLZsqg HeorardvFgjhRsm2OrDJvaxgYuLVMWIyMeejGajdSwR 34) V17XXA9BGklIGM8XCDhbQ0gZrAkzIG3qRYmnD1vUHKuo4Jjd0LjWORuiTVcYIuylTUiM9iiWPMxxtMqy C4yDFV0qPCdYUHiC38jPgUcmLQrhZxrchKwIXTztA5jSK3wOFD3Rz1xrGGfMTUvDDQ8wJ8nuy4yfPddI QWJaQfztUKqgQKgg4Y9iSDxGVv0uCCfqSdje9krKXmo jCiwSPJrXTThs9IlU1JkfEe8VHHsFnLml6E0cFBbAULzxcLpxq5uJOHmdxVwmUE5ZwfrkH2cNV8pzUZq XUaqfg7vwTTdq1FppKArf3NpuU5fnEosWMEDzECuRPSiJCZiggNwYAh7nHCxGK0jHTSuEXBhrsW2eX0v oaTjyqKuGA98WhedLVNmC1GkZUZxdsvhDbVjOsmaSNV ajQCvkYrnyQCmqQNgOV09wX5emSXsyG7yeZDyk7FjPICjDaduSKBiU95tHFj0yHLwJU8wLPBgUL9wZVO 3zH7xHWRoHGSzntFnJVOivxggAgKepKWjUJZzYLNEAoSJZSR4BKF3bHxyATO5AAUlgjBmtsKeDUb0jWV nRO0vINTkXcM4ZFnleqMvC6S5VK6rzKkahJwpft2qVG EaAP3tBQM3rC9mPRUqEOSqtxKxOXYooqewRtVzbCYnSXLrSBFRZgYSYBO3JEQsYLLiyZEjp0esPX0tKJ bvhIycaJKdZAZhPQXBb1kgPXMmVYAmpOIzpUOhjbYyxOUnTcktcd9uSOerm5GxJAXwj6R0VUE4gLVsHH YrBq2qyxrwgVFwf3VsTAZab6laFlzhLDXklHNgCNWpN EPPYmBOCPP8VFSsGZCseKAiKCTpxBtdzoZtQJylJbEbvG6eOR0iiqqiukgizWYkKNFaBWAGmFOeh5Irj UNdu5LsuBynl8ZaZAMataW8bS8opgUorfNzQK41IcdbFXUmhNNkVWwyLSS6 Comment q4oauBOrDILrqDQ5ZNUxGLEuz8dej2QbaBFbjQBiWVeirMCdtwIpxi62vPF9bC87FI4bDDVyQdM7ZNCr ktM6Ldu4IMHcGENnxTFkY527p0pai0gavaHnzXK7yJlyOSTijydqCyO9BRcuLJOgcpobXIu6DCnjXEKt ePK2IYJguQGwE1YtUSWmHF8ixtk5FLI5KTpfLZAfSyM (test 1HUUlsPTnOELfwEpjLHoah193TDF5CrAtBVKgllHlkPxowT9jDuJyZCDGQRJxwKsxvhZcLYYqH1Wwr84 gEE8gAH7enaoprhUbZoXkmKM4qCUcaXJ8IUHzqLQcn6Q4tU0jPN7zYHVoCJShvUXidR8fkoAaghSfhPF mTPwgNs8glOLdjD== code = 9835) Gross c1mzhVImXOWdwBL4DVTkAOEsy3brd8GkkEDhlYCuIGgztVZawaAaqf91cVO1oS91LE1lTNCxVbF3TLQl eaQ1Pct2GYPpIZXelVEoI868f4nnv7wjliRyoTJ4KSSrDTKuX8VrAS6nKKHjoNSwP55haCTwJFW5ATYz BRXcaRArCKGrDOD9RPLbeRGzA3qvZLViLZ4rknozHQc Descripti lAGblAYOfgFL2KOKlcWUeU8GvZZUqFOzpSVBsudh8DoYbOf9feBIbcHigSRzfUNGik7blABDnfGSpHQO 0URatuMAiGTHuLXAuZDy1HERmCJydyNRpWR9iiNevRiwanPcua4ZxlMSkGCpvOWLuETWiIRbzSAAvM0M QTIOwYRC0KFW4MHLoEFm6LGrpU9XNSTLdSWK1EOFpJh on (test B6GfP7FIl0IFUTFp5gSCMdAiCdBTY6AgJ8LQF1GAPrMXDhMrNoPATpWZyvJtRTusomlQPtRXItUXYtGO exUtKbFNdzP41epSkuwU7wIveeqyKdEXH0YOWrybkrBfKpHhPpOST9UAImJJW5BBYeuoDnCXGpOTsqMo TtGqClYOL7WBJyeDVcGK8kb3VnK3FngPuqGKBseRTxO code = JWelWy8D3kwTJCvYyCdB0Txo0CgIIDdPH70KgazEZbbdjfvy3TteUUiNfZ6FW8cQ2qsQ7kpLGQvnspuE ULmiPt1V7lppOE4ZFGsuSSrHQaroqL3BLuteXYrjTI4ETFynq8dFLYnjL3oWYMwAGU0VDKkEOQOMOOjd QUnGW1nk2EwJ0KbzSlql7WlS4jcHE3sbJGue5JdvB0r 822545908 AES9OBNnNMMvt37lb4ZsGWIyh0BvmZ4zuP4bVVScn9WkPCZ5IJWkCNFgr93ybPFfdWQhSGQpZQgubOBy JGttCM5wQJQjU15rDjGsvSSjnjDfywxkzlY8omBcw1Q6JZXlw3KtXRBxSAPoqUUhpJ8finG5JDeeqXSy ZDNlVHHbRiOOiATtj5MoL8qzHK0ikSEiz1TnEvTaYYU 1) [file] LdfJIvVcQnhJ1gcAmhoZ6aWkOwSPsxBXGfK6PwR0RtbwC1p2gtiKmb j9VplROxWD8nvWWkvH== Intraoper z2ptuHUyEHBsgXSAQSsnKZwbhiSuUIEyyFMgX9UmbkjzVZpxRV5vSO5vqEtdoINuyGLvUC0XTVGwMfCq YLInmELyvpYwFdOhNRJzxHHsmBR9PHEtNO2hnscwCMhaAUwsRCKjacR8TGHnyUMkF9HiLOKiNY8vfqon LVZ9GHiekE8ltvRBRaplQl6ewLWxwOknAuAaEwKgMEA ative pOLGtBBIvsUrpDJXpRLf5fC0RSfroASS9DHMUGoeaSZOgEL8Xw5mxRLZdeASqDEQ4EMywnIUlLCMdGWC nSUo4ITYlTKyywETuGD5rrQekLbjnsMnpc0HsfLRuBYvvQCWcZYBsQQxmLLPgKD2FNaDtBRKmLoQ5KAM uPYz7UVq0FA8YHuSuQVXrPEW7TCU4UIUxBAz8PUwqOP Evaluatio 7BYEUmYAH5EXi9GoJgTEYyGVjgRXm6YUDxNPeyNYMwpXZoOObrUxXvEZBjITdlDuYhLSDaLUscvjA1ZT BsGQmmEAJhCaWsFKICKcinFRSmUAaomDteyH5pTXFiD63ou4LIb7RyYQ7LSSx9pfQikwbgbK0bUDXqjw IdWIrqxXThW4jrWkpsvuTsOMKuBLNzhWlhwZVmvIkas n (test 1KcTVkvFYQdYRW2RDByPVLnmTA4z6TkhHCgMLR8LPJ6b897WEmod5IfzULtk3MyjTWgYB5rEDDrvaavs K8unzwxPXPifPOjJZMos41oGHI6bLUekKhoUoGbJ6Egs1BxZKVvvI4hcPArf5FitXLzGOixuJEmYQzwR BR4EQAmoRPcqZ2fVKgybLIscQDoW7Iwt2kxJzriqDPb code = BU7IKRcbOiHlGTzaqewbEMRYSjezLKNXviQmJ5mxsMEehgTtEIJvnGcbhLCzDnIERDjebRAkJ1J1lV7d HBAfX9FxbHajmFPch5AbhLKqtQ7gGSF8veR7wSCzpN6jSLCpr3GcfQExA4psEhlsFKTiCOqODJ2KVCBf w5LgL0P8PAQeURtqt7xwESLoPQwpp4AcSTqZLPNIRD4 209154842 GHA5quGN1HTrYK2JVY6dAlKPwRIL5tWQ0MREAHuuxeHJ6bPO0pS28YJWqNMEhqJCsFLilD542TLl7NZK vTLmnd5gaAEBjQCxsb4UdZIaZRXHUIC2SUT0rxZI6MXuTL7VEWPjxWAIoTvotrJADYQS5FBarfZvkrBn 6m2ufjTMkd7g4LLsrKOE2cSrnoLViglnuoDMxsYscyu 5) GvINRlpeXCHbxsFBNkWAu6vvUsolCTUkglnLjlLcHkiYXcLwNyfqN3ZGXtkSAaAAS2OT9eCYEqrbggUM BcEYTmKNW8CKpenL76sSEbHECdKAKrjTOvmLjdcLSylbCXIbpkkH0fUpQpp4rveQl9DWEIWedccXSkqr llrrW0JKBnl0vjtTggd6PiqUZmJK8prDuhbZ4bLqAzA iANCn0= Biomarker g3eapLRkUDHnlTJ9MHKtCJUpr6ghm4SpeZFrfVXnDDjlrCNzbvYfmq02fUF8tW81JN6fWUPzXiQ5PSUc blD6Qyq6KKRiGOVuzRZeS641o6pod8jblrTbcZW2lUunALLfxfmdCpN0HXbnFZUgmhrbFKo1YKniCBCb sAH0UOVbhIJcJ8KcRZDbKN6amsc1PST8SNvpTSHjAkB Block(s) 1MHVibPAtTPZuePbrYAygy445RXU4QxIrMYYivaGfzGkojR0gXlDdK CBBOFxwYXJ9 (test code = 9841) Disclaime c2gilQGnCLPdiQSrJtKvPYYmTNCuk8glUYIvnXNrSnJkMgHiCaByDtqoxDOyZMXuEtMmr1unr009vDGk j1qzLJKyMrC9rPNlSJIxvEPiW322TMCrZCoth3tye1QhCGGdkEEqr4G6TIIXwbcioYv6uAblC09ka3P1 QtosK3mgKLPzXPFlW7BnIR0wCVJnOpy9DDJ9LQC6IKC r (test hDZEwV7RlPG9tPGVwrSMsLUg5m1nufJjiMZOtBXC6v2gmCIvnghOsLV6ekc2gaZr8m5sfqiCcHSEzTGZ jnOVGDYMdA2UscBmrEf9yzXc8gFzkHlyxDHO7Rnu3KN7rek80biw0xAkwEQHprkisUqJ0GPsnMIJvpqy oPKb1SIgtJJCwuLA4DTHgpQWrE9KuBJNgGP5rgrq9PV code = K4YHgwFZHhZbO9GCOznNWuEVKzkFuoHHbev507QSY0EyAmJV5iW9Asi9N2fR2szUDaOYJyyLRdUsWyCW Rhrp2bmGMsQJtcu1QqHWP4jeO1bSKvoBJyUIHfEH52Nqspa1SbLqbtXXM3ZUOmreQms7Fzn8nqZqHwjr WcX8eiR5WnJYIcGJBsTRAaQkKnsoRyp5Vvl5PxcQPom 9844) Yi3g7agEHIxFKMtsDbdj9dyQDH3JILbZ7T5eVNpi8oqFWcvYEKxuSA5mbH1YOMfwIGuE4CpcW8dAFYkN L6belp9f6leGHR7YKvnCNXwLkM0mlO1YPHstFVcAYCbrHgkRKwlf268RWS4VrEiHEUkx3JtR7OuoKiyF 90mxHxbK19jCMBysOmurS2fnLwueS4xYaMkRnIrVUrc qUkcxNKbobpmOOptqdM7HEfzkjaeIVYpOIscQ5haMzUsIYSyaWzaDXacd3GqDJKcQZXoIxyesrR5ELKO x28yTPTqp0PxJWLlwR0ezNKvLXximfFdbBC8YOexxmMuXgVobqBaYFFggU5aCNKsAB2dFVHdsfWdso0j cgCaPMUmTIPoI6ZklsxxgBcqkqXyNECjye6wqwBqPBO 7LCYOZT9VEMItPAYlr60tMAPbdRqvrJ0tjKKfjgJtCRBuu2JgiE7hbADCWBJpY4srZS7ePOeaf4VeyPP emBArbRL6MTXhx8NuRgWhkxRqrRVhoDYdH3LmlWmgG6eyJQSrZEGvvvKgqLTjs9TxZLSbkHH3oULrRT3 KTbREa00bQJYbHSYTglMlRJTeyByewMT4wmW7iI0bAr TJLzQbtQIewADbQqdlVTZak158qu8qznC2ZHLqZWIdeijte0MfDXQrNKMqsW24FLIzCFWiuo8gzqdlrB KrwaYkG0Rscun6hI9dQNNdSCsmGDYaFQGjYfTioXCgWhVvFjInxSbwwCcjKScsKaRcGBKoOJyhW5tsOe FcZnMyMlxwYXJ9 [facility] 2022-05-16 19:57:24 Test Item Value Reference Range Interpretation Comments Addendum 1 (test code = 37) v8hcxEPjMCEwnXZ6KX WnFMUoj7yna3DymMHt cGFyXGpleHBhbmRcbm 59cKB7tQ81GN5nOLPi YiV6NVIemkO8Hir9II MeZHYcgFViU581GDKf UZCjiBzowri9cP09GU SgfR5srJEzKYggfkNn QIkzkrKgujHuNtk4WZ N6wZodOAByjpjfZoU5 ZTyyFSDrzysoRUw5DA gaLOBkkOS2GNSztGBr K1GmDUDrIN0hmvm6VO K2CLgmYQGaYqK5GVFa aGVhZGVyeTcyMFxmb2 82AMU3LcGdNWIgggJf iLfjkY2dVuDrFUWWSP HquElptjQxDEAvS9Am s96mJO5fQC4xwtjslk SnZgPuiUBolYMpdJ2x fyECLKmQHiDjVU7sIP EyNCkgYXJlIHJldmll g9LqQnSWvHFom4FnI2 nsAQtkYGugB72gd5sq MUkgMZUwT7mvcafpTU 5ccGFyXHBhclxwYXJc YlxmMVxmczIyIENBUC CNWj8YQ0XPCXteNPMt Z8LrD0qkIW3tQIkyQS xmczIwIGRlbnRpZmlj AQTdc79sqAQdKCykZk KmMGzxpkS0SHAOey4c XYB1bwX8TVZfXXZOg9 TxgRGmMKC2GJS3r819 XHBhclxiXGYxXGZzMj CtT4NvM5ovKR1gGCcx BRvaoqDeHVT5RYWxvZ g8jUuuLcVrSBndLlUa rAKoZQogBAewbV5bAJ JcZjFcZnMyMiBJbiBT fGE7CJMcozAchw9hJD xwYXJcbGkzNjBcbGlu MzYwIEVzdGltYXRlZC BTXGYwXGZzMjAgaXpl IChcZjFcZnMyMiBlXG YwXGZzMjAgeHRlbnQp ZI2sGYMRNGY5EYRoPA Z4WOUzXnQjWuKoGzBz mYziLGRzKxXKuQS5r1 gjR8dmHIJwMbGzJoYy USZ2hZV9GBXbXOOHfB O4HBfxX8BiC4eot54z IGluIHNpdHVccGFyXG JcZjFcZnMyMiBBcmNo bSOfW5O0ryElZHHjLu HlZlVzCGYtiBMqjq1m OpdwHFWuN60dtSCreP FyXGJcZjFcZnMyMiBO dWNsZWFyIEdcZjBcZn MyMCByYWRlOlxiMCAg MlxwYXJcYiBOZWNyb3 NpczpcYjAgIFByZXNl bnRccGFyXGxpMFxsaW 4wXGJcZjFcZnMyMiBU kK5obxWJxDTnhhGvv6 5ccGFyXGxpMzYwXGxp biT0GIXIySYrpUW8LK CjYWRQFJtjmGf4PLex YXJcbGkwXGxpbjBcYl pfOVykciXhYZ3mohnx auPaQbCeXxDcCtW5JT IwICBBXGYwXGZzMjBc D2JnAHEokEDyp4SuIw KnvASjox2uCORpWZCv bmZlcmlvciBzdXBlcm ZcL0aibNRzRAKfbO9w PJDuDIDzl4DaELWmZP 0qITKblSIbgo6sVP58 kGVvOP3hzwnldoEsmG 8yINjoCMMpiVYac29r bCBpbmZlcmlvciBtYX WyyY6zKMAzBDzzUD0q Z2C8gPFaUJYjvwbmAZ QmSURJPYdeu65qtCYJ oX2reZXUf2FvfazwVz MfMEHcyP56h7l9VVKx GbfbaRVud4OdR4TxiF NccGFyXGxpMzYwXGxp ydL1BNolQK67aYKaar NdZgZGaO8syHMUz8Tn szTSlURseS9mKPnpFp AgIDExIFxwYXJcYiBO mJ1nTGVbb8FfT3WfiQ luPTkzWp7mKVRgBNea gGmpTOC3JCCdIID0DR BhclxsaTBcbGluMFxi XGYxXGZzMjIgVHJlYX NoYV92YOToJtTqfZbm PQQbVR1iDHhxy7hkGO DpIAB7wbojB6OrMDHz ZXJhcHlccGFyXGIgUG K3pZ8yj7gwAlXQSTCs XGZzMjAgdGFnXGYxXG NnWjFsIGTHkVYum2im aWNhdGlvblxmMFxmcz IwICAocFROTVxmMVxm ucRsIVfaWYvBEqG7TC U8cTTxHIFxGM8ta3Qp ZXJzdWIgIEVkaXRpb2 5cZjBcZnMyMCApXHBh bozmcNC4DXqznO9dAm BcZjFcZnMyMiBQcmlt BIX6OOQnYcMyIpNmDN R2lS6yIBbhUMw6OBSo ICBwXGYxXGZzMjIgVG onMFyNU9pCHUfjMZFr IxTBXFglx33cwDVQBE QwCNOfSvTykO8fiKHa ZjFcZnMyMiBOXGYwXG WqWaKvb8TqabKqeY0f CmelPUSumJ6wIMHjli xiXGYxXGZzMjIgRGlz dGFudCBNXGYwXGZzMj IrLNAet2Tcv1qvPYaf WRq2IHNlXYJVC7FxcF GePLgfKQjgdK2vZZYe AS6tbBysVUZ0YEgsPE xmczIyIFNcZjBcZnMy RWG9sSKuDLB6ZFBjFA BTZWUgcHJldmlvdXMg S9EnQMqhBFCvjNKcSN xwYXJ9 Submitted Clinical History e6wedLZsDMNbo9utYV (test code = 30194) VmbGFuZzEwMzNcZnRu YmpcdWMxIHtccnRmMV eby7ZwK2AiWcYsXBhk bnNpXGRlZmxhbmcxMD RlMCO4axLrAXNnYEam VMHiDHreGp7mzQBxwL ocGqBmOXJxx7orayOT ausyvAa8z9foPIJzLr N1sHSyGNsnZ6suqvDa aRQhVNApLOm9dN19WK AksU4dzCUvSTjmacQx DoS6JOxyCGYrTcC2JE DlsMSpYOXkK3fcGMKp XGdyZWVuMFxibHVlMC D0pVqnm5M5qYOpaKVy dHtcZjBcZnMyMiBOb3 GuEJw6oNsuO1IeNEFv RlQ1uAPzERHvKDvbRN FpAOUnlqR3hK82BAlv njX4lPVrb8Wsy72ht9 36mQ8bjHRkGFS0MWQr VJIbhSYpBRIdWSY9HU GtfHUtM2exTDNeAZ9z cmdyMTgwMFxtYXJndD L9QDBduYDgF3JbJOVi ISotXGEogys3WbJhJj 9mcEGayDkxMLiqd8bv j6aywTXhTdq5POTrTq SbFwfkFDzrj6Rkt5gz OGLuos4aTMP3oUKyhY liv8V8zBOtOJLgvLUa rpPdIAZeJeP9ZOchYQ 8oum97DKGoPHA1el7d bGNccGdicmRyaGVhZF ftZ5NdQOVeq983LJQj E4TrDVWof6J7zwFtQo PeWZVwwTV2ioQ5OTCq AXe3yGAkcbF1ejXizQ GdX0zodG5bINIeXJ3f guulb8myEXyyVNvxIQ YhoTL4zvQ3WMCbtWIl D1HptZ3hULBpTOecUB Fvuha2BhZwNc5dzVDo eTcyMFxzYmtwYWdlXH BnbmNvbnRccGduZGVj XHBsYWluXHBsYWluXG YwXGZzMjRccWxccGxh tT6iHtWeKrFgPEevGO 5hGJKlO9xqaOKhHGSc VHCvK4kvUwCxjN8keY xmMVxmczIwIHBUaXM6 IUH8T0GsoHFxGWPsgV 8vhYZvtA0vs8z3tBWc FqJiSPJ6EMD4EZLjlX OquCIaBbGjTSI0ObQm XVxwbGFpblxmMVxmcz IyXGxhbmcxMDMzXGhp Y8uuNdKwLJLxyItdXG qjo2UmXRQwLQPwBaQt cGFyfX0= Diagnosis (test code = 34) c0urxPZnSCGrhWO5FM BqRREdp9kdm6DtiTVk cGFyXGpleHBhbmRcbm 22rUN0lF12GY9rXRZl KjA8YGKuzyH3Zdd7BQ GzLMUhhLSmC680m9rz f4vlaeKdbAV6JVDlPT GhL3OnCX8qTUVatIKt V50twPHyRIJ4ZOZmXU KvgRTiGPFnZKX9WDIx eLLcU2auDYNdQQ8eaw dyMTgwMFxtYXJndDE0 KABvaALyW7HcDYJmZZ vbSPCkbrj2PuXpYa8u dGVyeTcyMFxwYXJkXH TlDUerGLBoWqXzP6Eh EYK7ZXgdZiQaXnQaXT F5YZGbzUKhBH1az3Mj I7UjxUs7KJbnhpIoDZ NJSJULCLPPMiRIBi2Z QSBJTiBTSVRVIChEQ0 dVNMaoKQ5KEXAYNNHT QVRFIEdSQURFLCBTT0 xJRCBUWVBFIFdJVEgg P7KAHQYLMQWBIYHUB9 QGYhZEXbJmVZwAEd6O WSfDTFTTI2IUKB3OIo 5nuIidJZVMM1uJODga as5vofZkJZUeNZLfHE Fei2BeIYKwmc74hZ4r pIHyhPF4FIXfXKryYK RoZSBpbmZlcmlvciBi krKyn4AkYErwezFvWK PIHsPopeVirlWoFB54 JDU1GVskNNP6CEOszG 7rKlXumPS4lXWcdT5c HTUbz9Gyn0PcHCVtuT GwREggjYSpP5goPPVd rsCewR9qWDJ3cMGcWB YpU72iRxGutGXuuWhw mvGuETNtdY8gIT2vNT V5Fl6miKOkRNFmQNS5 cI2voo0nxAkqLVXKrO iukMKanBAoo3A8uOHu IRd0qASpaDrsh9nrKM ahbWuqKFUwYKNbt6Ch H3FzoEz9SJQiZyEwp3 H6qBKyBSRzlsKfpi6v GWTobeXwiVY1EkkanX 5uQZ6pcWGzXDshqx3b wEXsc8PzfNJcj0RnbR 5cbGluZSBUaHJlZSBs BPYxppEhGBs3sCLhXS 5uQNBhQYMswbS8iE6b glZxlwTbPO87YftlSI GwH4CxXBZdeepeIwUh QjogTGVmdCBheGlsbG QhqSQvFX66xK7cjLBr lM7xyPXah1AqEIVrDh urGERwU57xZPe9fDSs ZB8gRLWaYN5aQKW4uX 9yIHByZXNlbnQuXHBh clxjZjBccGFyXGNmMS UZUoHMXEJ4CIG4eXyo HIL6PAXqvmDqnkQfKB z6eEKlNH3sYCJoVvM3 CHzoefWxU5S3EI3yeQ oacSyrtk2aYIEdNV0c BKS7mJ7oKHCkFRGnnv QuXHBhclxjZjBccGFy PQPqXYDZFzMWMBP2WT AgMWVmpYCxv4ekMG5f ZGlhbDpccGFyXGNmMC BPz5zrLZCbEWMdpXGf dXRhbmVvdXMgZmlicm 2jNYhoc4DiXNUfr1M3 TQS5xDEwNPLoLl2djq ummYYtj1IvNLLgq7py LlxwYXJccGFyXGNmMS CTRtTRDXN9RDSdAPRt dCBhZGRpdGlvbmFsIG usZiQvnW3gSM5ibpfk bjpccGFyXGNmMCBGaW Gyk8BcgZNgg0QxbKnf i4DkHRYscaZ4dW4sjr SurzAbZY12WlxkXYSb cGFyZFxwYXJ9 Comment (test code = 9835) w3icrQRyJYNkoTN3IU KaMAHop2opn2HkyVSx cGFyXGpleHBhbmRcbm 34vHG7aM48PG2pGWDx PdW2QBYdlnP7Tjj0HH ZiAJJprLWuJ408j5fk x2avaaNgiKR6kNnrQH QmimeeWgE3EBxlNWLd rtuhTAb2MNvzSDOqfU U8KBEnkHFoY2SkATHl VT9ztus5KKD9KTztFQ RtFcS4MKEmdAGeKMKm aOyhXGdcn979TNF3Sd YcMXCtxrOxtEihaW7p ZnMyMCBBZGRpdGlvbm UfODGcA0Jfb04iHY9s OQ4kldzeeaXzOyCwzU T9cKVleEL2QNEzeQMk l5G1xD9rWL4cMOLeAC QkzOAmrI0wkjJgawRr aTUvCNczDx4peIRytD == Gross Description (test z7xdgWHlZOUdoLO1RA code = [id number]) JiXIUfk7vkh4YmgSFd cGFyXGpleHBhbmRcbm 52wNS8sS55YU3vECBr BxO7KWTyhvC8Drr2RM TbNDWoqMYiM377p5bv n6morlYoqWG4IBFxDL EiM2TtKI9hNMOlaPVf S54cuUToADM1OEPlEO XcmWIvAWEgJKD9MENp sAPoO1uwVFJhUZ0ohu dyMTgwMFxtYXJndDE0 KZWtcXSbG9CbIMYzRH knYTHavxq7UgWkFe6s dGVyeTcyMFxwYXJke1 vzNBPqpJTeBZI6RPfg uUXeKKZmNIWrGNs0CO HvQHsptPBgMN7cxWpk RqnnmLspb9VwaOJcWZ lkIDUxMDAyIFxcZGIg M1EMFLWeEPS3TUT6EY RdZHk4GVvsY9IFINNy IAH5GFAaFwQ3GcN7BV n8IQQKIm8mEASzAuZz OIR7KhM7NMM2WFWuDL QgMiBcXGZsIFxcZiBB cmlhbCBcXGZzIDEwIF ndSvZjWBycJ87daBap mK5vZiedfyJuGOW5FM BhclxjZjEgQnJlYXN0 JWAsOJB6KIFxhmIkQO AtIGxlZnQgYnJlYXN0 RBGslPRpUM4ke5KzS2 RvbXkgKGRvdWJsZSBz bIv7V0xiPLJaAoRiZ8 Zvt4NhOUNwUG31Hbll SCjkjcgrj3ArzABtJs O0CC0pF2bqL6ucEUZr ezrwTRLsgEo6O6zelH I8JDLpuWNeUEuztwX0 ZIbtcPLxwGB4SOXrac 5cHCZnrM3gQEEuPGG4 XGIwICBBIHRvdGFsIG 8kq9JpU6IoyUeri2Hp B5fyHX8fvSKrl1GvgR 8tHJP6NOToTTLnf63k d9LsLMLyp0PdvR6tiK 3oHGNbh4JdOFK2BTFj WMNlq50jzZHgsKBjQL OnIFixhLMuQMtvZS0k ZBGiD21tQoLseBCsxz IgmpyrndG7siDkd1R9 MBJuv8PvVJRaSEUabY ZhmV6nftA1FTgwlJGf MTMzMCBnLiBUaGUgc3 MfX1ysFD8gaWMil6Ba ZmFjZWQgYnkgMjIgeC AxNiBjbSBlbGxpcHNl UM4sCAWgdtwavTJcNQ PtkU4sj2i6pWEjBRUw bnRyYWwgZXZlcnRlZC KhxQCtsPOlSS80EOKv IGluIHRoZSBzdXJyb3 UjKSenEwT1SgjaH88f CFSwr6rxAvXDdQOzPF ApamIpxgLazFA5cO1w GU8hFKOuISFav7dbEu xwYXJcdGFiIFRoZSBi gtZed6WdiQJjh1JbfK GfnNyca2WhrDzivnZl RNVph22tvNPbxWWfLM DjNFmzgUEbHKpgtM70 byAxMiBzbGljZXMgYW 7aRXzaDPWiVEsgO4Ns fPosHG7eWEuegqHxxJ MgYSAzLjIgeCAyLjQg gZHcHbXkW44uRLKgZQ DdJfBwlSIvn3JjibBb yzDpF3ByM5xowVKebE lvbnMgaWRlbnRpZmll GGVqznF8iRIacD5oKR Ypo2ZlGNEmCDU7ED0v RPTjjLKgquU0AYWyIR JjmTO1HxDGlLgnFYNf TASlJ92wyETdfxKvDX FjHGHsIVEhP1qocNXe pgZioIYpTP3dJTRzXD Fsy63ngDkiJQsfQlPu hZ2bMB3qbeqsvsjqEd 66MZEpUCRkg78caZgm JQYdq4NloricyrPjET BvdF0rWI3eFGM8PySd K55tWlRdmAA6gATsd4 QvWKOnw9DgtOXuH1du LlxwYXJcdGFiIFRoZS DsZX6ttT3titfzEaUc FXH9IHffEOIdqXPyb0 YrHL2dYUWycLWydMpj YXRlbHkgMTAlIGZpYn IdrYAfvUvtz4OiHLqg dGggbXVsdGlwbGUgY3 lzdHMgaWRlbnRpZmll EG6gFUslqfAkIBBzDC RocmVlIGxhdGVyYWwg eYzpcQljxh1cYWKjiG NzmaEcJeejUBTgGE9k jK3rLKOyw53bGW9fGI NhJAIlGXTpfO0okJCl JOYpMhZBRzcpK42MAR tcRtn4BDsamjRhh6ma l6YxIHExw0ZrsJQnB8 ybCATnwcXmQ0QrJS5b RIYrEPhxHvQfrF4uDT 6oecfumbnxIwvmN4zx DO3qEAXnNWOso5Qskr yrzdXqYRJywF6hGCSb bqx9KKJrQ0QEAYaHUe EIA6CROyEOJFephIEa GPPifV7kYJBeoZHzWA ZovlUce7nlN5LxsPcq HxPGPswva4PlgKqgkc KvITGzCEAxjyIvkH3h H5FvI3vokNVolYhyee Szy0uiI7ShAe10pwfm QTMsIGNhbGNpZmljYX Xph71ym0z0rVYyroIi hkvsgiSxSJEegB5bw7 nuK6HfIfw0VNisINDc AYAlFYv9jR1iLEfsI9 jhF4niLCRbzfYrITTm eYQkFSMhgcG6RRK1OO BzdXBlcmlvciBtYXJn zO3nd0kgN9Tnb7k4Lp PJTpkei9IkLYUzf8Ce HHSpp8MgWksjqy17ct A3aILppNIjo8gwO4Zb f8m0HnJHMjzaW4djzW GxnVRzTJlfxJcxvT3g BMZyk3PzhHSlN3zwSD NsaWNlIHNpeDsgQThc YY2fYZLvVZU5XRRpMI RpdGlvbmFsIGNpcmNs ZWQgYXJlYSBzbGljZS PymOh0PZKuZWqgwI3f pBJzmH7dLA8cmonecl IyfKvtCYIpjTr4HABz MSwgbmlwcGxlOyBBMT ZjXJ6ygCGfJQLaXSIa OyBBMTMsIGRlbnNlIH Qct5F6PSQayBpkBZC4 OyBBMTQsIGluZmVyaW 4vUT6ahtuomvCbbDlq JOYmAWJxwsdvOXI4YG ZxFL6fkP9oqdhfL8Ud N8rjcKQeqMlnpbTvfH ljZSBzZXZlbjsgQTE2 UYEcXUF8hB8cNPBsrq KlZM28RSQxLXRqnJXc HgjkEGUta18nx5ieI3 XcXHqjiUN2UPUiIshl pPXrEAEia8T5RADzjT ScCUYvewXsd0czP3Tl CRF6FBLcBFrquO94YM Vfo5L5ICRyyMJwOEOn pcFwd4mdW5DuNNX8XM GzIReqnCPqTAAru2Z1 ZXIgcXVhZHJhbnQgc2 pmV5Mns8wcZ7OhTSN9 UWVcIUcdvK52DJFfl3 C7AMShxRRwYKWozwYy o6nkE8JsMXF7UUYyOL uliMutMCm1cYVcWQ9u DJJdEiEZHePaHZ5nIO YhbL2crYGed0NjDRBh iRXzL0TwSE7iRIOvr6 MdI6M7GWKhYOvbk1si TEJxBKytj5PpOPjUPT VJFM4FRF0xjYB2OLrO A9KEY2uTpTEaNBT9eW H6RWQYOszriDQ5nMI9 cJ52DMYxTSPmdGGcJM xdQ034Qb26SHWaQTax y8xnBBSaSVzhj1DfUK hHHXYJXH4LDZ4oaJQ8 OCtPK1CRWWvyZOGtSs nrvZUDYLU6LNckpIje rQl9e6jwvNThq1l1YK duHGL3hJserELbbfop czIwICBBMjMsIGluZm LjeM3yJX3zcsshkwFl pJkkOIBlNCdnDOS4EP AweX7pMZB8BZtoyOCn YLixoWDcY1cvQDTfdS NlIDEyLlxwYXIgVGlt HKMuroEqq4KoSQsljx Z7iaVpb6egx7kgp0cg gOvir7UjfJEvODvcXW JgrKEnHSvqfX7sDlXt h6usxUy1MKyygqR1KP Pdph49MYgvFZEbW2Vr X0DuBCerRAK7WJKsLc WpXUVsBM9ZNzJhRYPh RiM1EVRmTDg0JJa9NO 5FSiEuUQKpEXJ4SKJ2 RpJzRUo1FAkuJT2EOR IzTTAlZAO7KSUtLAOb XDIuDLr5QBOjVDnmjW BcXGYgQXJpYWwgXFxm cyAxMCBcXGZiIFxcbm K7HQBfLvrnlDXlOFVc MSBBeGlsbGEsIGxlZn OvLQ6yCKO4BY5xnGXs pMOhzEavoWGfq3iqQD CqELNwn8NsCiRbjZOg RYG5oqs6giDjf9HatH LzUoOoTDArHIMori0k bmVudFxjZjAgOlxiMC TwD07cx0ahmLOfs5Cr DFSxVUmaMN65ZG8nBO Rbet41JGtak0diWcP7 sHzpk11pvHJ3rCMvhR Hvp3q4tEImu6BzfIPa EFHqwM1ffDUhr2BePW 2jFOR9oamnCsDrIeOn eCAyLjAgeCAxLjIgY2 8iCUSEfCKgaJ9tapQs ggBeEQU3mI4bORJaGI 5kIHBhbHBhdGVkIHRv IHJldmVhbCBhIHNpbm rwKXDnp3YtxQMpBFCx xM8nrHZhq7ZkXU2cBT R0npngElHwTmSrW68x fM8eR0LzRJPin2HsJL buBJ4wyY8kIxCqVPgc RRDlk2QjVpqtKM2cKQ Rrz6IqgUPlrAqum2Ca dGlvbmVkIGFuZCBzdW OwbIY0EGHlXM06xXVz kVjyQTUsrae4LTYvE9 SWSVsYMoOUM1IAErIR CRxirrGst5txYqTzBO NpnG0db5kwgKOkwDjy yZsgdv8rYTGzVYLlKB moiWHhWTD5oA7uZCQc KN9vJWW8Kb4obODlSM TehwAikhOmzK5mnIZm HFZexfSUhP3tFWzqPT Xnjk8esGyyCBfnQWV4 GfCaSW0kn27nTK2rOf 9mOQGsYRugqr12UEG0 h4dykTSvWCdpGffstD PvdaE9DLyGTKYCNQjX UkMsNC8bEIyZEeeDGZ dJTnwyMTAxNnwyfFVT SGM0HPkviAaxyNf2s8 bqgTZhp5x6VSabNJV8 sRHZd3nzjQYfQIavYd tqyUVoxlX9SAwTSOGP NYzYUvRwJW3mMSzCIj yRYuG2JaKqKWL3IpsC M6GYnIX5Lev2KDv5zH tcZmxkcnNsdCBcJzFj gN0hjKrrxM2rMuSwST uaTRXqN0XqZ0AbcaIo eOMeADVepmLax8faHI Z2PMZjfXIbeMVfTfLe XzuiHFM6i4qwITCddG AqRNE2VTjowZXzIXUs MDIgXFxkYiBPVlIgIi HwVPJaWXOqWdR4VYb6 OSBPVlMgIiAgIDUxNT KyLFupFXo1OHp0QOvF FnGzBISnDgp5Lje7XC E7PVg9PCsubWUyDZar ZmwgXFxmIEFyaWFsIF xcZnMgMTAgXFxmYiBc TN3yqRauXOK7OQJnny xjZjEgQXhpbGxhLCBs BQW9OMFgnjHeTPNmAB xlZnQgYXhpbGxhIHNs muCjEBGzyC71BIYwDs s1VQWozBPlmp1tG476 slGlGVa0EyPdJYQpxq 1hbmVudFxjZjAgOlxi ACSlE29nj2ruyRHmy8 BneHBjmGuehZDnm1Wn kMWuiTFcv7AweNBnFJ vknSucizYtRZH1jELq b0A6TVLre3Y9SPB4yF HgDKTzv2VnSwavNLm2 vPAeUJ8qDLRcXMUmG8 IqE4L1uA7pVQTcOYTh QRA4HSShZHI7ZICtEl FzoK2uMG05wOFvsWci LFWbv9VlLvaaKAg3kR OuRP0mVBEdRYUhSRPa cs6cs1v0RRNbzBZppS YtMK0xNEM1oxfoSwKw MX7dALVwoy5uPHXiUz 8tUsZvS92tXOLIuVBb eO7tzuJqowKoqZYitV Y6YTClTX38iVIguQoi YFMfahu5RFBaC8GVFN zLAaEBD7GOCzTQUTvl UDVsb2XeuBMsBWDzsW 7fpNPym0FjiwWwcnDi L6N9IKHxMWBmUQUwz2 DgDulqFP4vXZViRpdp XEM7DSK8MTZcWRUbFU 1oiP1vbsztEcX8rIrs r01esVN4gGOrdZWoVR 50aXJlbHkuXHBhclxw YXIgVGltZSBpbiBmb3 JtYWxpbiBpcyAzOjIw GKCQJY9hHRneTLStVy AyMiBccHJvdGVjdHtc MiyyxVK4YFjbUxymyS 5zdCBIWVBFUkxJTksg lgGhCF2BVU5TJzIGZW 29XcJaLLD3Q8uAR9LE tFA0Gbp5FAt2pKomKx icmlDosLXiBrMrbX7F LmrdAifsrPE9HUazFj mlhP4lxVUQLQFWGeuH LkgifvCiXV0ZPK1ZTO 2JuPZaDUB5tPE7PWMI InmzjWE9bSE8kU28RA QlPSIknARsNVnnT364 YWApEDfjCSSmAzF3HA UuwLAeULK6FQ8wFZZb ltgpMTVkTNSnIET9FJ qawB79rFZeDWMkPDLe cGFyfXtcKlxlcGljc2 VjdCBcXGlkIDUxMDAy WEwoLJYsO7JVFNCuBB M0XEE1PXXeGRo8VPcn I3FOEJZsSHC1EJHmCi j7GtP5UWv1LFKRMd9c TMIfVxZnSLRxPsN3YI D3KVTwSEXlWgAfSDWj IFxcZiBBcmlhbCBcXG ZzIDEwIFxcZmIgXFxu G35jIcIZBddmDADbG7 QqDCRboB6yJNcrBtQb EaDpQYM0VRHkclXaVM AtIGxlZnQgYnJlYXN0 BJGskF1keUMplWNdVB 5bt8JdcJDnQJ5xxBEf dUIrUV1seYZzvNHkZW 55QTUhZIF9QSVxITRR w32duED9eeDoVaDfno BvcmllbnRlZCBzZWdt OJ86TT5uSUCmog66tL a7RUSgm6upQJwtkBlt fF8xRFEpcIfwOoQ3HI 3gnHZrsN72HRRkPuAy VuR4vZscd61ndWM9aJ UboEIiQ63fi2ixiHLx kFV3kIIwNJVjMVSloU ZnTMPdkuAlpF7fBN4r SDJ2wsflEnRvQJ3iTB zoDp7hVDcnBU5kTIEg IgPbYExmWFPulC5fa7 LnLgWqEUDekpBwcx3m q3x8JKMmloYxGKCnEC RvCN5oORZks9B6qTYi TCtoVOmdVF36pLRpSZ ZgFF5cAFPki1fliaV7 ZWQgYXMgbWVkaWFsIH GuwoH3vARuc4XnB8Nw br4iAMLwUDQmiYPvSA tmOMBrofjpiJi5KGTt P4Waf89uUDQ2zmNdWT QhZUmyZGL7FQ8qaGBg fV82LCToUvFaDhS9mA rpeH3hAQ1iuektStex GYO7nZEaiSLhHCZnWh PmAv8jlTYpjH0ijtXl ciBhcmVhcyBvZiBjb2 9bUETxCGXpYQApkr7m r2n4VZktFY02rJSuFO QuICBSZXByZXNlbnRh qYq3BWUuVCO9xT2ary VukpAkk3QghJi8vLQl FHzbTSHfj9CzvVCtgf MDCD0ZHr4tvYBtTIFo nqCBaX6zYKuaNTGevu 2wnOzwHUvyFAG6DuGc UZ0ly44aAN5hMi7uTD YhQTazcr54AMX2r2jk aWVsZHtcKlxmbGRpbn R9EIzDBSRDVJjRAyFy AZ5oYIcXAapNHNfUCu bgBVUbVnd9uFWRLLO1 GTyxsBjajHa9x2nesE Ulq5f9TUbbOUD5xBHN z4bhsBJmXIpaHmeetR NnaiQ0CVdXNCEGYFiQ AnBgVB0hBOzJRtoEMu V0ErOmTWB7UFbIV2MP wQG0Ote7WMw5pKrhWd aftdIkpRPcRfBfdD7o yTssvR7aIhLrOFvlSB VqT8JyB5HtudPtzPYq PQMaclWeu1vyQHN8EK NsbXVsdDBcZnMxNlxw UDG7q4scBHQoaZToIO O0BVkdkRLgRWKvTFEm XFxkYiBPVlIgIiAxMD CeXKMhSnC5SIl5CRPZ YdBoTgXrLKMnFKU7Je DeRYx5WFm5KZkFAzVl FXJqXvL5TLo9QQC7QB i4PMadbJKpCNcuBcko XFxmIEFyaWFsIFxcZn VdGVQdXQvxAqXyEY5o pEjsBJG2TGXsszmwAr KaMoOyBAG7NGPcQEY8 GDFkEWP4GENsGCMyiJ BhZGRpdGlvbmFsIGlu IvSlzX7jVU0rwbtqil hmH8ythADgeEHab7Sl nSJ9WDDsLYLhnO3bA2 YwIDpcYjAgIENvbnNp p8GmEY6uZYNwIY4czI HvlRIrGQTbB95dpgJx v0JzbDBhPOdarYqxwz TrvJFlj6JwdYT4UQDe FyNipUebm7HxAQ3rEZ S4zmcaPcDpEG89NJor RA06WIhoYC2fRPTfXn FnMVXdvQxrcWLjm0Yt W6dwZOrpX0xosHDbTS HeCOhhHH16aFItTVUp s03gu32zDSBprWOpgK IyqmHlZJEnEZKxy9qa obR8MVLjMYMxcNdfKU EydRGzsVWuJ9qqNNGl upP7zLDua6ZfD0Kswg 4kOORjFCE9syLlRU1o cmdpbiBpcyBpbmtlZC EyxLFcxr3iXMOvVMGz bWVuIGlzIHNlcmlhbG g6QTEjK0Axj21lFLS0 iwUkYQAaHMbwJFX4KB 4avYTxeJ70KUBmDjCe UsA9iVfgT3L5VLZ3xg RrV4Qls9f5pKEmeaQz gSH8iX4bkAWgCKHcf8 4gcmVhZGlseSBpZGVu dGlmaWVkLiAgUmVwcm ShQD53KJNphuKml6El tHdxxuPiFIQgPFZ4Ed 1pdHRlZCBpbiBjYXNz DPF2INDwLNXpJRBkFQ BhclxwYXIgVGltZSBp txHiw4FzGBsdwnInvl Oxl0YzKA6peW5ztxTd BZ4aDKGsADWkiCLzsY 6zvgKsmpInsIEsyD3t Fv9qbNEffA5df45wJR 1tOw8mPRFkTZusmg35 EVZ8b1kdpXIrUPpmUu lbwVWmhxP0TJdBDXIK MCxJTmAkPQ4iDTwOVu tCRUdJTnwyMTAxNnw1 rXGPVFG8IMqvqSwsmL o6o3mwxNDer1n5KPcx RMU8oTZBm6cbvLClUW ywPpnozRFuuxS3EErV HVCLBLsVFiSpRH4tVQ yKLfjXPnK0LmYaJLN8 QXlNE6AFlXY5Lea2QM z1rZybNfvvgsGbvMHx RkUnjF7bcJppzW6lPn GxVSltBFCqX3InR4Yf pqJ6k6ktaBzht1FrmB GqRA4knQViqB== Intraoperative Evaluation c1hvmRAmRRSuqFSPJL (test code = 7668321214) kwMVxhbnNpXHNwbHRw I2VwygoqPDqeHP0rQT 0ulNpaxOOboKXwCE1D XGRlZmYxXHBhcGVydz EyMjQwXHBhcGVyaDE1 KKNsKS6vwzvnFTmhPS teJOYlfiD1DYTyiULy Q6AmQDDyYV2zlxcxIV T4UHqomC0ysdXOPlsk Ol5imBKqzRnaEdHvDk NoYXJzZXQwXGZuaWwg DVIkZLu1fW8DAdqdBL C8YQBZFpsrQCUqDC3I z3gmXLUknPKdEXB9AD xcaWQgNTEwMDEgXFx0 CKPlPXjnmLDlCS2tuD emLwlimWebx8QqhJDa XGlkIDUxMDAyIFxcZG VfYJ1YAnGtWWZzNfM2 VTXcNDs1BHk2SI8VHj OrHTAuSNF8LLC1PFNn IJc2WGsmPB7KXYLmIB T7NEn2HuIeJICnTApj VEc1UOQqGGvfYWImhU FsIFxcZnMgMTAgXFxm HiSfAGNrGYhhyzG2QN BsYWluXGJcZnMyMCBB OlxwYXIgDQpccGxhaW 0oDPNgG99ai6RAw5Rh US2JSDl3apMapwderT 4wXHJpbjAgDQpcbHRy L5ujWfbdxhMtPKAlFM EcrJvlpMWbfVybx9Dh AZsmIQPeHLM1HSLsWU IxvYF9v2EhiMEfFLR9 DSC8j037RWrrh9MdtE Bpb8BzdZSuTK3iJPYq ueyogH3qnsiwILTirL ErCKGxp54cQJN9wRDr eTtaCvBeG9Eqn9ZjPB XoiM3uzYIpo6IzaLOy ENjpsRCvWUzjBDT8DQ VyjNEweL3oDAyyvEPm cTGsS6Wpv0jgGapvsE LdES2ZYMhqVzGbQZzp bjcyMCANClxiMCBPbm HtG1brySDohsZgLHUt dGlmaWVkLiBDYWxjaW XdS3Q3uC7zRSOaY8Ob kNjpvTMja8MshQHozQ 0yLDH3hbM3cXZhgT5x OVQuz8OiyQQaF4ujLw hgNUOkDEmEOA9GJEHy n5CwL8X3WUFdMSrmo4 qeFTZeQYqbg3PxLRnM YHKPPX1EXQ4jzEB6CC oNR8ZLV7eRyLUdCND2 aHT4UNJFUlrerDE8tI Z6gH69VHKrCKIdqMDo IVohY362SHe7DQBvOL mbn6zzABThQBjtz6Jl FPrUTXAODV2FKW0yqE J9OLkPM1UXDNynUHFg LnpktWXMLSW0DXlfzN kkdCp1m7hjwMEqp8i9 NQyvFWH7tHorcRIdjk xsdHJjaFxmczIwXHBh nlKSZcjiLTRkKKt1ju BhciANClxlcGljTmVz hMQoGsCrebY7EOZhzF XhMZF0KL2rMUTuyspy EUJqFARvDNX4QEcgnP 11bHQwXGZzMTZccGFy fVxwbGFpbiANClxzbC 5eVxAwx1fgtGy6YKNA TlsriHVwxokbmsQ7SG Ono0nizImcu8ZwoPIt MP8ovMcwqW3gLgBrOy ANCn0= Biomarker Block(s) (test v2omgRTmZKKrtHT6FM code = 9841) ZbMNXit1nwr5ZmwVYb cGFyXGpleHBhbmRcbm 47sTP8rV98IM3aPJWo FrV4RBZjkpV1Vdp5YU VxEETseRUdZ509y7zm e5krtvJbgJM9cWodVF TatvuzZwR8YOzxHLMb ohvlFTi4UFvjCBDekB V9JEUxrKFpC7IvJGYu IG8yqbx3LSD0XLryJS IlSaL3HPJwxNSjIKWo bOhtLDvox432CIY8Np JwZYBbxdKmuVotoC5f ZnMyMCBBOFxwYXJ9 Disclaimer (test code = d3etkSWnUTWrlWRjJv 9844) XqFSVbASQib9wdKYLs bGFuZzEwMzNcZnRuYm qutZEcPDVcPlAaj4mh q472cWQai2poCTCjXa J2bSFbERTfuLYrU188 KVAwHFmht7yhv6CwGJ MgiKFqi4L5ZPASvger gKd9qEqcE62xa7S8Sq vsZ7izAZMgLKBlW4Em ZU3tAVUkDqr8TQN8BE O6RRZzLTXuK3HvAE8v YVKzuHEhZKf3z2pxsG peOHXkNLJ4u8efUZrh aoLbKK4irf1tsEn0h6 xjczEgRGVmYXVsdCBQ IWGaA3NlzLkgSk7jfQ g6kAjyVgmfCZZ2Yut2 IS3khz13gou9tRvvXI GnlhnuZpB6MPosKNZq vrduWRc8LBraCJBzlD S2OSAceJLhY2AiEFAw CZ7howp6SVG7NTrfFC CjIgR5LPUyfRXrBDPo cOeaHJhsd119KGP5Lz QeHR4hW7Umn0H1sF4r aXRcZGVmdGFiNzIwXG Cqsq8faOUgWHmdi3Ck NQM5hdR9aYEvpCBqHS NyAN12Acuhz5KlSqld KJT0OJXgloClt6Tzp9 ofOgNsdbMzD9dkP9Ka ZHJoZWFkXHBnYnJkcm Ezz9Rmc7WyqEAhuBv7 h8liYFLwODPwaGqij9 fnIYL7VDMlG0J3yUYu k4mwPSatXYWcqWN5xk V2FPQmyAZgK6XbyM6s PJInQZ2kzct7i5lcBS X7HRppGPLhAxN5lnJ7 NDBcaGVhZGVyeTcyMF wcz462DPX8HiOlRCQe x8RiF4MtkSdbW30glX hgK79yGRSjkErwxC5z nBxegM7kQgAuOgDiZL xxbFxwbGFpblxmMVxm ncT2MRyinnncRJAjVQ rtU3foFxDqKKCznAit RFaha3SdTITqIHHgPq wuonT6ZDWRf35xZMKv t7NsWJPfeA0onGRwIH efmuTxiZN8THuuaiBv BqRoqxYuJYEqqR5kLN KpQI7kHBUmreOiux3j caWrMJBaZPLhK5Gjgp ilgHilioYlNZNcqo5x lmWxUGI2ALXQYI6DJZ IlNRJth69xJDEksQmx hU3rxDGpluAhCBYkl1 QgfV5gcOHNQFPoH4fu ZT2zGVsgn4AzqBYjoK FrvPN0KTVqu3GnAjRz gpNmcAOsgRMxM4UvlH hgO7jcISXdNLCgjgBi bTEbs2DlLKQbsGR3gU StCK8XNlLSd55gDCIm ZCBEcnVnIEFkbWluaX Y2ecV2kR8nHvZMQoKs cHBsaWNhYmxlLCBjb2 10in0ivjX6WEZfQKZy njlmd9WxIQBpQZEjwT 43FINbTCYscq3mkruo uRObzuQhQ3Iniyr1eV 4iXHBsYWluXGYxXGZz MjJcbGFuZzEwMzNcaG ljaFxmMVxkYmNoXGYx EYpaM7lkCpIlKtWcDe xwYXJ9 [facility] Glucose [id number] 01:33:46 Test Item Value Reference Interpretation Comments Range POC Glucose (test 130 mg/dL 70-99 H Capillary blood code = 81118-2) samples, e.g . obtained by fingerstick, ma [...] Capillary code = 9554) Performing Lab (test [facility] code = 88871) [facility] Cli nical Lab, [address] [place] [address]; [employer] Supervisor: Faiza Harris MD Lab Interpretation Abnormal (test code = 45337-6) [facility] Glucose [id number] 01:33:46 Test Item Value Reference Interpretation Comments Range POC Glucose (test 130 mg/dL 70-99 H Capillary blood code = 97793-7) samples, e.g . obtained by fingerstick, ma [...] Capillary code = 9554) Performing Lab (test [facility] code = 51821) [facility] Cli nical Lab, [address] [facility] [place] [address]; [employer] Supervisor: Faiza Harris MD Lab Interpretation Abnormal (test code = 24652-0) [facility] COVID-19 (LYNDSEY-CoV-2) PCR [id number] 23:08:41 Test Item Value Reference Interpretation Comments Range COVID19 SARS Pre-OR Procedure Indication (test code = 06739) COVID19 SARS Result Not Detected Not Detected (test code = 35410-9) COVID19 SARS SARS-CoV-2 NOT Detected. Interpretation (test Reference Range: Not code = 59900) Detected Methodology: The Hassan RealTime SARS-CoV-2 assay is a qualitative real-time reverse vp ad products and planning polymerase chain reaction (vault cashier-PCR) test to detect RNA from SARS-CoV-2 in nasal, nasopharyngeal and oropharyngeal swabs from patients with signs and symptoms of infection who are suspected of COVID-19 by their health care provider. The Hassan RealTime SARS-CoV-2 performed on the Lupatech000 System is a dual target assay with [...] CLIA-certified, high-complexity Molecular Diagnostics Laboratory (MDL) at [facility] under the Food and Drug Administration (FDA) s Emergency Use Authorization. Factsheet for patients: https://www.[facility]anderson.org/ AbbottFactSheetPatientsFact sheet for healthcare providers: https://www.[facility]erson.org/ AbbottFactSheetHCP Test performed by:The [facility] Molecular Diagnostic [address] [place], [place] [address] [place], [place] [address]MD COVID-19 (LYNDSEY-CoV-2) PCR [id number] 23:08:41 Test Item Value Reference Interpretation Comments Range COVID19 SARS Pre-OR Procedure Indication (test code = 59796) COVID19 SARS Result Not Detected Not Detected (test code = 02678-6) COVID19 SARS SARS-CoV-2 NOT Detected. Interpretation (test Reference Range: Not code = 77963) Detected Methodology: The Hassan RealTime SARS-CoV-2 assay is a qualitative real-time reverse vp ad products and planning polymerase chain reaction (vault cashier-PCR) test to detect RNA from SARS-CoV-2 in nasal, nasopharyngeal and oropharyngeal swabs from patients with signs and symptoms of infection who are suspected of COVID-19 by their health care provider. The Hassan RealTime SARS-CoV-2 performed on the Roambi System is a dual target assay with [...] CLIA-certified, high-complexity Molecular Diagnostics Laboratory (MDL) at [facility] under the Food and Drug Administration (FDA) s Emergency Use Authorization. Factsheet for patients: https://www.[facility].org/ AbbottFactSheetPatientsFact sheet for healthcare providers: https://www.[facility]erson.org/ AbbottFactSheetHCP Test performed by:The [facility] Molecular Diagnostic [address] [place] [address] [facility] CentralHem[facility] [id number] 15:24:11 Test Item Value Reference Range Interpretation Comments A1C (test code = 4548-4) 5.8 % 4.3-5.6 H HbA 1c values >=6.5% are diagnostic of diabetes mellitus.Diagno sis should be confi rmed by repeat testing.Therape utic Action suggeste d: >8.0% HbA1c; Go al oftherapy: <7.0 % HbA1c Lab Interpretation (test Abnormal code = 17475-2) [facility] Central[facility] [id number] 15:24:11 Test Item Value Reference Range Interpretation Comments A1C (test code = 4548-4) 5.8 % 4.3-5.6 H HbA 1c values >=6.5% are diagnostic of diabetes mellitus.Diagno sis should be confi rmed by repeat testing.Therape utic Action suggeste d: >8.0% HbA1c; Go al oftherapy: <7.0 % HbA1c Lab Interpretation (test Abnormal code = 48409-1) [facility] Thromboplastin Time 2022-05-04 15:14:34 Test Item Value Reference Range Interpretation Comments aPTT (test 27.5 See_Comment Testing Perform ed code = atACB Lab Ambul atory 14018-2) Care [id number] [facility], [address] [address] [Automated mess age] The system [employer] generated this result transmitted ref erence range: 22.8 - 3 4.2 second(s). The reference range was not used to int erpret this result as normal/abnormal . SHANTELLE (test code This lab cannot be = SHANTELLE) scheduled at the following locations due to collection/proccess ing restrictions: [facility] and [facility]. [facility] Thromboplast[facility] Time 2022-05-04 15:14:34 Test Item Value Reference Range Interpretation Comments aPTT (test 27.5 See_Comment Testing Perform ed code = atACB Lab Ambul atory 00265-0) Care [id number] [facility] [address] [address] [Automated mess age] The system [employer] generated this result transmitted ref erence range: 22.8 - 3 4.2 second(s). The reference range was not used to int erpret this result as normal/abnormal . SHANTELLE (test code This lab cannot be = SHANTELLE) scheduled at the following locations due to collection/proccess ing restrictions: DI DIAG LAB CTR and [facility] DI[facility] LAB CTR. [facility] CentralProthrombin Time with [id number] 15:14:33 Test Item Value Reference Range Interpretation Comments PT (test code 12.1 See_Comment Testing Perfor med = 5902-2) [facility] Lab Ambul [address], [address] [address] [Automated mess age] The system whic h generated this result transmitted ref erence range: 11.9 - 1 4.1 second(s). The reference range was not used to int erpret this result as normal/abnormal . INR (test code 0.93 0.89-1.10 Testing Perfo rmed = 6301-6) [facility] Lab Ambul [address], [address] [address] SHANTELLE (test code This lab cannot be = SHANTELLE) scheduled at the following locations due to collection/proccess ing restrictions: DI DIAG LAB CTR and [facility] DI[facility] LAB CTR. [facility] CentralProthrombin Time with [id number] 15:14:33 Test Item Value Reference Range Interpretation Comments PT (test code 12.1 See_Comment Testing Perfor med = 5902-2) [facility] Lab Ambul [facility] [facility], [address] [address] [Automated mess age] The system [employer]ond[employer] Holiday Apartments[employer] h generated this result transmitted ref erence range: 11.9 - 1 4.1 second(s). The reference range was not used to int erpret this result as normal/abnormal . INR (test code 0.93 0.89-1.10 Testing Perfo rmed = 6301-6) [facility] Lab Ambul [facility] [facility], [address] [address] SHANTELLE (test code This lab cannot be = SHANTELLE) scheduled at the following locations due to collection/proccess ing restrictions: DI DIAG LAB CTR and CABI DIAG LAB CTR. [facility] CentralFractionated [id number] 15:09:28 Test Item Value Reference Range Interpretation [...] concentrations above 28 g/L.Testing Per formed at [facility] Lab [facility], [address] [facility] [address] [facility], [address], [place] [address] [Automate d message] The system whic h generated this result transmitted ref erence range: <=1.2. T he reference range was not used to interpr et this result as normal/abnormal . Bili Direct (test <0.2 See_Comment Indocyanin e Green (ICG) code = 1968-03) may cause fal sely elevated biliru bin results. Total and direct bilirubin must not be measured from s amples containing indo cyanine green. Testing Performed at [facility], [address] [place] [address], [address], [place] [address] [Autom ated message] The sy stem which generated this result transmitted ref erence range: <=0.3 mg /dL. The reference range was not used to interpr et this result as normal/abnormal . Bili Indirect (test See Note 0.0-0.9 Unable t o calculate code = 1970-09) Indirect Bili ward result due to some par ameters are outside rep ortable rangeTesting Pe rformed at [facility], [address] [facility], [address], [place] [address] [facility] Cancer LouisvilleFractionated [id number] 15:09:28 Test Item Value Reference Range Interpretation Comments Bili Total (test 0.3 mg/dL <=1.2 Indocyanine Green (ICG) code = 1974-10) may cause fal sely elevated biliru bin results. Total and direct bilirubin must not be measured from s amples containing indo cyanine green. False el evation of total bilirubin can be seen in patient s with IgG concentrations above 28 g/L.Testing Per formed at [facility], [address] [facility] [facility], [address], [place] [address] Bili Direct (test <=0.3 Indocyanin e Green (ICG) code = 1967-) may cause fal sely elevated biliru bin results. Total and direct bilirubin must not be measured from s amples containing indo cyanine green. Testing Performed at [facility] Lab [facility], [address], [place] [address] Bili Indirect (test See Note 0.0-0.9 Unable t o calculate code = 1970-09) Indirect Bili ward result due to some par ameters are outside rep ortable rangeTesting Pe rformed at [facility] Lab Ambulat ory [facility], [address], [address], [place] [address] [facility] Cancer LouisvilleGlomerular Filtration Rate 2022-05-04 15:09:26 Test Item Value Reference Range Interpretation Comments eGFR-AA (test code 81 See_Comment Normal eG FR >= 60 mL/min/1.73 = 34410-9) m2 Note: The eG FR is calculated [...] Kidney failure <15 Chelle ting Performed at [facility] Lab [facility], [address], [address], [place] [address] [Automated mess age] The system which ge nerated this result transmit john reference range: >=60 mL/ min/1.73 sq. m. The referenc e range was not used to int erpret this result as nishant l/abnormal. eGFR-RADHA (test code 71 See_Comment Normal e GFR >= 60 mL/min/1.73 = 80831-1) m2 Note: The eG FR is calculated [...] Kidney failure <15 Chelle ting Performed at [facility] Lab Ambu [facility] Care Bldg, [address] [facility] [address], [place] [address] [Automated mess age] The system which ge nerated this result transmit john reference range: >=60 mL/ min/1.73 sq. m. The referenc e range was not used to int erpret this result as nishant l/abnormal. [facility] Cancer LouisvilleGlomerular Filtration Rate 2022-05-04 15:09:26 Test Item Value Reference Range Interpretation Comments eGFR-AA (test code 81 See_Comment Normal eG FR >= 60 mL/min/1.73 = 24644-4) m2 Note: The eG FR is calculated [...] Kidney failure <15 Chelle ting Performed at [facility] Lab [facility], [address] [facility] [facility], [address], [place] [address] [Automated mess age] The system which ge nerated this result transmit john reference range: >=60 mL/ min/1.73 sq. m. The referenc e range was not used to int erpret this result as nishant l/abnormal. eGFR-RADHA (test code 71 See_Comment Normal e GFR >= 60 mL/min/1.73 = 17965-7) m2 Note: The eG FR is calculated usin g the CKD-EPI equation. The e GFR declines with age. eGFR <60 mL/min/1.73 m2 is considered as "decreased". This equation should only be used for patients 18 and older. According to e National Kidney Foundati on's Kidney Disease [...] Kidney failure <15 Chelle ting Performed at [facility] Lab [facility], [address], [address], [place] [address] [Automated mess age] The system which ge nerated this result transmit john reference range: >=60 mL/ min/1.73 sq. m. The referenc e range was not used to int erpret this result as nishant l/abnormal. [facility] Central[facility] [id number] 15:09:25 Test Item Value Reference Range Interpretation Comments Total Protein (test 7.4 g/dL 6.4-8.3 Testing Performed at [facility] code = 2885-2) Lab Ambulator y Care [facility], [address], [address], [place] [address] [facility] Central[facility] [id number] 15:09:25 Test Item Value Reference Range Interpretation Comments Total Protein (test 7.4 g/dL 6.4-8.3 Testing Performed at [facility] code = 2885-2) Lab Ambulator y Care Bl, [address], [address], [place] [id number] [facility] CentralCalcium [id number] 15:09:24 Test Item Value Reference Range Interpretation Comments Calcium Lvl (test 10.1 mg/dL 8.4-10.2 Testing Pe rformed at code = 25752-1) [facility] Lab Ambu latory Care Bldg, [address], [address], [place] [address] [facility] CentralCalcium [id number] 15:09:24 Test Item Value Reference Range Interpretation Comments Calcium Lvl (test 10.1 mg/dL 8.4-10.2 Testing Pe rformed at code = 78144-2) [facility] Lab Ambu latory Care [facility], [address], [place] [address] [facility] CentralAlbumin [id number] 15:09:23 Test Item Value Reference Range Interpretation Comments Albumin Lvl (test code 4.7 See_Comment Testi ng Performed at B = 47) Lab Benefits Consultant [facility], [address], [place] [address] [Automated mess age] The system which ge nerated this result tra nsmitted reference range : 3.5 - 5.2 gm/dL. The refe rence range was not used to interpret this result as normal/abnormal . [facility] CentralAlbumin [id number] 15:09:23 Test Item Value Reference Range Interpretation Comments Albumin Lvl (test code 4.7 See_Comment Testi ng Performed at B = 4763) Lab Benefits Consultant [facility], [address], [place] [address] [Automated mess age] The system which ge nerated this result tra nsmitted reference range : 3.5 - 5.2 gm/dL. The refe rence range was not used to interpret this result as normal/abnormal . [facility] CentralAspartate Aminotransferase 2022-05-04 15:09:22 Test Item Value Reference Range Interpretation Comments AST (test code = 18 U/L See_Comment Testing Per formed at [facility] 1920-8) Lab Benefits Consultant [facility], [address], [place] [address] [Automated mess age] The system which ge nerated this result transmit john reference range : <=32. The reference range was not used to interpr et this result as nishant l/abnormal. [facility] CentralAspartate Aminotransferase 2022-05-04 15:09:22 Test Item Value Reference Range Interpretation Comments AST (test code = 18 U/L <=32 Testing Per formed at [facility] 1920-8) Lab Benefits Consultant [facility], [address], [place] [address] [facility] CentralALT2022-08-10 15:09:21 Test Item Value Reference Range Interpretation Comments ALT (test code = 20 U/L See_Comment Testing Per formed at [facility] 1742-6) [facility] Benefits Consultant Bldg, [address], [place] [address] [Automated mess age] The system which ge nerated this result transmit john reference range : <=33. The reference range was not used to interpr et this result as nishant l/abnormal. [facility]ALT2022-08-10 15:09:21 Test Item Value Reference Range Interpretation Comments ALT (test code = 20 U/L <=33 Testing Per formed at [facility] 1742-6) Lab Benefits Consultant Bldg, [address], [place] [address] [facility] CentralElectrolyte [id number] 15:09:20 Test Item Value Reference Range Interpretation Comments Sodium Lvl (test code = 140 See_Comment Test ing Performed at [facility] 2951-2) [facility], [address], [place] [phone] [Automated mess age] The system which ge nerated this result tra nsmitted reference range : 136 - 145 mEq/L. The reference range was not u sed to interpret this result as normal/abnormal . Potassium Lvl (test 4.8 See_Comment Testing Performed at [facility] code = 2823-3) [facility], [address], [place] [phone] [Automated mess age] The system which ge nerated this result tra nsmitted reference range : 3.5 - 5.1 mEq/L. The reference range was not u sed to interpret this result as normal/abnormal . Chloride (test code = 104 See_Comment Testin g Performed at [facility] 2074-0) [facility], [address], [place] [phone] [Automated mess age] The system which ge nerated this result tra nsmitted reference range : 98 - 107 mEq/L. The refe rence range was not u sed to interpret this result as normal/abnormal . CO2 (test code = 27 See_Comment Testing Per formed at [facility] 2028-05) [facility], [address], [place] [address] [Automated mess age] The system which ge nerated this result tra nsmitted reference range : 22 - 29 mEq/L. The refe rence range was not u sed to interpret this result as normal/abnormal . Anion Gap (test code = 9 See_Comment Testi ng Performed at [facility] 81316-8) [facility], [address], [place] [phone] [Automated mess age] The system which ge nerated this result tra nsmitted reference range : 4 - 14 mEq/L. The refe rence range was not u sed to interpret this result as normal/abnormal . [facility] [place] [id number] 15:09:20 Test Item Value Reference Range Interpretation Comments Sodium Lvl (test code = 140 See_Comment Test ing Performed at [facility] 2951-2) [facility] [facility], [address], [place] [address] [Automated mess age] The system which ge nerated this result tra nsmitted reference range : 136 - 145 mEq/L. The reference range was not u sed to interpret this result as normal/abnormal . Potassium Lvl (test 4.8 See_Comment Testing Performed at [facility] code = 2823-3) Lab Ambulator y Care [facility], [address], [place] [address] [Automated mess age] The system which ge nerated this result tra nsmitted reference range : 3.5 - 5.1 mEq/L. The reference range was not u sed to interpret this result as normal/abnormal . Chloride (test code = 104 See_Comment Testin g Performed at [facility] 5-0) Lab Benefits Consultant [facility], [address], [place] [address] [Automated mess age] The system which ge nerated this result tra nsmitted reference range : 98 - 107 mEq/L. The refe rence range was not u sed to interpret this result as normal/abnormal . CO2 (test code = 27 See_Comment Testing Per formed at [facility] 2028-05) Lab Benefits Consultant [facility], [address], [place] [address] [Automated mess age] The system which ge nerated this result tra nsmitted reference range : 22 - 29 mEq/L. The refe rence range was not u sed to interpret this result as normal/abnormal . Anion Gap (test code = 9 See_Comment Testi ng Performed at [facility] 26843-2) Lab Benefits Consultant [facility], [address], [place] [address] [Automated mess age] The system which ge nerated this result tra nsmitted reference range : 4 - 14 mEq/L. The refe rence range was not u sed to interpret this result as normal/abnormal . [facility].Serum Vlaqwldzcj6743-28-70 15:09:19 Test Item Value Reference Range Interpretation Comments Creatinine (test code 0.87 mg/dL 0.51-0.95 Testin g Performed at = 2160-0) [facility], [address], [place] [address] [facility].Serum Orvwbpsqyh6773-29-14 15:09:19 Test Item Value Reference Range Interpretation Comments Creatinine (test code 0.87 mg/dL 0.51-0.95 Testin g Performed at = 2160-0) [facility], [address], [place] [address] [facility] NprgztIQA4316-07-62 15:09:18 Test Item Value Reference Range Interpretation Comments BUN (test code = 23 mg/dL 6-23 Testing Per formed at [facility] 3094-0) Lab Benefits Consultant [facility], [address], [place] [address] [facility]20[facility]10 15:09:18 Test Item Value Reference Range Interpretation Comments BUN (test code = 23 mg/dL 6-23 Testing Per formed at [facility] 3094-0) Lab Benefits Consultant [facility], [address], [place] [address] [facility] Wvtwy7186-32-58 15:09:17 Test Item Value Reference Range Interpretation [...] risk for diabetes Te sting Performed at B Lab Benefits Consultant [facility], [address], [place], [place] [address] Lab Interpretation (test Abnormal code = 39166-0) [facility] Pnefa3716-28-99 15:09:17 Test Item Value Reference Range Interpretation [...] risk for diabetes Te sting Performed at [facility] Benefits Consultant [facility], [address], [place], [place] [address] Lab Interpretation (test Abnormal code = 85961-8) [facility] Xmyreppvxta6431-53-47 15:08:58 Test Item Value Reference Range Interpretation Comments Alk Phos (test code = 119 U/L 35-104 H Testin g Performed at [facility]) [facility] Lab [facility], [address], [address], [place] [address] Lab Interpretation (test Abnormal code = 27237-8) [facility] Bdotntnxnkx4408-97-03 15:08:58 Test Item Value Reference Range Interpretation Comments Alk Phos (test code = 119 U/L 35-104 H Testin g Performed at [facility]) [facility], [address], [place] [address] Lab Interpretation (test Abnormal code = 16942-9) [facility]ial2022-08-10 14:36:25 Test Item Value Reference Range Interpretation Comments Neutrophil % (test code 57.1 % 42.0-66.0 As p art of = 770-8) Differential performed at [facility]ant [facility], [address], [place] [address] Lymphocyte % (test code 35.3 % 24.0-44.0 = 736-9) Monocyte % (test code = 6.3 % 2.0-7.0 5905-5) Eosinophil % (test code 0.7 % 1.0-4.0 L = 713-8) Basophil % (test code = 0.2 % 0.0-1.0 50222-6) IGRE % (test code = 0.4 % 0.0-0.4 IGRE % c ount includes 68296-2) Metamyelocytes, Myelocytes, and Promyelocytes. As part of Differe ntial performed at [facility], [address], [place] [address] Neutrophil Abs (test 6.15 K/uL 1.70-7.30 code = 751-8) Lymphocyte Abs (test 3.81 K/uL 1.00-4.80 code = 731-0) Monocyte Abs (test code 0.68 K/uL 0.08-0.70 = 742-7) Eosinophil Abs (test 0.08 K/uL 0.04-0.40 code = 711-2) Basophil Abs (test code 0.02 K/uL 0.00-0.10 = 704-7) IG Abs (test code = 0.04 K/uL 0.00-0.04 49050-9) Lab Interpretation Abnormal (test code = 28230-8) [facility] Cancer LbzrxoZlqbdtgfypgu6110-22-51 14:36:25 Test Item Value Reference Range Interpretation Comments Neutrophil % (test code 57.1 % 42.0-66.0 As p art of = 770-8) Differential performed at [facility], [address], [place] [address] Lymphocyte % (test code 35.3 % 24.0-44.0 = 736-9) Monocyte % (test code = 6.3 % 2.0-7.0 5905-5) Eosinophil % (test code 0.7 % 1.0-4.0 L = 713-8) Basophil % (test code = 0.2 % 0.0-1.0 88921-9) IGRE % (test code = 0.4 % 0.0-0.4 IGRE % c ount includes 74495-1) Metamyelocytes, Myelocytes, and Promyelocytes. As part of Differe ntial performed at [facility], [address], [address], [place] [address] Neutrophil Abs (test 6.15 K/uL 1.70-7.30 code = 751-8) Lymphocyte Abs (test 3.81 K/uL 1.00-4.80 code = 731-0) Monocyte Abs (test code 0.68 K/uL 0.08-0.70 = 742-7) Eosinophil Abs (test 0.08 K/uL 0.04-0.40 code = 711-2) Basophil Abs (test code 0.02 K/uL 0.00-0.10 = 704-7) IG Abs (test code = 0.04 K/uL 0.00-0.04 74889-3) Lab Interpretation Abnormal (test code = 52391-0) [facility] Cancer [place].ZXN1256-33-80 14:36:20 Test Item Value Reference Range Interpretation [...] individual mart noe testing perform ed at [facility] Benefits Consultant [facility], [address], [address], [place], [place] [address] [Automated mess age] The system which ge nerated this result tra nsmitted reference range : 12.0 - 16.0 gm/dL. The reference range was not used to interpr et this result as normal/abnormal . Hct (test code = 45.4 % 37.0-47.0 As part of CBC or as an 4544-3) individual mart noe testing perform ed at [facility] Benefits Consultant [facility], [address], [address], [place], [place] [address] MCV (test code = [...] RDW-SD (test code = 41.7 fL 35.1-46.3 90045-0) RDW-CV (test code = 12.8 % 12.0-15.5 788-0) Platelet count (test 244 K/uL 140-440 As part of CBC or as an code = 777-3) individual sangita rodriguez testing perform ed at [facility] Care [facility], [address], [address], [place], [place] [address] MPV (test code = 8.9 fL 4.0-10.4 47693-8) INRBC (test code = 0.0 % See_Comment The INRBC (instrument 70336-7) NRBC) value ref lects the enumerationof n ucleated red blood cells contained in a 200uL sampleof whole blood analyzed by the instrument. Thi s value maydiffer from the NRBC value reported in a manual differential,wh ich is based on a 100 cell differential. A s part of CBC testing per formed at [facility], [place] [address] [Automate d message] The sy stem which generated this result transmit john reference range : <=0.0. The reference r sylwia was not used to int erpret this result as normal/abnormal . [facility] Cancer [place].IKG3869-84-13 14:36:20 Test Item Value Reference Range Interpretation [...] individual mart noe testing perform ed at [facility], [address] [place] [address], [address], [place], [place] [address] [Automated mess age] The system which ge nerated this result tra nsmitted reference range : 12.0 - 16.0 gm/dL. The reference range was not used to interpr et this result as normal/abnormal . Hct (test code = 45.4 % 37.0-47.0 As part of CBC or as an 4544-3) individual mart noe testing perform ed at [facility] Benefits Consultant [facility], [address], [address], [place] [address] MCV (test code = [...] RDW-SD (test code = 41.7 fL 35.1-46.3 18991-3) RDW-CV (test code = 12.8 % 12.0-15.5 788-0) Platelet count (test 244 K/uL 140-440 As part of CBC or as an code = 777-3) individual sangita rodriguez testing perform ed at [facility], [address], [address], [place] [address] MPV (test code = 8.9 fL 4.0-10.4 13843-9) INRBC (test code = 0.0 % <=0.0 The INRBC (instrument 82757-4) NRBC) value ref lects the enumerationof n ucleated red blood cells contained in a 200uL sampleof whole blood analyzed by the instrument. Thi s value maydiffer from the NRBC value reported in a manual differential,wh ich is based on a 100 cell differential. A s part of CBC testing per formed at [facility], [place] [address] [facility] CenterPathology Biopsy Interpretation 2022-03-08 17:05:01 Test Item Value Reference Range Interpretation Comments Addendum 1 (test code = i9jazPRrQKBuhPT7KAC 37) pMGSxf9vbi2NedQBeiD MmFGmvcJZpnuZkww52v VV7tX05YW0pULNzSmG1 OCImquB0Fls2EFYhNOH ikTHoH123b6ynj9camf OxjLR6tYcoPWQykkgjJ eW3THoyJBWnjrgcOEo4 DHdkPJMxxHA0XXQzgDW dL8JbHKCsBQ9hcfg4YM X1BBrsIVSbGlP2NWEry UEfCJIjyEnmDBnch637 RMD3RrPeVKLddoHetAl 0H2vskW98L2qtYITmIS DkXIgeSMRjRtBsDM1th V1blNqqqR4fqVFxcPLe bCBzdGFpbmluZyBpcyB qGHVik8FxGYJoaW6dr5 VyIGxhYiBvbiBhIHJlc NOia5QwxWS8tRDnDNXz cmFmZmluLWVtYmVkZGV dCMKaA2Efm27oBCHzsl ubkBP6LZhckU1fQDfpE 7FdJ4efJA4tWQohV52w d7nnFhf+NOVGD1LBOHT NLOARNV4AJQVbKA8zX3 jJLDcrPTBrOfabW0d0G R2wgtGyRNTbtwsePINr zCHbN1FcYQEuT6IldP5 yXHBhclxiMFxpXGZzMT QiFV07sCPbMBxgM8jjm zO4NEGMCGSeWTfutDGi JXvwFTGuGT6vpHHlebS gMTEgLSAxMDAlIExvdy SIo5XlhQh8SXYmBNFkY HvyRLCprJc3CmAdxCkg AZn7NRbvFVCzEaBiXTA 2ud6aIG4lBoFjUHK6u3 ZrAiZviWx1qemaVM1ej XRpdmVccGFyIEVzdHJv S1BgKZQhM9WtvG9jAMX djrPgxnSzC6PjpW8eiy t6PT52JYJidLNaPTKgl ZEfR8WaVPCtO4LgfX6x ULP8JJwygE6tMLdmbZA ed0j0oAzxC7Drw74aNB UcaedggIA5RIzibB1sX MycAkVIgs1iZSP1XUTt fzOjGpIgHEK7h4BmhLG yXGIwXGlcZnMxNiBBbn CcFu4kjKLqmY4xFUttU TYgKExlaWNhKVxwYXIg NM2hnMIvyxEgLPWyJMN xHADuIAmhcpJNv8UnlU a5EUMeOJVtKJojRRHcb Mn5XeIqmNrhBBy8IFfn VAAaJlVdVUAuS5NwaVA ve23uGTNiF2GjhQ8oII Abv4PozJA1NJAjz3w4c CRrZAFfrbXOnd1rPOC9 JNOxqkHlFuMmXKR9a1Z yKDBdV6MenTCNiUCuss luZzogMjAlXHBhciBQc g6jCCB0LURgpkCvXmYg YWV9z9ArH5ZcsS4bdcp eWP19ZI4nbAB0SkBKyT KkninfeTGqUJfqFzy4J KvdheK7FGdyASKop3Ha k7LhLDKnpcauzEI4Ife rdN39LdBju0EuOUYtLx SfjEunxmC0QMTrLFKfz QKssSPqqN0dovMkdNRn YGMnr4BbSIB6CSSrmS1 rhcndsYRgB34ps9UeHd ThHEUoUFAyP3JjenTtq CAil3MgfjFioyPzQse7 FOHioN3rXr4clHMqmH6 gTt3xGNU8GKbtXLA6QU LvkR71igMaYX1eYCglf mVyYWxseSBsZXNzIHRo CE5wKCiwiQ54kwEiPVD 9mDBpk1VbLJomkoFsjH hhdGlvbiBleGNlZWRzI IG5BEzvsLOcCF9aGBoo zPgtAOuhEWWjLGV0YJF lQB7xib4hzTYcZNfrCH MeEPWpzCKxzO2qhuDyP XMgYmVlbiBmaXhlZCBm t2LddQ9xG3AdJPTyNY6 tFkPibJ15bbTzRSBoni VnYXRpdmUgSGVyIDIga Q2svK1zjBokkO1ubUDh aWNhbCAoSUhDKSByZXN 5pINhoVS7OWPlTY5wBA NiS0ZouFdiccCnrjJwR A60LEUmRmVcb8CcwaAt YXRpdmUsIGFsdGhvdWd dNDZ6xSEdMPKwuIE9TV SjwY21nqR9hDX4QJZwY GLpiPNwwbUpTD1sEbSz Kho6NORgXg1xXZUpXUb rvhsjWBYcYuK6DOGayn X2iFTrn9M4QQHmEwHxg VybTsNEQPRys1RrfT3z ziruwhYfhTo3jw9bXYt xixOgi4LfNCCmCE7oW2 N4tYGkJLMym8DsrCUla B68oKAtZjDcczHuuQOp TTZpOsmzAZMwgZWck82 ynVE8XBZ9zhKnogMpmU Dhda3vdAn3HVMnKW9yv GVzIGlmIGFwcHJvcHJp RBMzKsNTBZHcrqAxX5O gQXJiZXIgZXQgYWwuIE SllAcmJGannKCyy0ysz 1VlZ9umeO3aTG6rOV8x fyLhGwZmXFbnZPE4MBM 4Eb0vYJJwTQGxrjQNMf T9oYSyq9CgG2ujYF1un 0XwYY7zeIZgfti5rFBo xIvfeYNnZ1Hig1VzSII 9WF1EBYMfCDOhf05oWY MgtxCyTF7otYt5lMQbq PUhrJifkBvtwqU7pL8p eaRzYVcpIdZrXn26nbZ grM0ihXxgEJHqS04trY OnsMnpIeSeVLLph3hhF 9eaqfOpm1Z8JjymJDLp GEvus7WrSVIzJIwdOYc fvaAovg58XBUmLT4idj FqpUFnmJErBE4eWRIwI 3HjO1ckhGXvKJVwd7K5 TNNuWW4lXlSkcVd8sfB ctI58pFPwPyGjkA56MJ XulyZ2YZUdk7i5mKEoR PQ3hB2wNInolhWkYXAr DYVenUuylHeah21iNM4 gRUQpiCFrLI7qL6S9tU HosQvzf60kIKJrJPsvt JUxNMYhy0VbB0plPB3n LlxwYXJccGFyZFxpMFx mczIwXHBhcn0= Submitted Clinical History u7khjJAvGTJin1faKRY (test code = 92321) mbGFuZzEwMzNcZnRuYm pcdWMxIHtccnRmMVxzc 8GmL5SaVuVcIWydztMj XGRlZmxhbmcxMDMzXGZ 0bmJqXHVjMVxkZWZmMH csQs2kdVZcgZbkPnQrP SCow5wmteWTokslqRw8 e3kaQGUiZkN8qJJrRHy aL2rrfkYrmPGcSRUkZL s0eP41JGGweL5knGQzP IhgvuBwSyL4LWikDDSm RiM0BYHckKWcEXArN0s yZWQwXGdyZWVuMFxibH QcTJM3mWxfq5J9pQMyw GVldHtcZjBcZnMyMiBO f0GcYFk0bCatZ7VfICH bYaO2vJFpGXJlHSfyKM IxSTOnefJ4lD67FSuwp dL2mCEfu6Uhg68by891 bE8boOTxEVI2MXXtZCH hvOYiYPLjFQB3JXJbbQ BnN1qvXONjPM6dopjvK BkcFOywUOAcwUC4JVYx pOTeA3RxOXBcYBxrXUA ofqb3YvIpFy6sjNXwbC ikGAefb8xpj1upgXBmO ob2GJXkHjCvCukoVEvx n4Flz2ibMVGibm2hCZT 7dMPhiQszh3V0cIIrAY TklSSmewRzMTAhIbF1E FllWQ7cke75TGJfQBP2 wa2xfSZwjSsbmtRimVF vBZcbB7SmFZDwq749ZC EoT9MoOCHnn0J1xjGyT kCeARNxnYC6jwN7DKCo ZKn4sREuzsX5vgCveXU iS8evbI7aFMXzOS4wgu opj7cjPMlkPPxnAELwv LK7ytB1QDKyhAKuR5Hy tE1vPEOzWUwoFKGrhhn 4WoRgXk6ijIEwnWxiSS xzYmtwYWdlXHBnbmNvb nRccGduZGVjXHBsYWlu XHBsYWluXGYwXGZzMjR pmBjvoCugzX9mQwRuRw SdTKywHY5tBURcH0ewo SBkWNEpZPHqB0dvJuCx wF8ijNlzFNmbvtXwFP8 rzE3kA7DzbEq5LLBlsf 3umBLyFTzJRPSnEV5rg XzjsI3lPlKoNnSqYyuj JV8aVGHqM6bkzZAvBKT kEKJnX8vdOlApaV2efJ swRQzldbRcZOAbgt84 Diagnosis (test code = 34) z6uvfZXkHTAmcFZ9HUW dCYBja1mhs4KyhDBssN LyQLsdqMMsvsAgit10h HH6cS25HP1sFAGbAwC7 FWYqqtV3Gep3ZHHvYZA baXZvN600l2wdd3sqaa NmcPX0tQxaXDGiwyufC pC7PWiwZWUqltmlRKw9 PJlgPCRioOG3TIMbfKE hN6LuDGBiRS3iklh7KO P5NQkvDWDpBcP3QLWba KTsXRVqwKxfBNrqa640 RHV8HnKkFNSbmxWphBn bnA8hJvYoQKFTWhJoFU ZqiOZseaUso2DwZJAeq JMfItwqVQRtt52mWAX8 WWE1TCBbHCNsC30wOgZ ndCUuyKDtmJDcHFF0ZE Fzo7BtK8BvXfXlb1RwE HMeb8HzeNqyeRSwGPGY X2DPMWSEETJLYO8NAME bAX1wC3kKUIFtLEAKXh ksIElOVEVSTUVESUFUR NLCNzOORGrpK68KGBHq VFlQRSBXSVRIIENFTlR ICPcjHzCFWf3LOTEyAM 9FRL1ZA5CBZ4YAT3rIG UNBVElPTlMuXGxpbmVc cGFyfQ== Comment (test code = 9835) w3qnvRYcAHFkgOS1WOF bNETno3noq6WapSZnbK CeJIhdgGVndcKfsr43t MU1lX36FN0sLWJoDyI7 VCSxitC0Qck6IRMaAUA tuMXmI803s4uun9rspz BpbRK7yJsxJLSriiraB qX0XFhlURBfulrrJDe4 OFanOERieJO0KARslVW qT3RaDGXjXF8dzue1ER V8DKupQDCeYjU6GJVbq BPhUWHftZprICetg319 BTU6ZjPxWKOawjFspLd ruL2mNwFcQKWJbANlkC DnI9RccFHeh2E4zfKoE jDGF8dGYQ4bEMR8prVh IGFwcHJveGltYXRlbHk tQkFxvEReywB2eBasXO VdohBqJsiawZO8WfMuN UFqn7NbvWNil0LqQVY9 nRJlSJHyu5xlgMUqMAT jPVHcd7DgSMYwBPBwya 0= Gross Description (test w1ewcQSwDVDraGQSSDd code = [id number]) wMVxhbnNpXHNwbHRwZ3 QhbzohMLokDD1oZV4bq IbzwRAfdZDhIV9WVCQi ZmYxXHBhcGVydzEyMjQ uUWHylZOgaVT9URZbOY 1hcmdsMTgwMFxtYXJnc vA9FAVgaHTwB6SuOMBs YQ5rjcjhMPI5GCljfT2 zjtBRFazrLv6yhYJuyJ tcZjFcZmNoYXJzZXQwX KRkfZsrKZCqVYt4uI6M VmlcG81qj9P0Ead6RXV uDDIeC2EaPN4bRCOrqR ErE63MExaqWCR4WPIMC ndkEHEtFU6Fb4odHCVz fDLeGBK9FDnypGWfUJG aGSLaXBn5QDKrEFjisJ OySO2aqVqcYnnigTvhc 2VjdCBcXGlkIDUxMDAy POgrCHIuVI6EUtHaNAP mYDlgScrgKBv3EDw1QE 9WUyAiICAgNTEwNTIxN lKjUDx5PXchNX3HVMEt NjIyOTkxNjggNTUyNjE yHBt8JGBmPDmgNDMshH FsIFxcZnMgMTAgXFxmY tHlGNNfZBxayuU1DTAv YWluXGJcZnMyMCBBOlx fIQReUJnvxZbyhN4aPO FbK85ts8PEo1GbBU2QS Qg4bySzgrmmcT5xBELe gcIiEPadhTRiZ4pjIbd jZjFcZnMyMCBCcmVhc3 QsIGxlZnQsIGxlZnQgY dJgYFQ5NBN6UA9sO8ai N4brRRRrzpr8KVUsTTN bOXObCUnyYdGdY6TgDR A9PIwmjSppun40LF1aB iplil9pUAE6bQBms9Cr dgTbBkA6rETmbQBaBKK hbmdpbmcgZnJvbSAxLj KoRr9rJHNuMTtsVTrxz ul8sCE2JLYlRfHtaQCi biBkaWFtZXRlcikuICA 7GH6bXIPhAFKmd3Iwhc GllcVqzgBrESe1PZTdg Z3cTNPwgK7kGLZwm5Ev yZEePtSCuZCgA36vPIX zDADnWKR3Nl4fhEFnBY VldmPqujXmeR6xoBekA QCpfHesBOOHZNOFMR5G SCHWZOV3LZJdBPAoHSO dnuMwNNZlh49gjJqoYG DxnqaiI7Elg9K5dBC1E EEyLUEzLCBlYWNoIGNh v5JwpTUkEHGfC97yVQI xXwCgcLY0oMAtlCffvm TuRMWuRFZ8PGahWSUpS D3kKZQcw7UcPvHnXhyB KVgnFGUgF00ta6MHv5K nBFAmg8wasEutn0VzoX VuZFxwYXJccGFyZFxzb Z0xJePon7tfpWo5YCmn crJ2UKCcrc0yvEylpZ2 tPEnvn7oiRBM2LDVpvV ChgWQuKSkmrEfhzZ7sH tZkQeo5ILfmLQQhT3Iv W3YhojF2KAPnSJcgKBU zMTYgDQp9 Biomarker Block(s) (test o4gjuSJuAZRsmDC1VHV code = 9841) sDLDdn4wau3CzfPYayH WaECctzRXqsvWeck53w HM1hN46JO5wNBScFmR6 XXYtwcU7Dqz9FGDvRFQ bnOTyW388e9eek6opxp WhwJT4wKwlSMSojiazF pS0IRjqUWMxffoeEFn5 EHmyTXIknQU2GJWtiZA sB6WrXZHcAS1mtqc0JA H7JYozSKLmTrM3ZEThn LLfYIVdyAqnGDpii542 IBA1JjOzHPCzitThdAj ksP9lAtLuLBQOLFldHI J9 Disclaimer (test code = q3qlzHQfBNYrsMEtQfN 9844) zXYNpTXIid7nsMBCjfJ FuZzEwMzNcZnRuYmpcd QJxOBBeKkHll0mur761 mIMgg7azGSMrSoS6vIY oVFGmbRLsI809BHSeIN ojd4ktg6AyZMVqrSWit 2R6NBSHfzjmoNb6dMff A28se5U1OhawG4igHYS bAQBcH2JqSW0jKNPoDj a9UYB0NLU5FQHhVZTwQ 1FlQL3pZDYdwSKqEQz3 c1vxjFtjXGHuVAQ3u4v tWFonwoRpQO5tnk9loL m3c6gzzaDySLCoBSSvs LIEUDVbS1WfqEadNl7s sDj9pFeeSjseRGG4Oqt 6VE8ntc66eux8vAdyKY JrwwurHwP1PMbsWPBxl hepODb5CKiyWBPswEG7 LCAegDAqA5LlZRPwHO2 avro1WKV9IMtfQQGxMq R6KXZokOCyXDSlrQxiL Tulc210WMF2RlDeZV5v O1Qnk9U7jU4fmRQzKQC obKNzOqJdLSPoko2ihH QoCLfos8GzECF6riO7i JYvuHLgYLKpPQ22Ncyz q4ExJnxiXSQ9JQOoihC ze5Tew7mrFgBucoBkW4 ujQ4FfNXYyJYOzFBWaN gUjcwWcn8Lps9IrbFNj wFu2o3gcNZRqJEMfsMw gf2ejYYF5WWUrK6Q6sW Rhd4gdEVfoSVYkpVV1t oU9SQFeaAAdR6DefV7b CFSyBW5igqy3q2mmLWU 4KDtlHGLlAbV6yyA8XY BcaGVhZGVyeTcyMFxmb 147CFZ7QaLoYQWzd4Qj Q1TunDmoZ00ssVtnG31 gUSZjxPsfcK8drOrpsE 5cZjBcZnMyNFxxbFxwb QUeywymESmaflT8LJsz znmdTHXwRAcrI7kbObM iOEPjmLkzCRcnc6LlKN EbTTMrKqjzxfT4WOMZt 24sJEKcp0CxDRJbpN1t zZCvEPoskjFdkGC5MCd hdmUgYmVlbiBkZXZlbG 1yIABvQE6zPOQgvfBap c5aypNgPBRqNTObB5Dg cmlzdGljcyBkZXRlcm1 mkdFpMEA4GSBKZI8YBV YjZTPmk69yMKYmoIpth A1nhXBgllFaVANhd1Wa oH5exVAFJDLjV3ivID7 qCMaqr8DszFJcsTRfpG Q9HGRpi7JrPoNnhsVem MDlzJXyS1JcvWxuO6qw TMLsACHeffOjmGMna5Q rAIIbuQQ3oZWySI1UNx EWy69iTRNnHTQLunDjN OTmqXnltQY8inJ4bS4g LiBJZiBhcHBsaWNhYmx sZGGhq197mx5vjtH5KG TaSISfngfvl2NjXVDoJ HKhpS79UPZxEZGpdg7c khfrjYDqdtZyX7Wmzlx 2sP4pFBEuFTlsISFlZV ZzMjJcbGFuZzEwMzNca GljaFxmMVxkYmNoXGYx IUdmX7jvIzZtUiAhWjb wYXJ9 [facility] Interpret[facility] 2022-03-08 17:05:01 Test Item Value Reference Range Interpretation Comments Addendum 1 (test code = [id number] 37) iRVPiv2jio0ImeNWbxO XuGCjizBUfmgOkmy85d AN0nO85GY4rUWMiCkE8 WFGdxjK3Aej4DTLiFSW ucGAkV665p5avk3wmzk MlfRT1cZsdHLDyxzuqQ pO4LWbwSVRtpeiqEUz0 BMguALLqvXK5JEUzwZW iE1KdWKBfHC5qvpg7CD O5XLbxBKOnEeC2TAAhb QLxEBItmRhmBUfcd609 OXW4EmPuTITiinPdvFm 4R7xnlZ96G8qaUXUhQO DiRCzhPJIpFnVzCO9nv V4ruRjaeH4mbJDjgARt bCBzdGFpbmluZyBpcyB jEYQnb1YlHSCpdJ2hy9 VyIGxhYiBvbiBhIHJlc TXct1RvcCN0iHWvAXWr cmFmZmluLWVtYmVkZGV yMTDkD1Szf04wRSSxkk zwtPJ6ORdmcS8cISwmD 7RuN1fuTC2bSTlmB82o i7oxGew+DEXCC1TIDXI KMDDYWE4TPNEsTC4cU1 oCAZmxUOJtSegrW9u1B P7vqjQrRHJsaojnQBDr rINeP9AwCHKtR7DwkZ0 yXHBhclxiMFxpXGZzMT OfAZ38aTBcPDitE5tkt mQ3KFEKPBBvUZiqiFCr OVcwVHSwSL0geSCtxnG gMTEgLSAxMDAlIExvdy JNj5VfsAc8UMCbBFBgA VijLKFbxCa6TfQwjXyo XLn3EBrxSXQdJlJyREH 7zx9jWY7fBcArBBB1m5 FzVtDyxFy3kshjII1vv XRpdmVccGFyIEVzdHJv J7KbGPVqX5ObqZ7oSHE nicOjxeJyF0XfrT0xyf x1ZF28NMRmmNVeRNMnx LXvH1NdQBAkN1OkdF4r UXL5DIzfaY5mMSczqVI bl9u9nOyuQ0Htw53sLK UzyruxgGS7BVsvuF0wD WooLeDGux6kRKA1YHBo ijYxKuHqXNR6u5CzdNL yXGIwXGlcZnMxNiBBbn PoTi3xoAVugN7hHDnmC TYgKExlaWNhKVxwYXIg AO0mrZBvklYeKDIdSRR xTHGiJBuqnsWPs6PqxH s3FMPuEIJbBXauWQYdk Wq0QiEduTliRVe1ZQqr LNWtMqOyFHEuA9NtrJF cc02rHNMgV6QhuP9jWB Raj8RezUR6SXUrn5e9n AXmGBOfbgNXus2xKVO5 PGSepvAwVbKoLNV0d9X yKDXiI9CfqJXRsYGxit luZzogMjAlXHBhciBQc x6wNJT6LOAyywNwSyMj FFM1h3VkZ7XmtE3fjwe xUP63YA6jhJY5TaETpG RdhfpneYXjRNidNgz8R IkbeeY9NKsqLBOzz8Wa n7VuFPSqgdnzbKX0Ztd pzV80DfOsn6XnHCTsYi JjrThzjwN1OOVfKXEbf NLtuWSwfS6wapKbgFXy IOXpn8TnLGK1ZFOksN0 nioqamSRzG46te2PfAk KuZPTeHAYuV2YrqqOxx ZRgb0FweeZpjfJbNia5 VKFndM2rVh2czGMtyT5 yQu6eUAA5HMmeDVC5GA CaaY44jxNvLD9vOIsax mVyYWxseSBsZXNzIHRo PL7pAGkarR89sqCkEYK 3gVAcc4EwSYnmabGtzF hhdGlvbiBleGNlZWRzI AC4CDqdtAUwIF7eEHis hZgzLDkrVKMjEOZ5MYJ oNK9fup0siPVaBRpzYP RuTAGurYYgaD8vafYvC XMgYmVlbiBmaXhlZCBm b3AdyO0aY7KsFGPiBP2 qBeBxlD61mcKrINSnly VnYXRpdmUgSGVyIDIga M7vuI6dtFlgvF1tkAWp aWNhbCAoSUhDKSByZXN 8qUKwwXM8ODHaWO6yPE NwG9LnbVwnynAvhvOdN Q35OLCwFjShb7TiegUs YXRpdmUsIGFsdGhvdWd kLJH1uMAdPCUijTY0RY LojG76wiV1jHR5FOHwZ SWrtZJaliYwOV1pSsEm Vwb3XVWdVw8lNMWhGXi ihaxsLIEmTeM2FFQwbs T5gEGfa7V4SNIaKnCdb JbaCzCWZXWfj0ZjmC0u jzikblXorQt3rs7bNYh lkgOhn4YsJJNbFP0gQ0 F9cBByLBIgp3RcxGDyq R74qJDcVsQcjjBzbBDo PYUdLjswNYNfsNMst34 jcKW8NAP3siPmjrSfbH Fbhn9dsUc0JKFvXC0iz GVzIGlmIGFwcHJvcHJp XERpRzHFWFXsmvZiZ8S gQXJiZXIgZXQgYWwuIE TieRshHXkrgUAdk8ygw 9VtL1xppF3yQF1kSY5a thJjIqKdNLrgTSB6KOK 6En4rRXTzHMJaacDKBb M8sKYdo8SwA8ccRL8rw 0InDC9dzFSftuf0iKQo kLfvpTXkJ6Aje6YaFQW 4CW1BWIPpWDDnb62zBL VjfvMkFK8qjVm6tAYjz BRkbHrfbPsgkeN7kA8t opDnTPdpMbVgOq33fnQ usF8tdCpjUXCnD64cgM AniEohVxOeRINqf0aqB 3wtbtVkx5F3YlbvTEYo SJelt0YtGZMkPUgmKQy pwgUhzg98OVLoLA4puf OegIIaiOYvCP2oPXFkE 8VlL0pvkHHnNMSfy1T2 NSVbCP3dYnCkiLb5bhF rhF17oVUfJdXjoC34DN TwxpV9KMXyz2f5kAJhT VC8oM2fLXpwqfNhULFh VZBhdPcppDuip21eQK0 nCSFtuBZeJS1mP0S7gA QenOovn95hJIBdSOrul IJdHFZpz8HuE2nwMI3p LlxwYXJccGFyZFxpMFx mczIwXHBhcn0= Submitted Clinical History m6hnnBHrYALtc7soIDM (test code = 20805) mbGFuZzEwMzNcZnRuYm pcdWMxIHtccnRmMVxzc 7UhL6LsJiOkPOxwxgCg XGRlZmxhbmcxMDMzXGZ 0bmJqXHVjMVxkZWZmMH zsKu9sdWYxyItjLpOsX VHwi9vtwyURwcrsbEi7 y5tpFYFzEpV2zNXdRRp mO2gcofJncNSnECBlNV c5zO70SVKomH5bqXEjA QhnomIwKzB5GQqmHQWc XpP8WCJgpFWcDASxZ8h yZWQwXGdyZWVuMFxibH DsFWH7fTobt7O9vVDck GVldHtcZjBcZnMyMiBO p6AgXEv5iOtaC8YoJIW gCpF0xMQdXLRuXKvgXB HkHCDkwgV8wN22LUlzw eW3wGWdl9Dxw43eq324 mB1teBAkWEC8NULvQXW obDYoYXQoABN9BECweR BfP5mxZMMsWT1iyqglV LizYEyuADSvyRL4EQXx bOPtU1OnHRRwUDvjKBQ xfzp3JfRdUy6akPJsjJ znLDfwo7alf1msoJXoY dy9PXRjEnJuJekjOYmt v5Voj2mmRKWmzl7aSHD 5qKQcdXwgc4T1tBUzOO OwgUOwhdLrTIKyXkL4A MlbOG7syx35FLJjUOF3 ju1usFBybWxeldBowMA lTMijV5OsWWZtb557ZB FwN9KfBTYfv4G3rgGgT kSnCOGdyZR5ixF5HOEg EHb2uEHtcoD6unTaqSE fH6zmkP5kJVJqYG0lxf pps2zqUYvlYWiaOZBdy CI4hhA5NBLbxBXjU3Fh xZ1uBVBeSFupRFZfgji 9VcVnEh9cyGEoaLkoBB xzYmtwYWdlXHBnbmNvb nRccGduZGVjXHBsYWlu XHBsYWluXGYwXGZzMjR zhRctuKzaqH5rQjSgAz ElGVydBY1gSXRhV8yed LTqFZPfRZXgQ9fqZiBz mW6ceNxnVBpmqiWnBR9 qxR7xB1DgsDa9NZRbar 3yvXUeJGkKDSEqCG8bi QwaoV7tOsNzZfDtVkeq NW8qSORtS6hiwTTtEVY nUPPxT2seCmIyiS7rlY wtMBrhusOxIRZcwt13 Diagnosis (test code = 34) e9zenRHdQBSvvCK1GNF yCVZqg6mxa0LmbAQpbU ZyRJivgHRzxoQcry82c JO1zZ35DR0eWPDiYcV1 NNKqipG6Qmn7PHPfHYN muMHeY107g9qvi2vhly UcvJL9rEifIMFkavlzK sX7KAjoZLQnapnrJIl2 RFqmXFZocKV1UUTamOD hN2GkXOWgWD5wzrl7YX V6VMjxMYIrLpZ8XDOap OToHTLikLowTYbwk659 JYE6DzBjNXQmjvLrmMq pfQ7rTwOkMYCGOwTlVG WyuKEbkgXlb0YzDSTrc DHcOwcpHZCbx73bFBN8 CYG8VITwHFDiF90rOeU cwITtpORscFQpTIC5KU Oqy3FwO9GuRkOsc6VwY BIoq1BuqLkxlRXsGPYQ A8UIVJWASQXUWZ5KXPW iFI8pP3vCDKJdIFHZTd ksIElOVEVSTUVESUFUR LWMMwENKFntW17XOICx VFlQRSBXSVRIIENFTlR FBBfzBhSSRn5PUGIdHP 8DQW7IX1PHM0QEO4jEB UNBVElPTlMuXGxpbmVc cGFyfQ== Comment (test code = 9835) s5mmuODlAPZolAG9LIB lZEDdh2tac8CrvWItuU VoQHyqmOFoldWwnu54y YI3sZ33FP8xHMGjRcQ2 DDXqynH2Wtr5ANZgXLR scTYfC225u8udp0sogw QtoVQ9sHgqTYLvbejtN mJ6ZBxuXZGlvnidUQj1 YGneVCSmzZH9VAExeSA dQ4BiFHCmHZ0mmgp9BX L8TKxlTMGyUsW4OLAwf RGwFBOtxOlvRXljw244 XNN3OyFvWYMvkcAcpPs blF5eUfQjUETMgZDavI YkZ5JpqZFnb5G1apGeA nRVZ8lIVM1fLXY3yhYi IGFwcHJveGltYXRlbHk kIzRgvLOmhyQ3uRxrGX PlwvBdQdbnaHH3HoPiY NFuv0OjhRFcq4MwPNN3 zIIbBVWtq6vouQAcBAE gZXMet3HzXWOqRQKlmx 0= Gross Description (test f9fgbMNlRANvoOJHVOb code = [id number]) wMVxhbnNpXHNwbHRwZ3 VsmazkZDapUS8sEA2jn XnwuAGglAReSB2MPXId ZmYxXHBhcGVydzEyMjQ qCDIjpXOrtAH4PVKoXK 1hcmdsMTgwMFxtYXJnc wI2AVYmvAUhI9WlKZIv CV4tdmqjXZH9QCfwjC3 vzyXLPtmeDz1ypDGgaX tcZjFcZmNoYXJzZXQwX XSdjJztSRNqPVz1jG3B PfsdU50vd0J6Ktz7ZIR rOEHgH0RgND1bVBZolJ ZnP47FKntqLTZ6QYYTL ryoEYPvPK2Ap7uxODXc pKYqJKN6BYekyRAwCIN gEVJeRHx6ZSWyAPfwsB SmXH2ijUccKxyfbCopo 2VjdCBcXGlkIDUxMDAy PLwfXQOyHV7ZQeZfXRC vXCquDwlyBTn9XLi9YF 9WUyAiICAgNTEwNTIxN gQdWAp7JQesMY4RJOQm NjIyOTkxNjggNTUyNjE pNLz2IAZqLKfsUUBioS FsIFxcZnMgMTAgXFxmY uByNFUuPRoapoN9KKTv YWluXGJcZnMyMCBBOlx xXYZxZAykfHklkS2iVA WpU92li6KTx5HyBG4HP St9vjFtbgzkaS4uVYXl lkGeCHuurREcG6veWcg jZjFcZnMyMCBCcmVhc3 QsIGxlZnQsIGxlZnQgY cPiRAW6CVJ6EH0xC0kb K0pbRPOrncl8KFWjITG qTRNnLIweRiGaN7WnSV Y9NTlttTzatg54PY9hY hvaln5fGUH1lSAag5Hk roEgSrU1iLSwlWWsYFL hbmdpbmcgZnJvbSAxLj NqPp0gYGQyGHziIPsww rx9iGE3ZWGeLsIihSGf biBkaWFtZXRlcikuICA 6BA3kRHXlHFGhm0Husi YutvOjveVoFPi3MZUzy S4nCAIubB0xGAEdo3Be tNEkOzLAdPNdH21cLUJ rXJMkWRY6Do2grUNkCJ KdmsGabaHcpT4zgScyC HIhvFjvPPDMNVCYGI8N UWGGEJN5JUVmXTIsFJH fuvIyNNQpf92qjAskGX LbidmeV5Jwq6L4xMT1O EEyLUEzLCBlYWNoIGNh g1ZfgMYhWFZkS95fWHQ uTyYnvID1lXVorCgdhc OgGIHkQID6RPdsTYFjU O8zVNCve1ImEoVqOdfE ERmpVBFnE39ep3UAg0A qZCDec9zanHhle5LvnQ VuZFxwYXJccGFyZFxzb Z0nKdCuu9oalMj8WRhp rxP5LXXvdl5hfJcpcF0 aFXpxw1ncAQB4UERsfI DviMQxXZdmoGjhoZ5dW hTiNnw0JQkqIBMiN2Qn X5OofjK4FZVrCNmlOZQ zMTYgDQp9 Biomarker Block(s) (test u0qykMOaDOOcxSG7AJY code = 9841) nIUVqt9blj7GbdDPhyN QgMNqvzXYdgeBvrv97g WJ2qI70GI8uLBIbInT8 ZJOpccE0Pwd5MEVtXAX zuEVrR528r6sna5dnqn UosOD0gLxpVDDzastxU mM8RThoHFPhldfgETd5 FFewOTUpiWT5RAUxpEK jF9UwWJVrRJ5nqad7HH Q7HRpgKAIyFbW8SVYyw FDvCEBhiIadTBkob320 UWU7EpXgZOIkvoCspPs itN8kKlKwYRXFISlxCW J9 Disclaimer (test code = a2rglFQwACPwqUBzFoQ 9844) gRNGyWUAiz3opPVRfsH FuZzEwMzNcZnRuYmpcd QFuTQVwLsLmu3qpp663 pGPjs0tqGFDoEdY6lEV kKUAbbTHvG976WNGhDC lad6gim4NjPAIaeXXth 9C0TUEObvtxrLb8iEgi V74jp6N3DfmsN9uxWCZ wPOCpM9CcBV1uSZYzOg i8PCQ9DRU4TDQmKPKoD 8RvTI8rXMEypMSoLKv6 n9ezkJgeEHEvFQR6n6g wCBdsfpNwWX3sgo6zfV k6z7icwdHjKETaMVIeq PLJRQObU5IdeUtrQw5i eYq7sEinOhtnQUG2Pca 9BK1tkf90utw7tTeqXF NjrzniMoR7AMxcOWJnd lbvNWg7EPefFWNkvYZ7 BYPoxQBuK5TjNKWnIJ0 lsij4LQC9OGvkUWGbFj Y9OSXeuQKnIMSvrZfcF Apgf441RLA5MoJpNP1j T6Mvh0E5fM1uhSQxEOD pkWOwDvOgWAEzus9haD HzZEgvn8PnIUH3nlY7n YRriJMdBZLlMJ76Bvdu o3IcAgwsUAF6PKXrgwT ac9Vex4rmVfPrpwOnP6 uxK3TcFJMlFBTlOJXdN gNzcmDgi1Dvv9SorBPn qPd1p6wtMRMcQOHdbAi zk1ddBLK7DMTqJ4D4xO Taq0lqHUgqKHYcyXG4q vY1FKPrcVNtZ6WbnX0y BLGcVS8hzje0u5krVGV 0MVygKJTrKfE7meR6PU BcaGVhZGVyeTcyMFxmb 496RDW8HxWcLEZea7Wz R4BfsOnuJ08aoJpkD81 jUYBvbBkhnV8rcRgbbF 5cZjBcZnMyNFxxbFxwb NCagefePQoqjoK2SYzy elmsBFFkTPgdF3gqKjD wQQSqwEnnVGhnf2VuYI CjBWQlVwwcmvZ4ORLQp 34oQYMyy8MuONVjvS7u wTLdULcrcdKdnSN6FJt hdmUgYmVlbiBkZXZlbG 9pXRMtNV1gOJKkciBtp c4tzkFwIMYzFWOrP8Xw cmlzdGljcyBkZXRlcm1 ccnDwZCE3YSEGLI1SCQ XbZPSjo61vZBQoyMmuu Q1awDXuxoImDKIlt7Ie bM8oaXASHPUqT1yoMP5 iFPzvp0WqfLItbCLtiM A1OFSdv6RgFvSrjlKau BCltWVrN2AxlOjvO3tj BIUnJNCkqjXoeEKsn6X sECLeuPK0aYRpMX6NJr JBe00rXKYhOBLEikVkE TAxuMqzvCK0nyO4eH5e LiBJZiBhcHBsaWNhYmx fNQZvr887vt9npkA6AJ UiCHRxvzfuq3SxMOZxD MVybO75FPVoZOUxum2o dqkcqJSqtjXaO3Yhwzx 7fE7rJFZtEBziBKDeIA ZzMjJcbGFuZzEwMzNca GljaFxmMVxkYmNoXGYx SNyrI4qqNtZyVySpUbn wYXJ9 [facility] [place] Digital Diagnostic [id number] 19:20:33 Test Item Value Reference Range Interpretation Comments Radiology Study observation (narrative) (test code = 98362-9) IMP (test code = IMP) Calcifications in [...] Abnormality Lab Interpretation Abnormal (test code = 56101-8) [facility] [place]
[2023-08-07 13:46] LABS: Absolute Lymphocytes (CBC) 2.4 K/uL (0.7-4.9); Hematocrit 42.7 % (36.0-45.0); Lymphocytes % 24.6 % (15.3-44.8); MCV 86.2 fL (80-100); MPV 6.8 fL (7.6-11.3); Platelets 264 thou/uL (152-406); RBC Red Blood Cell Count 4.96 M/uL (3.86-4.86)
[2023-08-07 13:56] LABS: Protime INR 0.97
--- NOTE | 2023-08-07 14:01 | RAD REPORT ---
EXAM DESCRIPTION: RAD - Chest Single View - 08/07/2023 1:53 pm CLINICAL HISTORY: CHEST PAIN Chest pain. COMPARISON: <Comparisons> FINDINGS: Portable technique limits examination quality. The lungs are emphysematous but grossly clear. Mild linear opacities are present left lung base later ally likely atelectasis. The heart is normal in size. No displaced fractures. IMPRESSION: Mild diffuse COPD.
[2023-08-07 14:04] LABS: Magnesium 2.2 mg/dL (1.6-2.4); Potassium 4.1 mEq/L (3.5-5.1); Troponin High Sensitivity 5.5 pg/mL (<58.9)
--- NOTE | 2023-08-07 16:49 | ER ---
Nurse's Notes [facility] Name: Vianney Cody Age: 67 yrs Sex: Female : 1955 Arrival Date: 08/07/2023 Time: 13:21 Bed 14 Private MD: Diagnosis: Chest pain, unspecified Presentation: 08/07 13:32 Chief complaint: Palpitations x 2 weeks, left sided chest pressure since this morning. hb Coronavirus screen: At this time, the client does not indicate any symptoms associated with coronavirus-19. Ebola Screen: No symptoms or risks identified at this time. Initial Sepsis Screen: Does the patient meet any 2 criteria? No. Patient's initial sepsis screen is negative. Does the patient have a suspected source of infection? No. Patient's initial sepsis screen is negative. Risk Assessment: Do you want to hurt yourself or someone else? Patient reports no desire to harm self or others. Onset of symptoms was August 07, 2023. 13:32 Method Of Arrival: Ambulatory hb 13:32 Acuity: IRVING 3 hb Historical: - Allergies: 13:34 Codeine; hb 13:34 Morphine; hb 13:34 Peoa; hb 13:34 tramadol; hb - PMHx: 13:34 breast cancer; Hypercholesterolemia; Hypertensive disorder; hb - PSHx: 13:34 Left Mastectomy; hb - Immunization history:: Adult Immunizations up to date. - Social history:: Smoking status: Patient denies any tobacco usage or history of. Screenin:30 [facility] ED Fall Risk Assessment (Adult) History of falling in the last 3 months, ko1 including since admission No falls in past 3 months (0 pts) Confusion or Disorientation No (0 pts) Intoxicated or Sedated No (0 pts) Impaired Gait No (0 pts) Mobility Assist Device Used No (0 pt) Altered Elimination No (0 pt) Score/Fall Risk Level 0 - 2 = Low Risk Oriented to surroundings, Maintained a safe environment, Educated pt \T\ family on fall prevention, incl call for assistance when getting out of bed, Assessed \T\ reinforced patient's understanding of fall precautions, Provided non-skid footwear, Hourly rounding (assess needs \T\ fall precautionary measures) done, Used ambulatory aids as needed (educated on \T\ assisted with), Used gait belt as appropriate. Abuse screen: Denies threats or abuse. Denies injuries from another. Nutritional screening: No deficits noted. Tuberculosis screening: No symptoms or risk factors identified. Assessment: 13:30 General: Appears in no apparent distress. Behavior is cooperative, appropriate for age. ko1 Pain: Pain does not radiate. Pain began suddenly. Neuro: No deficits noted. Cardiovascular: Reports chest pain. Respiratory: No deficits noted. GI: No deficits noted. : No deficits noted. EENT: No deficits noted. Derm: No deficits noted. Musculoskeletal: No deficits noted. Vital Signs: 13:30 BP 162 / 76; Pulse 69; Resp 16; Pulse Ox 96% ; ko1 13:32 BP 160 / 85; Pulse 76; Resp 20; Temp 98.1; Pulse Ox 100% on R/A; Weight 134.72 kg (R); hb Height 5 ft. 5 in. ; Pain 3/10; 13:45 BP 142 / 58; Pulse 70; Resp 16; Pulse Ox 96% ; ko1 14:00 BP 148 / 79; Pulse 70; Resp 16; Pulse Ox 95% ; ko1 14:30 BP 136 / 53; Pulse 74; Resp 18; Pulse Ox 95% ; ko1 17:00 BP 154 / 62; Pulse 78; Resp 16; Pulse Ox 94% ; ko1 13:32 Body Mass Index 49.42 (134.72 kg, 165.1 cm) hb 13:32 Pain Scale: Adult hb ED Course: 13:23 Patient arrived in ED. rg4 13:23 Fide Whitman FNP-C [facility]. kb 13:23 Jorge Baig MD is Attending Physician. kb 13:25 Laura Luz, SHERRIE is Primary Nurse. ko1 13:30 Inserted saline lock: 20 gauge in right antecubital area, using aseptic technique. ko1 Blood collected. Patient maintains SpO2 saturation greater than 95% on room air. 13:30 Patient has correct armband on for positive identification. Allergy band placed. Placed ko1 in gown. Bed in low position. Call light in reach. Side rails up X2. Client placed on continuous cardiac and pulse oximetry monitoring. NIBP monitoring applied. arresting gear operator on. Door closed. Noise minimized. Warm blanket given. 13:33 Triage completed. hb 13:41 Basic Metabolic Panel Sent. ko1 13:41 CBC with Diff Sent. ko1 13:41 Magnesium Sent. ko1 13:41 NT PRO-BNP Sent. ko1 13:41 PT-INR Sent. ko1 13:41 Troponin HS Sent. ko1 13:55 XRAY Chest (1 view) In Process Unspecified. EDMS 16:34 Troponin HS Sent. ko1 17:00 No provider procedures requiring assistance completed. intact, bleeding controlled, No ko1 redness/swelling at site. Pressure dressing applied. 17:00 Provided Education on: na. ko1 Administered Medications: No medications were administered Medication: 17:00 VIS not applicable for this client. ko1 Outcome: 16:49 Discharge ordered by . sanjay 17:00 Discharged to home ambulatory, with family, ko1 17:00 Condition: improved 17:00 Discharge instructions given to patient, family, Instructed on discharge instructions, follow up and referral plans. Demonstrated understanding of instructions, follow-up care, 17:23 Patient left the ED. ko1 Signatures: Dispatcher [employer] EDNE Fide Whitman, PETROGRAPHER-C PETROGRAPHER-CkMena Greer, RN RN Yandy Palomino rg4 Laura Luz RN RN ko1
--- NOTE | 2023-08-07 16:49 | EDPHYS ---
Physician Documentation [facility] Name: Vianney Cody Age: 67 yrs Sex: Female : 1955 Arrival Date: 08/07/2023 Time: 13:21 Bed 14 Private MD: ED Physician Jorge Baig HPI: 08/07 13:41 This 67 yrs old Female presents to ER via Ambulatory with complaints of Chest Pain. kb 13:42 Patient is a 67-year-old female with history of high cholesterol, hypertension and kb breast cancer who presents for chest tightness that began yesterday. States she has had some fluttering in her chest for a few weeks and has been wearing a Holter monitor for the last week. States yesterday is when the sensation change from fluttering to tightness. Denies shortness of breath. Pain is to left side of chest without radiation. Historical: - Allergies: 13:34 Codeine; hb 13:34 Morphine; hb 13:34 Michael; hb 13:34 tramadol; hb - PMHx: 13:34 breast cancer; Hypercholesterolemia; Hypertensive disorder; hb - PSHx: 13:34 Left Mastectomy; hb - Immunization history:: Adult Immunizations up to date. - Social history:: Smoking status: Patient denies any tobacco usage or history of. ROS: 13:43 Constitutional: Negative for fever, chills, and weight loss, kb 13:43 Cardiovascular: Positive for chest pain, Negative for edema, orthopnea, palpitations, paroxysmal nocturnal dyspnea, 13:43 All other systems are negative, Exam: 16:48 Constitutional: This is a well developed, well nourished patient who is awake, alert, kb and in no acute distress. Head/Face: Normocephalic, atraumatic. ENT: Moist Mucous membranes Cardiovascular: Regular rate Respiratory: Respirations even and unlabored. No increased work of breathing. Talking in full sentences Abdomen/GI: Soft, non-tender. No distention Skin: Warm, dry with normal turgor. Normal color. MS/ Extremity: Pulses equal, no cyanosis. Neurovascular intact. Full, normal range of motion. Neuro: Awake and alert, GCS 15, oriented to person, place, time, and situation. Moves all extremities. Normal gait. Vital Signs: 13:30 BP 162 / 76; Pulse 69; Resp 16; Pulse Ox 96% ; ko1 13:32 BP 160 / 85; Pulse 76; Resp 20; Temp 98.1; Pulse Ox 100% on R/A; Weight 134.72 kg (R); hb Height 5 ft. 5 in. ; Pain 3/10; 13:45 BP 142 / 58; Pulse 70; Resp 16; Pulse Ox 96% ; ko1 14:00 BP 148 / 79; Pulse 70; Resp 16; Pulse Ox 95% ; ko1 14:30 BP 136 / 53; Pulse 74; Resp 18; Pulse Ox 95% ; ko1 17:00 BP 154 / 62; Pulse 78; Resp 16; Pulse Ox 94% ; ko1 13:32 Body Mass Index 49.42 (134.72 kg, 165.1 cm) hb 13:32 Pain Scale: Adult hb MDM: 13:24 Patient medically screened. kb 16:47 Differential diagnosis: abnormal EKG, acute myocardial infarction, anxiety, coronary kb artery disease chest wall pain. Data reviewed: vital signs, nurses notes. Consideration of Admission/Observation Escalation of care including admission/observation considered. admission considered for chest pain, but HEART score 3, serial troponin normal and decreasing. . Counseling: I had a detailed discussion with the patient and/or guardian regarding the historical points, exam findings, and any diagnostic results supporting the discharge/admit diagnosis, lab results, radiology results, the need for outpatient follow up, a family practitioner, to return to the emergency department if symptoms worsen or persist or if there are any questions or concerns that arise at home. 08/07 13:29 Order name: Basic Metabolic Panel; Complete Time: 14:11 kb 08/07 13:29 Order name: CBC with Diff; Complete Time: 13:54 kb 08/07 13:29 Order name: Magnesium; Complete Time: 14:11 kb 08/07 13:29 Order name: NT PRO-BNP; Complete Time: 14:11 kb 08/07 13:29 Order name: PT-INR; Complete Time: 13:57 kb 08/07 13:29 Order name: Troponin HS; Complete Time: 14:11 kb 08/07 15:58 Order name: Troponin HS; Complete Time: 16:47 kb 08/07 13:29 Order name: XRAY Chest (1 view); Complete Time: 14:02 kb 08/07 13:29 Order name: EKG; Complete Time: 13:30 kb 08/07 13:29 Order name: Cardiac monitoring; Complete Time: 13:31 kb 08/07 13:29 Order name: EKG - Nurse/Tech; Complete Time: 13:31 kb 08/07 13:29 Order name: IV Saline Lock; Complete Time: 13:41 kb 08/07 13:29 Order name: Labs collected and sent; Complete Time: 13:41 kb 08/07 13:29 Order name: O2 Per Protocol; Complete Time: 13:31 kb 08/07 13:29 Order name: O2 Sat Monitoring; Complete Time: 13:31 kb Administered Medications: No medications were administered Disposition: 17:36 Co-signature as Attending Physician, Jorge Baig MD I reviewed the patient's care rn provided by the Advanced Practice Provider and agree with the diagnosis and treatment plan. Disposition Summary: 08/07/23 16:49 Discharge Ordered Notes: Location: Home kb Condition: Stable kb Diagnosis - Chest pain, unspecified kb Followup: kb - With: Emergency Department - When: As needed - Reason: Worsening of condition Followup: kb - With: Private Physician - When: 2 - 3 days - Reason: Recheck today's complaints, Continuance of care, Re-evaluation by your physician Discharge Instructions: - Discharge Summary Sheet kb - Nonspecific Chest Pain, Adult, [id number] kb Forms: - Medication Reconciliation Form kb - Thank You Letter kb - Antibiotic Education kb - Prescription Opioid Use kb - Patient Portal Instructions kb - Leadership Thank You Letter kb Signatures: Dispatcher [employer] Fide Toro, RAILCAR FOREMAN-C RAILCAR FOREMAN-Fanb Jorge Baig MD MD rn Baxter, Heather, RN RN hb Oliver, Kathy, RN RN ko1
[2023-08-07 17:47] VITALS: TEMP 98.1
[2023-08-07 18:01] VITALS: BP 154/62; O2SAT 94
--- NOTE | 2023-08-09 17:29 | EKG ---
Test Date: 2023-08-07 Test Time: 13:30:42 Biazzi Nitrator Operator: ALP MEASUREMENT RESULTS: Intervals: Rate: 73 [place]: 160 QRSD: 98 QT: 406 QTc: 447 [place]: P: 42 [place]: 160 QRS: -8 T: 27 INTERPRETIVE STATEMENTS: Normal sinus rhythm Inferior infarct, age undetermined Abnormal ECG Compared to ECG 11/15/2022 15:36:34 Myocardial infarct finding now present Electronically Signed On 08-09-23 17:23:11 PURCHASING OFFICER by Masoud Crawford
== END 2023-08-07 17:23 | disposition home or self-care (01) ==
LOC: ER 13:21
DX: R07.89 Other chest pain (principal); I10 Essential (primary) hypertension; Z88.5 Allergy status to narcotic agent
CPT/HCPCS: 36415; 71045; 80048; 83735; 83880; 84484; 85025; 85610; 93005; 99285